=== PATIENT | female | born 1950 | race Caucasian/White ===

== ENCOUNTER → 2018-03-09 | Outpatient (CLI) | payer MEDICARE, OTHER, MEDICAID ==
[~2018-03-09] MED LIST: AC500T; ALBU17AE23; [UNRECOGNIZED DRUG - CODE]; [UNRECOGNIZED DRUG - CODE] PO; z-pack
--- NOTE | 2018-03-09 13:40 | Diagnostic Imaging Report ---
PROCEDURE: US Bilateral lower extremity arterial. TECHNIQUE: Multiple real-time grayscale images are obtained through both lower extremity arterial systems with color Doppler imaging and color Doppler spectral analysis. INDICATION: Peripheral vascular disease. FINDINGS: Monophasic flow is identified throughout both lower extremity arterial systems. There is velocity elevation in the right common femoral artery reaching 242 cm/s. Multifocal occlusions versus high-grade stenoses are identified in the bilateral superficial femoral arteries in the proximal, mid and distal locations. There is flow at the ankles bilaterally via the posterior tibial and dorsalis pedis arteries. No fluid collections are seen. IMPRESSION: Severe bilateral lower extremity arterial disease with monophasic flow bilaterally. There appear to be multifocal occlusions versus high-grade stenosis involving the superficial femoral arteries bilaterally. Dictated by: Dictated on workstation # [id number]
== END ==
LOC: RAD 10:45
PROVIDERS: ATTEND Nurse Practitioner Community Health
DX: I70.203 Unspecified atherosclerosis of native arteries of extremities, bilateral legs (principal)
CPT/HCPCS: 93925

== ENCOUNTER → 2018-05-23 | Outpatient (CLI) | payer MEDICARE, OTHER, MEDICAID ==
[~2018-05-23] MED LIST changes: +IOHEXOL 350 MG/ML 100 ML (OMNIPAQUE 350) VIAL IV ONE; +NS 100 ML (IVPB) BAG IV ONE; +RECEIVED CONTRAST (Hold Metformin) IV SCH
--- NOTE | 2018-05-23 13:41 | Diagnostic Imaging Report ---
PROCEDURE: US carotid duplex, bilateral. TECHNIQUE: Multiple real-time grayscale images were obtained over the carotid arteries in various projections, bilaterally. Additional spectral analysis and color Doppler duplex images were also obtained. INDICATION: Visual changes. FINDINGS: Minimal plaquing in the proximal internal carotid arteries bilaterally is noted. The velocities are normal bilaterally. No velocity elevation or stenosis is seen. Both vertebral arteries show antegrade flow. IMPRESSION: No evidence of a hemodynamically significant stenosis. Parameters based on the consensus panel Fragoso-Scale and Doppler ultrasound criteria published March 2003, Radiology, Volume 229. DOPPLER (peak systolic velocity M/S Right Left CCA 0.69 0.80 ICA Proximal 0.89 0.83 ICA Mid 0.97 1.1 ICA Distal 0.81 1.0 RATIO 1.4 1.3 ECA 1.1 1.3 VERT 0.82 0.61 Dictated by: Dictated on workstation # [id number]
--- NOTE | 2018-05-23 14:10 | Diagnostic Imaging Report ---
PROCEDURE: CT head without contrast. TECHNIQUE: Multiple contiguous axial images were obtained through the brain without the use of intravenous contrast. INDICATION: Balance disturbance as well as left side visual problems and vomiting. COMPARISON: No prior studies are available for comparison. FINDINGS: The ventricles and sulci are within normal limits. No sulcal effacement, midline shift or hemorrhage is detected. Cisterns are patent. The visualized paranasal sinuses are clear. IMPRESSION: No acute intracranial process is detected. Dictated by: Dictated on workstation # [id number]
== END ==
LOC: RAD 12:10
PROVIDERS: ATTEND Nurse Practitioner Community Health
DX: H53.9 Unspecified visual disturbance (principal); R51 Headache
CPT/HCPCS: 70450; 93880

== ENCOUNTER → 2021-02-05 | Outpatient (CLI) | payer MEDICARE, OTHER, MEDICAID ==
[~2021-02-05] MED LIST changes: -IOHEXOL 350 MG/ML 100 ML (OMNIPAQUE 350) VIAL IV ONE; -NS 100 ML (IVPB) BAG IV ONE; -RECEIVED CONTRAST (Hold Metformin) IV SCH
== END ==
LOC: CARD 11:39
PROVIDERS: ATTEND Pediatrics
DX: I11.9 Hypertensive heart disease without heart failure (principal); I35.1 Nonrheumatic aortic (valve) insufficiency
CPT/HCPCS: 93306

== ENCOUNTER 2022-10-09 17:47 | Inpatient (IN) | payer MEDICARE, OTHER, MEDICAID ==
[~2022-10-09] VITALS: Ht 182 cm; Wt 120.0 kg
[2022-10-09] MEDS ORDERED: VANCOMYCIN INJECTION 1,000 MG in NS (IVPB) 250 ML IV ONE (18:15)
[2022-10-09] MEDS ORDERED: PIPERACILLIN SODIUM/TAZOBACTAM 4.5 GM in NS (IVPB) 100 ML IV ONE (18:15)
--- NOTE | 2022-10-09 18:45 | ED Lower Extremity ---
General Chief Complaint: Skin/Wound Problems Stated Complaint: FOOT Nursing Triage Note: PT ARRIVED PER EMS, PT CO OF FOOT PAIN, PT STATES DOG STEPPED ON FOOT 2 WEEKS AGO. PT L GREAT TOE IS BLACK NECROTIC AND HAS MAGGOTS CRAWLING OUT OF TOES. PT R FOOT HAS VERY LARGE BLISTER ON R GREAT TOE. PT HAS CO OF PAIN 10/10. PT ALSO HAS VERY LARGE AREAS OF EXCORIATION BELOW BOTH BREASTS. PT HAS LARGE AREA OF EXCORIATION L PANIS AREA Source: patient Exam Limitations: no limitations History of Present Illness Date Seen by Provider: Oct 09, 2022 Time Seen by Provider: 18:03 Initial Comments 71 yo F here for b/l foot infection. 2 weeks ago her 150lb dog sat on her feet, placing its paws on her great toes b/l. He pushed off suddenly causing the skin to tear on each side. Since that time she has had progressively worsening pain, swelling, purulent drainage. Denies DM. No recent abx. other systems reviewed and negative except per HPI. Allergies and Home Medications Allergies Coded Allergies: Tetanus Vaccines and Toxoid (Unverified Allergy, Severe, extreme redness in arms, 11/23/09) amoxicillin (Unverified Allergy, Unknown, 05/23/18) aspirin (Unverified Allergy, Unknown, 05/23/18) clavulanic acid (Unverified Allergy, Unknown, 05/23/18) diphenhydramine (Unverified Allergy, Unknown, 05/23/18) iodine (Verified Allergy, Unknown, 10/09/22) Uncoded Allergies: BEE STINGS (Allergy, Severe, closes throat, 11/23/09) CILANTRO (Allergy, Unknown, 10/09/22) TUMERIC (Allergy, Unknown, 10/09/22) Patient Home Medication List Home Medication List Reviewed: Yes Acetaminophen (Tylenol) 500 Mg Tablet, (Reported) Entered as Reported by: MÓNICA DELGADO on 10/11/09 1337 Levodopa/Carbidopa (Sinemet) 1 Ea Tab, 1 EA PO WM, (Reported) Entered as Reported by: MÓNICA DELGADO on 12/31/10 1600 Review of Systems Constitutional: see HPI Past Nnaehcv-Jeqdpw-Uzzkfv Hx Patient Social History Tobacco Use?: Yes Tobacco type used: Cigarettes Smoking Status: Current Everyday Smoker Substance use?: Yes Substance type: Marijuana Alcohol Use?: No Pt feels they are or have been: No Past Medical History Surgery/Hospitalization HX: HYST, R ANKLE , T AND A, GB, L TKR, HIP SURG, Reproductive Disorders: Yes Physical Exam Vital Signs Vital Signs - First Documented 10/09/22 10/09/22 17:55 19:47 Temp 37.0 Pulse 80 Resp 18 B/P (MAP) 163/76 (105) Pulse Ox 95 O2 Delivery Room Air Capillary Refill : Less Than 3 Seconds Height, Weight, BMI Height: '" Weight: lbs. oz. kg; 35.00 BMI Method:Stated General Appearance: WD/WN, no apparent distress HEENT: normal ENT inspection, pharynx normal Neck: non-tender, full range of motion, supple, normal inspection Cardiovascular: regular rate, rhythm, no murmur Respiratory: lungs clear, normal breath sounds, no respiratory distress, no accessory muscle use, other (severe fungal rash beneath both breasts. ) Gastrointestinal: normal bowel sounds, non tender, soft, no organomegaly Hips: bilateral hip non-tender, bilateral hip normal inspection, bilateral hip normal range of motion Legs: bilateral leg non-tender, bilateral leg normal inspection, bilateral leg normal range of motion Knees: bilateral knee non-tender, bilateral knee normal inspection, bilateral knee normal range of motion Ankles: bilateral ankle non-tender, bilateral ankle normal inspection, bilateral ankle normal range of motion Feet: right foot other (Dry gangrene L great toe) Neurologic/Psychiatric: alert, oriented x 3 Skin: other (as above) Progress/Results/Core Measures Results/Orders Lab Results Laboratory Tests Test 10/09/22 18:43 Range/Units White Blood Count 10.0 4.3-11.0 10^3/uL Red Blood Count 4.16 3.80-5.11 10^6/uL Hemoglobin 12.7 11.5-16.0 g/dL Hematocrit 39 35-52 % Mean Corpuscular Volume 93 80-99 fL Mean Corpuscular Hemoglobin 31 25-34 pg Mean Corpuscular Hemoglobin Concent 33 32-36 g/dL Red Cell Distribution Width 14.7 H 10.0-14.5 % Platelet Count 273 130-400 10^3/uL Mean Platelet Volume 10.2 9.0-12.2 fL Immature Granulocyte % (Auto) 0 % Neutrophils (%) (Auto) 78 H 42-75 % Lymphocytes (%) (Auto) 11 L 12-44 % Monocytes (%) (Auto) 9 0-12 % Eosinophils (%) (Auto) 1 0-10 % Basophils (%) (Auto) 1 0-10 % Neutrophils # (Auto) 7.8 1.8-7.8 10^3/uL Lymphocytes # (Auto) 1.1 1.0-4.0 10^3/uL Monocytes # (Auto) 0.9 0.0-1.0 10^3/uL Eosinophils # (Auto) 0.1 0.0-0.3 10^3/uL Basophils # (Auto) 0.1 0.0-0.1 10^3/uL Immature Granulocyte # (Auto) 0.0 0.0-0.1 10^3/uL Prothrombin Time 13.4 12.2-14.7 SEC INR Comment 1.0 0.8-1.4 Activated Partial Thromboplast Time 35 24-35 SEC Sodium Level 137 135-145 MMOL/L Potassium Level 4.0 3.6-5.0 MMOL/L Chloride Level 104 98-107 MMOL/L Carbon Dioxide Level 21 21-32 MMOL/L Anion Gap 12 5-14 MMOL/L Blood Urea Nitrogen 18 7-18 MG/DL Creatinine 0.77 0.60-1.30 MG/DL Estimat Glomerular Filtration Rate 83 BUN/Creatinine Ratio 23 Glucose Level 106 H 70-105 MG/DL Lactic Acid Level 1.38 0.50-2.00 MMOL/L Calcium Level 9.1 8.5-10.1 MG/DL Corrected Calcium 9.6 8.5-10.1 MG/DL Total Bilirubin 0.6 0.1-1.0 MG/DL Aspartate Amino Transf (AST/SGOT) 17 5-34 U/L Alanine Aminotransferase (ALT/SGPT) < 6 0-55 U/L Alkaline Phosphatase 63 40-136 U/L Total Protein 6.7 6.4-8.2 GM/DL Albumin 3.4 3.2-4.5 GM/DL My Orders Orders - JALYNLULA DO Cbc With Automated Diff (10/09/22 18:11) Comprehensive Metabolic Panel (10/09/22 18:11) Blood Culture (10/09/22 18:11) Protime With Inr (10/09/22 18:11) Partial Thromboplastin Time (10/09/22 18:11) Ed Iv/Invasive Line Start (10/09/22 18:11) Vital Signs Adult Sepsis Patie Q15M (10/09/22 18:11) Lactic Acid Analyzer (10/09/22 18:11) Piperacillin Sodium/Tazobactam (Zosyn Vi (10/09/22 18:15) Vancomycin Injection (Vancomycin Injecti (10/09/22 18:15) Foot, Bilateral, 3 View (10/09/22 18:11) Ed Admission (Communication) (10/09/22 19:28) Fentanyl Inj (Sublimaze Injection) (10/09/22 20:00) Medications Given in ED Current Medications Medications Dose Ordered Sig/Gamaliel Route Start Time Stop Time Status Last Admin Dose Admin Fentanyl Citrate 50 mcg ONCE ONCE IVP 10/09/22 20:00 10/09/22 20:01 DC 10/09/22 19:59 50 MCG Piperacillin Sod/ Tazobactam Sod 4.5 gm/Sodium Chloride 100 ml @ 200 mls/hr ONCE ONCE IV 10/09/22 18:15 10/09/22 18:44 DC 10/09/22 19:30 200 MLS/HR Vancomycin HCl 1000 mg/Sodium Chloride 250 ml @ 250 mls/hr ONCE ONCE IV 10/09/22 18:15 10/09/22 19:14 DC 10/09/22 22:06 250 MLS/HR Vital Signs/I&O 10/09/22 10/09/22 17:55 19:47 Temp 37.0 Pulse 80 81 Resp 18 18 B/P (MAP) 163/76 (105) 190/73 Pulse Ox 95 97 O2 Delivery Room Air Blood Pressure Mean: 105 Departure Communication (Admissions) Patient has significant white gangrene with dry gangrene on the other foot. She is given broad-spectrum antibiotics and admitted with a surgical consult. Her blood sugars are normal. No evidence for septic type infection. The areas of wet gangrene will likely require amputation. I discussed this with the patient and she has very reluctant and only wishes IV antibiotics at this point he is not even willing to talk about surgical options. I did tell her that we had consulted general surgery and they will be speaking with her. She states understanding. She is admitted in otherwise stable condition. Impression Primary Impression: Wet gangrene Additional Impression: Dry gangrene Disposition: ADMITTED INPATIENT Condition: Stable Departure-Patient Inst. Referrals: [facility] (PCP) Primary Care Physician ROMAN WISDOM (Family) Primary Care Physician LULA GUNDERSON DO Oct 09, 2022 18:45
[2022-10-09 19:00] LABS: BASOPHILS # (AUTO) 0.1 10^3/uL (0.0-0.1); BASOPHILS % (AUTO) 1 % (0-10); EOSINOPHILS # (AUTO) 0.1 10^3/uL (0.0-0.3); EOSINOPHILS % (AUTO) 1 % (0-10); HEMATOCRIT 39 % (35-52); HEMOGLOBIN 12.7 g/dL (11.5-16.0); LYMPHOCYTES # (AUTO) 1.1 10^3/uL (1.0-4.0); LYMPHOCYTES % (AUTO) 11 % (12-44); MEAN CORPUSCULAR HEMOGLOBIN 31 pg (25-34); MEAN CORPUSCULAR HGB CONC 33 g/dL (32-36); MEAN CORPUSCULAR VOLUME 93 fL (80-99); MEAN PLATELET VOLUME 10.2 fL (9.0-12.2); MONOCYTES # (AUTO) 0.9 10^3/uL (0.0-1.0); MONOCYTES % (AUTO) 9 % (0-12); NEUTROPHILS # (AUTO) 7.8 10^3/uL (1.8-7.8); NEUTROPHILS % (AUTO) 78 % (42-75); PLATELET COUNT 273 10^3/uL (130-400)
[2022-10-09 19:10] LABS: ALBUMIN 3.4 GM/DL (3.2-4.5); CHLORIDE 104 MMOL/L (98-107); SODIUM 137 MMOL/L (135-145)
[2022-10-09 19:12] LABS: CALCIUM 9.1 MG/DL (8.5-10.1)
--- NOTE | 2022-10-09 19:12 | Diagnostic Imaging Report ---
EXAMINATION: Left foot radiograph, 3 views. Right foot radiographs, 3 views. COMPARISON: None. HISTORY: 71-year-old female, bilateral foot pain. FINDINGS: There is lucency at the level of the soft tissues of the left first distal phalanx which could relate to soft tissue wound or abnormal soft tissue gas. There is no identified cortical or aggressive bone destruction or periosteal reaction. There is a bipartite medial sesamoid on the left. The joint spaces appear well preserved. There is degenerative type enthesopathy at the left Achilles tendon insertion. There is dorsal soft tissue swelling at the level of the metatarsals on the left. There is a bipartite medial sesamoid on the right. There is no identified cortical or aggressive bone destruction or periosteal reaction. Joint spaces are fairly well preserved. There is also nonspecific dorsal soft tissue swelling at the level of the metatarsals on the right. IMPRESSION: 1. No radiographic evidence of osteomyelitis or other acute bony abnormality of either foot. 2. Abnormal lucency within the soft tissues at the level of the left first distal phalanx which may reflect soft tissue wound and/or soft tissue gas. 3. No identified radiopaque foreign body. Dictated by: Dictated on workstation # [id number]
[2022-10-09 19:13] LABS: GLUCOSE 106 MG/DL (70-105); PROTHROMBIN TIME PATIENT 13.4 SEC (12.2-14.7); TOTAL PROTEIN 6.7 GM/DL (6.4-8.2)
[2022-10-09 19:14] LABS: CARBON DIOXIDE 21 MMOL/L (21-32)
[2022-10-09 19:15] LABS: BILIRUBIN,TOTAL 0.6 MG/DL (0.1-1.0)
[2022-10-09 19:16] LABS: ALKALINE PHOSPHATASE 63 U/L (40-136)
[2022-10-09 19:17] LABS: CREATININE SERUM 0.77 MG/DL (0.60-1.30); GFR ESTIMATED 83
[2022-10-09 19:18] LABS: BUN/CREATININE RATIO 23
[2022-10-09 19:19] LABS: ALANINE AMINOTRANSFERASE < 6 U/L (0-55)
[2022-10-09] MEDS ORDERED: fentaNYL INJ 100 MCG/2 ML AMP IVP ONE (20:00)
[2022-10-09 21:05] VITALS: BP 229/93
[2022-10-09] MEDS ORDERED: ALPRAZolam 0.5 MG (XANAX) TAB PO PRN (21:15)
[2022-10-09] MEDS ORDERED: VANCOMYCIN INJECTION 0.1 MG in NS (IVPB) 250 ML IV SCH (21:15)
[2022-10-09] MEDS ORDERED: ACETAMINOPHEN 325 MG TABLET PO PRN (21:15)
[2022-10-09] MEDS ORDERED: MELATONIN 3 MG TABLET PO PRN (21:15)
[2022-10-09] MEDS ORDERED: LACTULOSE SYRUP 10GM/15ML (ENULOSE) 30ML UDC PO PRN (21:15)
[2022-10-09] MEDS ORDERED: BISACODYL 10 MG SUPP (DULCOLAX) PR PRN (21:15)
[2022-10-09] MEDS ORDERED: ANTACID SUSP 30 ML UDC (MYLANTA) PO PRN (21:15)
[2022-10-09] MEDS ORDERED: ONDANSETRON 4 MG/2 ML (SDV) Z0FRAN IV PRN (21:15)
[2022-10-09] MEDS ORDERED: ONDANSETRON 4 MG (ZOFRAN) ORAL DISSOLVE TAB PO PRN (21:15)
[2022-10-09] MEDS ORDERED: MILK OF MAGNESIA 400 MG/5 ML 30 ML UDC PO PRN (21:15)
[2022-10-09] MEDS ORDERED: ENOXAPARIN 40 MG/0.4 ML (LOVENOX) SYR SC ONE (21:15)
[2022-10-09] MEDS ORDERED: CALCIUM CARBONATE 500 MG (TUMS) TAB.CHEW PO PRN (21:15)
[2022-10-09] MEDS ORDERED: polyethylene glycoL POWDER 17 GM (MIRALAX) PACK PO PRN (21:15)
[2022-10-09] MEDS ORDERED: VANCOMYCIN 1250MG/250ML PREMIX 250 ML IV ONE (21:30)
[2022-10-09 21:45] VITALS: BP 149/63
[2022-10-09 21:54] VITALS: BP 229/93
[2022-10-09] MEDS ORDERED: RT-ALBUTEROL/IPRATROPIUM 3 ML (DUONEB) VIAL INH PRN (22:00)
[2022-10-09] MEDS: NS IV 1000 ML 1,000 ML IV SCH (22:26)
--- NOTE | 2022-10-09 23:07 | CONSULTATION REPORT ---
DATE OF SERVICE: 10/09/2022 ATTENDING PRINTING EQUIPMENT MECHANIC: Shirley Samayoa APRN ADMITTING PHYSICIAN: Itzel Goodwin DO HISTORY OF PRESENT ILLNESS: The patient is a 71-year-old female who was brought in by EMS with complaints of left foot pain. The patient states that a dog stepped on her foot 2 weeks ago and then she developed a dark coloration of the left great toe and the surrounding tissue also became necrotic. The patient was evaluated in the Emergency Department where there was soft tissue necrosis of the left great toe as well as an infestation of fly larva indicating significant necrosis of soft tissue and extremely poor hygiene. An x-ray was performed to the foot, which did not show any signs of osteomyelitis. PAST MEDICAL HISTORY: Degenerative joint disease and morbid obesity. ALLERGIES: TETANUS VACCINE AND TOXOID, AMOXICILLIN, ASPIRIN, CLAVULANIC ACID, DIPHENHYDRAMINE, IODINE. MEDICATIONS: 1. Acetaminophen p.r.n. 2. Levodopa/carbidopa daily. PAST SURGICAL HISTORY: Hysterectomy, tonsillectomy, laparoscopic cholecystectomy, left total knee arthroplasty, hip surgery, right ankle surgery. SOCIAL HISTORY: Positive smoke 45-pack years, positive for marijuana use. FAMILY HISTORY: Noncontributory. VITAL SIGNS: Temperature 36.4, blood pressure 229/93, pulse 80, respirations 18, pulse ox 93% on room air. REVIEW OF SYSTEMS: Well-nourished female, currently guarded secondary to the left great toe pain. She does not report any shortness of breath or difficulty breathing. No chest pain, palpitations, diaphoresis. No nausea, vomiting. No diarrhea or constipation. No fever, chills, no recent inadvertent weight loss. All other review of systems negative. PHYSICAL EXAMINATION: CHEST: Few scattered rales bilaterally. HEART: Regular. No murmurs. EXTREMITIES: +1/3 bilateral lower extremity edema. Negative Homans sign. HEENT: No scleral icterus. No cervical lymphadenopathy. ABDOMEN: Soft, nontender, nondistended. SKIN: Along the left great toe extending into the metacarpophalangeal joint is a wet necrotic tissue with scattered fly larva. LABORATORY DATA: WBC 10.0, hemoglobin 12.7, hematocrit 39, platelets 273. BUN 18, creatinine 0.77, glucose 106. ASSESSMENT AND PLAN: A 71-year-old female with a wet necrosis of the left great toe, dry necrosis of right great toe and changes consistent with arterial insufficieny bilatera lower extremities. She will be admitted, resuscitated and started on broad spectrum IV antibiotics. On this admission, she also may need further workup to rule out osteomyelitis including an MRI. If there is no osteomyelitis, we will then proceed with a wide debridement of all the necrotic tissue of the great toe and then initiate wound care to allow for granulation and epithelialization. She will also need PVR's to evaluate for arterial insufficiency and at what levels and if present, then consult cardiology for possible angioplasty and/or stent placement. Job ID: [id number] DocumentID: [id number] Dictated Date: 10/09/2022 22:45:30 Parts Assembler Date: 10/09/2022 23:05:00 Dictated By: RUDY MARRERO MD MTDJeannie
[2022-10-10] VITALS (7 sets, daily range): BP systolic 104–179; BP diastolic 57–73
[2022-10-10] MEDS: CEFEPIME INJECTION 1,000 MG in NS (IVPB) 50 ML IV SCH ×5 (00:58→21:34)
[2022-10-10 05:20] LABS: BASOPHILS # (AUTO) 0.1 10^3/uL (0.0-0.1); BASOPHILS % (AUTO) 1 % (0-10); EOSINOPHILS # (AUTO) 0.2 10^3/uL (0.0-0.3); EOSINOPHILS % (AUTO) 2 % (0-10); HEMATOCRIT 36 % (35-52); HEMOGLOBIN 11.8 g/dL (11.5-16.0); LYMPHOCYTES # (AUTO) 0.8 10^3/uL (1.0-4.0); LYMPHOCYTES % (AUTO) 10 % (12-44); MEAN CORPUSCULAR HEMOGLOBIN 31 pg (25-34); MEAN CORPUSCULAR HGB CONC 33 g/dL (32-36); MEAN CORPUSCULAR VOLUME 93 fL (80-99); MEAN PLATELET VOLUME 9.8 fL (9.0-12.2); MONOCYTES # (AUTO) 0.8 10^3/uL (0.0-1.0); MONOCYTES % (AUTO) 9 % (0-12); NEUTROPHILS # (AUTO) 6.1 10^3/uL (1.8-7.8); NEUTROPHILS % (AUTO) 77 % (42-75); PLATELET COUNT 213 10^3/uL (130-400)
[2022-10-10 05:42] LABS: ALANINE AMINOTRANSFERASE < 6 U/L (0-55); ALKALINE PHOSPHATASE 75 U/L (40-136); BILIRUBIN,TOTAL 1.3 MG/DL (0.1-1.0); BUN/CREATININE RATIO 22; CALCIUM 8.3 MG/DL (8.5-10.1); CARBON DIOXIDE 21 MMOL/L (21-32); CHLORIDE 107 MMOL/L (98-107); CREATININE SERUM 0.72 MG/DL (0.60-1.30); GFR ESTIMATED 90; GLUCOSE 97 MG/DL (70-105); POTASSIUM 3.8 MMOL/L (3.6-5.0); SODIUM 138 MMOL/L (135-145); TOTAL PROTEIN 5.8 GM/DL (6.4-8.2)
[2022-10-10] MEDS: DOCUSATE SODIUM 100 MG (COLACE) CAP PO SCH ×2 (07:40→19:51)
[2022-10-10] MEDS: SENNOSIDES 8.6 MG (SENOKOT) TAB PO SCH ×2 (07:41→19:52)
[2022-10-10] MEDS: NS IV 1000 ML 1,000 ML IV SCH ×2 (08:40→16:48)
[2022-10-10] MEDS: HYDROmorphone 2 MG/ML VIAL (DILAUDID) IV PRN ×4 (08:40→19:50)
[2022-10-10] MEDS ORDERED: CARB1TAB32 PO (09:12)
[2022-10-10] MEDS ORDERED: ERGO1250 PO (09:12)
[2022-10-10] MEDS ORDERED: CARB1TAB44 PO (09:15)
[2022-10-10] MEDS ORDERED: ACET-2267 PO (09:15)
[2022-10-10] MEDS: VANCOMYCIN 1250MG/250ML PREMIX 250 ML IV SCH ×2 (10:47→22:16)
[2022-10-10] MEDS: MICONAZOLE 2% POWDER (DESENEX AF) 90 GM TOP SCH ×2 (10:49→19:51)
--- NOTE | 2022-10-10 12:05 | Wound Care Assessment ---
Wound Care Assessment Date Seen by Provider: Oct 10, 2022 Time Seen by Provider: 11:56 Chief Complaint Bilateral foot ulcers, Cutaneous candidiasis breast/groin/pannus HPI This 71 year old patient is quite a difficult case. Annabelle notes that she has had a bad experience at this hospital in the past (under the care of a physician now ). Her as a result of this experience and as such she is extremely hesitant to seek medical care in most situations. She reports that she did see Kwame Welch at [facility] about a month ago but before that has not seen a physician for most of the pandemic. She reports that she used to follow regularly with Shirley Samayoa. Shirley diagnosed her with reportedly severe PAD years ago and recommended consultation with cardiology and Pat declined (as a result of above fears). On exam today, she has what appears to be classic arterial ulcers of her L. 1 toe with dusky discoloration and blistering to all digits on the left. Her R. 1 toe also has abnormal appearance. Bilateral arterial dopplers with cardiology consultation for intervention would certainly be advisable. Dr. Sosa has assessed for surgical needs (amputation vs. de bridement) but MRI would be warranted (I agree) prior to that to evaluate the extent of her disease. Annabelle is a long time smoker and underlying comorbidities are uncertain. She does report a long h/o claudication and rest pain. Annabelle is adamant that she be consulted before further medical testing/interventions occur. When I made my recommendations (arterial evaluation, cardiology input, MRI's and surgery), her immediate reaction was that she did not want anything done and did not even want to be in the hospital. I did take time to explain the ramifications of failing to pursue treatment of her condition (eventual sepsis and ) and she is very aware of these outcomes. I did discuss hospice but currently she is declining this as well. I did not order testing today (I will recommend dressings) but I did discuss her concerns with Dr. Herbert and plan to discuss with Dr. Sosa as well. Should she pursue testing/treatment, we will move forward. If not, we will attempt to work toward an outcome at home suitable to Annabelle's wishes. Past Medical History: Admits Peripheral Artery Disease Smoking Status: Current Everyday Smoker Recreational Drug Use: Yes (Marijuana) Review of Systems Cardiovascular: Edema Musculoskeletal: leg pain, foot pain Other systems muscle cramps/spasms Exam Vital Signs Date Time Temp Pulse Resp B/P (MAP) Pulse Ox O2 Delivery O2 Flow Rate FiO2 10/10/22 09:00 Room Air 10/10/22 07:40 36.6 69 16 145/73 (97) 96 10/09/22 21:54 21 Capillary Refill : Less Than 3 Seconds General Appearance: WD/WN, no apparent distress HEENT: other (normal hearing) Respiratory: no respiratory distress, no accessory muscle use Extremities: inflammation, pedal edema Neurologic/Psychiatric: alert, oriented x 3, other (tearful at times. Good insight into her decisions) Skin: cyanosis (Black L. 1 toe and dusky discoloration to all digits) Skin Problem Location: lower extremities Skin Character: bullous (multiple toes with blistering/sloughing/degloving) Results Laboratory Tests 10/09/22 18:43: White Blood Count 10.0, Red Blood Count 4.16, Hemoglobin 12.7, Hematocrit 39, Mean Corpuscular Volume 93, Mean Corpuscular Hemoglobin 31, Mean Corpuscular Hemoglobin Concent 33, Red Cell Distribution Width 14.7H, Platelet Count 273, Mean Platelet Volume 10.2, Immature Granulocyte % (Auto) 0, Neutrophils (%) (Auto) 78H, Lymphocytes (%) (Auto) 11L, Monocytes (%) (Auto) 9, Eosinophils (%) (Auto) 1, Basophils (%) (Auto) 1, Neutrophils # (Auto) 7.8, Lymphocytes # (Auto) 1.1, Monocytes # (Auto) 0.9, Eosinophils # (Auto) 0.1, Basophils # (Auto) 0.1, Immature Granulocyte # (Auto) 0.0, Prothrombin Time 13.4, INR Comment 1.0, Activated Partial Thromboplast Time 35, Sodium Level 137, Potassium Level 4.0, Chloride Level 104, Carbon Dioxide Level 21, Anion Gap 12, Blood Urea Nitrogen 18, Creatinine 0.77, Estimat Glomerular Filtration Rate 83, BUN/Creatinine Ratio 23, Glucose Level 106H, Lactic Acid Level 1.38, Calcium Level 9.1, Corrected Calcium 9.6, Total Bilirubin 0.6, Aspartate Amino Transf (AST/SGOT) 17, Alanine Aminotransferase (ALT/SGPT) < 6, Alkaline Phosphatase 63, Total Protein 6.7, Albumin 3.4 10/10/22 05:03: White Blood Count 8.0, Red Blood Count 3.81, Hemoglobin 11.8, Hematocrit 36, Mean Corpuscular Volume 93, Mean Corpuscular Hemoglobin 31, Mean Corpuscular Hemoglobin Concent 33, Red Cell Distribution Width 14.6H, Platelet Count 213, Mean Platelet Volume 9.8, Immature Granulocyte % (Auto) 1, Neutrophils (%) (Auto) 77H, Lymphocytes (%) (Auto) 10L, Monocytes (%) (Auto) 9, Eosinophils (%) (Auto) 2, Basophils (%) (Auto) 1, Neutrophils # (Auto) 6.1, Lymphocytes # (Auto) 0.8L, Monocytes # (Auto) 0.8, Eosinophils # (Auto) 0.2, Basophils # (Auto) 0.1, Immature Granulocyte # (Auto) 0.0, Sodium Level 138, Potassium Level 3.8, Chlor geovanny Level 107, Carbon Dioxide Level 21, Anion Gap 10, Blood Urea Nitrogen 16, Creatinine 0.72, Estimat Glomerular Filtration Rate 90, BUN/Creatinine Ratio 22, Glucose Level 97, Calcium Level 8.3L, Corrected Calcium 9.1, Total Bilirubin 1.3H, Aspartate Amino Transf (AST/SGOT) 30, Alanine Aminotransferase (ALT/SGPT) < 6, Alkaline Phosphatase 75, Total Protein 5.8L, Albumin 3.0L Assessment/Plan/Dx Assessment: 1. Dry vkgzlfbo-Fay-moiuqvas ulcer of L. great toe 2. Atherosclerosis bilateral lower extremities with ulceration 3. Tobaccoism 4. Marijuana use 5. Obesity 6. Medical hesitancy 7. Candidal skin infection in skin folds Plan: 1. Should patient agree to testing and intervention: Bilateral arterial dopplers of lower extremity with resulting cardiology consultation are warranted. Agree with broad spectrum antibiotics. MRI bilateral feet to rule out osteomyelitis of digits and more. Surgery if indicated per Dr. Sosa. However, it is questionable that Annabelle wishes to pursue any of these options. She is considering currently and Dr. Herbert will confer with her again later today 2. [place] bilateral feet with betadine bid and leave open to air currently 3. Defer to primary team 4. Defer to primary team 5. Defer to primary team 6. As above 7. Miconazole powder with interdry already implemented. Diflucan would also be reasonable. Will defer to primary team. NILESH MURPHY MD Oct 10, 2022 12:05
[2022-10-10] MEDS ORDERED: PATIENT MAY USE OWN MED,SINGLE MED PO SCH (14:00)
--- NOTE | 2022-10-10 15:12 | History & Physical ---
HPI History of Present Illness: 71 yo F presented with black left great toe with swelling and cellulitis. Patient states that she thinks it started after her dog stepped on her foot. States that it has been going a while. She is only taking medications for restless legs. She is seeing Dr Moise but has not seen her for a while. States that she was previously told she had severe PAD but did not have any workup done because of fear of the hospital. Denies any previous dx of DM. She is also complaining of rash in her skin folds. States that they come and go but have been getting worse since the weather has warmed up. Source: patient Exam Limitations: no limitations Date seen by provider: Oct 10, 2022 Time Seen by Provider: 09:45 Attending Physician [place] PCP Admitting Physician: Itzel Goodwin DO Attending Physician: Birgit Herbert MD Consult Date of Admission Oct 09, 2022 at 20:13 Home Medications Home Medications Reviewed patient Home Medication Reconciliation performed by pharmacy medication reconciliations radio technician and/or nursing. Patients Allergies have been reviewed. Allergies Coded Allergies: Tetanus Vaccines and Toxoid (Unverified Allergy, Severe, extreme redness in arms, 11/23/09) amoxicillin (Unverified Allergy, Unknown, 05/23/18) aspirin (Unverified Allergy, Unknown, 05/23/18) clavulanic acid (Unverified Allergy, Unknown, 05/23/18) diphenhydramine (Unverified Allergy, Unknown, 05/23/18) iodine (Verified Allergy, Unknown, 10/09/22) Uncoded Allergies: BEE STINGS (Allergy, Severe, closes throat, 11/23/09) CILANTRO (Allergy, Unknown, 10/09/22) TUMERIC (Allergy, Unknown, 10/09/22) [facility] Hx Patient Social History Smoking Status: Current Everyday Smoker Alcohol Use?: No Substance type: Marijuana Tobacco type used: Cigarettes Immunizations Up To Date Influenza Vaccine Up-to-Date: No; Not Current Past Medical History PAD Obesity Tobacco use Review of Systems ([facility]) Constitutional: no symptoms reported; No chills, No fever EENTM: no symptoms reported; No mouth pain, No nose pain, No throat pain Respiratory: no symptoms reported; No cough, No dyspnea on exertion, No short of breath Cardiovascular: no symptoms reported; No chest pain, No edema, No palpitations Gastrointestinal: no symptoms reported; No abdominal pain, No constipation, No diarrhea, No nausea, No vomiting Genitourinary: incontinence Musculoskeletal: joint pain, muscle pain Skin: other (Left necrotic toe, intertrigo yeast in pannus and under breasts bilaterally) Psychiatric/Neurological: Anxiety Reviewed Test Results Reviewed Test Results Lab Laboratory Tests Test 10/09/22 18:43 10/10/22 05:03 Range/Units White Blood Count 10.0 8.0 4.3-11.0 10^3/uL Red Blood Count 4.16 3.81 3.80-5.11 10^6/uL Hemoglobin 12.7 11.8 11.5-16.0 g/dL Hematocrit 39 36 35-52 % Mean Corpuscular Volume 93 93 80-99 fL Mean Corpuscular Hemoglobin 31 31 25-34 pg Mean Corpuscular Hemoglobin Concent 33 33 32-36 g/dL Red Cell Distribution Width 14.7 H 14.6 H 10.0-14.5 % Platelet Count 273 213 130-400 10^3/uL Mean Platelet Volume 10.2 9.8 9.0-12.2 fL Immature Granulocyte % (Auto) 0 1 % Neutrophils (%) (Auto) 78 H 77 H 42-75 % Lymphocytes (%) (Auto) 11 L 10 L 12-44 % Monocytes (%) (Auto) 9 9 0-12 % Eosinophils (%) (Auto) 1 2 0-10 % Basophils (%) (Auto) 1 1 0-10 % Neutrophils # (Auto) 7.8 6.1 1.8-7.8 10^3/uL Lymphocytes # (Auto) 1.1 0.8 L 1.0-4.0 10^3/uL Monocytes # (Auto) 0.9 0.8 0.0-1.0 10^3/uL Eosinophils # (Auto) 0.1 0.2 0.0-0.3 10^3/uL Basophils # (Auto) 0.1 0.1 0.0-0.1 10^3/uL Immature Granulocyte # (Auto) 0.0 0.0 0.0-0.1 10^3/uL Prothrombin Time 13.4 12.2-14.7 SEC INR Comment 1.0 0.8-1.4 Activated Partial Thromboplast Time 35 24-35 SEC Sodium Level 137 138 135-145 MMOL/L Potassium Level 4.0 3.8 3.6-5.0 MMOL/L Chloride Level 104 107 98-107 MMOL/L Carbon Dioxide Level 21 21 21-32 MMOL/L Anion Gap 12 10 5-14 MMOL/L Blood Urea Nitrogen 18 16 7-18 MG/DL Creatinine 0.77 0.72 0.60-1.30 MG/DL Estimat Glomerular Filtration Rate 83 90 BUN/Creatinine Ratio 23 22 Glucose Level 106 H 97 70-105 MG/DL Lactic Acid Level 1.38 0.50-2.00 MMOL/L Calcium Level 9.1 8.3 L 8.5-10.1 MG/DL Corrected Calcium 9.6 9.1 8.5-10.1 MG/DL Total Bilirubin 0.6 1.3 H 0.1-1.0 MG/DL Aspartate Amino Transf (AST/SGOT) 17 30 5-34 U/L Alanine Aminotransferase (ALT/SGPT) < 6 < 6 0-55 U/L Alkaline Phosphatase 63 75 40-136 U/L Total Protein 6.7 5.8 L 6.4-8.2 GM/DL Albumin 3.4 3.0 L 3.2-4.5 GM/DL Physical Exam-([facility]) Physical Exam Vital Signs VS - Last 72 Hours, by Label 10/09/22 10/09/22 10/09/22 10/09/22 17:55 19:47 21:05 21:45 Temp 37.0 36.4 Pulse 80 81 80 Resp 18 18 18 B/P (MAP) 163/76 (105) 190/73 229/93 (138) 149/63 (91) Pulse Ox 95 97 93 O2 Delivery Room Air Room Air 10/09/22 10/09/22 10/10/22 10/10/22 21:54 22:47 00:22 01:00 Temp 36.4 36.8 Pulse 80 77 70 73 Resp 18 B/P (MAP) 179/64 (102) Pulse Ox 93 96 O2 Delivery Room Air FiO2 21 10/10/22 10/10/22 10/10/22 10/10/22 04:00 07:40 09:00 12:00 Temp 36.8 36.6 36.8 Pulse 70 69 72 Resp 18 16 18 B/P (MAP) 176/68 (104) 145/73 (97) 106/57 (73) Pulse Ox 96 96 92 O2 Delivery Room Air Room Air Room Air Room Air 10/10/22 12:50 Pulse 65 Capillary Refill : Less Than 3 Seconds General Appearance: WD/WN, no apparent distress HEENT: PERRL/EOMI Neck: non-tender, full range of motion, supple Respiratory: lungs clear, normal breath sounds, no respiratory distress, no accessory muscle use Cardiovascular: regular rate, rhythm, no murmur Gastrointestinal: normal bowel sounds, non tender, soft Extremities: other (Left necrotic great toe with associated swelling and erythema, erythematous, moist rash in skin folds with satelite lesions) Lymphatic: no adenopathy Assessment/Plan Assessment/Plan Admission Status: Inpatient Order (span 2 midnights) Reason for Inpatient Admission: Needs futher workup and close monitoring (1) Dry gangrene Status: Acute Assessment & Plan: - Wound consult place, appreciate recommendations, Dr Velazquez recommends further arterial studies prior to any intervention, continue IV antibiotics at this time (2) Cellulitis of left foot Status: Acute (3) PAD (peripheral artery disease) Status: Chronic Assessment & Plan: - Discussed the need for smoking cessation (4) Intertriginous candidiasis Status: Acute Assessment & Plan: - Diflucan started, continue topical anti fungal as well, keep area dry (5) Tobacco abuse Status: Chronic Clinical Quality Measures DVT/VTE Risk/Contraindication: Contraindications-Pharm: Other *list below* Contraindications-Mechi: Other *list below* Other: surgery tomorrow and bilateral gangrene of toes Copy Copies To 1: FRANK MOISE HOLLY R MD Oct 10, 2022 15:12
[2022-10-10] MEDS: fluCOnazole (DIFLUCAN) 100 MG TAB PO SCH (15:32)
[2022-10-10] MEDS: SINEMET 25/100 (CARBIDOPA/LEVODOPA) TAB PO PRN (17:46)
[2022-10-11 03:32] VITALS: BP 125/75
[2022-10-11] MEDS: CEFEPIME INJECTION 1,000 MG in NS (IVPB) 50 ML IV SCH ×3 (03:50→15:53)
[2022-10-11] MEDS: NS IV 1000 ML 1,000 ML IV SCH (03:50)
[2022-10-11] MEDS: SINEMET 25/100 (CARBIDOPA/LEVODOPA) TAB PO PRN ×4 (03:51→17:13)
[2022-10-11 05:04] LABS: BASOPHILS % (AUTO) 0 % (0-10); EOSINOPHILS # (AUTO) 0.1 10^3/uL (0.0-0.3); EOSINOPHILS % (AUTO) 1 % (0-10); HEMATOCRIT 35 % (35-52); HEMOGLOBIN 11.5 g/dL (11.5-16.0); LYMPHOCYTES # (AUTO) 1.1 10^3/uL (1.0-4.0); LYMPHOCYTES % (AUTO) 12 % (12-44); MEAN CORPUSCULAR HEMOGLOBIN 31 pg (25-34); MEAN CORPUSCULAR HGB CONC 33 g/dL (32-36); MEAN CORPUSCULAR VOLUME 95 fL (80-99); MEAN PLATELET VOLUME 10.3 fL (9.0-12.2); MONOCYTES # (AUTO) 0.8 10^3/uL (0.0-1.0); MONOCYTES % (AUTO) 9 % (0-12); NEUTROPHILS # (AUTO) 7.2 10^3/uL (1.8-7.8); NEUTROPHILS % (AUTO) 77 % (42-75); PLATELET COUNT 209 10^3/uL (130-400); WHITE BLOOD COUNT 9.3 10^3/uL (4.3-11.0)
[2022-10-11 05:11] LABS: ALBUMIN 3.1 GM/DL (3.2-4.5)
[2022-10-11 05:12] LABS: POTASSIUM 3.8 MMOL/L (3.6-5.0)
[2022-10-11 05:13] LABS: CALCIUM 8.5 MG/DL (8.5-10.1)
[2022-10-11 05:14] LABS: TOTAL PROTEIN 6.2 GM/DL (6.4-8.2)
[2022-10-11 05:18] LABS: CREATININE SERUM 0.71 MG/DL (0.60-1.30)
[2022-10-11 07:06] VITALS: BP 138/77
[2022-10-11] MEDS ORDERED: TROUGH ORDER-PHARMACY XX ONE (09:00)
[2022-10-11] MEDS: MICONAZOLE 2% POWDER (DESENEX AF) 90 GM TOP SCH (09:55)
[2022-10-11] MEDS: fluCOnazole (DIFLUCAN) 100 MG TAB PO SCH (09:55)
[2022-10-11] MEDS: DOCUSATE SODIUM 100 MG (COLACE) CAP PO SCH (09:55)
[2022-10-11] MEDS: SENNOSIDES 8.6 MG (SENOKOT) TAB PO SCH (09:55)
[2022-10-11 12:10] VITALS: BP 132/77
[2022-10-11] MEDS: HYDROmorphone 2 MG/ML VIAL (DILAUDID) IV PRN (13:25)
--- NOTE | 2022-10-11 13:30 | Progress Note ---
Subjective Subjective/Events-last exam Patient upset and confused this AM. She is on edge and concerned people are doing things to her that she does not want. States that she just wants to go home and have a cigrette. Tolerating PO diet. She wants the ramirez out. Review of Systems General: Fatigue Pulmonary: No Dyspnea, No Cough Cardiovascular: Edema; No: Chest Pain, Palpitations Gastrointestinal: No: Nausea, Vomiting, Abdominal Pain, Diarrhea, Constipation Neurological: Weakness Focused Exam Lactate Level 10/09/22 18:43: Lactic Acid Level 1.38 Objective Exam Last Set of Vital Signs Vital Signs Date Time Temp Pulse Resp B/P (MAP) Pulse Ox O2 Delivery O2 Flow Rate FiO2 10/11/22 12:10 36.4 71 16 132/77 (95) 96 Room Air 10/11/22 08:00 0.00 10/09/22 21:54 21 Capillary Refill : Less Than 3 Seconds I&O Intake and Output 10/11/22 00:00 Intake Total 1330 ml Output Total 520 ml Balance 810 ml Intake Oral 680 ml IV Total 650 ml Output Urine Total 520 ml # Voids 2 General: Alert, No Acute Distress, Other (disoriented on place) Lungs: Clear to Auscultation, Normal Air Movement Heart: Regular Rate, No Murmurs Abdomen: Soft, No Tenderness Extremities: Other (Black left great toe with erythema and pitting edema in foot, foul odor) Neuro: Normal Speech Results/Procedures Lab Laboratory Tests 10/11/22 04:12: White Blood Count 9.3, Red Blood Count 3.72L, Hemoglobin 11.5, Hematocrit 35, Mean Corpuscular Volume 95, Mean Corpuscular Hemoglobin 31, Mean Corpuscular Hemoglobin Concent 33, Red Cell Distribution Width 14.8H, Platelet Count 209, Mean Platelet Volume 10.3, Immature Granulocyte % (Auto) 1, Neutrophils (%) (Auto) 77H, Lymphocytes (%) (Auto) 12, Monocytes (%) (Auto) 9, Eosinophils (%) (Auto) 1, Basophils (%) (Auto) 0, Neutrophils # (Auto) 7.2, Lymphocytes # (Auto) 1.1, Monocytes # (Auto) 0.8, Eosinophils # (Auto) 0.1, Basophils # (Auto) 0.0, Immature Granulocyte # (Auto) 0.1, Sodium Level 137, Potassium Level 3.8, Chloride Level 106, Carbon Dioxide Level 19L, Anion Gap 12, Blood Urea Nitrogen 15, Creatinine 0.71, Estimat Glomerular Filtration Rate 92, BUN/Creatinine Ratio 21, Glucose Level 84, Calcium Level 8.5, Corrected Calcium 9.2, Total Bilirubin 1.0, Aspartate Amino Transf (AST/SGOT) 62H, Alanine Aminotransferase (ALT/SGPT) 15, Alkaline Phosphatase 144H, Total Protein 6.2L, Albumin 3.1L 10/11/22 11:05: Vancomycin Level Trough 20.1H 10/11/22 11:08: Glucometer 115H Microbiology 10/09/22 Blood Culture - Preliminary, Resulted No growth Assessment/Plan Assessment/Plan (1) Dry gangrene Status: Acute Assessment & Plan: - Wound consult place, appreciate recommendations, Dr Velazquez recommends further arterial studies prior to any intervention, continue IV antibiotics at this time 10/11: Patient to get arterial dopplers today, continue IV antibiotics, A1c 5.0 (2) Cellulitis of left foot Status: Acute (3) PAD (peripheral artery disease) Status: Chronic Assessment & Plan: - Discussed the need for smoking cessation (4) Intertriginous candidiasis Status: Acute Assessment & Plan: - Diflucan started, continue topical anti fungal as well, keep area dry (5) Tobacco abuse Status: Chronic Clinical Quality Measures DVT/VTE Risk/Contraindication: Contraindications-Pharm: Other *list below* Contraindications-Mechi: Other *list below* Other: surgery tomorrow and bilateral gangrene of toes EVELYN LOPEZ MD Oct 11, 2022 13:30
[2022-10-11 15:33] VITALS: BP 131/74
--- NOTE | 2022-10-11 15:48 | Progress Note ---
Subjective Date Seen by a Provider: Oct 11, 2022 Time Seen by a Provider: 15:00 Subjective/Events-last exam patient very adamant about not staying and will proceed with the proper steps as an outpatient including MRI. Focused Exam Lactate Level 10/09/22 18:43: Lactic Acid Level 1.38 Objective Exam Vital Signs Date Time Temp Pulse Resp B/P (MAP) Pulse Ox O2 Delivery O2 Flow Rate FiO2 10/11/22 12:10 36.4 71 16 132/77 (95) 96 Room Air 10/11/22 08:00 95 Room Air 0.00 10/11/22 07:17 95 Room Air 0.00 10/11/22 07:06 36.5 70 18 138/77 (97) 92 Room Air 10/11/22 03:32 36.3 76 18 125/75 (92) 95 Room Air 10/11/22 00:06 64 10/10/22 23:43 36.8 70 18 104/66 (79) 93 Room Air 10/10/22 20:01 37.0 69 18 138/61 (86) 92 Room Air 10/10/22 20:00 Room Air 10/10/22 19:25 Room Air 10/10/22 19:00 69 10/10/22 16:45 36.8 76 18 125/57 (79) 91 Room Air I & O 10/11/22 07:00 Intake Total 2780.125 ml Output Total 720 ml Balance 2060.125 ml Capillary Refill : Less Than 3 Seconds General Appearance: No Apparent Distress HEENT: PERRL/EOMI Neck: Full Range of Motion Respiratory: Chest Non Tender, Decreased Breath Sounds, Wheezing Cardiovascular: Regular Rate, Rhythm Gastrointestinal: normal bowel sounds, non tender, soft Extremity: Pedal Edema, Other (necosis bilateral great toes with skin changes consistent with arterial insuff) Neurologic/Psychiatric: Alert, Oriented x3 Skin: Normal Color Lymphatic: No Adenopathy Results Lab Laboratory Tests 10/11/22 04:12: White Blood Count 9.3, Red Blood Count 3.72L, Hemoglobin 11.5, Hematocrit 35, Mean Corpuscular Volume 95, Mean Corpuscular Hemoglobin 31, Mean Corpuscular Hemoglobin Concent 33, Red Cell Distribution Width 14.8H, Platelet Count 209, Mean Platelet Volume 10.3, Immature Granulocyte % (Auto) 1, Neutrophils (%) (Auto) 77H, Lymphocytes (%) (Auto) 12, Monocytes (%) (Auto) 9, Eosinophils (%) (Auto) 1, Basophils (%) (Auto) 0, Neutrophils # (Auto) 7.2, Lymphocytes # (Auto) 1.1, Monocytes # (Auto) 0.8, Eosinophils # (Auto) 0.1, Basophils # (Auto) 0.0, Immature Granulocyte # (Auto) 0.1, Sodium Level 137, Potassium Level 3.8, Chloride Level 106, Carbon Dioxide Level 19L, Anion Gap 12, Blood Urea Nitrogen 15, Creatinine 0.71, Estimat Glomerular Filtration Rate 92, BUN/Creatinine Ratio 21, Glucose Level 84, Calcium Level 8.5, Corrected Calcium 9.2, Total Bilirubin 1.0, Aspartate Amino Transf (AST/SGOT) 62H, Alanine Aminotransferase (ALT/SGPT) 15, Alkaline Phosphatase 144H, Total Protein 6.2L, Albumin 3.1L 10/11/22 11:05: Vancomycin Level Trough 20.1H 10/11/22 11:08: Glucometer 115H Microbiology 10/09/22 Blood Culture - Preliminary, Resulted No growth Assessment/Plan Assessment/Plan Assess & Plan/Chief Complaint necrosisi and likely osteomyelitis bilat great toe. patient non-compliant and will not agree to any other workup or tx. states she is willing as outpatient. will standby but as a guess will likely need bilateral great toe TMA. Clinical Quality Measures DVT/VTE Risk/Contraindication: Contraindications-Pharm: Other *list below* Contraindications-Mechi: Other *list below* Other: surgery tomorrow and bilateral gangrene of toes RUDY MARRERO MD Oct 11, 2022 15:48
--- NOTE | 2022-10-11 15:52 | Diagnostic Imaging Report ---
INDICATION: Pain. FINDINGS: The right leg ankle-brachial index is normal at 1.2, left leg severely abnormal at 0.2; however, the technologist acknowledges substantial technical challenges on the basis of limited cooperability. Formal left lower extremity arterial Doppler and ultrasound recommended given the grossly diminished left-sided ANNELISE. IMPRESSION: Grossly diminished left-sided ankle-brachial index. It is unclear if this is owing to the technical limitations posed by limited cooperability or if this reflects severe disease. Correlative arterial Doppler recommended as follow-up. Dictated by: Dictated on workstation # [id number]
[2022-10-11] MEDS ORDERED: VANCOMYCIN 2000 MG/NS 500 ML IVPB IV SCH ×2 (18:00)
[2022-10-11] MEDS ORDERED: CLIN-144 PO (18:22)
[2022-10-11] MEDS ORDERED: CLOP-31 PO (18:22)
[2022-10-11] MEDS ORDERED: FLUC100T10 PO (18:22)
[2022-10-11 18:30] VITALS: BP 131/74
[2022-10-12] MEDS ORDERED: TROUGH ORDER-PHARMACY XX ONE (17:00)
== END 2022-10-11 18:55 | disposition home or self-care (01) | DRG 300 ==
LOC: EDUNIT# 17:47 → ER 17:49 → 4TH 20:13
PROVIDERS: ADMIT Internal Medicine; ATTEND Family Medicine
DX: I70.262 Atherosclerosis of native arteries of extremities with gangrene, left leg (principal); B37.89 Other sites of candidiasis; L03.116 Cellulitis of left lower limb; L97.821 Non-pressure chronic ulcer of other part of left lower leg limited to breakdown of skin; L97.811 Non-pressure chronic ulcer of other part of right lower leg limited to breakdown of skin; M86.8X7 Other osteomyelitis, ankle and foot; F17.210 Nicotine dependence, cigarettes, uncomplicated; F12.90 Cannabis use, unspecified, uncomplicated; E66.9 Obesity, unspecified; Z96.652 Presence of left artificial knee joint; L97.521 Non-pressure chronic ulcer of other part of left foot limited to breakdown of skin
CPT/HCPCS: 36415; 80053; 80202; 82947; 83036; 83605; 85025; 85610; 85730; 87040; 93923; 94760

== ENCOUNTER 2022-10-14 19:54 | Inpatient (IN) | payer MEDICARE, MEDICAID ==
[~2022-10-14] VITALS: Ht 182.9 cm; Wt 116.1 kg
[~2022-10-14 19:54] MED LIST changes: +ACET-2267 PO; +CARB1TAB32 PO; +CARB1TAB44 PO; +CLIN-144 PO; +CLOP-31 PO; +ERGO1250 PO; +FLUC100T10 PO
[2022-10-14] MEDS ORDERED: MEROPENEM 500 MG in NS (IVPB) 100 ML IV ONE (20:15)
[2022-10-14] MEDS ORDERED: VANCOMYCIN INJECTION 1,000 MG in NS (IVPB) 250 ML IV ONE (20:15)
[2022-10-14] MEDS ORDERED: LACTATED RINGERS 1,000 ML IV ONE (20:15)
[2022-10-14] MEDS ORDERED: hydrALAZINE (APESOLINE) 20 MG/ML VIAL IV ONE (20:15)
[2022-10-14 20:19] LABS: BASOPHILS # (AUTO) 0.1 10^3/uL (0.0-0.1); BASOPHILS % (AUTO) 1 % (0-10); EOSINOPHILS # (AUTO) 0.1 10^3/uL (0.0-0.3); EOSINOPHILS % (AUTO) 1 % (0-10); HEMATOCRIT 36 % (35-52); LYMPHOCYTES # (AUTO) 1.5 10^3/uL (1.0-4.0); LYMPHOCYTES % (AUTO) 19 % (12-44); MEAN CORPUSCULAR HEMOGLOBIN 30 pg (25-34); MEAN CORPUSCULAR HGB CONC 33 g/dL (32-36); MEAN CORPUSCULAR VOLUME 91 fL (80-99); MEAN PLATELET VOLUME 10.1 fL (9.0-12.2); MONOCYTES # (AUTO) 0.8 10^3/uL (0.0-1.0); MONOCYTES % (AUTO) 10 % (0-12); NEUTROPHILS # (AUTO) 5.5 10^3/uL (1.8-7.8); NEUTROPHILS % (AUTO) 69 % (42-75); PLATELET COUNT 265 10^3/uL (130-400)
--- NOTE | 2022-10-14 20:21 | Diagnostic Imaging Report ---
CLINICAL INDICATIONS: Patient with edema and weakness. EXAM: Portable chest x-ray upright view. COMPARISON: None. FINDINGS: Lungs/pleura: Lungs are clear. There is no pneumothorax. There is no pleural effusion. Mediastinum: Unremarkable. Pulmonary vasculature: Unremarkable. Heart: Unremarkable. Bones/extrathoracic soft tissue: Unremarkable. IMPRESSION: There is no radiographic evidence of acute cardiopulmonary process. Dictated by: Dictated on workstation # [id number]
--- NOTE | 2022-10-14 20:25 | ED General ---
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--GIVES MUCH INCONSISTENT INFORMATION), Old Records History of Present Illness Date Seen by Provider: Oct 14, 2022 Time Seen by Provider: 20:00 Allergies and Home Medications Allergies Coded Allergies: Tetanus Vaccines and Toxoid (Unverified Allergy, Severe, extreme redness in arms, 11/23/09) amoxicillin (Unverified Allergy, Unknown, 05/23/18) aspirin (Unverified Allergy, Unknown, 05/23/18) clavulanic acid (Unverified Allergy, Unknown, 05/23/18) diphenhydramine (Unverified Allergy, Unknown, 05/23/18) iodine (Verified Allergy, Unknown, 10/09/22) Uncoded Allergies: BEE STINGS (Allergy, Severe, closes throat, 11/23/09) CILANTRO (Allergy, Unknown, 10/09/22) TUMERIC (Allergy, Unknown, 10/09/22) Patient Home Medication List Acetaminophen (Tylenol Extra Strength) 500 Mg Tablet, 1,000 MG PO Q8H PRN for PAIN-MILD (1-4), (Reported) Entered as Reported by: OSWALDO CHEN on 10/10/22914 Carbidopa/Levodopa (Carbidopa-Levodopa 25-100 Tab) 25 Mg-100 Mg Tablet, 1 EACH PO BID, (Reported) Entered as Reported by: OSWALDO CHEN on 10/10/22911 Carbidopa/Levodopa (Carbidopa-Levo 25-100 mg Odt) 25 Mg-100 Mg Tab.rapdis, 1 EACH PO QID PRN for TREMORS, (Reported) Entered as Reported by: OSWALDO CHEN on 10/10/22914 Clindamycin HCl (Clindamycin HCl) 300 Mg Capsule, 300 MG PO TID Prescribed by: EVELYN LOPEZ on 10/11/221821 Clopidogrel Bisulfate (Plavix) 75 Mg Tablet, 75 MG PO DAILY Prescribed by: EVELYN LOPEZ on 10/11/221821 Ergocalciferol (Vitamin D2) (Vitamin D2) 1,250 Mcg (06629 Unit) Capsule, 1 CAP PO MONDAY, (Reported) Entered as Reported by: OSWALDO CHEN on 10/10/22911 Fluconazole (Fluconazole) 100 Mg Tablet, 100 MG PO DAILY Prescribed by: EVELYN LOPEZ on 10/11/22 1822 Past [id number]-[id number] Hx Past Medical History Surgery/Hospitalization HX: HYST, R ANKLE , T AND A, GB, L TKR, HIP SURG, Reproductive Disorders: Yes Physical Exam Vital Signs Capillary Refill : Height, Weight, BMI Height: '" Weight: lbs. oz. kg; 36.22 BMI Method:Stated Focused Exam Lactate Level 10/14/22 20:10: Lactic Acid Level Laboratory Tests Test 10/14/22 20:10 Progress/Results/Core Measures Suspected Sepsis SIRS Temperature: Pulse: Respiratory Rate: Laboratory Tests 10/14/22 20:10: White Blood Count 8.0 Blood Pressure / Mean: 10/14/22 20:10: Laboratory Tests 10/14/22 20:10: Platelet Count 265 Results/Orders Lab Results Laboratory Tests Test 10/14/22 20:10 Range/Units White Blood Count 8.0 4.3-11.0 10^3/uL Red Blood Count 3.95 3.80-5.11 10^6/uL Hemoglobin 12.0 11.5-16.0 g/dL Hematocrit 36 35-52 % Mean Corpuscular Volume 91 80-99 fL Mean Corpuscular Hemoglobin 30 25-34 pg Mean Corpuscular Hemoglobin Concent 33 32-36 g/dL Red Cell Distribution Width 15.2 H 10.0-14.5 % Platelet Count 265 130-400 10^3/uL Mean Platelet Volume 10.1 9.0-12.2 fL Immature Granulocyte % (Auto) 1 % Neutrophils (%) (Auto) 69 42-75 % Lymphocytes (%) (Auto) 19 12-44 % Monocytes (%) (Auto) 10 0-12 % Eosinophils (%) (Auto) 1 0-10 % Basophils (%) (Auto) 1 0-10 % Neutrophils # (Auto) 5.5 1.8-7.8 10^3/uL Lymphocytes # (Auto) 1.5 1.0-4.0 10^3/uL Monocytes # (Auto) 0.8 0.0-1.0 10^3/uL Eosinophils # (Auto) 0.1 0.0-0.3 10^3/uL Basophils # (Auto) 0.1 0.0-0.1 10^3/uL Immature Granulocyte # (Auto) 0.0 0.0-0.1 10^3/uL My Orders Orders - CHRISTIAN ROBERTSON DO Ed Iv/Invasive Line Start (10/14/22 20:02) Monitor-Rhythm Ecg Trace Only (10/14/22 20:02) Alcohol (10/14/22 20:02) Bnp [place] (10/14/22 20:02) Cbc With Automated Diff (10/14/22 20:02) Comprehensive Metabolic Panel (10/14/22 20:02) Hs C Reactive Protein (10/14/22 20:02) Drug Screen Stat (Urine) (10/14/22 20:02) Lactic Acid Analyzer (10/14/22 20:02) Magnesium (10/14/22 20:02) Protime With Inr (10/14/22 20:02) Partial Thromboplastin Time (10/14/22 20:02) Blood Culture (10/14/22 20:02) Erythrocyte Sedimentation Rate (10/14/22 20:02) Myoglobin Serum (10/14/22 20:02) Urinalysis (10/14/22 20:02) Urine Culture (10/14/22 20:02) Chest 1 View, Ap/Pa Only (10/14/22 20:02) Ed Iv/Invasive Line Start (10/14/22 20:02) Vital Signs Adult Sepsis Patie Q15M (10/14/22 20:02) Remove Rings In Anticipation O (10/14/22 20:02) Covid 19 Inhouse Test (10/14/22 20:02) Influenza A And B By Pcr (10/14/22 20:02) Ed Iv/Invasive Line Start (10/14/22 20:02) Lactated Ringers (Lr 1000 Ml Iv Solution (10/14/22 20:15) Meropenem (Merrem 500 Mg) (10/14/22 20:15) Vancomycin Injection (Vancomycin Injecti (10/14/22 20:15) Vancomycin Injection (Vancomycin Injecti (10/14/22 20:15) Hydralazine Injection (Apresoline Inject (10/14/22 20:15) Vital Signs/I&O Capillary Refill : Diagnostic Imaging Comments CXR--PER RADIOLOGIST REPORT AT 2023 FINDINGS: Lungs/pleura: Lungs are clear. There is no pneumothorax. There is no pleural effusion. Mediastinum: Unremarkable. Pulmonary vasculature: Unremarkable. Heart: Unremarkable. Bones/extrathoracic soft tissue: Unremarkable. IMPRESSION: There is no radiographic evidence of acute cardiopulmonary process. Reviewed: Reviewed by Me Departure Impression Primary Impression: Gangrene of left foot Additional Impressions: BILATERAL LOWER LEG AND FOOT CELLULITIS Non-compliance HTN (hypertension) Departure-Patient Inst. Referrals: [facility] (PCP) Primary Care Physician ROMAN WISDOM (Family) Primary Care Physician CHRISTIAN ROBERTSON DO Oct 14, 2022 20:25
[2022-10-14 20:29] LABS: INR 0.9 (0.8-1.4); PROTHROMBIN TIME PATIENT 12.5 SEC (12.2-14.7)
[2022-10-14 20:36] LABS: ERYTHROCYTE SEDIMENTATION RATE 47 MM/HR (0-30)
[2022-10-14 20:37] LABS: ALANINE AMINOTRANSFERASE < 6 U/L (0-55); ALBUMIN 3.2 GM/DL (3.2-4.5); ALKALINE PHOSPHATASE 95 U/L (40-136); BILIRUBIN,TOTAL 0.6 MG/DL (0.1-1.0); BUN/CREATININE RATIO 19; CALCIUM 8.9 MG/DL (8.5-10.1); CARBON DIOXIDE 22 MMOL/L (21-32); CHLORIDE 104 MMOL/L (98-107); CREATININE SERUM 0.67 MG/DL (0.60-1.30); GFR ESTIMATED 95; GLUCOSE 102 MG/DL (70-105); MAGNESIUM 1.9 MG/DL (1.6-2.4); POTASSIUM 3.7 MMOL/L (3.6-5.0); SODIUM 135 MMOL/L (135-145); TOTAL PROTEIN 6.4 GM/DL (6.4-8.2)
[2022-10-14] MEDS ORDERED: KETOROLAC 30 MG/ML VIAL IVP STA (20:40)
[2022-10-14 21:29] LABS: BILIRUBIN,URINE NEGATIVE (NEGATIVE); CLARITY,URINE CLEAR; COLOR,URINE YELLOW; GLUCOSE, URINE (UA) NEGATIVE (NEGATIVE); KETONES,URINE TRACE (NEGATIVE); LEUKOCYTE ESTERASE ,URINE NEGATIVE (NEGATIVE); NITRITE,URINE NEGATIVE (NEGATIVE); PH,URINE 5.5 (5-9); PROTEIN,URINE 1+ (NEGATIVE)
[2022-10-14 21:39] LABS: YEAST,URINE MODERATE /HPF
[2022-10-14 21:43] LABS: BACTERIA,URINE MODERATE /HPF; HYALINE CASTS, URINE RARE /LPF
[2022-10-14 21:44] LABS: AMPHETAMINE SCREEN, URINE NEGATIVE (NEGATIVE); BENZODIAZEPINES SCREEN URINE NEGATIVE (NEGATIVE); COCAINE SCREEN URINE NEGATIVE (NEGATIVE)
[2022-10-14 21:45] LABS: BARBITURATE SCREEN URINE NEGATIVE (NEGATIVE); CANNABINOID SCREEN, URINE NEGATIVE (NEGATIVE); METHADONE STAT NEGATIVE (NEGATIVE); OPIATE SCREEN URINE NEGATIVE (NEGATIVE); OXYCODONE STAT NEGATIVE (NEGATIVE); PROPOXYPHENE STAT NEGATIVE (NEGATIVE); TRICYCLIC ANTIDEPRESSANTS SCRE NEGATIVE (NEGATIVE)
[2022-10-14] MEDS: VANCOMYCIN INJECTION 1,000 MG in NS (IVPB) 250 ML IV SCH ×2 (22:22→23:40)
[2022-10-14 23:22] VITALS: BP 179/76
[2022-10-14] MEDS ORDERED: BISACODYL 10 MG SUPP (DULCOLAX) PR PRN (23:30)
[2022-10-14] MEDS ORDERED: MILK OF MAGNESIA 400 MG/5 ML 30 ML UDC PO PRN (23:30)
[2022-10-14] MEDS ORDERED: ONDANSETRON 4 MG/2 ML (SDV) Z0FRAN IV PRN (23:30)
[2022-10-14] MEDS ORDERED: LORazepam INJ 2 MG/ML (ATIVAN) VIAL IVP PRN (23:30)
[2022-10-14] MEDS ORDERED: VANCOMYCIN INJECTION 0.1 MG in NS (IVPB) 250 ML IV SCH (23:30)
[2022-10-14] MEDS ORDERED: ONDANSETRON 4 MG (ZOFRAN) ORAL DISSOLVE TAB PO PRN (23:30)
[2022-10-14] MEDS ORDERED: NS IV 1000 ML 1,000 ML IV SCH (23:30)
[2022-10-14] MEDS ORDERED: ANTACID SUSP 30 ML UDC (MYLANTA) PO PRN (23:30)
[2022-10-14] MEDS ORDERED: LACTULOSE SYRUP 10GM/15ML (ENULOSE) 30ML UDC PO PRN (23:30)
[2022-10-14] MEDS ORDERED: CALCIUM CARBONATE 500 MG (TUMS) TAB.CHEW PO PRN (23:30)
[2022-10-14] MEDS ORDERED: polyethylene glycoL POWDER 17 GM (MIRALAX) PACK PO PRN (23:30)
--- NOTE | 2022-10-14 23:53 | Consultation - Surgery ---
History of Present Illness History of Present Illness Patient Consulted On(kriss/time) 10/14/22 23:51 Time Seen by Provider: 21:56 History of Present Illness Surgery asked to consult regarding gangrene of left foot. When I spoke to pt in the ER she was concerned about her foot, but states she is ready for surgery. She was in the hospital a few days ago but left AMA; saw in consultation and wound care. She is a poor historian, but thinks she had an MRI (although I looked and couldn't find one being done). She came in because she was "feeling worse and foot pain increased". She also thinks the foot looks worse. Apparently she ignored it for "a month" per friend in room before getting it looked at. HPI during last visit: The patient is a 71-year-old female who was brought in by EMS with complaints of left foot pain. The patient states that a dog stepped on her foot 2 weeks ago and then she developed a dark coloration of the left great toe and the surrounding tissue also became necrotic. The patient was evaluated in the Emergency Department where there was soft tissue necrosis of the left great toe as well as an infestation of fly larva indicating significant necrosis of soft tissue and extremely poor hygiene. An x-ray was performed to the foot, which did not show any signs of osteomyelitis. Allergies and Home Medications Allergies Coded Allergies: Tetanus Vaccines and Toxoid (Unverified Allergy, Severe, extreme redness in arms, 11/23/09) amoxicillin (Unverified Allergy, Unknown, 05/23/18) aspirin (Unverified Allergy, Unknown, 05/23/18) clavulanic acid (Unverified Allergy, Unknown, 05/23/18) diphenhydramine (Unverified Allergy, Unknown, 05/23/18) iodine (Verified Allergy, Unknown, 10/09/22) Uncoded Allergies: BEE STINGS (Allergy, Severe, closes throat, 11/23/09) CILANTRO (Allergy, Unknown, 10/09/22) TUMERIC (Allergy, Unknown, 10/09/22) Patient Home Medication List Home Medication List Reviewed: Yes Acetaminophen (Tylenol Extra Strength) 500 Mg Tablet, 1,000 MG PO Q8H PRN for PAIN-MILD (1-4), (Reported) Entered as Reported by: OSWALDO CHEN on 10/10/22914 Carbidopa/Levodopa (Carbidopa-Levodopa 25-100 Tab) 25 Mg-100 Mg Tablet, 1 EACH PO BID, (Reported) Entered as Reported by: OSWALDO CHEN on 10/10/22911 Carbidopa/Levodopa (Carbidopa-Levo 25-100 mg Odt) 25 Mg-100 Mg Tab.rapdis, 1 EACH PO QID PRN for TREMORS, (Reported) Entered as Reported by: OSWALDO CHEN on 10/10/22914 Clindamycin HCl (Clindamycin HCl) 300 Mg Capsule, 300 MG PO TID Prescribed by: EVELYN LOPEZ on 10/11/221821 Clopidogrel Bisulfate (Plavix) 75 Mg Tablet, 75 MG PO DAILY Prescribed by: EVELYN LOPEZ on 10/11/221821 Ergocalciferol (Vitamin D2) (Vitamin D2) 1,250 Mcg (14083 Unit) Capsule, 1 CAP PO MONDAY, (Reported) Entered as Reported by: OSWALDO CHEN on 10/10/22911 Fluconazole (Fluconazole) 100 Mg Tablet, 100 MG PO DAILY Prescribed by: EVELYN LOPEZ on 10/11/221821 Past Ipzlcfa-Jycidu-Jowrre Hx Patient Social History Smoking Status: Current Everyday Smoker Alcohol Use?: No Substance type: Marijuana Surgeries History of Surgeries: Yes Surgeries: Gallbladder Respiratory History of Respiratory Disorde: Yes Respiratory Disorders: Chronic Bronchitis, COPD Cardiovascular History of Cardiac Disorders: Yes Cardiac Disorders: Hypertension Neurological History of Neurological Disord: Yes Neurological Disorders: Neuropathy Reproductive System Hx Reproductive Disorders: Yes Genitourinary History of Genitourinary Disor: No Gastrointestinal History of Gastrointestinal Di: Yes Gastrointestinal Disorders: Gastroesophageal Reflux Musculoskeletal History of Musculoskeletal Dis: Yes Musculoskeletal Disorders: Degenerate Disk Disease, Arthritis, Chronic Back Pain HEENT History of HEENT Disorders: Yes Loss of Vision: Bilateral Hearing Impairment: Hard of Hearing Cancer History of Cancer: No Psychosocial History of Psychiatric Problem: Yes Behavioral Health Disorders: Anxiety, Depression Family Medical History Significant Family History: Diabetes, Hypertension Review of Systems-General Constitutional: malaise, weakness EENTM: No mouth swelling, No epistaxis Respiratory: cough, dyspnea on exertion; No hemoptysis; short of breath Cardiovascular: No chest pain; edema; No palpitations Gastrointestinal: No abdominal pain, No jaundice, No nausea, No vomiting Genitourinary: No dysuria, No frequency, No hematuria Musculoskeletal: back pain, joint pain, joint swelling, muscle pain, muscle stiffness Skin: see HPI Psychiatric/Neurological: Anxiety, Depressed, Numbness, Paresthesia Physical Exam-General Problems Physical Exam Vital Signs Capillary Refill : General Appearance: mild distress, obese Eyes: Bilateral Eye PERRL, Bilateral Eye EOMI HEENT: pharynx normal; No scleral icterus (R), No scleral icterus (L); other (poor dentition) Neck: non-tender, supple Respiratory: lungs clear, normal breath sounds, no respiratory distress, no accessory muscle use Cardiovascular: regular rate, rhythm, no murmur Gastrointestinal: non tender, soft, no organomegaly Extremities: no calf tenderness, pedal edema (bilateral, +2 pitting) Neurologic/Psychiatric: alert, oriented x 3 Skin: normal color, warm/dry, other (dry gangrene left great toe, with skin and bottom of the rest of toes are purple) Lymphatic: no adenopathy (neck, axilla or groin) Data Review Labs Laboratory Tests 10/14/22 20:10: White Blood Count 8.0, Red Blood Count 3.95, Hemoglobin 12.0, Hematocrit 36, Mean Corpuscular Volume 91, Mean Corpuscular Hemoglobin 30, Mean Corpuscular Hemoglobin Concent 33, Red Cell Distribution Width 15.2H, Platelet Count 265, Mean Platelet Volume 10.1, Immature Granulocyte % (Auto) 1, Neutrophils (%) (Auto) 69, Lymphocytes (%) (Auto) 19, Monocytes (%) (Auto) 10, Eosinophils (%) (Auto) 1, Basophils (%) (Auto) 1, Neutrophils # (Auto) 5.5, Lymphocytes # (Auto) 1.5, Monocytes # (Auto) 0.8, Eosinophils # (Auto) 0.1, Basophils # (Auto) 0.1, Immature Granulocyte # (Auto) 0.0, Erythrocyte Sedimentation Rate 47H, Prothrombin Time 12.5, INR Comment 0.9, Activated Partial Thromboplast Time 35, Sodium Level 135, Potassium Level 3.7, Chloride Level 104, Carbon Dioxide Level 22, Anion Gap 9, Blood Urea Nitrogen 13, Creatinine 0.67, Estimat Glomerular Filtration Rate 95, BUN/Creatinine Ratio 19, Glucose Level 102, Lactic Acid Level 1.66, Calcium Level 8.9, Corrected Calcium 9.5, Magnesium Level 1.9, Total Bilirubin 0.6, Aspartate Amino Transf (AST/SGOT) 16, Alanine Aminotransferase ( ALT/SGPT) < 6, Alkaline Phosphatase 95, Myoglobin 122.6H, C-Reactive Protein High Sensitivity 4.54H, B-Type Natriuretic Peptide 259.7H, Total Protein 6.4, Albumin 3.2, Serum Alcohol < 10, Influenza Type A (RT-PCR) Not Detected, Influenza Type B (RT-PCR) Not Detected, SARS-CoV-2 RNA (RT-PCR) Not Detected 10/14/22 21:24: Urine Color YELLOW, Urine Clarity CLEAR, Urine pH 5.5, Urine Specific [place] 1.025H, Urine Protein 1+H, Urine Glucose (UA) NEGATIVE, Urine Ketones TRACEH, Urine Nitrite NEGATIVE, Urine Bilirubin NEGATIVE, Urine Urobilinogen 0.2, Urine Leukocyte Esterase NEGATIVE, Urine RBC (Auto) 1+H, Urine RBC 2-5H, Urine WBC NONE, Urine Squamous Epithelial Cells 10-25H, Urine Crystals NONE, Urine Bacteria MODERATEH, Urine Casts PRESENT, Urine Hyaline Casts RARE, Urine Mucus NEGATIVE, Urine Yeast MODERATEH, Urine Culture Indicated CULTURE PENDING, Urine Opiates Screen NEGATIVE, Urine Oxycodone Screen NEGATIVE, Urine Methadone Screen NEGATIVE, Urine Propoxyphene Screen NEGATIVE, Urine Barbiturates Screen NEGATIVE, Ur Tricyclic Antidepressants Screen NEGATIVE, Urine Phencyclidine Screen NEGATIVE, Urine Amphetamines Screen NEGATIVE, Urine Methamphetamines Screen NEGATIVE, Urine Benzodiazepines Screen NEGATIVE, Urine Cocaine Screen NEGATIVE, Urine Cannabinoids Screen NEGATIVE Radiology Date of Exam:10/11/22 US NONINVAS EXT 3 OR >[id number] INDICATION: Pain. FINDINGS: The right leg ankle-brachial index is normal at 1.2, left leg severely abnormal at 0.2; however, the technologist acknowledges substantial technical challenges on the basis of limited cooperability. Formal left lower extremity arterial Doppler and ultrasound recommended given the grossly diminished left-sided ANNELISE. IMPRESSION: Grossly diminished left-sided ankle-brachial index. It is unclear if this is owing to the technical limitations posed by limited cooperability or if this reflects severe disease. Correlative arterial Doppler recommended as follow-up. Dictated by: Dictated on workstation # [id number] Dict: 10/11/22 1536 Trans: 10/11/22 1707 [id number] Interpreted by: ARMOND MCGILL Electronically signed by: ARMOND MCGILL 10/11/227 Assessment/Plan Assessment/Plan Assessment/Plan Dry gangrene Left great toe Possible wet gangrene toes 2-5 on left Pitting edema Morbid Obesity Pt stated that she saw Dr. Sosa and would like him to do the surgery; which is totally fine by me. I told her I would be around if anything happens this weekend (I don't expect anything). I gave her my opinion that she is probably going to need a BKA on the left. All questions answered to her satisfaction. Clinical Quality Measures DVT/VTE Risk/Contraindication: Contraindications-Mechi: Other *list below* Other: gangrene toes KINSEY BLAKE DO Oct 14, 2022 23:53
[2022-10-15] VITALS (7 sets, daily range): BP systolic 144–203; BP diastolic 61–77
[2022-10-15] MEDS: MEROPENEM 1,000 MG in NS (IVPB) 100 ML IV SCH ×3 (04:30→20:23)
[2022-10-15 06:17] LABS: BASOPHILS # (AUTO) 0.1 10^3/uL (0.0-0.1); BASOPHILS % (AUTO) 1 % (0-10); EOSINOPHILS # (AUTO) 0.2 10^3/uL (0.0-0.3); EOSINOPHILS % (AUTO) 3 % (0-10); HEMATOCRIT 33 % (35-52); LYMPHOCYTES # (AUTO) 1.3 10^3/uL (1.0-4.0); LYMPHOCYTES % (AUTO) 21 % (12-44); MEAN CORPUSCULAR HEMOGLOBIN 31 pg (25-34); MEAN CORPUSCULAR HGB CONC 33 g/dL (32-36); MEAN CORPUSCULAR VOLUME 93 fL (80-99); MEAN PLATELET VOLUME 10.4 fL (9.0-12.2); MONOCYTES # (AUTO) 0.6 10^3/uL (0.0-1.0); MONOCYTES % (AUTO) 11 % (0-12); NEUTROPHILS # (AUTO) 3.8 10^3/uL (1.8-7.8); NEUTROPHILS % (AUTO) 64 % (42-75); PLATELET COUNT 242 10^3/uL (130-400)
[2022-10-15 06:39] LABS: ALANINE AMINOTRANSFERASE < 6 U/L (0-55); ALBUMIN 2.9 GM/DL (3.2-4.5); ALKALINE PHOSPHATASE 83 U/L (40-136); BILIRUBIN,TOTAL 0.5 MG/DL (0.1-1.0); BUN/CREATININE RATIO 19; CALCIUM 8.4 MG/DL (8.5-10.1); CARBON DIOXIDE 23 MMOL/L (21-32); CHLORIDE 107 MMOL/L (98-107); CREATININE SERUM 0.64 MG/DL (0.60-1.30); GFR ESTIMATED 96; GLUCOSE 92 MG/DL (70-105); POTASSIUM 3.6 MMOL/L (3.6-5.0); SODIUM 136 MMOL/L (135-145); TOTAL PROTEIN 5.7 GM/DL (6.4-8.2)
--- NOTE | 2022-10-15 07:15 | History & Physical-Hospitalist ---
History of Present Illness HPI/Chief Complaint Chief complaint: Bilateral gangrene of feet HPI: This is a 71-year-old female who was originally hospitalized last week but left AMA. She has bilateral gangrene of her toes and needs amputation but she did not wish to have the surgery so she went home. Pain has been so bad she returned. IV antibiotics initiated but she wants Dr. Sosa to perform the surgery. Source: patient Exam Limitations: no limitations Date Seen 10/15/22 Time Seen by a Provider: 11:00 Attending Physician [facility] PCP Admitting Physician: Itzel Goodwin DO Attending Physician: Itzel Goodwin DO Referring Physician Date of Admission Oct 14, 2022 at 22:20 Home Medications & Allergies Home Medications Reviewed patient Home Medication Reconciliation performed by pharmacy medication reconciliations it desktop support technician and/or nursing. Patients Allergies have been reviewed. Allergies Allergies Coded Allergies Tetanus Vaccines and Toxoid (Unverified Allergy, Severe, extreme redness in arms, 11/23/09) amoxicillin (Unverified Allergy, Unknown, 05/23/18) aspirin (Unverified Allergy, Unknown, 05/23/18) clavulanic acid (Unverified Allergy, Unknown, 05/23/18) diphenhydramine (Unverified Allergy, Unknown, 05/23/18) iodine (Verified Allergy, Unknown, 10/09/22) Uncoded Allergies BEE STINGS ( Allergy, Severe, closes throat, 11/23/09) CILANTRO ( Allergy, Unknown, 10/09/22) TUMERIC ( Allergy, Unknown, 10/09/22) Past Ebttrxq-Baovqf-Lhshjv Hx Patient Social History Marrital Status: single Employed/Student: unemployed Tobacco Use?: Yes Smoking Status: Current Everyday Smoker Use of E-Cig and/or Vaping dev: No Substance use?: No Substance type: Marijuana Alcohol Use?: No Pt feels they are or have been: No Immunizations Up To Date Tetanus Booster (TDap): Unknown Hepatitis A: No Hepatitis B: No Current Status Advance Directives: Yes Advance Directive Location: Home Communicates: Verbally Primary Language: Nicaraguan Preferred Spoken Language: Nicaraguan Is interpretation needed?: No Implanted or Applied Medical D: None Past Medical History Surgeries: Gallbladder Chronic Bronchitis, COPD Hypertension Neuropathy Gastroesophageal Reflux Degenerate Disk Disease, Arthritis, Chronic Back Pain Loss of Vision: Bilateral Hearing Impairment: Hard of Hearing Anxiety, Depression PAD Obesity Tobacco use Family Medical History Diabetes, Hypertension Review of Systems Constitutional: see HPI, malaise, weakness Musculoskeletal: muscle pain, muscle cramps Physical Exam Physical Exam Vital Signs Vital Signs - First Documented 10/14/22 10/15/22 10/15/22 19:56 02:43 08:57 Temp 36.9 Pulse 80 Resp 18 B/P (MAP) 204/87 (126) Pulse Ox 98 O2 Delivery Room Air O2 Flow Rate 0.00 FiO2 21 Capillary Refill : Less Than 3 Seconds Height, Weight, BMI Height: '" Weight: lbs. oz. kg; 34.70 BMI Method:Stated General Appearance: No Apparent Distress, Chronically ill Eyes: Right Eye Normal Inspection, Right Eye PERRL HEENT: PERRL/EOMI, Normal ENT Inspection, Pharynx Normal, Moist Mucous Membranes Neck: Full Range of Motion, Normal Inspection, Non Tender Respiratory: Chest Non Tender, Lungs Clear, Normal Breath Sounds, No Accessory Muscle Use, No Respiratory Distress Cardiovascular: Regular Rate, Rhythm, No Edema, No Gallop, No JVD, No Murmur, Normal Peripheral Pulses Gastrointestinal: Normal Bowel Sounds, No Organomegaly, No Pulsatile Mass, Non Tender, Soft Back: Normal Inspection, No CVA Tenderness, No Vertebral Tenderness Extremity: Normal Capillary Refill, Normal Inspection, Normal Range of Motion, Non Tender, No Calf Tenderness, No Pedal Edema Neurologic/Psychiatric: Alert, Oriented x3, No Motor/Sensory Deficits, Normal Mood/Affect, Abnormal Gait, Motor Weakness Skin: Normal Color, Warm/Dry, Other (Gangrene of the toes) Lymphatic: No Adenopathy Results Results/Procedures Labs Laboratory Tests 10/14/22 20:10 10/15/22 05:55 Patient resulted labs reviewed. Assessment/Plan Admission Diagnosis (1) Dry gangrene (2) Cellulitis of left foot Status: Acute (3) PAD (peripheral artery disease) Status: Chronic Assessment & Plan: - Discussed the need for smoking cessation (4) Intertriginous candidiasis Status: Acute Assessment & Plan: - Diflucan started, continue topical anti fungal as well, keep area dry (5) Tobacco abuse Status: Chronic Admission Status: Inpatient Order (span 2 midnights) Reason for Inpatient Admission: needs amputation Clinical Quality Measures DVT/VTE Risk/Contraindication: Contraindications-Mechi: Other *list below* Other: gangrene toes ITZEL GOODWIN DO Oct 15, 2022 07:15
[2022-10-15] MEDS: VANCOMYCIN 1250 MG/NS 250 ML PREMIX IV SCH ×2 (08:27→20:24)
[2022-10-15] MEDS: DOCUSATE SODIUM 100 MG (COLACE) CAP PO SCH ×2 (08:27→20:24)
[2022-10-15] MEDS: SENNOSIDES 8.6 MG (SENOKOT) TAB PO SCH ×2 (08:27→20:24)
[2022-10-15] MEDS: ENOXAPARIN 40 MG/0.4 ML (LOVENOX) SYR SC SCH (08:27)
[2022-10-15] MEDS: MICONAZOLE 2% POWDER (DESENEX AF) 90 GM TOP SCH ×2 (09:23→20:24)
[2022-10-15] MEDS ORDERED: amLODIPine 5 MG (NORVASC) TAB PO ONE (13:00)
[2022-10-15] MEDS ORDERED: cloNIDine 0.1 MG (CATAPRES) TAB PO PRN (13:00)
[2022-10-15] MEDS: ACETAMINOPHEN 325 MG TABLET PO PRN (13:08)
[2022-10-15] MEDS ORDERED: PATIENT MAY USE OWN MED,SINGLE MED PO SCH (13:30)
[2022-10-15] MEDS: SINEMET 25/100 (CARBIDOPA/LEVODOPA) TAB PO PRN ×2 (14:34→20:23)
[2022-10-15] MEDS: hydrALAZINE (APRESOLINE) 25 MG TAB PO PRN (14:39)
--- NOTE | 2022-10-15 15:23 | Progress Note - Surgery ---
Subjective Time Seen by a Provider: 11:06 Subjective/Events-last exam Pt seen and examined, states the foot is about the same. Denied any increase in pain. Review of Systems Pulmonary: Dyspnea, Cough Cardiovascular: No: Chest Pain, Palpitations Gastrointestinal: Nausea; No: Vomiting, Abdominal Pain Musculoskeletal: foot pain Focused Exam Lactate Level 10/14/22 20:10: Lactic Acid Level 1.66 Objective Exam Vital Signs Date Time Temp Pulse Resp B/P (MAP) Pulse Ox O2 Delivery O2 Flow Rate FiO2 10/15/22 14:37 190/64 (106) 10/15/22 11:32 36.8 73 20 203/75 (117) 94 Room Air 10/15/22 08:57 Room Air 0.00 10/15/22 08:20 36.7 70 20 191/61 (104) 95 Room Air 10/15/22 08:00 Room Air 10/15/22 03:34 36.6 63 20 168/77 (107) 92 Room Air 10/15/22 02:45 Room Air 21 10/15/22 02:43 36.0 75 21 10/14/22 23:55 Room Air 10/14/22 23:22 36.0 75 20 179/76 (110) 94 Room Air 10/14/22 20:45 80 24 111/97 96 Room Air 10/14/22 19:56 36.9 80 18 204/87 (126) 98 Room Air I & O 10/15/22 07:00 Intake Total 1450 ml Output Total 275 ml Balance 1175 ml Capillary Refill : Less Than 3 Seconds General Appearance: Chronically ill, Obese HEENT: PERRL/EOMI Respiratory: No No Accessory Muscle Use, No No Respiratory Distress; Decreased Breath Sounds, Wheezing Cardiovascular: Regular Rate, Rhythm, No Murmur Gastrointestinal: non tender, soft, no organomegaly Extremity: Pedal Edema, Other (Gangrene left foot, Right 1st toe starting to get more red) Results Lab Laboratory Tests 10/14/22 20:10: White Blood Count 8.0, Red Blood Count 3.95, Hemoglobin 12.0, Hematocrit 36, Mean Corpuscular Volume 91, Mean Corpuscular Hemoglobin 30, Mean Corpuscular Hemoglobin Concent 33, Red Cell Distribution Width 15.2H, Platelet Count 265, Mean Platelet Volume 10.1, Immature Granulocyte % (Auto) 1, Neutrophils (%) (Auto) 69, Lymphocytes (%) (Auto) 19, Monocytes (%) (Auto) 10, Eosinophils (%) (Auto) 1, Basophils (%) (Auto) 1, Neutrophils # (Auto) 5.5, Lymphocytes # (Auto) 1.5, Monocytes # (Auto) 0.8, Eosinophils # (Auto) 0.1, Basophils # (Auto) 0.1, Immature Granulocyte # (Auto) 0.0, Erythrocyte Sedimentation Rate 47H, Prothrombin Time 12.5, INR Comment 0.9, Activated Partial Thromboplast Time 35, Sodium Level 135, Potassium Level 3.7, Chloride Level 104, Carbon Dioxide Level 22, Anion Gap 9, Blood Urea Nitrogen 13, Creatinine 0.67, Estimat Glomerular Filtration Rate 95, BUN/Creatinine Ratio 19, Glucose Level 102, Lactic Acid Level 1.66, Calcium Level 8.9, Corrected Calcium 9.5, Magnesium Level 1.9, Total Bilirubin 0.6, Aspartate Amino Transf (AST/SGOT) 16, Alanine Aminotransferase (ALT/SGPT) < 6, Alkaline Phosphatase 95, Myoglobin 122.6H, C-Reactive Protein High Sensitivity 4.54H, B-Type Natriuretic Peptide 259.7H, Total Protein 6.4, Albumin 3.2, Serum Alcohol < 10, Influenza Type A (RT-PCR) Not Detected, Influenza Type B (RT-PCR) Not Detected, SARS-CoV-2 RNA (RT-PCR) Not Detected 10/14/22 21:24: Urine Color YELLOW, Urine Clarity CLEAR, Urine pH 5.5, Urine Specific [place] 1.025H, Urine Protein 1+H, Urine Glucose (UA) NEGATIVE, Urine Ketones TRACEH, Urine Nitrite NEGATIVE, Urine Bilirubin NEGATIVE, Urine Urobilinogen 0.2, Urine Leukocyte Esterase NEGATIVE, Urine RBC (Auto) 1+H, Urine RBC 2-5H, Urine WBC NONE, Urine Squamous Epithelial Cells 10-25H, Urine Crystals NONE, Urine Bacteria MODERATEH, Urine Casts PRESENT, Urine Hyaline Casts RARE, Urine Mucus NEGATIVE, Urine Yeast MODERATEH, Urine Culture Indicated CULTURE PENDING, Urine Opiates Screen NEGATIVE, Urine Oxycodone Screen NEGATIVE, Urine Methadone Screen NEGATIVE, Urine Propoxyphene Screen NEGATIVE, Urine Barbiturates Screen NEGATIVE, Ur Tricyclic Antidepressants Screen NEGATIVE, Urine Phencyclidine Screen NEGATIVE, Urine Amphetamines Screen NEGATIVE, Urine Methamphetamines Screen NEGATIVE, Urine Benzodiazepines Screen NEGATIVE, Urine Cocaine Screen NEGATIVE, Urine Cannabinoids Screen NEGATIVE 10/15/22 05:55: White Blood Count 6.0, Red Blood Count 3.59L, Hemoglobin 11.0L, Hematocrit 33L, Mean Corpuscular Volume 93, Mean Corpuscular Hemoglobin 31, Mean Corpuscular Hemoglobin Concent 33, Red Cell Distribution Width 15.4H, Platelet Count 242, Mean Platelet Volume 10.4, Immature Granulocyte % (Auto) 0, Neutrophils (%) (Auto) 64, Lymphocytes (%) (Auto) 21, Monocytes (%) (Auto) 11, Eosinophils (%) (Auto) 3, Basophils (%) (Auto) 1, Neutrophils # (Auto) 3.8, Lymphocytes # (Auto) 1.3, Monocytes # (Auto) 0.6, Eosinophils # (Auto) 0.2, Basophils # (Auto) 0.1, Immature Granulocyte # (Auto) 0.0, Sodium Level 136, Potassium Level 3.6, Chloride Level 107, Carbon Dioxide Level 23, Anion Gap 6, Blood Urea Nitrogen 12, Creatinine 0.64, Estimat Glomerular Filtration Rate 96, BUN/Creatinine Ratio 19, Glucose Level 92, Calcium Level 8.4L, Corrected Calcium 9.3, Total Bilirubin 0.5, Aspartate Amino Transf (AST/SGOT) 14, Alanine Aminotransferase (ALT/SGPT) < 6, Alkaline Phosphatase 83, Total Protein 5.7L, Albumin 2.9L Microbiology 10/14/22 Blood Culture - Preliminary, Resulted No growth Assessment/Plan Assessment/Plan Assessment/Plan Dry gangrene Left great toe Possible wet gangrene toes 2-5 on left Pitting edema Morbid Obesity Pt stated that she saw Dr. Sosa and would like him to do the surgery; which is totally fine by me. I told her I would be around if anything happens this weekend (I don't expect anything). I gave her my opinion that she is probably going to need a BKA on the left. All questions answered to her satisfaction. Clinical Quality Measures DVT/VTE Risk/Contraindication: Contraindications-Mechi: Other *list below* Other: gangrene toes KINSEY BLAKE DO Oct 15, 2022 15:23
[2022-10-16] MEDS: SINEMET 25/100 (CARBIDOPA/LEVODOPA) TAB PO PRN ×4 (03:45→20:20)
[2022-10-16] MEDS: ACETAMINOPHEN 325 MG TABLET PO PRN ×3 (03:45→17:04)
[2022-10-16] MEDS: MEROPENEM 1,000 MG in NS (IVPB) 100 ML IV SCH ×3 (03:48→20:19)
[2022-10-16 04:12] VITALS: BP 142/72
[2022-10-16 06:18] LABS: BASOPHILS # (AUTO) 0.1 10^3/uL (0.0-0.1); BASOPHILS % (AUTO) 1 % (0-10); EOSINOPHILS # (AUTO) 0.1 10^3/uL (0.0-0.3); EOSINOPHILS % (AUTO) 2 % (0-10); HEMATOCRIT 33 % (35-52); HEMOGLOBIN 10.8 g/dL (11.5-16.0); LYMPHOCYTES # (AUTO) 1.2 10^3/uL (1.0-4.0); LYMPHOCYTES % (AUTO) 15 % (12-44); MEAN CORPUSCULAR HEMOGLOBIN 30 pg (25-34); MEAN CORPUSCULAR HGB CONC 33 g/dL (32-36); MEAN CORPUSCULAR VOLUME 93 fL (80-99); MEAN PLATELET VOLUME 10.4 fL (9.0-12.2); MONOCYTES # (AUTO) 0.7 10^3/uL (0.0-1.0); MONOCYTES % (AUTO) 9 % (0-12); NEUTROPHILS # (AUTO) 5.6 10^3/uL (1.8-7.8); NEUTROPHILS % (AUTO) 72 % (42-75); PLATELET COUNT 226 10^3/uL (130-400); WHITE BLOOD COUNT 7.7 10^3/uL (4.3-11.0)
--- NOTE | 2022-10-16 06:31 | Progress Note - Hospitalist ---
Subjective HPI/CC On Admission Date Seen by Provider: Oct 16, 2022 Time Seen by Provider: 09:00 Chief complaint: Bilateral gangrene of feet HPI: This is a 71-year-old female who was originally hospitalized last week but left AMA. She has bilateral gangrene of her toes and needs amputation but she did not wish to have the surgery so she went home. Pain has been so bad she returned. IV antibiotics initiated but she wants Dr. Sosa to perform the surgery. Subjective/Events-last exam Patient has no new concerns Mood disorder is definitely present Restarted all of her psych meds IV antibiotics maintained Review of Systems General: Fatigue, Malaise Musculoskeletal: foot pain Focused Exam Lactate Level 10/14/22 20:10: Lactic Acid Level 1.66 Objective Exam Vital Signs Vital Signs Date Time Temp Pulse Resp B/P (MAP) Pulse Ox O2 Delivery O2 Flow Rate FiO2 10/16/22 11:29 36.5 63 20 160/82 (108) 95 Room Air 10/16/22 08:29 0.00 10/15/22 02:45 21 Capillary Refill : Less Than 3 Seconds General Appearance: No Apparent Distress, WD/WN, Chronically ill Respiratory: Lungs Clear, Normal Breath Sounds Cardiovascular: Regular Rate, Rhythm Neurologic/Psychiatric: Alert, Oriented x3 Results/Procedures Lab Laboratory Tests 10/16/22 05:23 Patient resulted labs reviewed. Assessment/Plan Assessment and Plan Assess & Plan/Chief Complaint (1) Dry gangrene (2) Cellulitis of left foot Status: Acute (3) PAD (peripheral artery disease) Status: Chronic Assessment & Plan: - Discussed the need for smoking cessation (4) Intertriginous candidiasis Status: Acute Assessment & Plan: - Diflucan started, continue topical anti fungal as well, keep area dry (5) Tobacco abuse Status: Chronic Admission Status: Inpatient Order (span 2 midnights) Reason for Inpatient Admission: needs amputation Clinical Quality Measures DVT/VTE Risk/Contraindication: Contraindications-Mechi: Other *list below* Other: gangrene toes VENUS BURNETT DO Oct 16, 2022 06:31
[2022-10-16 06:48] LABS: ALANINE AMINOTRANSFERASE < 6 U/L (0-55); ALBUMIN 2.9 GM/DL (3.2-4.5); ALKALINE PHOSPHATASE 83 U/L (40-136); BILIRUBIN,TOTAL 0.4 MG/DL (0.1-1.0); BUN/CREATININE RATIO 16; CALCIUM 8.4 MG/DL (8.5-10.1); CARBON DIOXIDE 22 MMOL/L (21-32); CHLORIDE 107 MMOL/L (98-107); CREATININE SERUM 0.67 MG/DL (0.60-1.30); GFR ESTIMATED 95; GLUCOSE 102 MG/DL (70-105); POTASSIUM 4.1 MMOL/L (3.6-5.0); SODIUM 136 MMOL/L (135-145); TOTAL PROTEIN 5.8 GM/DL (6.4-8.2)
[2022-10-16] MEDS ORDERED: TROUGH ORDER-PHARMACY XX NR (08:00)
[2022-10-16 08:13] VITALS: BP 157/65
[2022-10-16] MEDS: VANCOMYCIN 1250 MG/NS 250 ML PREMIX IV SCH ×2 (09:39→20:20)
[2022-10-16] MEDS: fluCOnazole (DIFLUCAN) 100 MG TAB PO SCH (09:39)
[2022-10-16] MEDS: amLODIPine 5 MG (NORVASC) TAB PO SCH (09:39)
[2022-10-16] MEDS: DOCUSATE SODIUM 100 MG (COLACE) CAP PO SCH ×2 (09:39→20:20)
[2022-10-16] MEDS: NICOTINE 21 MG (NICODERM) PATCH TD SCH (09:39)
[2022-10-16] MEDS: SENNOSIDES 8.6 MG (SENOKOT) TAB PO SCH ×2 (09:39→20:20)
[2022-10-16] MEDS: MICONAZOLE 2% POWDER (DESENEX AF) 90 GM TOP SCH ×2 (09:40→20:20)
[2022-10-16] MEDS: ENOXAPARIN 40 MG/0.4 ML (LOVENOX) SYR SC SCH (09:40)
[2022-10-16 11:29] VITALS: BP 160/82
--- NOTE | 2022-10-16 14:06 | Progress Note - Surgery ---
Subjective Time Seen by a Provider: 11:35 Subjective/Events-last exam Pt seen and examined, she stated she thinks her feet are worse. "They are more swollen and tender, plus they look worse". Review of Systems Pulmonary: No Dyspnea, No Cough Cardiovascular: No: Chest Pain, Palpitations Gastrointestinal: No: Nausea, Vomiting, Abdominal Pain Musculoskeletal: leg pain, foot pain Focused Exam Lactate Level 10/14/22 20:10: Lactic Acid Level 1.66 Objective Exam Vital Signs Date Time Temp Pulse Resp B/P (MAP) Pulse Ox O2 Delivery O2 Flow Rate FiO2 10/16/22 11:29 36.5 63 20 160/82 (108) 95 Room Air 10/16/22 08:50 Room Air 10/16/22 08:37 Room Air 10/16/22 08:29 Room Air 0.00 10/16/22 08:13 36.6 65 20 157/65 (95) 96 Room Air 10/16/22 04:12 36.7 68 20 142/72 (95) 95 Room Air 10/15/22 23:07 37.0 74 20 151/76 (101) 94 Room Air 10/15/22 20:40 Room Air 10/15/22 19:40 37.2 65 20 156/64 (94) 95 Room Air 10/15/22 19:32 Room Air 10/15/22 16:36 37.5 73 18 144/64 (90) 95 Room Air 10/15/22 14:37 190/64 (106) I & O 10/16/22 07:00 Intake Total 2300 ml Output Total 1275 ml Balance 1025 ml Capillary Refill : Less Than 3 Seconds General Appearance: Anxious, Chronically ill HEENT: PERRL/EOMI, Moist Mucous Membranes Respiratory: Lungs Clear, Normal Breath Sounds, No Accessory Muscle Use, No Respiratory Distress Cardiovascular: Regular Rate, Rhythm, No Murmur Extremity: Pedal Edema, Other (gangrene left foot (mostly 1st toe) starting to involve underside of toes 2-5. Right 1st toe still red, but doesn't appear to be spreading) Neurologic/Psychiatric: Abnormal Gait, Motor Weakness Results Lab Laboratory Tests 10/16/22 05:23: White Blood Count 7.7, Red Blood Count 3.56L, Hemoglobin 10.8L, Hematocrit 33L, Mean Corpuscular Volume 93, Mean Corpuscular Hemoglobin 30, Mean Corpuscular Hemoglobin Concent 33, Red Cell Distribution Width 15.4H, Platelet Count 226, Mean Platelet Volume 10.4, Immature Granulocyte % (Auto) 1, Neutrophils (%) (Auto) 72, Lymphocytes (%) (Auto) 15, Monocytes (%) (Auto) 9, Eosinophils (%) (Auto) 2, Basophils (%) (Auto) 1, Neutrophils # (Auto) 5.6, Lymphocytes # (Auto) 1.2, Monocytes # (Auto) 0.7, Eosinophils # (Auto) 0.1, Basophils # (Auto) 0.1, Immature Granulocyte # (Auto) 0.1, Sodium Level 136, Potassium Level 4.1, Chloride Level 107, Carbon Dioxide Level 22, Anion Gap 7, Blood Urea Nitrogen 11, Creatinine 0.67, Estimat Glomerular Filtration Rate 95, BUN/Creatinine Ratio 16, Glucose Level 102, Calcium Level 8.4L, Corrected Calcium 9.3, Total Bilirubin 0.4, Aspartate Amino Transf (AST/SGOT) 14, Alanine Aminotransferase (ALT/SGPT) < 6, Alkaline Phosphatase 83, Total Protein 5.8L, Albumin 2.9L 10/16/22 08:25: Vancomycin Level Trough 17.5 Microbiology 10/14/22 Urine Culture - Final, Complete YEAST 10/14/22 Blood Culture - Preliminary, Resulted No growth Assessment/Plan Assessment/Plan Assessment/Plan Dry gangrene Left great toe Possible wet gangrene toes 2-5 on left Pitting edema Morbid Obesity Pt stated that she saw Dr. Sosa and would like him to do the surgery. I will let him know for tomorrow and keep her NPO in case he wants to do surgery tomorrow. Clinical Quality Measures DVT/VTE Risk/Contraindication: Contraindications-Mechi: Other *list below* Other: gangrene toes KINSEY BLAKE DO Oct 16, 2022 14:06
[2022-10-16 16:06] VITALS: BP 154/71
[2022-10-16 19:34] VITALS: BP 159/61
[2022-10-16] MEDS: MELATONIN 3 MG TABLET PO PRN (20:20)
[2022-10-16 23:51] VITALS: BP 146/70
[2022-10-17] MEDS: ACETAMINOPHEN 325 MG TABLET PO PRN ×3 (01:37→19:17)
[2022-10-17 03:52] VITALS: BP 190/72
[2022-10-17] MEDS: HYDROmorphone 2 MG/ML VIAL (DILAUDID) IV PRN (04:00)
[2022-10-17] MEDS: MEROPENEM 1,000 MG in NS (IVPB) 100 ML IV SCH ×3 (04:00→20:10)
[2022-10-17] MEDS: hydrALAZINE (APRESOLINE) 25 MG TAB PO PRN (04:01)
--- NOTE | 2022-10-17 05:54 | Progress Note - Hospitalist ---
Subjective HPI/CC On Admission Date Seen by Provider: Oct 17, 2022 Time Seen by Provider: 09:00 Chief complaint: Bilateral gangrene of feet HPI: This is a 71-year-old female who was originally hospitalized last week but left AMA. She has bilateral gangrene of her toes and needs amputation but she did not wish to have the surgery so she went home. Pain has been so bad she returned. IV antibiotics initiated but she wants Dr. Sosa to perform the surgery. Subjective/Events-last exam No new issues Awaiting plan from Dr Sosa for amputation Review of Systems General: Fatigue, Malaise Focused Exam Lactate Level 10/14/22 20:10: Lactic Acid Level 1.66 Objective Exam Vital Signs Vital Signs Date Time Temp Pulse Resp B/P (MAP) Pulse Ox O2 Delivery O2 Flow Rate FiO2 10/17/22 07:49 36.6 62 18 138/70 (92) 94 Room Air 10/16/22 08:29 0.00 10/15/22 02:45 21 Capillary Refill : Less Than 3 Seconds General Appearance: No Apparent Distress, WD/WN, Chronically ill Respiratory: Lungs Clear Cardiovascular: Regular Rate, Rhythm Results/Procedures Lab Laboratory Tests 10/17/22 05:42 Patient resulted labs reviewed. Assessment/Plan Assessment and Plan Assess & Plan/Chief Complaint (1) Dry gangrene (2) Cellulitis of left foot Status: Acute (3) PAD (peripheral artery disease) Status: Chronic Assessment & Plan: - Discussed the need for smoking cessation (4) Intertriginous candidiasis Status: Acute Assessment & Plan: - Diflucan started, continue topical anti fungal as well, keep area dry (5) Tobacco abuse Status: Chronic Admission Status: Inpatient Order (span 2 midnights) Reason for Inpatient Admission: needs amputation Clinical Quality Measures DVT/VTE Risk/Contraindication: Contraindications-Mechi: Other *list below* Other: gangrene toes VENUS BURNETT DO Oct 17, 2022 05:54
[2022-10-17 06:06] LABS: BASOPHILS # (AUTO) 0.1 10^3/uL (0.0-0.1); BASOPHILS % (AUTO) 1 % (0-10); EOSINOPHILS # (AUTO) 0.2 10^3/uL (0.0-0.3); EOSINOPHILS % (AUTO) 3 % (0-10); HEMATOCRIT 34 % (35-52); HEMOGLOBIN 11.2 g/dL (11.5-16.0); LYMPHOCYTES # (AUTO) 1.4 10^3/uL (1.0-4.0); LYMPHOCYTES % (AUTO) 20 % (12-44); MEAN CORPUSCULAR HEMOGLOBIN 31 pg (25-34); MEAN CORPUSCULAR HGB CONC 33 g/dL (32-36); MEAN CORPUSCULAR VOLUME 93 fL (80-99); MEAN PLATELET VOLUME 10.3 fL (9.0-12.2); MONOCYTES # (AUTO) 0.7 10^3/uL (0.0-1.0); MONOCYTES % (AUTO) 9 % (0-12); NEUTROPHILS # (AUTO) 4.8 10^3/uL (1.8-7.8); NEUTROPHILS % (AUTO) 67 % (42-75); PLATELET COUNT 224 10^3/uL (130-400); WHITE BLOOD COUNT 7.1 10^3/uL (4.3-11.0)
[2022-10-17 06:41] LABS: ALBUMIN 3.2 GM/DL (3.2-4.5); BILIRUBIN,TOTAL 0.5 MG/DL (0.1-1.0); CALCIUM 8.9 MG/DL (8.5-10.1); CREATININE SERUM 0.64 MG/DL (0.60-1.30); TOTAL PROTEIN 6.3 GM/DL (6.4-8.2)
[2022-10-17 07:49] VITALS: BP 138/70
[2022-10-17] MEDS: SENNOSIDES 8.6 MG (SENOKOT) TAB PO SCH ×2 (09:49→20:10)
[2022-10-17] MEDS: VANCOMYCIN 1250 MG/NS 250 ML PREMIX IV SCH ×2 (09:49→21:28)
[2022-10-17] MEDS: DOCUSATE SODIUM 100 MG (COLACE) CAP PO SCH ×2 (09:49→20:10)
[2022-10-17] MEDS: MICONAZOLE 2% POWDER (DESENEX AF) 90 GM TOP SCH ×2 (09:50→20:10)
[2022-10-17] MEDS: amLODIPine 5 MG (NORVASC) TAB PO SCH (09:50)
[2022-10-17] MEDS: SINEMET 25/100 (CARBIDOPA/LEVODOPA) TAB PO PRN ×2 (09:50→18:34)
[2022-10-17] MEDS: NICOTINE 21 MG (NICODERM) PATCH TD SCH (09:50)
[2022-10-17] MEDS: LORazepam 0.5 MG (ATIVAN) TABLET PO PRN (09:50)
[2022-10-17] MEDS: fluCOnazole (DIFLUCAN) 100 MG TAB PO SCH (09:50)
[2022-10-17] MEDS: ENOXAPARIN 40 MG/0.4 ML (LOVENOX) SYR SC SCH (09:51)
[2022-10-17] MEDS ORDERED: CLOP75TA28 PO (11:15)
[2022-10-17] MEDS ORDERED: FLUC100T10 PO (11:15)
[2022-10-17] MEDS ORDERED: CLIN-144 PO (11:15)
[2022-10-17 12:09] VITALS: BP 133/73
[2022-10-17] MEDS: LIDOCAINE 4% (SALONPAS) PATCH TOP SCH (13:56)
[2022-10-17 16:14] VITALS: BP 136/84
--- NOTE | 2022-10-17 16:18 | Progress Note-Pre Operative ---
Pre-Operative Progress Note Date of Available H&P: Oct 17, 2022 Date H&P Reviewed: Oct 17, 2022 Time H&P Reviewed: 16:00 History & Physical: No changes noted Pre-Operative Diagnosis: bilateral great toe gangrene with bilateral LE arterial insufficiency. RUDY MARRERO MD Oct 17, 2022 16:18
--- NOTE | 2022-10-17 16:59 | CONSULTATION REPORT ---
DATE OF SERVICE: 10/17/2022 ADMITTING PHYSICIAN: Dr. Goodwin. ATTENDING HORTICULTURE WORKER: Shirley Samayoa APRN. The patient is a 71-year-old female who we have seen recently. She was admitted on 10/09/2022 for bilateral great toe necrosis. She is very vague about her previous medical history; however, it appears that she does have bilateral lower extremity arterial insufficiency and skin changes congruent with this. On her last admission, she was brought in by EMS by her daughter calling them for left foot pain. She had reported a dog stepped on her foot 2 weeks previous and developed a dark coloration of the great toe and the surrounding tissue became necrotic. The patient was evaluated in the Emergency Department where there was significant soft tissue necrosis as well as infestation of fly larvae indicating significant necrosis of the soft tissue and extremely poor hygiene. On that admission, it was recommended that the patient proceed with bilateral great toe transmetatarsal amputations; however, she refused. She also refused workup including MRI of bilateral feet to verify the osteomyelitis. The patient stated that she wanted to do all of this as an outpatient and was discharged home on 10/11/2022. The patient returned to the hospital due to her daughter stating that both the great toes continue to worsen and fester. She was readmitted and placed on IV antibiotics. On the first admission, she did have ankle brachial indices, which was 1.2 on the right and 0.2 on the left, indicating severe peripheral vascular disease. After talking with her for quite some time, it was explained to her that all great toes likely have some level of osteomyelitis and infection; however, of the left toe she has very poor peripheral perfusion and after the amputation there is a significant chance of poor wound healing. It was explained to her that she would need further workup including aortogram with bilateral runoffs to evaluate the possibility of revascularization with angioplasty and stent placement. After thinking about this for quite some time she said that she is amenable to bilateral great toe transmetatarsal amputation as well as Cardiology consultation and aortogram with bilateral runoff as well as possible intervention for revascularization. PAST MEDICAL HISTORY: Degenerative joint disease, morbid obesity, peripheral arterial disease. PAST SURGICAL HISTORY: Hysterectomy, tonsillectomy, laparoscopic cholecystectomy, left total knee arthroplasty, right ankle ORIF, hip surgery. ALLERGIES: TETANUS VACCINE AND TOXOID, AMOXICILLIN, ASPIRIN, CLAVULANIC ACID, DIPHENHYDRAMINE, IODINE. SOCIAL HISTORY: Positive smoke 45-pack years, positive for marijuana use. FAMILY HISTORY: Noncontributory. PHYSICAL EXAMINATION: VITAL SIGNS: Temperature 36.8, blood pressure 131/74, pulse 66, respirations 20, pulse ox 99% on room air. REVIEW OF SYSTEMS: This is a well-nourished female, currently in no acute distress. She is not experiencing any shortness of breath or difficulty breathing. No chest pain, palpitations or diaphoresis. No nausea or vomiting. No diarrhea or constipation. No fever, chills, no recent inadvertent weight loss. She states that she does have pain and discomfort of bilateral toes and feet and does not have any palpable distal pulses. HEENT: No scleral icterus. No cervical lymphadenopathy. ABDOMEN: Soft, nontender, nondistended. SKIN: There is black wet necrosis of the left great toe as well as dry necrosis of the right great toe, likely consistent with bilateral great toe and distal metatarsal osteomyelitis. ASSESMENT/PLAN: Osteomyelitis and ischemic necrosis of bilateral great toes. We will recommend bilateral great toe transmetatarsal amputation as well as placement of a wound VAC on the left excision site and hope to primarily close the right excision site. We will also have her continue with tight glycemic control, smoking cessation as well as consult Cardiology for possible aortogram with bilateral runoff and potential revascularization. Job ID: [id number] DocumentID: [id number] Dictated Date: 10/17/2022 16:12:44 Construction Consultant Date: 10/17/2022 16:58:00 Dictated By: RUDY MARRERO MD [facility]
[2022-10-17 20:00] VITALS: BP 104/49
[2022-10-17] MEDS: LIDOCAINE PATCH REMOVAL TP SCH (21:28)
[2022-10-17 23:39] VITALS: BP 139/65
[2022-10-18] VITALS (13 sets, daily range): BP systolic 101–173; BP diastolic 4–86
[2022-10-18] MEDS: ACETAMINOPHEN 325 MG TABLET PO PRN (01:10)
[2022-10-18] MEDS: SINEMET 25/100 (CARBIDOPA/LEVODOPA) TAB PO PRN ×2 (01:11→20:21)
[2022-10-18] MEDS: MEROPENEM 1,000 MG in NS (IVPB) 100 ML IV SCH ×3 (04:10→20:18)
[2022-10-18 05:46] LABS: BASOPHILS # (AUTO) 0.1 10^3/uL (0.0-0.1); BASOPHILS % (AUTO) 1 % (0-10); EOSINOPHILS # (AUTO) 0.2 10^3/uL (0.0-0.3); EOSINOPHILS % (AUTO) 3 % (0-10); HEMATOCRIT 37 % (35-52); HEMOGLOBIN 11.8 g/dL (11.5-16.0); LYMPHOCYTES # (AUTO) 1.1 10^3/uL (1.0-4.0); LYMPHOCYTES % (AUTO) 17 % (12-44); MEAN CORPUSCULAR HEMOGLOBIN 30 pg (25-34); MEAN CORPUSCULAR HGB CONC 32 g/dL (32-36); MEAN CORPUSCULAR VOLUME 94 fL (80-99); MEAN PLATELET VOLUME 10.3 fL (9.0-12.2); MONOCYTES # (AUTO) 0.7 10^3/uL (0.0-1.0); MONOCYTES % (AUTO) 11 % (0-12); NEUTROPHILS # (AUTO) 4.5 10^3/uL (1.8-7.8); NEUTROPHILS % (AUTO) 69 % (42-75); PLATELET COUNT 229 10^3/uL (130-400); WHITE BLOOD COUNT 6.5 10^3/uL (4.3-11.0)
[2022-10-18 06:13] LABS: ALANINE AMINOTRANSFERASE < 6 U/L (0-55); ALBUMIN 3.1 GM/DL (3.2-4.5); ALKALINE PHOSPHATASE 82 U/L (40-136); BILIRUBIN,TOTAL 0.5 MG/DL (0.1-1.0); BUN/CREATININE RATIO 13; CALCIUM 8.8 MG/DL (8.5-10.1); CARBON DIOXIDE 25 MMOL/L (21-32); CHLORIDE 104 MMOL/L (98-107); CREATININE SERUM 0.63 MG/DL (0.60-1.30); GFR ESTIMATED 96; GLUCOSE 104 MG/DL (70-105); POTASSIUM 4.1 MMOL/L (3.6-5.0); SODIUM 137 MMOL/L (135-145); TOTAL PROTEIN 6.2 GM/DL (6.4-8.2)
--- NOTE | 2022-10-18 06:13 | Progress Note - Hospitalist ---
Subjective HPI/CC On Admission Date Seen by Provider: Oct 18, 2022 Time Seen by Provider: 11:00 Chief complaint: Bilateral gangrene of feet HPI: This is a 71-year-old female who was originally hospitalized last week but left AMA. She has bilateral gangrene of her toes and needs amputation but she did not wish to have the surgery so she went home. Pain has been so bad she returned. IV antibiotics initiated but she wants Dr. Sosa to perform the surgery. Subjective/Events-last exam Patient awaiting surgery Dr. Acosta may do a vascular study at the same time Getting very cranky about not able to eat or drink Review of Systems General: Fatigue, Malaise Objective Exam Vital Signs Vital Signs Date Time Temp Pulse Resp B/P (MAP) Pulse Ox O2 Delivery O2 Flow Rate FiO2 10/18/22 19:50 36.7 69 19 153/64 (93) 90 Room Air 10/18/22 15:10 2.00 10/18/22 14:15 21 Capillary Refill : Less Than 3 Seconds General Appearance: No Apparent Distress, WD/WN, Chronically ill Respiratory: Lungs Clear, Normal Breath Sounds Cardiovascular: Regular Rate, Rhythm Results/Procedures Lab Laboratory Tests 10/18/22 05:35 Patient resulted labs reviewed. Assessment/Plan Assessment and Plan Assess & Plan/Chief Complaint (1) Dry gangrene (2) Cellulitis of left foot Status: Acute (3) PAD (peripheral artery disease) Status: Chronic Assessment & Plan: - Discussed the need for smoking cessation (4) Intertriginous candidiasis Status: Acute Assessment & Plan: - Diflucan started, continue topical anti fungal as well, keep area dry (5) Tobacco abuse Status: Chronic Admission Status: Inpatient Order (span 2 midnights) Reason for Inpatient Admission: needs amputation Clinical Quality Measures DVT/VTE Risk/Contraindication: Contraindications-Mechi: Other *list below* Other: gangrene toes VENUS BURNETT DO Oct 18, 2022 06:13
[2022-10-18] MEDS: LIDOCAINE 4% (SALONPAS) PATCH TOP SCH (07:59)
[2022-10-18] MEDS: VANCOMYCIN 1250 MG/NS 250 ML PREMIX IV SCH ×2 (07:59→20:38)
[2022-10-18] MEDS: NICOTINE 21 MG (NICODERM) PATCH TD SCH (07:59)
[2022-10-18] MEDS: ENOXAPARIN 40 MG/0.4 ML (LOVENOX) SYR SC SCH (07:59)
[2022-10-18] MEDS: SENNOSIDES 8.6 MG (SENOKOT) TAB PO SCH ×2 (08:08→20:18)
[2022-10-18] MEDS: fluCOnazole (DIFLUCAN) 100 MG TAB PO SCH (08:08)
[2022-10-18] MEDS: amLODIPine 5 MG (NORVASC) TAB PO SCH (08:08)
[2022-10-18] MEDS: DOCUSATE SODIUM 100 MG (COLACE) CAP PO SCH ×2 (08:08→20:17)
[2022-10-18] MEDS: MICONAZOLE 2% POWDER (DESENEX AF) 90 GM TOP SCH ×2 (08:09→20:18)
[2022-10-18] MEDS: HYDROmorphone 2 MG/ML VIAL (DILAUDID) IV PRN ×3 (11:09→22:18)
--- NOTE | 2022-10-18 12:45 | Consultation-Cardiology ---
HPI-Cardiology Cardiology Consultation Date of Consultation 10/18/22 Date of Admission Time Seen by Provider: 12:41 Indication: Left foot gangrene HPI 89-year-old lady with history of paroxysmal atrial fibrillation, peripheral arterial disease, has been having nonhealing wound on her toes progressed to gangrene involving the first and second toe. She is scheduled for amputation. I was called for evaluation for peripheral arterial disease. She denied any chest pain, having dyspnea on exertion, still having cough, active smoker. Home Medications & Allergies Allergies: Coded Allergies: Tetanus Vaccines and Toxoid (Unverified Allergy, Severe, extreme redness in arms, 11/23/09) amoxicillin (Unverified Allergy, Unknown, 05/23/18) aspirin (Unverified Allergy, Unknown, 05/23/18) clavulanic acid (Unverified Allergy, Unknown, 05/23/18) diphenhydramine (Unverified Allergy, Unknown, 05/23/18) iodine (Verified Allergy, Unknown, 10/09/22) Uncoded Allergies: BEE STINGS (Allergy, Severe, closes throat, 11/23/09) CILANTRO (Allergy, Unknown, 10/09/22) TUMERIC (Allergy, Unknown, 10/09/22) Home Medication List Reviewed: Yes [id number] Hx Patient Social History Marital Status: single Employed/Student: unemployed Smoking Status: Current Everyday Smoker Alcohol Use?: No Substance type: Marijuana Past Medical History Discussed below Family Medical History Significant Family History: No Pertinent Family Hx, Diabetes, Hypertension Review of Systems-General Review of Systems Constitutional: see HPI, malaise, weakness EENTM: No mouth swelling, No epistaxis Respiratory: cough, dyspnea on exertion; No hemoptysis; short of breath Cardiovascular: see HPI; No chest pain; edema; No palpitations Gastrointestinal: No abdominal pain, No jaundice, No nausea, No vomiting Genitourinary: No dysuria, No frequency, No hematuria Musculoskeletal: muscle pain, muscle cramps Skin: see HPI Psychiatric/Neurological: Anxiety, Depressed, Numbness, Paresthesia Reviewed Test Results Reviewed Test Results Lab Laboratory Tests Test 10/18/22 05:35 Range/Units White Blood Count 6.5 4.3-11.0 10^3/uL Red Blood Count 3.91 3.80-5.11 10^6/uL Hemoglobin 11.8 11.5-16.0 g/dL Hematocrit 37 35-52 % Mean Corpuscular Volume 94 80-99 fL Mean Corpuscular Hemoglobin 30 25-34 pg Mean Corpuscular Hemoglobin Concent 32 32-36 g/dL Red Cell Distribution Width 15.2 H 10.0-14.5 % Platelet Count 229 130-400 10^3/uL Mean Platelet Volume 10.3 9.0-12.2 fL Immature Granulocyte % (Auto) 0 % Neutrophils (%) (Auto) 69 42-75 % Lymphocytes (%) (Auto) 17 12-44 % Monocytes (%) (Auto) 11 0-12 % Eosinophils (%) (Auto) 3 0-10 % Basophils (%) (Auto) 1 0-10 % Neutrophils # (Auto) 4.5 1.8-7.8 10^3/uL Lymphocytes # (Auto) 1.1 1.0-4.0 10^3/uL Monocytes # (Auto) 0.7 0.0-1.0 10^3/uL Eosinophils # (Auto) 0.2 0.0-0.3 10^3/uL Basophils # (Auto) 0.1 0.0-0.1 10^3/uL Immature Granulocyte # (Auto) 0.0 0.0-0.1 10^3/uL Sodium Level 137 135-145 MMOL/L Potassium Level 4.1 3.6-5.0 MMOL/L Chloride Level 104 98-107 MMOL/L Carbon Dioxide Level 25 21-32 MMOL/L Anion Gap 8 5-14 MMOL/L Blood Urea Nitrogen 8 7-18 MG/DL Creatinine 0.63 0.60-1.30 MG/DL Estimat Glomerular Filtration Rate 96 BUN/Creatinine Ratio 13 Glucose Level 104 70-105 MG/DL Calcium Level 8.8 8.5-10.1 MG/DL Corrected Calcium 9.5 8.5-10.1 MG/DL Total Bilirubin 0.5 0.1-1.0 MG/DL Aspartate Amino Transf (AST/SGOT) 14 5-34 U/L Alanine Aminotransferase (ALT/SGPT) < 6 0-55 U/L Alkaline Phosphatase 82 40-136 U/L Total Protein 6.2 L 6.4-8.2 GM/DL Albumin 3.1 L 3.2-4.5 GM/DL Radiology Date of Exam:10/11/22 US NONINVAS EXT 3 OR >[id number] INDICATION: Pain. FINDINGS: The right leg ankle-brachial index is normal at 1.2, left leg severely abnormal at 0.2; however, the technologist acknowledges substantial technical challenges on the basis of limited cooperability. Formal left lower extremity arterial Doppler and ultrasound recommended given the grossly diminished left-sided ANNELISE. IMPRESSION: Grossly diminished left-sided ankle-brachial index. It is unclear if this is owing to the technical limitations posed by limited cooperability or if this reflects severe disease. Correlative arterial Doppler recommended as follow-up. Dictated by: Dictated on workstation # [id number] Dict: 10/11/22 1536 Trans: 10/11/22 1707 [id number] Interpreted by: ARMOND MCGILL Electronically signed by: ARMOND MCGILL 10/11/227 Physical Exam Physical Exam Vital Signs Vital Signs - First Documented 10/14/22 10/15/22 10/15/22 19:56 02:43 08:57 Temp 36.9 Pulse 80 Resp 18 B/P (MAP) 204/87 (126) Pulse Ox 98 O2 Delivery Room Air O2 Flow Rate 0.00 FiO2 21 Capillary Refill : Less Than 3 Seconds Height, Weight, BMI Height: '" Weight: lbs. oz. kg; 34.70 BMI Method:Stated General Appearance: No Apparent Distress, WD/WN, Chronically ill Eyes: Bilateral Eye EOMI HEENT: PERRL/EOMI, Moist Mucous Membranes Respiratory: Lungs Clear Cardiovascular: Regular Rate, Rhythm Gastrointestinal: Normal Bowel Sounds, No Organomegaly, No Pulsatile Mass, Non Tender, Soft Back: Normal Inspection, No CVA Tenderness, No Vertebral Tenderness Extremity: Pedal Edema, Other (gangrene left foot (mostly 1st toe) starting to involve underside of toes 2-5. Right 1st toe still red, but doesn't appear to be spreading) Neurologic/Psychiatric: Alert, Oriented x3 A/P-Cardiology Admission Diagnosis Peripheral arterial disease Gangrene Hypertension Hyperlipidemia Assessment/Plan Gangrene of the left first and second toe. Peripheral arterial disease, abnormal lower extremity ultrasound, not sure if it was due to artifact Discussed with the patient recommended peripheral angiogram and possible angioplasty She is scheduled for amputation History of questionable paroxysmal atrial fibrillation. Not following with any wood borer at this time. Noncompliant with medication Echo done in February 2021 with moderately dilated left atrium, normal left ventricle, PA pressure 30 to 35 mmHg I will evaluate 2D echo Hypertension, starting KESHAV inhibitor and monitor tolerance and response Hyperlipidemia, evaluate lipid profile Tobaccoism, educated on smoking cessation Stress test was done in 2007. Multiple risk factors for coronary artery disease Evaluating stress test in the future BMI 34, discussed weight loss History of noncompliance, patient signed out AMA, no recent cardiology follow- up. Recommend compliance Clinical Quality Measures DVT/VTE Risk/Contraindication: Contraindications-Mechi: Other *list below* Other: gangrene toes VIGNESH HERNANDEZ MD Oct 18, 2022 12:45
[2022-10-18] MEDS ORDERED: SEVOFLURANE (ULTANE) 15 ML INHAL SOLN ONE (12:58)
[2022-10-18] MEDS ORDERED: fentaNYL INJ 100 MCG/2 ML AMP ONE (12:58)
[2022-10-18] MEDS ORDERED: MIDAZOLAM 2 MG/2 ML (VERSED) VIAL ONE (12:58)
[2022-10-18] MEDS ORDERED: proPOfol 200 MG/20 ML (DIPRIVAN) VIAL IV ONE (12:58)
[2022-10-18] MEDS ORDERED: ONDANSETRON 4 MG/2 ML (SDV) Z0FRAN ONE (12:58)
[2022-10-18] MEDS ORDERED: LIDOCAINE PF 2% 5 ML (XYLOCAINE) VIAL ONE (12:58)
[2022-10-18] MEDS ORDERED: BUP/EPI 0.5% 1:200,000 (SENSORCAINE) 30 ML VIAL ONE (13:28)
[2022-10-18] MEDS ORDERED: BUP/EPI 0.5% 1:200,000 (SENSORCAINE) 30 ML VIAL INJ ONE (13:55)
[2022-10-18] MEDS ORDERED: LACTATED RINGERS 1,000 ML IV PRN (14:15)
--- NOTE | 2022-10-18 14:24 | Progress Note-Post Operative ---
Post-Operative Progess Note Surgeon (s)/Bunk House Worker (s) Surgeon RUDY MARRERO MD Bunk House Worker: none Pre-Operative Diagnosis bilateral great toe gangrene with bilateral LE arterial insufficiency. Post-Operative Diagnosis same with bilateral minimal bleeding consistent with severe bilat LE arterail insufficiency. Procedure & Operative Findings Date of Procedure 10/18/22 Procedure Performed/Findings bilateral great toe transmetatarsal amputation with complex flap closure left great toe (8cm) Anesthesia Type general LMA Estimated Blood Loss Estimated blood loss (mL): minimal Specimens/Packing Specimens Removed bilat great toe and metatarsal head. RUDY MARRERO MD Oct 18, 2022 14:24
--- NOTE | 2022-10-18 14:40 | Anesthesia-General Post-Op ---
General Patient Condition Mental Status/LOC: Same as Preop Cardiovascular: Satisfactory Nausea/Vomiting: Absent Respiratory: Satisfactory Pain: Controlled Complications: Absent Post Op Complications Complications None Follow Up Care/Instructions Patient Instructions None needed. Anesthesia/Patient Condition Patient Condition Patient is doing well, no complaints, stable vital signs, no apparent adverse anesthesia problems. No complications reported per nursing. D/C home per [facility] Criteria: Yes MARC KAUR CRNA Oct 18, 2022 14:40
[2022-10-18] MEDS ORDERED: HYDROmorphone 2 MG/ML VIAL (DILAUDID) IV ONE (14:45)
[2022-10-18] MEDS ORDERED: ONDANSETRON 4 MG/2 ML (SDV) Z0FRAN IVP PRN (14:45)
[2022-10-18] MEDS ORDERED: HYDROmorphone 2 MG/ML VIAL (DILAUDID) ONE (14:57)
[2022-10-18] MEDS: LIDOCAINE PATCH REMOVAL TP SCH (20:19)
[2022-10-18] MEDS: MELATONIN 3 MG TABLET PO PRN (20:37)
--- NOTE | 2022-10-18 20:42 | OPERATIVE REPORT ---
DATE OF SERVICE: 10/18/2022 ATTENDING RADIATION PROTECTION ENGINEER: Shirley Samayoa APRN. 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 PROCEDURE: Bilateral great toe transmetatarsal amputation with complex flap closure of the right great toe. SURGEON: Rudy Marrero MD ANESTHESIA: General laryngeal mask airway with local. ESTIMATED BLOOD LOSS: Minimal. 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 DISPOSITION: The patient tolerated the procedure well. INDICATIONS: The patient is a 71-year-old female who we had seen recently. She was admitted on 10/09/2022 for bilateral great toe necrosis. She was very vague about her previous medical history; however, it appears that she does have bilateral lower extremity arterial insufficiency with skin changes congruent with this. Upon the initial admission, she was found to have a significant soft tissue necrosis of the left great toe with infestation of fly larvae indicating significant necrosis of the soft tissue and extremely poor hygiene. The patient refused proper testing and definitive therapy and stated that she wanted to proceed with all of these steps as an outpatient and was discharged home on 10/11/2022. The patient returned to the hospital due to her daughter stating that both great toes continued to worsen and fester. She was readmitted and placed on IV antibiotics. She did have an ankle brachial index bilaterally; however, this was a poor study due to her body habitus. The right came back as 1.2 and the left 0.2, indicating severe peripheral vascular disease. Based on the level of necrosis of bilateral great toes, there was likely some level osteomyelitis of at least bilateral great toes and distal metatarsal. It was explained to her the patient does have extremely poor peripheral arterial disease and after amputation there is a significant chance of poor wound healing. It was explained to her that she needed further workup including an aortogram with bilateral runoffs to evaluate her lower extremity vasculature and the possibility of revascularization with angioplasty and stent placement. She thought about this for quite some time and then stated she was amenable to just bilateral great transmetatarsal amputation. Cardiology was also consulted for potential revascularization. DESCRIPTION OF PROCEDURE: The patient was brought to the operating room, laid supine on the table. After adequate IV pain and sedative medications and general laryngeal mask airway intubation, the bilateral feet were prepped and draped in standard surgical fashion. A 0.5% Marcaine with epinephrine was then used to anesthetize the overlying skin of bilateral great toes. We first proceeded with resection of the left great toe. The area of resection was marked off with a marking pen. We then proceeded to open the skin using a #15 blade. There was minimal bleeding, likely consistent with severe peripheral vascular disease. We then proceeded with dissection of the subcutaneous tissue, fascia, muscle layers tendons to the level of the distal transmetatarsal. Once this was accomplished circumferentially, periosteal elevator was used to clear off the area of the distal metatarsal. The metatarsal was then cut using a large rongeur. The bone was soft, consistent with osteomyelitis. The edges were then smoothened using a small rongeur and a file. Good hemostasis was observed. We then proceeded with the right great toe transmetatarsal amputation. Skin was marked to form superior and inferior flaps for closure. This area was then anesthetized using 0.5% Marcaine with epinephrine. A skin incision was then made using a #15 blade. Again, there was very minimal bleeding consistent with severe peripheral arterial disease. We then proceeded with dissection of the subcutaneous tissue, fascia, muscle, tendon and to the distal metatarsal using electrocautery. Again, minimal bleeding and good hemostasis. Periosteal elevator was then used to clear off the distal portion of the distal metatarsal. The metatarsal bone was then transected using a large rongeur. Again, bone being soft, consistent with osteomyelitis. The skin edges on this toe were intact and superior and inferior flaps were created using electrocautery. We then proceeded with layered closure using 0 Prolene horizontal mattress sutures to close the defect, which was approximately 8 cm in size. Before this, both wounds were copiously irrigated. The left wound was then packed with 1/2-inch iodoform gauze followed by 4 x 4 gauze, Kerlix, and then Coban. The right wound was then covered with gauze followed by Kerlix and Coban. Walking shoes were then placed bilaterally. The patient tolerated the procedure well. She will be readmitted back to the general surgical floor and continue with antibiotics as well as reevaluation and possible physical and occupational therapy. We will await consultation by Cardiology for possible revascularization procedure of bilateral lower extremities to augment wound healing. Again, we feel that at this point, she does have severe peripheral arterial disease and for more definitive therapy, she will need further workup and possible further amputations bilaterally. Job ID: [id number] DocumentID: [id number] Dictated Date: 10/18/2022 14:36:58 Cigarette Making Machine Operator Date: 10/18/2022 20:40:00 Dictated By: RUDY MARRERO MD
[2022-10-19] VITALS (7 sets, daily range): BP systolic 99–158; BP diastolic 53–73
[2022-10-19] MEDS: SINEMET 25/100 (CARBIDOPA/LEVODOPA) TAB PO PRN ×2 (01:27→18:00)
[2022-10-19] MEDS: HYDROmorphone 2 MG/ML VIAL (DILAUDID) IV PRN ×2 (01:33→08:27)
[2022-10-19] MEDS: MEROPENEM 1,000 MG in NS (IVPB) 100 ML IV SCH ×3 (04:40→20:13)
[2022-10-19] MEDS: LORazepam 0.5 MG (ATIVAN) TABLET PO PRN (05:01)
[2022-10-19 05:42] LABS: BASOPHILS # (AUTO) 0.1 10^3/uL (0.0-0.1); BASOPHILS % (AUTO) 1 % (0-10); EOSINOPHILS # (AUTO) 0.1 10^3/uL (0.0-0.3); EOSINOPHILS % (AUTO) 1 % (0-10); HEMATOCRIT 35 % (35-52); HEMOGLOBIN 11.5 g/dL (11.5-16.0); LYMPHOCYTES % (AUTO) 11 % (12-44); MEAN CORPUSCULAR HEMOGLOBIN 31 pg (25-34); MEAN CORPUSCULAR HGB CONC 33 g/dL (32-36); MEAN CORPUSCULAR VOLUME 95 fL (80-99); MEAN PLATELET VOLUME 10.4 fL (9.0-12.2); MONOCYTES # (AUTO) 0.9 10^3/uL (0.0-1.0); MONOCYTES % (AUTO) 10 % (0-12); NEUTROPHILS # (AUTO) 7.1 10^3/uL (1.8-7.8); NEUTROPHILS % (AUTO) 77 % (42-75); PLATELET COUNT 252 10^3/uL (130-400); WHITE BLOOD COUNT 9.2 10^3/uL (4.3-11.0)
--- NOTE | 2022-10-19 05:50 | Progress Note - Hospitalist ---
Subjective HPI/CC On Admission Date Seen by Provider: Oct 19, 2022 Time Seen by Provider: 08:30 Chief complaint: Bilateral gangrene of feet HPI: This is a 71-year-old female who was originally hospitalized last week but left AMA. She has bilateral gangrene of her toes and needs amputation but she did not wish to have the surgery so she went home. Pain has been so bad she returned. IV antibiotics initiated but she wants Dr. Sosa to perform the surgery. Subjective/Events-last exam Patient had surgery yesterday Arteriogram by Dr. Acosta to be done today Pain is controlled with pain medication Experiencing hematuria so we will hold Lovenox Review of Systems General: Fatigue, Malaise Musculoskeletal: leg pain, foot pain Objective Exam Vital Signs Vital Signs Date Time Temp Pulse Resp B/P (MAP) Pulse Ox O2 Delivery O2 Flow Rate FiO2 10/19/22 19:38 36.9 76 18 136/67 (90) 90 Room Air 10/18/22 15:10 2.00 10/18/22 14:15 21 Capillary Refill : Less Than 3 Seconds General Appearance: No Apparent Distress, WD/WN, Chronically ill Respiratory: Lungs Clear, Normal Breath Sounds Cardiovascular: Regular Rate, Rhythm Neurologic/Psychiatric: Alert, Oriented x3, No Motor/Sensory Deficits, Normal Mood/Affect Results/Procedures Lab Laboratory Tests 10/19/22 05:26 Patient resulted labs reviewed. Assessment/Plan Assessment and Plan Assess & Plan/Chief Complaint (1) Dry gangrene (2) Cellulitis of left foot Status: Acute (3) PAD (peripheral artery disease) Status: Chronic Assessment & Plan: - Discussed the need for smoking cessation (4) Intertriginous candidiasis Status: Acute Assessment & Plan: - Diflucan started, continue topical anti fungal as well, keep area dry (5) Tobacco abuse Status: Chronic Admission Status: Inpatient Order (span 2 midnights) Reason for Inpatient Admission: needs amputation Hematuria holding Lovenox Clinical Quality Measures DVT/VTE Risk/Contraindication: Contraindications-Mechi: Other *list below* Other: gangrene toes VENUS BURNETT DO Oct 19, 2022 05:50
[2022-10-19 06:10] LABS: ALANINE AMINOTRANSFERASE < 6 U/L (0-55); ALBUMIN 3.3 GM/DL (3.2-4.5); ALKALINE PHOSPHATASE 95 U/L (40-136); BILIRUBIN,TOTAL 0.5 MG/DL (0.1-1.0); BUN/CREATININE RATIO 15; CARBON DIOXIDE 24 MMOL/L (21-32); CHLORIDE 103 MMOL/L (98-107); CREATININE SERUM 0.72 MG/DL (0.60-1.30); GFR ESTIMATED 90; GLUCOSE 109 MG/DL (70-105); POTASSIUM 4.1 MMOL/L (3.6-5.0); SODIUM 136 MMOL/L (135-145); TOTAL PROTEIN 6.6 GM/DL (6.4-8.2)
[2022-10-19] MEDS: NS IV 1000 ML 1,000 ML IV SCH ×2 (06:38→16:32)
[2022-10-19] MEDS: VANCOMYCIN 1250 MG/NS 250 ML PREMIX IV SCH ×2 (08:27→20:59)
[2022-10-19] MEDS: NICOTINE 21 MG (NICODERM) PATCH TD SCH (08:30)
[2022-10-19] MEDS: LIDOCAINE 4% (SALONPAS) PATCH TOP SCH (08:33)
[2022-10-19] MEDS: MICONAZOLE 2% POWDER (DESENEX AF) 90 GM TOP SCH ×2 (08:33→20:14)
[2022-10-19] MEDS: amLODIPine 5 MG (NORVASC) TAB PO SCH (09:28)
[2022-10-19] MEDS: DOCUSATE SODIUM 100 MG (COLACE) CAP PO SCH ×2 (09:28→20:13)
[2022-10-19] MEDS: LOSARTAN 25 MG (COZAAR) TAB PO SCH (09:28)
[2022-10-19] MEDS: fluCOnazole (DIFLUCAN) 100 MG TAB PO SCH (09:28)
[2022-10-19] MEDS: SENNOSIDES 8.6 MG (SENOKOT) TAB PO SCH ×2 (09:29→20:14)
[2022-10-19] MEDS ORDERED: LIDOCAINE 1% INJ 20 ML VIAL ONE (10:17)
[2022-10-19] MEDS ORDERED: HEParin (CATH LAB) 2,000 ML IV ONE (10:17)
--- NOTE | 2022-10-19 12:08 | Cardiology Progress Note ---
Subjective Date Seen by Provider: Oct 19, 2022 Time Seen by Provider: 12:06 Subjective/Events-last exam Patient was seen at bedside, laying down comfortably. Denied any chest pain Had the amputation of her toes. Objective-Cardiology Exam Last Set of Vital Signs Vital Signs 10/18/22 10/19/22 14:15 11:52 Temp 37.1 Pulse 93 Resp 18 B/P (MAP) 101/69 (80) Pulse Ox 92 O2 Delivery Room Air FiO2 21 I&O Intake and Output 10/19/22 00:00 Intake Total 900 ml Output Total 2530 ml Balance -1630 ml Intake Oral 100 ml IV Total 800 ml Output Urine Total 2530 ml # Bowel Movements 2 General: Alert, Oriented X3, Cooperative HEENT: Atraumatic, PERRLA Neck: Supple, No JVD, No Thyromegaly Lungs: Clear to Auscultation, Normal Air Movement Heart: Regular Rate, Normal S1, Normal S2, No Murmurs Abdomen: Normal Bowel Sounds, Soft, No Tenderness, No Hepatosplenomegaly, No Masses Extremities: Other (Gangrene of the toes, amputation of her toes) Skin: No Rashes, No Breakdown, No Significant Lesion Neuro: Normal Gait, Normal Speech, Strength at 5/5 X4 Ext, Normal Tone, Sen sation Intact Psych/Mental Status: Mental Status NL, Mood NL Results Lab Laboratory Tests 10/19/22 05:26 A/P-Cardiology Admission Diagnosis Peripheral arterial disease Gangrene Hypertension Hyperlipidemia Assessment/Plan Gangrene of the left first and second toe. Peripheral arterial disease, abnormal lower extremity ultrasound, not sure if it was due to artifact Discussed with the patient recommended peripheral angiogram and possible angioplasty Patient had amputation of her toes done on 10/18/2022 Planning to proceed with peripheral angiogram and possible angioplasty, the amputation report is suggestive of very poor bleeding at the amputation site which will result in poor healing. History of questionable paroxysmal atrial fibrillation. Not following with any call center consultant at this time. Noncompliant with medication Echo done in February 2021 with moderately dilated left atrium, normal left ventricle, PA pressure 30 to 35 mmHg 2D echo done on October 19, 2022 showing normal LV function with normal ejection fraction Hypertension, starting KESHAV inhibitor and monitor tolerance and response Hyperlipidemia, evaluate lipid profile Tobaccoism, educated on smoking cessation Stress test was done in 2007. Multiple risk factors for coronary artery disease Evaluating stress test in the future BMI 34, discussed weight loss History of noncompliance, patient signed out AMA, no recent cardiology follow- up. Recommend compliance VIGNESH HERNANDEZ MD Oct 19, 2022 12:08
--- NOTE | 2022-10-19 12:09 | Cardiac Procedure Note-CS/ASA ---
Pre-Procedure Note Pre-Op Procedure Note Date of Available H&P: Oct 19, 2022 Date H&P Reviewed: Oct 19, 2022 Time H&P Reviewed: 12:08 History & Physical: No changes noted Pre-Operative Diagnosis: PAD Moderate Sedation PreProcedure Time 12:09 ASA Score 3 Airway Lungs Heart ASA score ASA 1: a normal healthy patient ASA 2: a patient with a mild systemic disease (mid diabetes, controlled hy pertension, obesity ASA 3: a patient with a severe systemic disease that limits activity (angina, COPD, prior Myocardial infarction) ASA 4: a patient with an incapacitating disease that is a constant threat to life (CHF, renal failure) ASA 5: a moribund patient not expected to survive 24 hrs. (ruptured aneurysm) ASA 6: a declared brain- patient whose organs are being harvested. For emergent operations, add the letter E after the classification Mallampati Classification Grade 3 Sedation Plan Analgesia, Amnesia, Plan communicated to team members, Discussed options with patient/fam, Discussed risks with patient/fam The patient is an appropriate candidate to undergo the planned procedure, se dation, and anesthesia. The patient immediately re-assessed prior to indication. VIGNESH HERNANDEZ MD Oct 19, 2022 12:09
--- NOTE | 2022-10-19 14:26 | Progress Note ---
Subjective Date Seen by a Provider: Oct 19, 2022 Time Seen by a Provider: 14:00 Subjective/Events-last exam doing ok. pain controlled. no fever/chills. Objective Exam Vital Signs Date Time Temp Pulse Resp B/P (MAP) Pulse Ox O2 Delivery O2 Flow Rate FiO2 10/19/22 11:52 37.1 93 18 101/69 (80) 92 Room Air 10/19/22 08:00 Room Air 10/19/22 07:31 37.0 95 18 99/68 (78) 91 Room Air 10/19/22 04:17 37.1 75 16 103/53 (70) 92 Room Air 10/19/22 00:06 36.5 72 16 114/71 (85) 91 Room Air 10/18/22 20:20 Room Air 10/18/22 19:50 36.7 69 19 153/64 (93) 90 Room Air 10/18/22 16:41 Room Air 10/18/22 16:07 36.4 60 18 152/69 (96) 90 Room Air 10/18/22 15:25 Room Air 10/18/22 15:20 36.4 18 172/58 (96) 96 Room Air 10/18/22 15:10 20 167/77 (107) 98 OxyMask 2.00 10/18/22 15:10 OxyMask 2.00 10/18/22 15:00 14 152/59 (90) 100 OxyMask 4.00 10/18/22 14:55 OxyMask 4.00 10/18/22 14:50 20 136/52 (80) 98 OxyMask 8.00 10/18/22 14:40 17 123/50 (74) 100 OxyMask 10 10/18/22 14:40 OxyMask 10 10/18/22 14:28 36.9 16 101/42 (61) 97 OxyMask 10 10/18/22 14:28 OxyMask 10 I & O 10/19/22 07:00 Intake Total 900 ml Output Total 1505 ml Balance -605 ml Capillary Refill : Less Than 3 Seconds General Appearance: No Apparent Distress HEENT: PERRL/EOMI Neck: Full Range of Motion Respiratory: Chest Non Tender, Rhonci, Wheezing Cardiovascular: Regular Rate, Rhythm Peripheral Pulses: 0 Dorsalis Pedis (R), 0 Left Dors-Pedis (L) Gastrointestinal: normal bowel sounds, non tender, soft Extremity: Slow Capillary Refill Neurologic/Psychiatric: Alert, Oriented x3 Skin: Normal Color Lymphatic: No Adenopathy Results Lab Laboratory Tests 10/18/22 15:58: 10/19/22 05:26: White Blood Count 9.2, Red Blood Count 3.70L, Hemoglobin 11.5, Hematocrit 35, Mean Corpuscular Volume 95, Mean Corpuscular Hemoglobin 31, Mean Corpuscular Hemoglobin Concent 33, Red Cell Distribution Width 15.4H, Platelet Count 252, Mean Platelet Volume 10.4, Immature Granulocyte % (Auto) 0, Neutrophils (%) (Auto) 77H, Lymphocytes (%) (Auto) 11L, Monocytes (%) (Auto) 10, Eosinophils (%) (Auto) 1, Basophils (%) (Auto) 1, Neutrophils # (Auto) 7.1, Lymphocytes # (Auto) 1.0, Monocytes # (Auto) 0.9, Eosinophils # (Auto) 0.1, Basophils # (Auto) 0.1, Immature Granulocyte # (Auto) 0.0, Sodium Level 136, Potassium Level 4.1, Chloride Level 103, Carbon Dioxide Level 24, Anion Gap 9, Blood Urea Nitrogen 11, Creatinine 0.72, Estimat Glomerular Filtration Rate 90, BUN/Creatinine Ratio 15, Glucose Level 109H, Calcium Level 9.0, Corrected Calcium 9.6, Total Bilirubin 0.5, Aspartate Amino Transf (AST/SGOT) 18, Alanine Aminotransferase (ALT/SGPT) < 6, Alkaline Phosphatase 95, Total Protein 6.6, Albumin 3.3 Microbiology 10/18/22 MRSA Screen - Final, Complete MRSA not isolated 10/14/22 Urine Culture - Final, Complete YEAST 10/14/22 Blood Culture - Preliminary, Resulted No growth Assessment/Plan Assessment/Plan Assess & Plan/Chief Complaint severe PAD with bilateral great toe gangrene s/p bilateral great toe TMA. scheduled for aortogram with bilateral runoff and possible angio and stent to increase distal perfusion. ambulate as much as possible to build collatera circulation as well. Clinical Quality Measures DVT/VTE Risk/Contraindication: Contraindications-Mechi: Other *list below* Other: gangrene toes RUDY MARRERO MD Oct 19, 2022 14:26
[2022-10-19] MEDS ORDERED: methylPREDNISolone 125 MG (Solu-MEDROL) VIAL ONE (15:53)
[2022-10-19] MEDS ORDERED: MIDAZOLAM 5 MG/5 ML (VERSED) VIAL ONE (15:53)
[2022-10-19] MEDS ORDERED: fentaNYL INJ 100 MCG/2 ML AMP ONE (15:53)
[2022-10-19] MEDS ORDERED: NS IV 1000 ML 1,000 ML ONE (15:54)
[2022-10-19] MEDS ORDERED: HYDROmorphone 2 MG/ML VIAL (DILAUDID) IV PRN (16:00)
[2022-10-19] MEDS: ACETAMINOPHEN 325 MG TABLET PO PRN (18:00)
[2022-10-19] MEDS: LIDOCAINE PATCH REMOVAL TP SCH (20:15)
[2022-10-20] MEDS: SINEMET 25/100 (CARBIDOPA/LEVODOPA) TAB PO PRN ×3 (01:56→15:22)
[2022-10-20] MEDS: NS IV 1000 ML 1,000 ML IV SCH ×2 (01:56→15:19)
[2022-10-20 03:40] VITALS: BP 146/68
[2022-10-20] MEDS: ACETAMINOPHEN 325 MG TABLET PO PRN ×3 (06:17→15:28)
[2022-10-20 06:19] LABS: BASOPHILS % (AUTO) 0 % (0-10); EOSINOPHILS % (AUTO) 0 % (0-10); HEMATOCRIT 36 % (35-52); HEMOGLOBIN 11.6 g/dL (11.5-16.0); LYMPHOCYTES # (AUTO) 0.5 10^3/uL (1.0-4.0); LYMPHOCYTES % (AUTO) 6 % (12-44); MEAN CORPUSCULAR HEMOGLOBIN 31 pg (25-34); MEAN CORPUSCULAR HGB CONC 33 g/dL (32-36); MEAN CORPUSCULAR VOLUME 94 fL (80-99); MEAN PLATELET VOLUME 10.5 fL (9.0-12.2); MONOCYTES # (AUTO) 0.2 10^3/uL (0.0-1.0); MONOCYTES % (AUTO) 3 % (0-12); NEUTROPHILS # (AUTO) 6.4 10^3/uL (1.8-7.8); NEUTROPHILS % (AUTO) 89 % (42-75); PLATELET COUNT 207 10^3/uL (130-400); WHITE BLOOD COUNT 7.2 10^3/uL (4.3-11.0)
[2022-10-20 06:35] LABS: ALBUMIN 3.1 GM/DL (3.2-4.5); CHLORIDE 105 MMOL/L (98-107); POTASSIUM 4.2 MMOL/L (3.6-5.0); SODIUM 137 MMOL/L (135-145)
[2022-10-20 06:36] LABS: CALCIUM 8.7 MG/DL (8.5-10.1)
[2022-10-20 06:37] LABS: GLUCOSE 133 MG/DL (70-105); TOTAL PROTEIN 6.5 GM/DL (6.4-8.2)
[2022-10-20 06:38] LABS: CARBON DIOXIDE 24 MMOL/L (21-32)
[2022-10-20 06:39] LABS: BILIRUBIN,TOTAL 0.4 MG/DL (0.1-1.0)
[2022-10-20 06:41] LABS: ALKALINE PHOSPHATASE 81 U/L (40-136); CREATININE SERUM 0.64 MG/DL (0.60-1.30); GFR ESTIMATED 96
[2022-10-20 06:42] LABS: BUN/CREATININE RATIO 20
[2022-10-20 06:44] LABS: ALANINE AMINOTRANSFERASE < 6 U/L (0-55)
[2022-10-20 06:58] LABS: LYMPHOCYTES % (MANUAL) 3 %; MONOCYTES % (MANUAL) 1 %; NEUTROPHILS % (MANUAL) 95 %; RBC MORPH NORMAL
[2022-10-20 07:31] VITALS: BP 192/72
--- NOTE | 2022-10-20 08:01 | Progress Note - Hospitalist ---
Subjective HPI/CC On Admission Date Seen by Provider: Oct 20, 2022 Time Seen by Provider: 11:00 Chief complaint: Bilateral gangrene of feet HPI: This is a 71-year-old female who was originally hospitalized last week but left AMA. She has bilateral gangrene of her toes and needs amputation but she did not wish to have the surgery so she went home. Pain has been so bad she returned. IV antibiotics initiated but she wants Dr. Sosa to perform the surgery. Objective Exam Vital Signs Vital Signs Date Time Temp Pulse Resp B/P (MAP) Pulse Ox O2 Delivery O2 Flow Rate FiO2 10/20/22 11:20 36.9 74 18 193/59 (103) 94 Room Air 10/18/22 15:10 2.00 10/18/22 14:15 21 Capillary Refill : Less Than 3 Seconds Results/Procedures Lab Laboratory Tests 10/20/22 05:54 Patient resulted labs reviewed. Assessment/Plan Assessment and Plan Assess & Plan/Chief Complaint (1) Dry gangrene (2) Cellulitis of left foot Status: Acute (3) PAD (peripheral artery disease) Status: Chronic Assessment & Plan: - Discussed the need for smoking cessation (4) Intertriginous candidiasis Status: Acute Assessment & Plan: - Diflucan started, continue topical anti fungal as well, keep area dry (5) Tobacco abuse Status: Chronic Admission Status: Inpatient Order (span 2 midnights) Reason for Inpatient Admission: needs amputation Hematuria holding Lovenox Clinical Quality Measures DVT/VTE Risk/Contraindication: Contraindications-Mechi: Other *list below* Other: gangrene toes VENUS BURNETT DO Oct 20, 2022 08:01
[2022-10-20] MEDS: fluCOnazole (DIFLUCAN) 100 MG TAB PO SCH (08:24)
[2022-10-20] MEDS: DOCUSATE SODIUM 100 MG (COLACE) CAP PO SCH (08:24)
[2022-10-20] MEDS: SENNOSIDES 8.6 MG (SENOKOT) TAB PO SCH (08:24)
[2022-10-20] MEDS: LOSARTAN 25 MG (COZAAR) TAB PO SCH (08:24)
[2022-10-20] MEDS: amLODIPine 5 MG (NORVASC) TAB PO SCH (08:24)
[2022-10-20] MEDS: NICOTINE 21 MG (NICODERM) PATCH TD SCH (08:25)
[2022-10-20] MEDS: LIDOCAINE 4% (SALONPAS) PATCH TOP SCH (08:25)
[2022-10-20] MEDS ORDERED: NS IV 500 ML 500 ML IV ONE (08:30)
--- NOTE | 2022-10-20 08:40 | Cardiology Progress Note ---
Subjective Date Seen by Provider: Oct 20, 2022 Time Seen by Provider: 08:39 Subjective/Events-last exam Patient was laying down in bed, requesting to go home. Objective-Cardiology Exam Last Set of Vital Signs Vital Signs 10/18/22 10/20/22 14:15 07:31 Temp 36.3 Pulse 70 Resp 18 B/P (MAP) 192/72 (112) Pulse Ox 93 O2 Delivery Room Air FiO2 21 I&O Intake and Output 10/20/22 00:00 Intake Total 1150 ml Output Total 685 ml Balance 465 ml Intake Oral 350 ml IV Total 800 ml Output Urine Total 685 ml General: Alert, Oriented X3, Cooperative HEENT: Atraumatic, PERRLA Neck: Supple, No JVD, No Thyromegaly Lungs: Clear to Auscultation, Normal Air Movement Heart: Regular Rate, Normal S1, Normal S2, No Murmurs Abdomen: Normal Bowel Sounds, Soft, No Tenderness, No Hepatosplenomegaly, No Masses Extremities: Other (Gangrene of the toes, amputation of her toes) Skin: No Rashes, No Breakdown, No Significant Lesion Neuro: Normal Gait, Normal Speech, Strength at 5/5 X4 Ext, Normal Tone, Sensation Intact Psych/Mental Status: Mental Status NL, Mood NL Results Lab Laboratory Tests 10/20/22 05:54 A/P-Cardiology Admission Diagnosis Peripheral arterial disease Gangrene Hypertension Hyperlipidemia Assessment/Plan Gangrene of the left first and second toe. Peripheral arterial disease, abnormal lower extremity ultrasound, not sure if it was due to artifact Discussed with the patient recommended peripheral angiogram and possible angioplasty Patient had amputation of her toes done on 10/18/2022 I was planning to proceed with peripheral angiogram, after placing the patient on the cardiac catheterization table she became very anxious and started crying and requested to go home, did not want to lay down still I am concerned that she will be unable to lay down still after the procedure to maintain hemostasis Procedure was canceled. Patient understand the risk of amputation further in her legs. Arrange for follow-up as an outpatient History of questionable paroxysmal atrial fibrillation. Not following with any senior java software engineer at this time. Noncompliant with medication Echo done in February 2021 with moderately dilated left atrium, normal left ventricle, PA pressure 30 to 35 mmHg 2D echo done on October 19, 2022 showing normal LV function with normal ejection fraction Hypertension, starting KESHAV inhibitor and monitor tolerance and response Hyperlipidemia, evaluate lipid profile Tobaccoism, educated on smoking cessation Stress test was done in 2007. Multiple risk factors for coronary artery disease Evaluating stress test in the future BMI 34, discussed weight loss History of noncompliance, patient signed out AMA, no recent cardiology follow- up. Recommend compliance VIGNESH HERNANDEZ MD Oct 20, 2022 08:40
[2022-10-20] MEDS: MICONAZOLE 2% POWDER (DESENEX AF) 90 GM TOP SCH (09:00)
[2022-10-20 11:20] VITALS: BP 193/59
[2022-10-20] MEDS ORDERED: SNN187T PO (11:23)
[2022-10-20] MEDS ORDERED: FLUC100T10 PO (11:23)
[2022-10-20] MEDS ORDERED: MICO90PO TOP (11:23)
[2022-10-20] MEDS ORDERED: LOSA25TA41 PO (11:23)
[2022-10-20] MEDS ORDERED: OXC5T PO (11:23)
[2022-10-20] MEDS ORDERED: AMLO-250 PO (11:23)
[2022-10-20] MEDS ORDERED: CLOP75TA28 PO (11:23)
[2022-10-20] MEDS ORDERED: CLIN-144 PO (11:23)
--- NOTE | 2022-10-20 11:25 | Discharge Summary ---
Discharge Summary Hospital Course Was the Problem List Reviewed?: Yes Problems/Dx: (1) Gangrene of left foot Status: Acute (2) Non-compliance Status: Acute (3) HTN (hypertension) Status: Acute (4) Intertriginous candidiasis Status: Acute (5) Cellulitis of left foot Status: Acute (6) PAD (peripheral artery disease) Status: Chronic (7) Tobacco abuse Status: Chronic Hospital Course Date of Admission: Oct 14, 2022 at 22:20 Admission Diagnosis : Family Physician/Provider: Shirley Samayoa Date of Discharge: 10/20/22 Discharge Diagnosis: [ ] Hospital Course: Patient had an uneventful hospital course she was admitted after she had left [facility] last time for cellulitis and gangrene of bilateral toes Dr. Red evaluated her and performed partial amputations. IV antibiotics maintained and she was transitioned to oral antibiotics to finish up but her overall noncompliance will place her at risk for further decline. Home health was ordered. Labs and Pending Lab Test: Laboratory Tests 10/20/22 05:54: White Blood Count 7.2, Red Blood Count 3.78L, Hemoglobin 11.6, Hematocrit 36, Mean Corpuscular Volume 94, Mean Corpuscular Hemoglobin 31, Mean Corpuscular Hemoglobin Concent 33, Red Cell Distribution Width 15.1H, Platelet Count 207, Mean Platelet Volume 10.5, Immature Granulocyte % (Auto) 1, Neutrophils (%) (Auto) 89H, Lymphocytes (%) (Auto) 6L, Monocytes (%) (Auto) 3, Eosinophils (%) (Auto) 0, Basophils (%) (Auto) 0, Neutrophils # (Auto) 6.4, Lymphocytes # (Auto) 0.5L, Monocytes # (Auto) 0.2, Eosinophils # (Auto) 0.0, Basophils # (Auto) 0.0, Immature Granulocyte # (Auto) 0.1, Neutrophils % (Manual) 95, Lymphocytes % (Manual) 3, Monocytes % (Manual) 1, Blood Morphology Comment NORMAL, Sodium Level 137, Potassium Level 4.2, Chloride Level 105, Carbon Dioxide Level 24, Anion Gap 8, Blood Urea Nitrogen 13, Creatinine 0.64, Estimat Glomerular Filtration Rate 96, BUN/Creatinine Ratio 20, Glucose Level 133H, Calcium Level 8.7, Corrected Calcium 9.4, Total Bilirubin 0.4, Aspartate Amino Transf (AST/SGO T) 16, Alanine Aminotransferase (ALT/SGPT) < 6, Alkaline Phosphatase 81, Total Protein 6.5, Albumin 3.1L Microbiology 10/18/22 MRSA Screen - Final, Complete MRSA not isolated 10/14/22 Urine Culture - Final, Complete YEAST 10/14/22 Blood Culture - Preliminary, Resulted No growth Home Meds Active Lotrimin AF (Miconazole Nitrate) 2 % Powder 0 Gm TOP BID twice daily Senna Lax (Sennosides) 8.6 Mg Tablet 8.6 Mg PO BID Oxyir Tablet (Oxycodone HCl) 5 Mg Tab 10 Mg PO Q4HR PRN Losartan Potassium 25 Mg Tablet 25 Mg PO DAILY Amlodipine Besylate 5 Mg Tablet 5 Mg PO DAILY Clopidogrel (Clopidogrel Bisulfate) 75 Mg Tablet 75 Mg PO DAILY Fluconazole 100 Mg Tablet 100 Mg PO DAILY FILLED 10-11-2022 # DAY SUPPLY Clindamycin HCl 300 Mg Capsule 300 Mg PO TID Reported Tylenol Extra Strength (Acetaminophen) 500 Mg Tablet 1,000 Mg PO Q8H PRN TAKES 2 (500MG) TABS Carbidopa-Levo 25-100 mg Odt (Carbidopa/Levodopa) 25 Mg-100 Mg Tab.rapdis 1 Each PO BID PRN MDD 6 Assessment/Pt Instructions PCP in 1 week Discharge Planning: <30 minutes discharge planning Discharge Physical Examination Vital Signs Vital Signs Date Time Temp Pulse Resp B/P (MAP) Pulse Ox O2 Delivery O2 Flow Rate FiO2 10/20/22 11:20 36.9 74 18 193/59 (103) 94 Room Air 10/18/22 15:10 2.00 10/18/22 14:15 21 General Appearance: No Apparent Distress, WD/WN, Chronically ill Allergies: Coded Allergies: Tetanus Vaccines and Toxoid (Unverified Allergy, Severe, extreme redness in arms, 11/23/09) amoxicillin (Unverified Allergy, Unknown, 05/23/18) aspirin (Unverified Allergy, Unknown, 05/23/18) clavulanic acid (Unverified Allergy, Unknown, 05/23/18) diphenhydramine (Unverified Allergy, Unknown, 05/23/18) iodine (Verified Allergy, Unknown, 10/09/22) Uncoded Allergies: BEE STINGS (Allergy, Severe, closes throat, 7/19/10) CILANTRO (Allergy, Unknown, 10/09/22) TUMERIC (Allergy, Unknown, 10/09/22) Discharge Summary Date of Admission Oct 14, 2022 at 22:20 Date of Discharge Discharge Date: Oct 20, 2022 Admission Diagnosis (1) Dry gangrene (2) Cellulitis of left foot Status: Acute (3) PAD (peripheral artery disease) Status: Chronic Assessment & Plan: - Discussed the need for smoking cessation (4) Intertriginous candidiasis Status: Acute Assessment & Plan: - Diflucan started, continue topical anti fungal as well, keep area dry (5) Tobacco abuse Status: Chronic Discharge Diagnosis (1) Dry gangrene (2) Cellulitis of left foot Status: Acute (3) PAD (peripheral artery disease) Status: Chronic Assessment & Plan: - Discussed the need for smoking cessation (4) Intertriginous candidiasis Status: Acute Assessment & Plan: - Diflucan started, continue topical anti fungal as well, keep area dry (5) Tobacco abuse Status: Chronic Admission Status: Inpatient Order (span 2 midnights) Reason for Inpatient Admission: needs amputation Hematuria holding Lovenox Clinical Quality Measures DVT/VTE Risk/Contraindication: Contraindications-Mechi: Other *list below* Other: gangrene toes VENUS BURNETT DO Oct 20, 2022 11:25
--- NOTE | 2022-10-20 11:25 | D/C HH Face to Face Order ---
D/C Face to Face Orders Reconcile Patient Problems Problems Reviewed?: Yes Instructions for Patient Via [facility], Patient Instructions/FollowUp: PCP 1 week Physician to follow Patient: [facility] Discharge Diet for Home: No Restrictions Patient Problems: Partial amputations of toes Gangrene of toes Patient Data-Allergies,Ht & Wt Patient Allergies: Coded Allergies: Tetanus Vaccines and Toxoid (Unverified Allergy, Severe, extreme redness in arms, 11/23/09) amoxicillin (Unverified Allergy, Unknown, 05/23/18) aspirin (Unverified Allergy, Unknown, 05/23/18) clavulanic acid (Unverified Allergy, Unknown, 05/23/18) diphenhydramine (Unverified Allergy, Unknown, 05/23/18) iodine (Verified Allergy, Unknown, 10/09/22) Uncoded Allergies: BEE STINGS (Allergy, Severe, closes throat, 11/23/09) CILANTRO (Allergy, Unknown, 10/09/22) TUMERIC (Allergy, Unknown, 10/09/22) Home Health Need/Face to Face Date of Face to Face: Oct 20, 2022 Clinical Findings: Generalized weakness and fatigue, Muscle weakness I have seen Pt [id number]: Yes Discharged To: Home Diagnosis/Conditions: Debility Patient is Homebound due to: Muscle weakness Homebound Status Due to the above stated illness, injury or surgical procedure (medical condition or diagnosis) and associated clinical findings, the patient is homebound because of his/her inability to leave home except with aid of a supportive device and/or person AND leaving the home requires a considerable and taxing effort or is medically contraindicated. Pt req the following assistanc: [facility] Nursing Orders Home Health Services Order: Nursing Services, Traveling Operator-Evaluate & Treat, Physical Therapy-Evaluate & Treat Home Health Infusion Therapy Line Start Date: Oct 15, 2022 Certify Stmt I certify that this patient is under my care and that I, a nurse practitioner or a physician; a oral surgery assistant working with me, had a face to face encounter that - meets the physician face to face encounter requirements with this patient as VENUS Ratliff DO Oct 20, 2022 11:24
--- NOTE | 2022-10-20 11:26 | Physical Therapy Evaluation ---
PT Evaluation-General Medical Diagnosis Admission Date Oct 14, 2022 at 22:20 Medical Diagnosis: gangrene bilateral feet Onset Date: Oct 14, 2022 Therapy Diagnosis Therapy Diagnosis: debility/weakness Precautions Precautions/Isolations: Fall Prevention, Standard Precautions Referral Physician: Sheila Reason for Referral: Evaluation/Treatment Medical History Pertinent Medical History: HTN Additional Medical History PAD Current History ER secondary to bilateral feet edema Reviewed History: Yes Social History Home: Single Level Current Living Status: Other Family Entry Into Home: Ramp Prior Prior Level of Function SCALE: Activities may be completed with or without assistive devices. 5-Tevwbvrder-cwfildr completes the activity by him/herself with no assistance from a helper. 5-Set-up or Clean-up Assistance-helper sets up or cleans up; patient completes activity. [place] assists only prior to or following the activity. 4-Supervision or Touching Assistance-helper provides verbal cues and/or touching/steadying and/or contact guard assistance as patient completes activity. Assistance may be provided throughout the activity or intermittently. 3-Partial/Moderate Assistance-helper does LESS THAN HALF the effort. [place] lifts, holds or supports trunk or limbs, but provides less than half the effort. 2-Substantial/Maximal Assistance-helper does MORE THAN HALF the effort. [place] lifts or holds trunk or limbs and provides more than half the effort. 8-Qjxjoohyl-nclhsq does ALL the effort. Patient does none of the effort to complete the activity. Or, the assistance of 2 or more helpers is required for the patient to complete the activity. If activity was not attempted, code reason: 7-Patient Refused. 9-Not Applicable-not attempted and the patient did not perform the activity before the current illness, exacerbation or injury. 10-Not Attempted due to Environmental Limitations-(lack of equipment, weather restraints, etc.). 88-Not Attempted due to Medical Conditions or Safety Concerns. Bed Mobility: 6 Transfers (B,C,W/C): 6 Gait: 6 Indoor Mobility (Ambulation): Independent PT Evaluation-Current Subjective Patient appears and reports being very anxious. Patient's daughter present. Objective Patient Orientation: Person Attachments: Rueda Catheter, IV ROM/Strength ROM Lower Extremities bilateral LE WLF Strength Lower Extremities 3+/5 grossly bilateral LE all planes Integumentary/Posture Integumentary refer to nursing note Bladder Incontinence: Rueda Cath Posture WFL Neuromuscular (Tone, Coordination, Reflexes) diminished coordination Sensory Vision: Functional Hearing: Functional Transfers Sit to Lying (QC): 4 Lying to Sitting/Side of Bed(Q: 4 Sit to Stand (QC): 2 Chair/Bzv-td-Lhbmm Xfer(QC): 7 Gait Distance: 5 side steps Gait Assistive Device: FWW Comments/Gait Description minimal foot clearance Balance Sitting Static: Normal Sitting Dynamic: Normal Standing Static: Fair Standing Dynamic: Fair Assessment/Needs Patient very emotional during entire session. Patient requires encouragement to participate and complete all tasks. PT dons bilateral surgical shoes dependently. Patient will benefit from skilled PT to address functional strength and mobility to improve current LOF. Patient adamantly declined to ambulate and impulsively sat back onto the bed. Rehab Potential: Guarded PT Police Sergeant Goals Police Sergeant Goals PT Usp Goals Time Frame: Nov 05, 2022 Roll Left & Right (QC): 5 Sit to Lying (QC): 5 Lying-Sitting on Side/Bed(QC): 5 Sit to Stand (QC): 3 Chair/Viy-bo-Bikjn Xfer(QC): 3 Toilet Transfer (QC): 3 Walk 10 feet (QC): 3 Walk 50ft with 2 Turns (QC): 3 PT Plan Problem List Problem List: Activity Tolerance, Functional Strength, Safety, Balance, Gait, Transfer, Bed Mobility Treatment/Plan Treatment Plan: Continue Plan of Care Treatment Plan: Bed Mobility, Education, Functional Activity Braulio, Functional Strength, Gait, Safety, Therapeutic Exercise, Transfers Treatment Duration: Nov 05, 2022 Frequency: 6 times per week Estimated Hrs Per Day: .25 hour per day Time Time In: 1030 Time Out: 1056 DATE: Oct 20, 2022 Total Billed Treatment Time: 26 Total Billed Treatment 1 visit EVMobc 10 min FA 16 min ZOLTAN BANEGAS PT Oct 20, 2022 11:26
--- NOTE | 2022-10-20 14:36 | Occupational Therapy Eval ---
OT Evaluation-General/PLF Medical Diagnosis Admission Date Oct 14, 2022 at 22:20 Medical Diagnosis: gangrene bilateral feet Onset Date: Oct 14, 2022 Therapy Diagnosis Therapy Diagnosis: weakness Precautions Precautions/Isolations: Fall Prevention, Standard Precautions Referral Physician: Sheila Medical History Pertinent Medical History: HTN Social History Home: Single Level Current Living Status: Other Family Entry Into Home: Ramp ADL-Prior Level of Function SCALE: Activities may be completed with or without assistive devices. 1-Xriwzictot-pgkvbjx completes the activity by him/herself with no assistance from a helper. 5-Set-up or Clean-up Assistance-helper sets up or cleans up; patient completes activity. [place] assists only prior to or following the activity. 4-Supervision or Touching Assistance-helper provides verbal cues and/or touching/steadying and/or contact guard assistance as patient completes activity. Assistance may be provided throughout the activity or intermittently. 3-Partial/Moderate Assistance-helper does LESS THAN HALF the effort. [place] lifts, holds or supports trunk or limbs, but provides less than half the effort. 2-Substantial/Maximal Assistance-helper does MORE THAN HALF the effort. [place] lifts or holds trunk or limbs and provides more than half the effort. 4-Ahtpvafqy-cpfonz does ALL the effort. Patient does none of the effort to complete the activity. Or, the assistance of 2 or more helpers is required for the patient to complete the activity. If activity was not attempted, code reason: 7-Patient Refused. 9-Not Applicable-not attempted and the patient did not perform the activity before the current illness, exacerbation or injury. 10-Not Attempted due to Environmental Limitations-(lack of equipment, weather restraints, etc.). 88-Not Attempted due to Medical Conditions or Safety Concerns. OT Current Status Subjective Patient reports fear and anxiety, agreeable to evaluate Mental Status/Objective Patient Orientation: Person Attachments: Rueda Catheter, IV Current Upper Extremity ROM BUE ROM WFLs, limited close joint approximation d/t excessive soft tissue Upper Extremity Strength -4/5 grossly ADL-Treatment ADL-Current Patient very emotional during entire session. Patient requires encouragement to participate and complete all tasks. Patient refuses all attempt to perform LB ADLS requires bilateral surgical shoes dependently. Inconsistent communication w/ reporting inability to see however reads this therapist name on white write board and time on clock. Reports cannot see her feet and only sees WHITE. Patient adamantly declined to ambulate and impulsively sat back onto the bed Eating (QC): 6 Oral Hygiene (QC): 5 Shower/Bathe Self (QC): 7 Upper Body Dressing (QC): 7 Lower Body Dressing (QC): 1 On/Off Footwear (QC): 1 Toileting Hygiene (QC): 1 Requires additional person for LB ADLS transfer, sit<>stand and clothing management Education OT Patient Education: Correct positioning, Modified ADL techniques, Progress toward Goal/Update tx plan, Purpose of tx/functional activities, Reviewed precautions, Rehab process, Safety issues, Transfer techniques, Use of adapted equipment Teaching Recipient: Patient Teaching Methods: Demonstration, Discussion Response to Teaching: Reinforcement Needed OT Wood Tile Installation Helper Goals Wood Tile Installation Helper Goals Eating (QC): 6 Oral Hygiene (QC): 6 Toileting Hygiene (QC): 4 Shower/Bathe Self (QC): 4 Upper Body Dressing (QC): 4 Lower Body Dressing (QC): 4 On/Off Footwear (QC): 4 1=Demonstrate adherence to instructed precautions during ADL tasks. 2=Patient will verbalize/demonstrate understanding of assistive devices/modifications for ADL. 3=Patient will improve strength/tolerance for activity to enable patient to perform ADL's. OT Education/Plan Problem List/Assessment Assessment: Decreased Activ Tolerance, Decreased Safety Aware, Decreased UE Strength, Dependent Transfers, Impaired Bed Mobility, Impaired Coordination, Impaired Funct Balance, Impaired Self-Care Skills Discharge Recommendations Plan/Recommendations: Continue POC Treatment Plan/Plan of Care Treatment,Training & Education: Yes Patient would benefit from OT for education, treatment and training to promote independence in ADL's, mobility, safety and/or upper extremity function for ADL's. Plan of Care: ADL Retraining, Cognitive Retraining, Concurrent Therapy, Functional Mobility, Group Exercise/Act as Ind, UE Funct Exercise/Act Treatment Duration: Oct 29, 2022 Frequency: 3 times per week (3-5 times per week) Estimated Hrs Per Day: .25 hour per day Agreement: Yes Rehab Potential: Guarded Time Start Time: 10:30 Stop Time: 10:58 DATE: Oct 20, 2022 Total Time Billed (hr/min): 28 Billed Treatment Time EVM, ADL 28 min JEANNIE KUMAR OT Oct 20, 2022 14:36
[2022-10-20 16:38] VITALS: BP 178/74
[2022-10-20 17:46] VITALS: BP 178/74
== END 2022-10-20 17:35 | disposition home health service (06) | DRG 504 ==
LOC: EDUNIT# 19:54 → ER 19:55 → 4TH 22:20
PROVIDERS: ADMIT Internal Medicine; ATTEND Internal Medicine
PROC: 0Y6P0Z0 Detachment at Right 1st Toe, Complete, Open Approach (ICD-10-PCS; 2022-10-18)
PROC: 0Y6Q0Z0 Detachment at Left 1st Toe, Complete, Open Approach (ICD-10-PCS; principal; 2022-10-18 13:09)
DX: M86.9 Osteomyelitis, unspecified (principal); I96 Gangrene, not elsewhere classified; L03.115 Cellulitis of right lower limb; L03.116 Cellulitis of left lower limb; I73.9 Peripheral vascular disease, unspecified; Z91.199 Patient's noncompliance with other medical treatment and regimen due to unspecified reason; I10 Essential (primary) hypertension; Z66 Do not resuscitate; Z20.822 Contact with and (suspected) exposure to COVID-19; F17.210 Nicotine dependence, cigarettes, uncomplicated; F12.90 Cannabis use, unspecified, uncomplicated; J44.9 Chronic obstructive pulmonary disease, unspecified; G62.9 Polyneuropathy, unspecified; K21.9 Gastro-esophageal reflux disease without esophagitis; B37.2 Candidiasis of skin and nail; F39 Unspecified mood [affective] disorder; Z53.8 Procedure and treatment not carried out for other reasons; E66.01 Morbid (severe) obesity due to excess calories; Z68.34 Body mass index [BMI] 34.0-34.9, adult; F41.9 Anxiety disorder, unspecified; F32.A Depression, unspecified; H54.3 Unqualified visual loss, both eyes; H91.90 Unspecified hearing loss, unspecified ear; M19.91 Primary osteoarthritis, unspecified site; R31.9 Hematuria, unspecified
CPT/HCPCS: 36415; 51702; 71045; 80053; 80202; 80306; 80320; 81000; 83605; 83735; 83874; 83880; 85007; 85025; 85027; 85610; 85652; 85730; 86141; 86769; 87040; 87081; 87088; 87636; 93041; 93306; 94760; 96365; 96375

== ENCOUNTER 2022-11-03 11:33 | Emergency (ER) | payer MEDICARE, MEDICAID ==
[~2022-11-03 11:33] MED LIST changes: +AMLO-250 PO; +CLOP75TA28 PO; +LOSA25TA41 PO; +MICO90PO TOP; +OXC5T PO; +SNN187T PO
[2022-11-03] MEDS ORDERED: fentaNYL INJ 100 MCG/2 ML AMP IVP ONE ×3 (12:00→12:45)
--- NOTE | 2022-11-03 12:06 | ED Integumentary General ---
General Chief Complaint: Skin/Wound Problems Stated Complaint: TOE INFECTION Nursing Triage Note: PT TO RM 7 BY EMS WITH C/O THINKING SHE HAS MAGGOTS IN HER INCISIONS AGAIN. PT SAW DR SOSA YESTERDAY AT FOLLOWUP AND WAS TOLD EVERYTHING WAS FINE. PT NOTICED BLACK FLIES THIS MORNING Source: patient, EMS Exam Limitations: other (DORA SEVILLA APRN) History of Present Illness Date Seen by Provider: Nov 03, 2022 Time Seen by Provider: 11:45 Initial Comments 71-year-old female presents to the ER via EMS with concerns of maggots in her wounds. She had a bilateral great toe transmetatarsal amputation on 10/14/22 for osteomyelitis. EMS states that patient was seen by Dr. Sosa, surgery, yesterday and was told that everything looked good. Patient was unable to provide any information to me, she did not tell me that Dr. Sosa said everything was good yesterday. She states that she came here by ambulance because Dr. Welch told her to. Patient states she did not call the ambulance, states that her daughter did. She does not know why she is here. States that Dr. Welch and Dr. Sosa have been talking with each other. Thinks that Dr. Sosa wanted to do surgery again. She states she is unsure if she has had any fevers. She is complaining of pain in her feet. She would not let me take the bandages off her feet until I spoke with Dr. Sosa. She would prefer that Dr. Sosa is in the room when the bandages are removed. Patient's daughter arrived and provided more information. She states that they call Dr. Welch this morning who told them to either come to the ER or get a hold of Dr. Sosa due to the maggots in patient's wound. They were unable to see Dr. Sosa today, so they came to the ER. (DORA SEVILLA APRN) Allergies and Home Medications Allergies Coded Allergies: Tetanus Vaccines and Toxoid (Unverified Allergy, Severe, extreme redness in arms, 11/23/09) amoxicillin (Unverified Allergy, Unknown, 05/23/18) aspirin (Unverified Allergy, Unknown, 05/23/18) clavulanic acid (Unverified Allergy, Unknown, 05/23/18) diphenhydramine (Unverified Allergy, Unknown, 05/23/18) iodine (Verified Allergy, Unknown, 10/09/22) Uncoded Allergies: BEE STINGS (Allergy, Severe, closes throat, 11/23/09) CILANTRO (Allergy, Unknown, 10/09/22) TUMERIC (Allergy, Unknown, 10/09/22) Patient Home Medication List Home Medication List Reviewed: Yes (DORA SEVILLA APRN) Acetaminophen (Tylenol Extra Strength) 500 Mg Tablet, 1,000 MG PO Q8H PRN for PAIN-MILD (1-4), (Reported) Entered as Reported by: OSWALDO CHEN on 10/10/22 09 Amlodipine Besylate (Amlodipine Besylate) 5 Mg Tablet, 5 MG PO DAILY Prescribed by: VENUS BURNETT on 10/20/22 112 Carbidopa/Levodopa (Carbidopa-Levo 25-100 mg Odt) 25 Mg-100 Mg Tab.rapdis, 1 EACH PO BID PRN for TREMORS, (Reported) Entered as Reported by: OSWALDO CHEN on 10/10/22914 Clindamycin HCl (Clindamycin HCl) 300 Mg Capsule, 300 MG PO TID Prescribed by: VENUS BURNETT on 10/20/22 112 Clopidogrel Bisulfate (Clopidogrel) 75 Mg Tablet, 75 MG PO DAILY Prescribed by: VENUS BURNETT on 10/20/22 112 Fluconazole (Fluconazole) 100 Mg Tablet, 100 MG PO DAILY Prescribed by: VENUS BURNETT on 10/20/22 112 Losartan Potassium (Losartan Potassium) 25 Mg Tablet, 25 MG PO DAILY Prescribed by: VENUS BURNETT on 10/20/22 112 Miconazole Nitrate (Lotrimin AF) 2 % Powder, 0 GM TOP BID Prescribed by: VENUS BURNETT on 10/20/22 112 Oxycodone Hcl (Oxyir Tablet) 5 Mg Tab, 10 MG PO Q4HR PRN for PAIN-SEE DOSE INSTRUCTIONS Prescribed by: VENUS BURNETT on 10/20/22 112 Sennosides (Senna Lax) 8.6 Mg Tablet, 8.6 MG PO BID Prescribed by: VENUS BURNETT on 10/20/22 112 Sulfamethoxazole/Trimethoprim (Bactrim Ds Tablet) 1 Each Tablet, 1 EACH PO BID Prescribed by: Dora Sevilla on 11/03/22 1308 Review of Systems Review of Systems Constitutional: no symptoms reported Skin: see HPI (DORA SEVILLA APRN) Past Oyvktly-Manhrg-Kepoxf Hx Patient Social History Tobacco Use?: Yes Substance use?: No Alcohol Use?: No Pt feels they are or have been: No (DORA SEVILLA APRN) Past Medical History Surgery/Hospitalization HX: HYST, R ANKLE , T AND A, GB, L TKR, HIP SURG, bilat toe amp Surgeries: Yes Gallbladder Respiratory: Yes Chronic Bronchitis, COPD Cardiac: Yes Hypertension Neurological: Yes Neuropathy Reproductive Disorders: Yes Genitourinary: No Gastrointestinal: Yes Gastroesophageal Reflux Musculoskeletal: Yes Degenerate Disk Disease, Arthritis, Chronic Back Pain HEENT: Yes Loss of Vision: Bilateral Hearing Impairment: Hard of Hearing Cancer: No Psychosocial: Yes Anxiety, Depression (DORA SEVILLA APRN) Family Medical History No Pertinent Family Hx, Diabetes, Hypertension (DORA SEVILLA APRN) Physical Exam Vital Signs Vital Signs - First Documented 11/03/22 11/03/22 11:35 14:12 Temp 36.4 Pulse 74 Resp 20 B/P (MAP) 139/61 (87) Pulse Ox 98 O2 Delivery Room Air (SANDRA JAIMES MD) Vital Signs Capillary Refill : (DORA SEVILLA APRN) General Appearance: WD/WN, moderate distress Neck: supple, normal inspection Cardiovascular: regular rate, rhythm Respiratory: lungs clear, normal breath sounds, no respiratory distress, no accessory muscle use Extremities: swelling (Mild swelling) Neurologic/Psychiatric: alert Skin: normal color, warm/dry Skin Problem Location: lower extremities Skin Problem Character: other (Surgical wound bilateral great toes were removed. Wound on left foot shows granulation, is healing, maggots were noted to wound. Wound on right foot is closed, and healing.) (DORA SEVILLA APRN) Progress/Results/Core Measures Results/Orders Lab Results Laboratory Tests Test 11/03/22 11:36 Range/Units White Blood Count 9.4 4.3-11.0 10^3/uL Red Blood Count 4.00 3.80-5.11 10^6/uL Hemoglobin 12.3 11.5-16.0 g/dL Hematocrit 37 35-52 % Mean Corpuscular Volume 93 80-99 fL Mean Corpuscular Hemoglobin 31 25-34 pg Mean Corpuscular Hemoglobin Concent 33 32-36 g/dL Red Cell Distribution Width 15.4 H 10.0-14.5 % Platelet Count 386 130-400 10^3/uL Mean Platelet Volume 10.2 9.0-12.2 fL Immature Granulocyte % (Auto) 0 % Neutrophils (%) (Auto) 70 42-75 % Lymphocytes (%) (Auto) 20 12-44 % Monocytes (%) (Auto) 9 0-12 % Eosinophils (%) (Auto) 1 0-10 % Basophils (%) (Auto) 1 0-10 % Neutrophils # (Auto) 6.5 1.8-7.8 10^3/uL Lymphocytes # (Auto) 1.8 1.0-4.0 10^3/uL Monocytes # (Auto) 0.8 0.0-1.0 10^3/uL Eosinophils # (Auto) 0.1 0.0-0.3 10^3/uL Basophils # (Auto) 0.1 0.0-0.1 10^3/uL Immature Granulocyte # (Auto) 0.0 0.0-0.1 10^3/uL (SANDRA JAIMES MD) Medications Given in ED Current Medications Medications Dose Ordered Sig/Gamaliel Route Start Time Stop Time Status Last Admin Dose Admin Fentanyl Citrate 75 mcg ONCE ONCE IVP 11/03/22 12:15 11/03/22 12:16 DC 11/03/22 12:15 75 MCG Fentanyl Citrate 100 mcg ONCE ONCE IVP 11/03/22 12:45 11/03/22 12:46 DC 11/03/22 12:45 100 MCG (SANDRA JAIMES MD) Vital Signs/I&O 11/03/22 11/03/22 11:35 14:12 Temp 36.4 36.8 Pulse 74 87 Resp 20 18 B/P (MAP) 139/61 (87) 156/63 Pulse Ox 98 94 O2 Delivery Room Air (SANDRA JAIMES MD) Blood Pressure Mean: 87 Progress Progress Note : Time: 12:00 Progress Note Patient seen and evaluated, sitting in bed, moderate distress. I attempted to call Dr. Sosa, surgery, I was unable to get a hold of him at this time. [address] Sosa, surgery. He states that he saw patient yesterday, was shown pictures by daughter of maggots in patient's wound. He states that the maggots are likely helping. He is working on getting her set up for an angiogram for her peripheral artery disease. He states that her wounds are not going to heal until she has this done. He recommends starting her on an antibiotic. 1305 CBC reviewed, grossly normal. Dressings removed from wounds and wounds evaluated. Wound bed of left foot shows good granulation, appears to be healing, multiple maggots were noted. Maggots that were visible were removed, some are still burrowing into the wound and were unable to be removed. Wet-to-dry dressing placed. Patient's home health nurse will see her tomorrow. Dr. Sosa, is working on an outpatient arteriogram, patient will receive a phone call to get that scheduled. I discussed with patient the possibility of going to a skilled nursing, patient states she does not want to do this, she wants to go home. Patient has tramadol at home for pain. Will prescribe antibiotic. Discharge instructions and return precautions provided. 1359 patient was still here waiting for a transportation. She complained of indigestion, burning pain in her epigastric region. She states that she gets this a lot. She states that she thinks the cold glass water would help, I offered to give her a cold glass of water, patient declined. I offered a GI cocktail, patient declined this as well. Patient states she would like to go home. Nursing staff will help her get into the car. (DORA SEVILLA APRN) Departure Impression Primary Impression: Encounter for evaluation of wound Disposition: HOME, SELF-CARE Condition: Stable Departure-Patient Inst. Decision time for Depature: 13:06 (DORA SEVILLA APRN) Referrals: [facility] ([place]) Primary Care Physician ROMAN WISDOM (Family) Primary Care Physician Patient Instructions: Wound Care (DC) Add. Discharge Instructions: Complete full course of antibiotic as directed. Follow-up with Dr. Sosa. You will receive a phone call about your arteriogram. Return for fever, redness that extends past the wound into the foot, or any other new, concerning, or worsening symptoms All discharge instructions reviewed with patient and/or family. Voiced understanding. Scripts Sulfamethoxazole/Trimethoprim (Bactrim Ds Tablet) 1 Each Tablet 1 EACH PO BID for 7 Days, #14 TAB 0 Refills Prov: DORA SEVILLA APRN 11/03/22 ATTENDING PHYSICIAN NOTE: I was physically present as attending physician in the emergency department during the care of this patient, but I was not directly involved in the decision making or delivery of care for this patient. (SANDRA JAIMES MD) DORA SEVILLA APRN Nov 03, 2022 12:06 SANDRA JAIMES MD Nov 03, 2022 19:21
[2022-11-03 12:26] LABS: BASOPHILS # (AUTO) 0.1 10^3/uL (0.0-0.1); BASOPHILS % (AUTO) 1 % (0-10); EOSINOPHILS # (AUTO) 0.1 10^3/uL (0.0-0.3); EOSINOPHILS % (AUTO) 1 % (0-10); HEMATOCRIT 37 % (35-52); HEMOGLOBIN 12.3 g/dL (11.5-16.0); LYMPHOCYTES # (AUTO) 1.8 10^3/uL (1.0-4.0); LYMPHOCYTES % (AUTO) 20 % (12-44); MEAN CORPUSCULAR HEMOGLOBIN 31 pg (25-34); MEAN CORPUSCULAR HGB CONC 33 g/dL (32-36); MEAN CORPUSCULAR VOLUME 93 fL (80-99); MEAN PLATELET VOLUME 10.2 fL (9.0-12.2); MONOCYTES # (AUTO) 0.8 10^3/uL (0.0-1.0); MONOCYTES % (AUTO) 9 % (0-12); NEUTROPHILS # (AUTO) 6.5 10^3/uL (1.8-7.8); NEUTROPHILS % (AUTO) 70 % (42-75); PLATELET COUNT 386 10^3/uL (130-400); WHITE BLOOD COUNT 9.4 10^3/uL (4.3-11.0)
[2022-11-03] MEDS ORDERED: SULF1TAB38 PO (13:08)
[2022-11-03 14:12] VITALS: BP 156/63
== END 2022-11-03 14:13 | disposition home or self-care (01) ==
LOC: EDUNIT# 11:33 → ER 11:34
DX: Z48.01 Encounter for change or removal of surgical wound dressing (principal); Z88.0 Allergy status to penicillin; Z88.6 Allergy status to analgesic agent
CPT/HCPCS: 36415; 85025

== ENCOUNTER 2022-11-09 15:16 | Inpatient (IN) | payer MEDICARE, MEDICAID ==
[~2022-11-09] VITALS: Ht 182.8 cm; Wt 99.0 kg
[~2022-11-09 15:16] MED LIST changes: +SENN-341 PO; -SNN187T PO; +SULF1TAB38 PO
[2022-11-09] MEDS ORDERED: NS IV 500 ML 500 ML IV STA (15:26)
--- NOTE | 2022-11-09 15:32 | ED General ---
General Chief Complaint: General Problems/Pain Stated Complaint: FEET PROBLEMS Nursing Triage Note: PT TO ED BY [facility]. EMS WAS CALLED BY PT HOME HEALTH NURSE WHO WAS CONCERNED PT MIGHT BE SEPTIC R/T L FOOT. WHEN ASKED WHAT BRINGS HER TO ED TODAY, PT STATES "I CAN'T EVEN TELL YOU WHY." PT REPORTS SHE IS FRUSTRATED BECAUSE SHE NEEDS VASCULAR SURGERY AND NO ONE WILL PERFORM IT. PT TEARFUL UPON ARRIVAL. PT REPORTS BURNING PAIN IN L FOOT. Source of Information: Patient, EMS Exam Limitations: No Limitations History of Present Illness Date Seen by Provider: Nov 09, 2022 Time Seen by Provider: 15:17 Initial Comments 71-year-old female presents to the emergency department today for continued left foot infection. Per EMS her daughter stated she was more altered at home and had been becoming more more sick. She had a transmetatarsal amputation on 10/[address] Sosa for a grossly infected wound that had maggots in it and wet gangrene. She continues to have worsening pain. She does have home health that comes by who recommended that she be evaluated today due to low blood pressures, altered mentation and worsening look of the wound. All other systems reviewed and negative except documented per HPI. Voice recognition software was used to help create this chart Allergies and Home Medications Allergies Coded Allergies: Tetanus Vaccines and Toxoid (Unverified Allergy, Severe, extreme redness in arms, 11/23/09) amoxicillin (Unverified Allergy, Unknown, 05/23/18) aspirin (Unverified Allergy, Unknown, 05/23/18) clavulanic acid (Unverified Allergy, Unknown, 05/23/18) diphenhydramine (Unverified Allergy, Unknown, 05/23/18) iodine (Verified Allergy, Unknown, 10/09/22) Uncoded Allergies: BEE STINGS (Allergy, Severe, closes throat, 11/23/09) CILANTRO (Allergy, Unknown, 10/09/22) TUMERIC (Allergy, Unknown, 10/09/22) Patient Home Medication List Home Medication List Reviewed: Yes Acetaminophen (Tylenol Extra Strength) 500 Mg Tablet, 1,000 MG PO Q8H PRN for PAIN-MILD (1-4), (Reported) Entered as Reported by: OSWALDO CHEN on 10/10/22 0945 Amlodipine Besylate (Amlodipine Besylate) 5 Mg Tablet, 5 MG PO DAILY Prescribed by: VENUS BURNETT on 10/20/22 112 Carbidopa/Levodopa (Carbidopa-Levo 25-100 mg Odt) 25 Mg-100 Mg Tab.rapdis, 1 EACH PO BID PRN for TREMORS, (Reported) Entered as Reported by: OSWALDO CHEN on 10/10/22 0915 Clindamycin HCl (Clindamycin HCl) 300 Mg Capsule, 300 MG PO TID Prescribed by: VENUS BURNETT on 10/20/22 112 Clopidogrel Bisulfate (Clopidogrel) 75 Mg Tablet, 75 MG PO DAILY Prescribed by: VENUS BURNETT on 10/20/22 112 Fluconazole (Fluconazole) 100 Mg Tablet, 100 MG PO DAILY Prescribed by: VENUS BURNETT on 10/20/22 112 Losartan Potassium (Losartan Potassium) 25 Mg Tablet, 25 MG PO DAILY Prescribed by: VENUS BURNETT on 10/20/22 112 Miconazole Nitrate (Lotrimin AF) 2 % Powder, 0 GM TOP BID Prescribed by: VENUS BURNETT on 10/20/22 112 Oxycodone Hcl (Oxyir Tablet) 5 Mg Tab, 10 MG PO Q4HR PRN for PAIN-SEE DOSE INSTRUCTIONS Prescribed by: VENUS BURNETT on 10/20/22 112 Sennosides (Senna Lax) 8.6 Mg Tablet, 8.6 MG PO BID Prescribed by: VENUS BURNETT on 10/20/22 112 Sulfamethoxazole/Trimethoprim (Bactrim Ds Tablet) 1 Each Tablet, 1 EACH PO BID Prescribed by: Dora Navarrete on 11/03/22 1308 Review of Systems Review of Systems Constitutional: see HPI Past Kcqirxj-Xrkgma-Efgfow Hx Patient Social History Tobacco Use?: No Use of E-Cig and/or Vaping dev: No Substance use?: No Alcohol Use?: No Past Medical History Surgery/Hospitalization HX: HYST, R ANKLE , T AND A, GB, L TKR, HIP SURG, bilat toe amp Surgeries: Yes Gallbladder Respiratory: Yes Chronic Bronchitis, COPD Cardiac: Yes Hypertension Neurological: Yes Neuropathy Reproductive Disorders: Yes Genitourinary: No Gastrointestinal: Yes Gastroesophageal Reflux Musculoskeletal: Yes Degenerate Disk Disease, Arthritis, Chronic Back Pain HEENT: Yes Loss of Vision: Bilateral Hearing Impairment: Hard of Hearing Cancer: No Psychosocial: Yes Anxiety, Depression Family Medical History No Pertinent Family Hx, Diabetes, Hypertension Physical Exam Vital Signs Vital Signs - First Documented 11/09/22 15:16 Temp 35.5 Pulse 74 Resp 18 B/P (MAP) 95/64 (74) Pulse Ox 97 O2 Delivery Room Air Capillary Refill : Less Than 3 Seconds Height, Weight, BMI Height: '" Weight: lbs. oz. kg; 34.70 BMI Method:Stated General Appearance: No Apparent Distress, WD/WN HEENT: Normal ENT Inspection, Pharynx Normal Neck: Full Range of Motion, Supple Respiratory: Chest Non Tender, Lungs Clear, Normal Breath Sounds, No Accessory Muscle Use, No Respiratory Distress Cardiovascular: Regular Rate, Rhythm, No Murmur, Normal Peripheral Pulses Gastrointestinal: Non Tender, Soft Extremity: Other (Transmetatarsal imitation left midfoot. There is black in the wound base. She has wet gangrene of her third toe, fifth toe. There is purulent drainage between each of these as well.) Neurologic/Psychiatric: Alert, Normal Mood/Affect Skin: Other (As described above) Focused Exam Lactate Level 11/09/22 15:30: Lactic Acid Level 2.10*H 11/09/22 17:40: Lactic Acid Level 1.53 Lactic Acid Level Laboratory Tests Test 11/09/22 15:30 11/09/22 17:40 Lactic Acid Level 2.10 MMOL/L (0.50-2.00) *H 1.53 MMOL/L (0.50-2.00) Progress/Results/Core Measures Suspected Sepsis SIRS Temperature: Pulse: 74 Respiratory Rate: 18 Laboratory Tests 11/09/22 15:30: White Blood Count 10.4 Blood Pressure 95 /64 Mean: 74 11/09/22 15:30: Lactic Acid Level 2.10*H 11/09/22 17:40: Lactic Acid Level 1.53 Laboratory Tests 11/09/22 15:30: Creatinine 0.77, Platelet Count 413H, Total Bilirubin 0.4 Results/Orders Lab Results Laboratory Tests Test 11/09/22 15:30 11/09/22 17:40 Range/Units White Blood Count 10.4 4.3-11.0 10^3/uL Red Blood Count 4.17 3.80-5.11 10^6/uL Hemoglobin 12.7 11.5-16.0 g/dL Hematocrit 39 35-52 % Mean Corpuscular Volume 94 80-99 fL Mean Corpuscular Hemoglobin 31 25-34 pg Mean Corpuscular Hemoglobin Concent 32 32-36 g/dL Red Cell Distribution Width 15.7 H 10.0-14.5 % Platelet Count 413 H 130-400 10^3/uL Mean Platelet Volume 10.5 9.0-12.2 fL Immature Granulocyte % (Auto) 0 % Neutrophils (%) (Auto) 77 H 42-75 % Lymphocytes (%) (Auto) 16 12-44 % Monocytes (%) (Auto) 5 0-12 % Eosinophils (%) (Auto) 2 0-10 % Basophils (%) (Auto) 0 0-10 % Neutrophils # (Auto) 8.0 H 1.8-7.8 X 10^3 Lymphocytes # (Auto) 1.6 1.0-4.0 X 10^3 Monocytes # (Auto) 0.5 0.0-1.0 X 10^3 Eosinophils # (Auto) 0.2 0.0-0.3 10^3/uL Basophils # (Auto) 0.0 0.0-0.1 10^3/uL Immature Granulocyte # (Auto) 0.0 0.0-0.1 10^3/uL Sodium Level 137 135-145 MMOL/L Potassium Level 4.7 3.6-5.0 MMOL/L Chloride Level 105 98-107 MMOL/L Carbon Dioxide Level 20 L 21-32 MMOL/L Anion Gap 12 5-14 MMOL/L Blood Urea Nitrogen 27 H 7-18 MG/DL Creatinine 0.77 0.60-1.30 MG/DL Estimat Glomerular Filtration Rate 83 BUN/Creatinine Ratio 35 Glucose Level 98 70-105 MG/DL Lactic Acid Level 2.10 *H 1.53 0.50-2.00 MMOL/L Calcium Level 9.7 8.5-10.1 MG/DL Corrected Calcium 10.0 8.5-10.1 MG/DL Total Bilirubin 0.4 0.1-1.0 MG/DL Aspartate Amino Transf (AST/SGOT) 23 5-34 U/L Alanine Aminotransferase (ALT/SGPT) < 6 0-55 U/L Alkaline Phosphatase 123 40-136 U/L Total Protein 8.3 H 6.4-8.2 GM/DL Albumin 3.6 3.2-4.5 GM/DL My Orders Orders - LULA GUNDERSON DO Comprehensive Metabolic Panel (11/09/22 15:23) Cbc With Automated Diff (11/09/22 15:23) Blood Culture (11/09/22 15:24) Urine Culture (11/09/22 15:24) Lactic Acid Analyzer (11/09/22 15:24) Ns Iv 500 Ml (Sodium Chloride 0.9%) (11/09/22 15:26) Ed Admission (Communication) (11/09/22 17:04) Amlodipine Tablet (Norvasc Tablet) (11/09/22 17:30) Consult General Surgery (11/09/22 17:27) Vital Signs/I&O 11/09/22 15:16 Temp 35.5 Pulse 74 Resp 18 B/P (MAP) 95/64 (74) Pulse Ox 97 O2 Delivery Room Air 11/10/22 00:00 Intake Total 500 ml Balance 500 ml Capillary Refill : Less Than 3 Seconds Blood Pressure Mean: 74 Departure Communication (Admissions) Patient has continued infection in her left foot. She is nontoxic in appearance. White blood cell count is normal. She is initially mildly hypotensive in the 90s systolic. This resolved with IV fluids. Given that we will go ahead and admit her to the hospital. Dr. Sosa has been placed this consult we will see her in the morning. The patient is admitted to Dr. Herbert Impression Primary Impression: Gangrene of left foot Disposition: ADMITTED INPATIENT Condition: Stable Admissions Decision to Admit Reason: Admit from ER (General) Departure-Patient Inst. Referrals: [facility] (PCP) Primary Care Physician ROMAN WISDOM (Family) Primary Care Physician LULA GUNDERSON DO Nov 09, 2022 15:32
[2022-11-09 15:52] LABS: BASOPHILS % (AUTO) 0 % (0-10); EOSINOPHILS # (AUTO) 0.2 10^3/uL (0.0-0.3); EOSINOPHILS % (AUTO) 2 % (0-10); HEMATOCRIT 39 % (35-52); HEMOGLOBIN 12.7 g/dL (11.5-16.0); LYMPHOCYTES # (AUTO) 1.6 X 10^3 (1.0-4.0); LYMPHOCYTES % (AUTO) 16 % (12-44); MEAN CORPUSCULAR HEMOGLOBIN 31 pg (25-34); MEAN CORPUSCULAR HGB CONC 32 g/dL (32-36); MEAN CORPUSCULAR VOLUME 94 fL (80-99); MEAN PLATELET VOLUME 10.5 fL (9.0-12.2); MONOCYTES # (AUTO) 0.5 X 10^3 (0.0-1.0); MONOCYTES % (AUTO) 5 % (0-12); NEUTROPHILS % (AUTO) 77 % (42-75); PLATELET COUNT 413 10^3/uL (130-400); WHITE BLOOD COUNT 10.4 10^3/uL (4.3-11.0)
[2022-11-09 16:00] LABS: ALBUMIN 3.6 GM/DL (3.2-4.5); CHLORIDE 105 MMOL/L (98-107); POTASSIUM 4.7 MMOL/L (3.6-5.0); SODIUM 137 MMOL/L (135-145)
[2022-11-09 16:01] LABS: CALCIUM 9.7 MG/DL (8.5-10.1)
[2022-11-09 16:02] LABS: GLUCOSE 98 MG/DL (70-105); TOTAL PROTEIN 8.3 GM/DL (6.4-8.2)
[2022-11-09 16:03] LABS: CARBON DIOXIDE 20 MMOL/L (21-32)
[2022-11-09 16:04] LABS: BILIRUBIN,TOTAL 0.4 MG/DL (0.1-1.0)
[2022-11-09 16:05] LABS: ALKALINE PHOSPHATASE 123 U/L (40-136)
[2022-11-09 16:06] LABS: CREATININE SERUM 0.77 MG/DL (0.60-1.30); GFR ESTIMATED 83
[2022-11-09 16:07] LABS: BUN/CREATININE RATIO 35
[2022-11-09 16:09] LABS: ALANINE AMINOTRANSFERASE < 6 U/L (0-55)
[2022-11-09] MEDS ORDERED: amLODIPine 10 MG TABLET PO ONE (17:30)
[2022-11-09 18:00] VITALS: BP 163/72
[2022-11-09] MEDS ORDERED: SENNA W/DOCUSATE (SENOKOT S) TABLET PO PRN (18:45)
[2022-11-09] MEDS ORDERED: ONDANSETRON 4 MG (ZOFRAN) ORAL DISSOLVE TAB PO PRN (18:45)
[2022-11-09] MEDS ORDERED: ONDANSETRON 4 MG/2 ML (SDV) Z0FRAN IVP PRN (18:45)
--- NOTE | 2022-11-09 18:52 | CONSULTATION REPORT ---
ATTENDING PRIMARY BIG DATA HADOOP DEVELOPER: Shirley Samayoa APRN. The patient is a 71-year-old female known to us. She again presented to the Emergency Department due to worsening wound of the left foot. The patient has a known history of severe peripheral vascular disease; however, she is extremely noncompliant and will not do proceed with the necessary evaluations and test for proper evaluation and treatment. She underwent bilateral great toe transmetatarsal amputation due to necrotic great toes; however, she had other necrotic toes of the left foot. She was scheduled for an aortogram with bilateral runoff and potential intervention with angioplasty/stent and was brought to the clinical laboratory technician; however, at the very end, she stated that she did not want the test done. Every time we asked the reason why, she has many different excuses that are related to medications that cause her to have these episodes of altered mentation. She has been seen by home health and the staff was concerned that the patient's left foot is worsening and again has developed wet gangrene. The patient will be admitted and started on IV antibiotics. Again, the recommendation was to proceed with MRI to evaluate the extent of osteomyelitis as well as an aortogram with bilateral runoff and possible intervention, but again we feel that she likely will not follow through with these tests. It was explained to her multiple times that multiple debridements and amputations can be performed; however, if there is not enough arterial blood perfusion, these will not heal. PAST MEDICAL HISTORY: COPD, degenerative joint disease, neuropathy, diabetes, gastroesophageal reflux disease, hypertension, severe peripheral arterial disease. PAST SURGICAL HISTORY: Hysterectomy, right ankle surgery, tonsillectomy, laparoscopic cholecystectomy, left total knee arthroplasty, bilateral great toe transmetatarsal amputation. ALLERGIES: TETANUS VACCINE, TOXOID, AMOXICILLIN, ASPIRIN, CLAVULANIC ACID, DIPHENHYDRAMINE, IODINE. MEDICATIONS: Amlodipine 5 mg daily, carbidopa/levodopa 25/100 mg b.i.d. p.r.n., clindamycin 300 mg t.i.d., Plavix 75 mg daily, fluconazole 100 mg daily, losartan 25 mg daily, oxycodone 5 mg q.4 hours p.r.n., Bactrim-DS 1 tab p.o. b.i.d. SOCIAL HISTORY: Positive smoke, 50 pack years, negative alcohol. FAMILY HISTORY: Noncontributory. VITAL SIGNS: Temperature 35.5, blood pressure 95/64, pulse 74, respirations 18, pulse ox 97% on room air. REVIEW OF SYSTEMS: Well-nourished female who is awake and alert; however, at times she does have some confusion. She again has many excuses and blames many other people for her medical problems. She is not experiencing any shortness of breath or difficulty breathing. No chest pain, palpitations or diaphoresis. No nausea or vomiting. No diarrhea or constipation. She has become more weak at home. She is not experiencing any fever or chills and no recent inadvertent weight loss. All other review of systems negative. PHYSICAL EXAMINATION: CHEST: Scattered wheezes and rhonchi bilaterally. HEART: Regular. No murmurs. EXTREMITIES: Skin changes of bilateral lower extremity with dryness and consistent with peripheral arterial disease and nonpalpable portions anterior tibial, dorsalis pedis and posterior tibial arteries bilaterally. HEART: Regular. No murmurs. HEENT: No scleral icterus. No cervical lymphadenopathy. ABDOMEN: Soft, nontender, nondistended. SKIN: There is a wet necrosis of the remaining 4 toes on the left foot. LABORATORY DATA: WBC 10.4, hemoglobin 12.7, hematocrit 39, platelets of 413, BUN 27, creatinine 0.77. ASSESSMENT AND PLAN: A 71-year-old female with severe peripheral arterial disease and current smoker and history of diabetes and peripheral neuropathy with severe medical and surgical noncompliance. It was recommended several times that she needs to have an MRI to evaluate the extent of her osteomyelitis; however, she also has extremely poor peripheral arterial disease and she needs to have an aortogram with bilateral runoff and possible intervention to increase distal arterial perfusion to allow healing. We will again see if she is amenable to this and if not, unfortunately there is nothing more that we can offer her. Job ID: [id number] DocumentID: [id number] Dictated Date: 11/09/2022 18:21:55 Chain Mortiser Operator Date: 11/09/2022 18:50:00 Dictated By: RUDY MARRERO MD [facility]
[2022-11-09] MEDS ORDERED: VANCOMYCIN 2000 MG/NS 500 ML IVPB IV NR ×2 (19:30)
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
[2022-11-09] MEDS ORDERED: VANCOMYCIN INJECTION 0.1 MG in NS (IVPB) 250 ML 250 ML IV SCH (20:00)
[2022-11-09 20:24] VITALS: BP 182/75
[2022-11-09] MEDS: DOCUSATE SODIUM 100 MG CAPSULE PO SCH (21:42)
[2022-11-09] MEDS: MEROPENEM 500 MG in NS (IVPB) 100 ML 100 ML IV SCH (21:42)
[2022-11-09] MEDS ORDERED: RT-ALBUTEROL/IPRATROPIUM 3 ML (DUONEB) VIAL INH PRN (23:15)
[2022-11-09] MEDS ORDERED: LIDOCAINE UROJET 2% GEL 10 ML PKG TOP ONE (23:15)
[2022-11-09 23:51] VITALS: BP 110/49
[2022-11-09] MEDS: ACETAMINOPHEN 500 MG TABLET PO PRN (23:56)
[2022-11-10] MEDS: MEROPENEM 500 MG in NS (IVPB) 100 ML 100 ML IV SCH ×4 (01:31→18:28)
[2022-11-10 04:01] VITALS: BP 193/79
[2022-11-10] MEDS: HYDROcodone/APAP 7.5 MG/325 MG (LORTAB, LORCET PLUS) TABLET PO PRN (06:02)
[2022-11-10] MEDS: VANCOMYCIN 1 GM/NS 250 ML IVPB IV SCH ×4 (06:05→21:28)
[2022-11-10 06:19] LABS: BASOPHILS % (AUTO) 0 % (0-10); EOSINOPHILS # (AUTO) 0.1 10^3/uL (0.0-0.3); EOSINOPHILS % (AUTO) 2 % (0-10); HEMATOCRIT 37 % (35-52); LYMPHOCYTES % (AUTO) 11 % (12-44); MEAN CORPUSCULAR HEMOGLOBIN 31 pg (25-34); MEAN CORPUSCULAR HGB CONC 33 g/dL (32-36); MEAN CORPUSCULAR VOLUME 94 fL (80-99); MEAN PLATELET VOLUME 10.2 fL (9.0-12.2); MONOCYTES # (AUTO) 0.5 10^3/uL (0.0-1.0); MONOCYTES % (AUTO) 6 % (0-12); NEUTROPHILS # (AUTO) 7.1 10^3/uL (1.8-7.8); NEUTROPHILS % (AUTO) 81 % (42-75); PLATELET COUNT 223 10^3/uL (130-400); WHITE BLOOD COUNT 8.8 10^3/uL (4.3-11.0)
[2022-11-10 06:52] LABS: POTASSIUM 4.2 MMOL/L (3.6-5.0)
[2022-11-10 06:53] LABS: CALCIUM 8.6 MG/DL (8.5-10.1)
[2022-11-10 06:54] LABS: TOTAL PROTEIN 6.5 GM/DL (6.4-8.2)
[2022-11-10 06:56] LABS: BILIRUBIN,TOTAL 0.4 MG/DL (0.1-1.0)
[2022-11-10 06:58] LABS: CREATININE SERUM 0.66 MG/DL (0.60-1.30)
[2022-11-10 07:58] VITALS: BP 161/68
[2022-11-10] MEDS: ACETAMINOPHEN 500 MG TABLET PO PRN ×2 (08:53→16:46)
[2022-11-10] MEDS: DOCUSATE SODIUM 100 MG CAPSULE PO SCH ×2 (08:53→20:34)
[2022-11-10] MEDS: SINEMET 25/100 (CARBIDOPA/LEVODOPA) TAB PO SCH ×3 (08:53→17:45)
[2022-11-10] MEDS: ENOXAPARIN 40 MG/0.4 ML (LOVENOX) SYR SC SCH (08:54)
[2022-11-10 12:00] VITALS: BP 159/66
--- NOTE | 2022-11-10 12:05 | Consultation-Cardiology ---
[facility]-Cardiology Cardiology Consultation: Date of Consultation 11/10/22 Time Seen by a Provider: 11:50 Date of Admission 11-09-22 Attending Physician [place] Admitting Physician Admitting Physician: Birgit Herbert MD Attending Physician: Birgit Herbert MD Consulting Physician Carly Mckeon MD Primary Cranberry Grower: Dr. Acosta HPI: Chief Complaint: Foot wounds Ms. Keyes is a 71 yr old female admitted to [facility] from the ED with non-healing foot wounds bilat. She is a poor historian with intermittent confusion. Patient states the wounds to her feet started approx 3 weeks ago. She denies any discomfort in her feet at this time. She states she only takes her medication for her Parkinson's disease at home. Her grandson is at the bedside. He states she was Rx multiple medications following her last admission to the hospital in October, but he does not believe she has been taking any of the medications. She states she quit smoking, her grandson states she continues to smoke. She denies any c/o CP or palpitations. She states she is a "non- pharmacological person and wishes to remain so". Review of Systems-Cardiology Review of Systems Other comments ROS to the extent that it could be obtained is as per the [facility] GEV-Kyadmk-Ocjgps Hx Patient Social History Smoking Status: Former Smoker Alcohol Use?: No Pt feels they are or have been: No Past Medical History PMH As described under Assessment. Family Medical History Family Medical History: Non-contributory Allergies and Home Medications Allergies Coded Allergies: Tetanus Vaccines and Toxoid (Unverified Allergy, Severe, extreme redness in arms, 11/23/09) amoxicillin (Unverified Allergy, Unknown, 05/23/18) aspirin (Unverified Allergy, Unknown, 05/23/18) clavulanic acid (Unverified Allergy, Unknown, 05/23/18) diphenhydramine (Unverified Allergy, Unknown, 05/23/18) iodine (Verified Allergy, Unknown, 10/09/22) Uncoded Allergies: BEE STINGS (Allergy, Severe, closes throat, 11/23/09) CILANTRO (Allergy, Unknown, 10/09/22) TUMERIC (Allergy, Unknown, 10/09/22) Patient Home Medication List Acetaminophen (Tylenol Extra Strength) 500 Mg Tablet, 1,000 MG PO Q8H PRN for PAIN-MILD (1-4), (Reported) Entered as Reported by: OSWALDO CHEN on 10/10/22914 Amlodipine Besylate (Amlodipine Besylate) 5 Mg Tablet, 5 MG PO DAILY Prescribed by: VENUS BURNETT on 10/20/221122 Last Action: Continued Carbidopa/Levodopa (Carbidopa-Levo 25-100 mg Odt) 25 Mg-100 Mg Tab.rapdis, 1 EACH PO BID PRN for TREMORS, (Reported) Entered as Reported by: OSWALDO CHEN on 10/10/22914 Clindamycin HCl (Clindamycin HCl) 300 Mg Capsule, 300 MG PO TID Prescribed by: VENUS BURNETT on 10/20/221122 Clopidogrel Bisulfate (Clopidogrel) 75 Mg Tablet, 75 MG PO DAILY Prescribed by: VENUS BURNETT on 10/20/221122 Last Action: Continued Fluconazole (Fluconazole) 100 Mg Tablet, 100 MG PO DAILY Prescribed by: VENUS BURNETT on 10/20/221122 Losartan Potassium (Losartan Potassium) 25 Mg Tablet, 25 MG PO DAILY Prescribed by: VENUS BURNETT on 10/20/221122 Last Action: Continued Miconazole Nitrate (Lotrimin AF) 2 % Powder, 0 GM TOP BID Prescribed by: VENUS BURNETT on 10/20/221122 Oxycodone Hcl (Oxyir Tablet) 5 Mg Tab, 10 MG PO Q4HR PRN for PAIN-SEE DOSE INSTRUCTIONS Prescribed by: VENUS BURNETT on 10/20/221123 Sennosides (Senna Lax) 8.6 Mg Tablet, 8.6 MG PO BID Prescribed by: VENUS BURNETT on 10/20/221122 Sulfamethoxazole/Trimethoprim (Bactrim Ds Tablet) 1 Each Tablet, 1 EACH PO BID Prescribed by: Dora Navarrete on 11/03/22 1308 Physical Exam-Cardiology Physical Exam Vital Signs/I&O 11/11/22 11/11/22 11/11/22 11/11/22 00:10 01:20 03:40 03:40 Temp 36.7 36.5 36.5 36.5 Pulse 74 69 69 69 Resp 18 18 18 18 B/P (MAP) 181/66 (104) 185/68 (107) 225/86 (132) 195/80 (118) Pulse Ox 97 98 98 98 O2 Delivery Room Air Room Air Room Air Room Air 11/11/22 11/11/22 11/11/22 11/11/22 05:35 06:28 07:30 08:00 Temp 36.4 36.6 36.2 Pulse 70 72 72 Resp 18 18 18 B/P (MAP) 220/84 (129) 190/85 (120) 219/86 (130) Pulse Ox 98 98 98 98 O2 Delivery Room Air Room Air Room Air Room Air 11/11/22 11/11/22 08:50 08:50 Pulse 71 B/P (MAP) 160/69 (99) 130/78 (95) 11/11/22 00:00 Intake Total 150 ml Output Total 1400 ml Balance -1250 ml Capillary Refill : Less Than 3 Seconds Constitutional: other (intermittent confusion; awake, alert and oriented to self and place) HEENT: hearing is well preserved; No oral hygience is good Neck: No carotid bruit; carotid pulses are 2 + bilaterally Respiratory: No accessory muscle use, No respiratory distress; chest expansion is symmetric, chest is bilaterally symmetric, lungs clear to auscultation Cardiovascular: regular rate-rhythm; No JVD; S1 and S2 Gastrointestinal: soft; No guarding; audible bowel sounds Extremities: no lower extremity edema bilateral Neurologic/Psychiatric: other (moves all extremities) Skin: other (right foot with the first 2 digits removed; sutures in place with edges approx; redness and dark discoloration of tissue. Left foot with partial amputation, removal of first 2 digits, dark, dry, dicoloration to the area. Duskiness to nail beds bilat) Data Review Labs Laboratory Tests 11/11/22 09:20: White Blood Count 8.3, Red Blood Count 3.66L, Hemoglobin 11.1L, Hematocrit 34L, Mean Corpuscular Volume 92, Mean Corpuscular Hemoglobin 30, Mean Corpuscular Hemoglobin Concent 33, Red Cell Distribution Width 15.2H, Platelet Count 284, Mean Platelet Volume 9.9, Immature Granulocyte % (Auto) 1, Neutrophils (%) (Aut o) 80H, Lymphocytes (%) (Auto) 12, Monocytes (%) (Auto) 6, Eosinophils (%) (Auto) 2, Basophils (%) (Auto) 0, Neutrophils # (Auto) 6.6, Lymphocytes # (Auto) 1.0, Monocytes # (Auto) 0.5, Eosinophils # (Auto) 0.1, Basophils # (Auto) 0.0, Immature Granulocyte # (Auto) 0.1, Sodium Level 137, Potassium Level 3.9, Chloride Level 104, Carbon Dioxide Level 21, Anion Gap 12, Blood Urea Nitrogen 9, Creatinine 0.61, Estimat Glomerular Filtration Rate 96, BUN/Creatinine Ratio 15, Glucose Level 100, Calcium Level 8.8, Corrected Calcium 9.6, Total Bilirubin 0.5, Aspartate Amino Transf (AST/SGOT) 18, Alanine Aminotransferase (ALT/SGPT) 9, Alkaline Phosphatase 100, Total Protein 6.4, Albumin 3.0L Microbiology 11/09/22 Blood Culture - Preliminary, Resulted No growth A/P-Cardiology Assessment/Admission Diagnosis Gangrenous wounds to feet bilat (management per surgical services) - Peripheral arterial disease, abnormal lower extremity ultrasound October [address] Acosta's note of 10-20-22: He discussed with the patient recommended peripheral angiogram and possible angioplasty. Patient had amputation of her toes done on 10/18/2022 He had planned to proceed with peripheral angiogram, after placing the patient on the cardiac catheterization table she became very anxious and started crying and requested to go home, did not want to lay down still. Her reports he was concerned that she will be unable to lay down still after the procedure to maintain hemostasis. Therefore, the procedure was canceled. Patient understand the risk of amputation further in her legs. History of questionable paroxysmal atrial fibrillation (per pt report) - denies any cardiology f/u or treatment, details unknown - Echo done in February 2021 with moderately dilated left atrium, normal left ventricle, PA pressure 30 to 35 mmHg - 2D echo done on October 19, [address] Acosta: showing normal LV function with normal ejection fraction Hypertension Hyperlipidemia Tobaccoism, educated on smoking cessation History of noncompliance with with medications/treatment and f/u. Multiple events of leaving the hospital AMA in the past Discussion and Recomendations Complex management d/t non-compliance with recs and treatment Bilat gangrenous wounds to feet - previous abnormal lower ext u/s in October 2022 with recent inability to carry out peripheral angiogram by Dr. Acosta - we advise CTA of the LE bilat - she states she is agreeable Management of wounds is per surgical/medical services We have reviewed her previous hospital records from Dr. Acosta Further recs will be based on her hospital course Monitor lab We would like to thank medical/surgical services for this consult TIERNEY HI Nov 10, 2022 12:05
[2022-11-10] MEDS ORDERED: IOHEXOL 350 MG/ML 150 ML (OMNIPAQUE 350) VIAL IV ONE (12:30)
[2022-11-10] MEDS ORDERED: HOLD METFORMIN - RECEIVED CONTRAST 20 ML VIAL IV SCH (12:30)
[2022-11-10] MEDS ORDERED: NS 100 ML (IVPB) BAG IV ONE (12:30)
[2022-11-10] MEDS ORDERED: diphenhydrAMINE 50 MG/ML INJ (BENADRYL) IM ONE (15:45)
[2022-11-10] MEDS ORDERED: methylPREDNISolone 125 MG (Solu-MEDROL) VIAL IVP NR (15:45)
[2022-11-10 16:10] VITALS: BP 140/62
--- NOTE | 2022-11-10 16:24 | Progress Note ---
Subjective Subjective/Events-last exam Patient is feeling ok today. Pain is well controlled. She is unable to walk or ambulate on feet due to pain and open wounds. Tolerating PO diet. Review of Systems General: Malaise Pulmonary: No Dyspnea, No Cough Cardiovascular: No: Chest Pain, Palpitations Gastrointestinal: No: Nausea, Vomiting, Abdominal Pain, Diarrhea, Constipation Neurological: Weakness, Incoordination Focused Exam Lactate Level 11/09/22 15:30: Lactic Acid Level 2.10*H 11/09/22 17:40: Lactic Acid Level 1.53 Objective Exam Last Set of Vital Signs Vital Signs Date Time Temp Pulse Resp B/P (MAP) Pulse Ox O2 Delivery O2 Flow Rate FiO2 11/10/22 12:00 36.5 72 159/66 (97) 99 Room Air 11/10/22 07:58 20 11/09/22 23:00 21 Capillary Refill : Less Than 3 Seconds I&O Intake and Output 11/10/22 00:00 Intake Total 600 ml Output Total 350 ml Balance 250 ml Intake Oral 0 ml IV Total 600 ml Output Urine Total 350 ml Daily Weight Change Yes, 14-23 lbs General: Alert, Oriented X3, No Acute Distress Lungs: Clear to Auscultation, Normal Air Movement Heart: Regular Rate, No Murmurs Abdomen: Normal Bowel Sounds, Soft, No Tenderness, No Masses Extremities: Other (Necrotic foot wounds bilaterally) Neuro: Normal Speech Results/Procedures Lab Laboratory Tests 11/09/22 17:40: Lactic Acid Level 1.53 11/10/22 06:12: White Blood Count 8.8, Red Blood Count 3.91, Hemoglobin 12.0, Hematocrit 37, Mean Corpuscular Volume 94, Mean Corpuscular Hemoglobin 31, Mean Corpuscular Hemoglobin Concent 33, Red Cell Distribution Width 15.6H, Platelet Count 223, Mean Platelet Volume 10.2, Immature Granulocyte % (Auto) 1, Neutrophils (%) (Auto) 81H, Lymphocytes (%) (Auto) 11L, Monocytes (%) (Auto) 6, Eosinophils (%) (Auto) 2, Basophils (%) (Auto) 0, Neutrophils # (Auto) 7.1, Lymphocytes # (Auto) 1.0, Monocytes # (Auto) 0.5, Eosinophils # (Auto) 0.1, Basophils # (Auto) 0.0, Immature Granulocyte # (Auto) 0.0, Percent Immature Platelet Fraction 2.4, Sodium Level 136, Potassium Level 4.2, Chloride Level 108H, Carbon Dioxide Level 17L, Anion Gap 11, Blood Urea Nitrogen 17, Creatinine 0.66, Estimat Glomerular Filtration Rate 95, BUN/Creatinine Ratio 26, Glucose Level 89, Calcium Level 8.6, Corrected Calcium 9.4, Total Bilirubin 0.4, Aspartate Amino Transf (AST/SGOT) 19, Alanine Aminotransferase (ALT/SGPT) 9, Alkaline Phosphatase 108, Total Protein 6.5, Albumin 3.0L Microbiology 11/09/22 Blood Culture - Preliminary, Resulted No growth Assessment/Plan Assessment/Plan (1) Gangrene of left foot Status: Acute Assessment & Plan: - General surgery consult Dr Sosa, appreciate recommendations, started on IV antibiotics 11/10: Continue IV antibiotics, restarted plavix today (2) PAD (peripheral artery disease) Status: Chronic Assessment & Plan: - Consult Cardiology Dr Mckeon (3) Intertriginous candidiasis Status: Acute Assessment & Plan: - Started on topical nystatin (4) HTN (hypertension) Status: Acute Assessment & Plan: - Restarted home HTN meds (5) Tobacco abuse Status: Chronic Assessment & Plan: - Discussed need for cessation, offered nicotine replacement (6) Discharge planning issues Assessment & Plan: 11/10: Patient states that she is not sure that she wants to get any more workup. Feels like her brother is wanting her to do everything and she is not sure. We discussed going home on hospice because patient does not want to go to a facility but she is unable to care for herself. Encouraged her to speak with her family regarding to option of hospice. EVELYN LOPEZ MD Nov 10, 2022 16:24
--- NOTE | 2022-11-10 18:03 | Consultation-Cardiology ---
HPI-Cardiology Cardiology Consultation: Date of Consultation 11/10/22 Time Seen by a Provider: 13:10 Date of Admission Attending Physician [place] Admitting Physician Admitting Physician: Birgit Herbert MD Attending Physician: Brigit Herbert MD Consulting Physician ANALIA ASCENCIO MD, MA, FACP, FACC, [facility] [place], CCDS Physician requesting consult: Dr Sosa HPI: Chief Complaint: Foot wounds Ms. Keyes is a 71 yr old female admitted to [facility] from the ED with non-healing foot wounds bilat. She is a poor historian with intermittent confusion. Patient states the wounds to her feet started approx 3 weeks ago. She denies any discomfort in her feet at this time. She states she only takes her medi cation for her Parkinson's disease at home. Her grandson is at the bedside. He states she was Rx multiple medications following her last admission to the hospital in October, but he does not believe she has been taking any of the medications. She states she quit smoking, her grandson states she continues to smoke. She denies any c/o CP or palpitations. She states she is a "non-ph armacological person and wishes to remain so". NGT-Irnyva-Yddibb Hx Patient Social History Living Status: Lives at home with daughter in home Smoking Status: Former Smoker Alcohol Use?: No Pt feels they are or have been: No Past Medical History PMH As described under Assessment. Family Medical History Family Medical History: Non-contributory Allergies and Home Medications Allergies Coded Allergies: Tetanus Vaccines and Toxoid (Unverified Allergy, Severe, extreme redness in arms, 11/23/09) amoxicillin (Unverified Allergy, Unknown, 05/23/18) aspirin (Unverified Allergy, Unknown, 05/23/18) clavulanic acid (Unverified Allergy, Unknown, 05/23/18) diphenhydramine (Unverified Allergy, Unknown, 05/23/18) iodine (Verified Allergy, Unknown, 10/09/22) Uncoded Allergies: BEE STINGS (Allergy, Severe, closes throat, 11/23/09) CILANTRO (Allergy, Unknown, 10/09/22) TUMERIC (Allergy, Unknown, 10/09/22) Patient Home Medication List Home Medication List Reviewed: Yes Acetaminophen (Tylenol Extra Strength) 500 Mg Tablet, 1,000 MG PO Q8H PRN for PAIN-MILD (1-4), (Reported) Entered as Reported by: OSWALDO CHEN on 10/10/22914 Amlodipine Besylate (Amlodipine Besylate) 5 Mg Tablet, 5 MG PO DAILY Prescribed by: VENUS BURNETT on 10/20/221122 Last Action: Continued Carbidopa/Levodopa (Carbidopa-Levo 25-100 mg Odt) 25 Mg-100 Mg Tab.rapdis, 1 EACH PO BID PRN for TREMORS, (Reported) Entered as Reported by: OSWALDO CHEN on 10/10/22914 Clindamycin HCl (Clindamycin HCl) 300 Mg Capsule, 300 MG PO TID Prescribed by: VENUS BURNETT on 10/20/221122 Clopidogrel Bisulfate (Clopidogrel) 75 Mg Tablet, 75 MG PO DAILY Prescribed by: VENUS BURNETT on 10/20/221122 Last Action: Continued Fluconazole (Fluconazole) 100 Mg Tablet, 100 MG PO DAILY Prescribed by: VENUS BURNETT on 10/20/221122 Losartan Potassium (Losartan Potassium) 25 Mg Tablet, 25 MG PO DAILY Prescribed by: VENUS BURNETT on 10/20/221122 Last Action: Continued Miconazole Nitrate (Lotrimin AF) 2 % Powder, 0 GM TOP BID Prescribed by: VENUS BURNETT on 10/20/221122 Oxycodone Hcl (Oxyir Tablet) 5 Mg Tab, 10 MG PO Q4HR PRN for PAIN-SEE DOSE INSTRUCTIONS Prescribed by: VENUS BURNETT on 10/20/221123 Sennosides (Senna Lax) 8.6 Mg Tablet, 8.6 MG PO BID Prescribed by: VENUS BURNETT on 10/20/221122 Sulfamethoxazole/Trimethoprim (Bactrim Ds Tablet) 1 Each Tablet, 1 EACH PO BID Prescribed by: Dora Navarrete on 11/03/22 1308 Physical Exam-Cardiology Physical Exam Vital Signs/I&O 11/10/22 11/10/22 11/10/22 11/10/22 07:58 08:50 12:00 16:10 Temp 36.3 36.5 36.5 Pulse 70 72 77 Resp 20 18 B/P (MAP) 161/68 (99) 159/66 (97) 140/62 (88) Pulse Ox 99 99 99 99 O2 Delivery Room Air Room Air Room Air Room Air 11/09/22 23:59 Intake Total 600 ml Output Total 350 ml Balance 250 ml Capillary Refill : Less Than 3 Seconds Constitutional: other (intermittent confusion; awake, alert and oriented to self and place) HEENT: hearing is well preserved; No oral hygience is good Neck: No carotid bruit; carotid pulses are 2 + bilaterally Respiratory: No accessory muscle use, No respiratory distress; chest expansion is symmetric, chest is bilaterally symmetric, lungs clear to auscultation Cardiovascular: regular rate-rhythm; No JVD; S1 and S2 Gastrointestinal: soft; No guarding; audible bowel sounds Extremities: no lower extremity edema bilateral Neurologic/Psychiatric: other (moves all extremities) Skin: other (right foot with the first 2 digits removed; sutures in place with edges approx; redness and dark discoloration of tissue. Left foot with partial amputation, removal of first 2 digits, dark, dry, dicoloration to the area. Duskiness to nail beds bilat) Lymphatic: no adenopathy Data Review Labs Laboratory Tests 11/10/22 06:12: White Blood Count 8.8, Red Blood Count 3.91, Hemoglobin 12.0, Hematocrit 37, Mean Corpuscular Volume 94, Mean Corpuscular Hemoglobin 31, Mean Corpuscular Hemoglobin Concent 33, Red Cell Distribution Width 15.6H, Platelet Count 223, Mean Platelet Volume 10.2, Immature Granulocyte % (Auto) 1, Neutrophils (%) (Auto) 81H, Lymphocytes (%) (Auto) 11L, Monocytes (%) (Auto) 6, Eosinophils (%) (Auto) 2, Basophils (%) (Auto) 0, Neutrophils # (Auto) 7.1, Lymphocytes # (Auto) 1.0, Monocytes # (Auto) 0.5, Eosinophils # (Auto) 0.1, Basophils # (Auto) 0.0, Immature Granulocyte # (Auto) 0.0, Percent Immature Platelet Fraction 2.4, Sodium Level 136, Potassium Level 4.2, Chloride Level 108H, Carbon Dioxide Level 17L, Anion Gap 11, Blood Urea Nitrogen 17, Creatinine 0.66, Estimat Glomerular Filtration Rate 95, BUN/Creatinine Ratio 26, Glucose Level 89, Calcium Level 8.6, Corrected Calcium 9.4, Total Bilirubin 0.4, Aspartate Amino Transf (AST/SGOT) 19, Alanine Aminotransferase (ALT/SGPT) 9, Alkaline Phosphatase 108, Total Protein 6.5, Albumin 3.0L Microbiology 11/09/22 Blood Culture - Preliminary, Resulted No growth A/P-Cardiology Assessment/Admission Diagnosis Gangrenous wounds to feet bilat (management per surgical services) - Peripheral arterial disease, abnormal lower extremity ultrasound October [address] Acosta's note of 10-20-22: He discussed with the patient recommended peripheral angiogram and possible angioplasty. Patient had amputation of her toes done on 10/18/2022 He had planned to proceed with peripheral angiogram, after placing the patient on the cardiac catheterization table she became very anxious and started crying and requested to go home, did not want to lay down still. Her reports he was concerned that she will be unable to lay down still after the procedure to maintain hemostasis. Therefore, the procedure was canceled. Patient understand the risk of amputation further in her legs. History of questionable paroxysmal atrial fibrillation (per pt report) - denies any cardiology f/u or treatment, details unknown - Echo done in February 2021 with moderately dilated left atrium, normal left ventricle, PA pressure 30 to 35 mmHg - 2D echo done on October 19, [address] Acosta: showing normal LV function with normal ejection fraction Hypertension Hyperlipidemia Tobaccoism, educated on smoking cessation History of noncompliance with with medications/treatment and f/u. Multiple events of leaving the hospital AMA in the past Discussion and Recomendations Complex management d/t non-compliance with recs and treatment Bilat gangrenous wounds to feet - previous abnormal lower ext u/s in October 2022 with recent inability to carry out peripheral angiogram by Dr. Acosta - we advise CTA of the LE bilat - she states she is agreeable Management of wounds is per surgical/medical services We have reviewed her previous hospital records from Dr. Acosta Further recs will be based on her hospital course Monitor lab We would like to thank medical/surgical services for this consult ADDENDUM After the above consult note, I spent a long time arranging PAD w/u (angiography) for the patient, but she report anaphylactic allergy to iodine and also reports severe allergies to meds used to reduce risk of allergy/anaphylaxis. Thus, angiography is not possible. I called Dr Sosa and informed him of this. ANALIA ASCENCIO MD FACP FAC CCDS Nov 10, 2022 18:03
[2022-11-10 19:49] VITALS: BP 143/65
[2022-11-10] MEDS: MICONAZOLE 2% POWDER (DESENEX AF) 90 GM TOP SCH (20:34)
[2022-11-11] VITALS (10 sets, daily range): BP systolic 111–225; BP diastolic 54–86
[2022-11-11] MEDS: MEROPENEM 500 MG in NS (IVPB) 100 ML 100 ML IV SCH ×4 (01:17→18:46)
[2022-11-11] MEDS: VANCOMYCIN 1 GM/NS 250 ML IVPB IV SCH ×4 (05:46→14:19)
[2022-11-11] MEDS: LOSARTAN 50 MG (COZAAR) TAB PO SCH (05:56)
[2022-11-11] MEDS: amLODIPine 10 MG TABLET PO SCH (05:56)
[2022-11-11] MEDS ORDERED: TROUGH ORDER-PHARMACY XX NR (06:30)
[2022-11-11] MEDS: ENOXAPARIN 40 MG/0.4 ML (LOVENOX) SYR SC SCH (08:38)
[2022-11-11] MEDS: SINEMET 25/100 (CARBIDOPA/LEVODOPA) TAB PO SCH ×3 (08:39→18:45)
[2022-11-11] MEDS: DOCUSATE SODIUM 100 MG CAPSULE PO SCH ×2 (08:39→20:47)
[2022-11-11] MEDS: CLOPIDOGREL 75 MG TABLET PO SCH (08:39)
[2022-11-11] MEDS: MICONAZOLE 2% POWDER (DESENEX AF) 90 GM TOP SCH ×2 (08:40→20:47)
[2022-11-11] MEDS: ACETAMINOPHEN 500 MG TABLET PO PRN ×2 (08:53→18:45)
--- NOTE | 2022-11-11 08:57 | Progress Note - Hospitalist ---
Subjective HPI/CC On Admission Date Seen by Provider: Nov 11, 2022 Time Seen by Provider: 11:00 Subjective/Events-last exam PICC line placed Patient appears very end stage Patient states she is a DNR so ordered placed Needs hospice Feet are worse Can't undergo vascular studies due to anaphylaxis with contrast Review of Systems General: Fatigue, Malaise Musculoskeletal: foot pain Focused Exam Lactate Level 11/09/22 15:30: Lactic Acid Level 2.10*H 11/09/22 17:40: Lactic Acid Level 1.53 Objective Exam Vital Signs Vital Signs Date Time Temp Pulse Resp B/P (MAP) Pulse Ox O2 Delivery O2 Flow Rate FiO2 11/12/22 03:45 36.5 75 20 126/60 (82) 99 Room Air 11/09/22 23:00 21 Capillary Refill : Less Than 3 Seconds General Appearance: No Apparent Distress, WD/WN, Chronically ill, Obese Respiratory: Lungs Clear, Normal Breath Sounds Cardiovascular: Regular Rate, Rhythm Neurologic/Psychiatric: Alert, Depressed Affect Skin: Other (gangrene feet) Results/Procedures Lab Laboratory Tests 11/11/22 09:20 Patient resulted labs reviewed. Assessment/Plan Assessment and Plan Assess & Plan/Chief Complaint (1) Gangrene of left foot Status: Acute Assessment & Plan: - General surgery consult Dr Sosa, appreciate recommen dations, started on IV antibiotics (2) PAD (peripheral artery disease) Status: Chronic Assessment & Plan: - Consult Cardiology Dr Mckeon (3) Intertriginous candidiasis Status: Acute Assessment & Plan: - Started on topical nystatin (4) HTN (hypertension) Status: Acute Assessment & Plan: - Restarted home HTN meds (5) Tobacco abuse Status: Chronic Assessment & Plan: - Discussed need for cessation, offered nicotine replacement Plan: Can't undergo vascular studies due to anaphylaxis with contrast PICC line IV abx DNR VENUS BURNETT DO Nov 11, 2022 08:57
[2022-11-11] MEDS ORDERED: amLODIPine 5 MG TABLET PO SCH (09:00)
[2022-11-11] MEDS ORDERED: LOSARTAN 25 MG (COZAAR) TAB PO SCH (09:00)
[2022-11-11 09:24] LABS: BASOPHILS % (AUTO) 0 % (0-10); EOSINOPHILS # (AUTO) 0.1 10^3/uL (0.0-0.3); EOSINOPHILS % (AUTO) 2 % (0-10); HEMATOCRIT 34 % (35-52); HEMOGLOBIN 11.1 g/dL (11.5-16.0); LYMPHOCYTES % (AUTO) 12 % (12-44); MEAN CORPUSCULAR HEMOGLOBIN 30 pg (25-34); MEAN CORPUSCULAR HGB CONC 33 g/dL (32-36); MEAN CORPUSCULAR VOLUME 92 fL (80-99); MEAN PLATELET VOLUME 9.9 fL (9.0-12.2); MONOCYTES # (AUTO) 0.5 10^3/uL (0.0-1.0); MONOCYTES % (AUTO) 6 % (0-12); NEUTROPHILS # (AUTO) 6.6 10^3/uL (1.8-7.8); NEUTROPHILS % (AUTO) 80 % (42-75); PLATELET COUNT 284 10^3/uL (130-400); WHITE BLOOD COUNT 8.3 10^3/uL (4.3-11.0)
[2022-11-11 09:37] LABS: POTASSIUM 3.9 MMOL/L (3.6-5.0)
[2022-11-11 09:38] LABS: CALCIUM 8.8 MG/DL (8.5-10.1)
[2022-11-11 09:40] LABS: TOTAL PROTEIN 6.4 GM/DL (6.4-8.2)
[2022-11-11 09:41] LABS: BILIRUBIN,TOTAL 0.5 MG/DL (0.1-1.0)
[2022-11-11 09:43] LABS: CREATININE SERUM 0.61 MG/DL (0.60-1.30)
--- NOTE | 2022-11-11 10:20 | Progress Note - Cardiology ---
Cardiology SOAP Progress Note Subjective: Sitting up in bed Denies any c/o CP or SOB Denies any LE discomfort Objective: I&O/Vital Signs 11/13/22 11/13/22 11/14/22 11/14/22 23:30 23:39 00:00 00:00 Temp 36.0 Pulse 72 64 Resp 16 B/P (MAP) 113/68 (83) 152/63 (92) Pulse Ox 99 O2 Delivery Room Air Room Air Room Air 11/14/22 11/14/22 11/14/22 11/14/22 01:00 01:17 02:00 02:53 Pulse 70 67 69 77 Resp 19 13 B/P (MAP) 162/96 (118) 128/105 (111) Pulse Ox 100 O2 Delivery Room Air Room Air Room Air 11/14/22 11/14/22 11/14/22 11/14/22 03:00 04:00 04:00 05:33 Temp 36.2 Pulse 70 71 70 Resp 20 18 B/P (MAP) 147/59 (94) Pulse Ox 100 98 95 O2 Delivery Room Air Room Air Room Air 11/14/22 11/14/22 11/14/22 11/14/22 05:45 06:00 07:00 07:00 Pulse 71 65 70 71 B/P (MAP) 154/78 (95) 154/64 (114) 163/67 (99) Pulse Ox 99 99 98 O2 Delivery Room Air Room Air Room Air 11/14/22 11/14/22 11/14/22 11/14/22 07:41 08:00 08:00 09:00 Temp 36.7 Pulse 84 71 B/P (MAP) 163/56 (91) 155/67 (96) Pulse Ox 99 96 99 O2 Delivery Room Air Room Air Room Air Room Air 11/14/22 00:00 Intake Total 830 ml Output Total 725 ml Balance 105 ml Constitutional: other (intermittent confusion; awake, alert and oriented to self and place) Respiratory: No accessory muscle use, No respiratory distress; chest expansion is symmetric, chest is bilaterally symmetric, lungs clear to auscultation Cardiovascular: regular rate-rhythm; No JVD; S1 and S2 Gastrointestional: soft; No guarding; audible bowel sounds Extremities: no lower extremity edema bilateral Neurologic/Psychiatric: other (moves all extremities) Skin: other (right foot with the first 2 digits removed; sutures in place with edges approx; redness and dark discoloration of tissue. Left foot with partial amputation, removal of first 2 digits, dark, dry, dicoloration to the area. Duskiness to nail beds bilat) Results/Procedures: Labs Laboratory Tests 11/14/22 03:21: White Blood Count 8.8, Red Blood Count 3.77L, Hemoglobin 11.5, Hematocrit 35, Mean Corpuscular Volume 92, Mean Corpuscular Hemoglobin 31, Mean Corpuscular Hemoglobin Concent 33, Red Cell Distribution Width 15.1H, Platelet Count 372, Mean Platelet Volume 10.5, Immature Granulocyte % (Auto) 2, Neutrophils (%) (Auto) 72, Lymphocytes (%) (Auto) 16, Monocytes (%) (Auto) 8, Eosinophils (%) (Auto) 1, Basophils (%) (Auto) 1, Neutrophils # (Auto) 6.3, Lymphocytes # (Auto) 1.4, Monocytes # (Auto) 0.7, Eosinophils # (Auto) 0.1, Basophils # (Auto) 0.1, Immature Granulocyte # (Auto) 0.2H, Sodium Level 138, Potassium Level 4.4, Chloride Level 105, Carbon Dioxide Level 21, Anion Gap 12, Blood Urea Nitrogen 9, Creatinine 0.68, Estimat Glomerular Filtration Rate 94, BUN/Creatinine Ratio 13, Glucose Level 113H, Calcium Level 9.1, Corrected Calcium 9.7, Magnesium Level 1.8, Total Bilirubin 0.5, Aspartate Amino Transf (AST/SGOT) 16, Alanine Aminotransferase (ALT/SGPT) 11, Alkaline Phosphatase 94, Total Protein 6.7, Albumin 3.2 Microbiology 11/09/22 Blood Culture - Preliminary, Resulted No growth A/P: Assessment: Reported anaphylaxis to iodinated contrast and severe allergy to meds used to reduce risk of contrast allergy (per pt report) Gangrenous wounds to feet bilat (management per surgical services) - Peripheral arterial disease, abnormal lower extremity ultrasound October [address] Acosta's note of 10-20-22: He discussed with the patient recommended peripheral angiogram and possible angioplasty. Patient had amputation of her toes done on 10/18/2022 He had planned to proceed with peripheral angiogram, after placing the patient on the cardiac catheterization table she became very anxious and started crying and requested to go home, did not want to lay down still. Her reports he was concerned that she will be unable to lay down still after the procedure to maintain hemostasis. Therefore, the procedure was canceled. Patient understand the risk of amputation further in her legs. History of questionable paroxysmal atrial fibrillation (per pt report) - denies any cardiology f/u or treatment, details unknown - Echo done in February 2021 with moderately dilated left atrium, normal left ventricle, PA pressure 30 to 35 mmHg - 2D echo done on October 19, [address] Acosta: showing normal LV function with normal ejection fraction Hypertension - uncontrolled Hyperlipidemia Tobaccoism, educated on smoking cessation History of noncompliance with with medications/treatment and f/u. Multiple events of leaving the hospital AMA in the past Plan: Complex management d/t non-compliance with recs and treatment along with allergies as noted below Bilat gangrenous wounds to feet - previous abnormal lower ext u/s in October 2022 with recent inability to carry out peripheral angiogram by Dr. Acosta - because pt reports severe allergy including anaphylaxis and severe allergies to medications used to reduce risk of allergy/anaphylaxis she is not a suitable candidate angiography - this has been communicated to Dr. Sosa per Dr. Mckeon Management of wounds is per surgical/medical services Uncontrolled HTN - improved following increase doses of Norvasc and Losartan - adjust as indicated TIERNEY HI Nov 11, 2022 10:20
[2022-11-11] MEDS ORDERED: SULF-221 PO (15:37)
[2022-11-11] MEDS ORDERED: TRAM50TA3 PO (15:37)
[2022-11-11] MEDS ORDERED: CARB1TAB32 PO (15:37)
[2022-11-11] MEDS ORDERED: CLON0.5T4 PO (15:46)
--- NOTE | 2022-11-11 17:49 | Progress Note - Cardiology ---
Cardiology SOAP Progress Note Subjective: No cp or palp or syncope No shortness of breath at rest Gen malaise and weakness No focal weakness No n/v/d Objective: I&O/Vital Signs 11/11/22 11/11/22 11/11/22 11/11/22 06:28 07:30 08:00 08:50 Temp 36.6 36.2 Pulse 72 72 71 Resp 18 18 B/P (MAP) 190/85 (120) 219/86 (130) 160/69 (99) Pulse Ox 98 98 98 O2 Delivery Room Air Room Air Room Air 11/11/22 11/11/22 11/11/22 11/11/22 08:50 10:49 11:58 16:00 Temp 36.1 36.7 Pulse 70 77 Resp 20 20 B/P (MAP) 130/78 (95) 132/63 (86) 111/54 (73) Pulse Ox 98 99 98 O2 Delivery Room Air Room Air Room Air 11/10/22 23:59 Intake Total 200 ml Output Total 1400 ml Balance -1200 ml Constitutional: other (intermittent confusion; awake, alert and oriented to self and place) Respiratory: No accessory muscle use, No respiratory distress; chest expansion is symmetric, chest is bilaterally symmetric, lungs clear to auscultation Cardiovascular: regular rate-rhythm; No JVD; S1 and S2 Gastrointestional: soft; No guarding; audible bowel sounds Extremities: no lower extremity edema bilateral Neurologic/Psychiatric: other (moves all extremities) Skin: other (right foot with the first 2 digits removed; sutures in place with edges approx; redness and dark discoloration of tissue. Left foot with partial amputation, removal of first 2 digits, dark, dry, dicoloration to the area. Duskiness to nail beds bilat) Results/Procedures: Labs Laboratory Tests 11/11/22 09:20: White Blood Count 8.3, Red Blood Count 3.66L, Hemoglobin 11.1L, Hematocrit 34L, Mean Corpuscular Volume 92, Mean Corpuscular Hemoglobin 30, Mean Corpuscular Hemoglobin Concent 33, Red Cell Distribution Width 15.2H, Platelet Count 284, Mean Platelet Volume 9.9, Immature Granulocyte % (Auto) 1, Neutrophils (%) (Auto) 80H, Lymphocytes (%) (Auto) 12, Monocytes (%) (Auto) 6, Eosinophils (%) (Auto) 2, Basophils (%) (Auto) 0, Neutrophils # (Auto) 6.6, Lymphocytes # (Auto) 1.0, Monocytes # (Auto) 0.5, Eosinophils # (Auto) 0.1, Basophils # (Auto) 0.0, Immature Granulocyte # (Auto) 0.1, Sodium Level 137, Potassium Level 3.9, Chloride Level 104, Carbon Dioxide Level 21, Anion Gap 12, Blood Urea Nitrogen 9, Creatinine 0.61, Estimat Glomerular Filtration Rate 96, BUN/Creatinine Ratio 15, Glucose Level 100, Calcium Level 8.8, Corrected Calcium 9.6, Total Bilirubin 0.5, Aspartate Amino Transf (AST/SGOT) 18, Alanine Aminotransferase (ALT/SGPT) 9, Alkaline Phosphatase 100, Total Protein 6.4, Albumin 3.0L Microbiology 11/09/22 Blood Culture - Preliminary, Resulted No growth Laboratory Tests 11/10/22 06:12 11/11/22 09:20 A/P: Assessment: Reported anaphylaxis to iodinated contrast and severe allergy to meds used to reduce risk of contrast allergy (per pt report) Gangrenous wounds to feet bilat (management per surgical services) - Peripheral arterial disease, abnormal lower extremity ultrasound October [address] Acosta's note of 10-20-22: He discussed with the patient recommended peripheral angiogram and possible angioplasty. Patient had amputation of her toes done on 10/18/2022 He had planned to proceed with peripheral angiogram, after placing the patient on the cardiac catheterization table she became very anxious and started crying and requested to go home, did not want to lay down still. Her reports he was concerned that she will be unable to lay down still after the procedure to maintain hemostasis. Therefore, the procedure was canceled. Patient understand the risk of amputation further in her legs. History of questionable paroxysmal atrial fibrillation (per pt report) - denies any cardiology f/u or treatment, details unknown - Echo done in February 2021 with moderately dilated left atrium, normal left ventricle, PA pressure 30 to 35 mmHg - 2D echo done on October 19, [address] Acosta: showing normal LV function with normal ejection fraction Hypertension - uncontrolled Hyperlipidemia Tobaccoism, educated on smoking cessation History of noncompliance with with medications/treatment and f/u. Multiple events of leaving the hospital AMA in the past Plan: Complex management d/t non-compliance with recs and treatment along with allergies as noted above. She notes her allergies to iodinated contrast and to meds used to lower the risk of contrast allergy to be severe / life threatening. Under these circumstances, it appears that angiography cannot be safely performed. I had a long and detailed discussion with her regarding this issue. She understands and herself does not wish to take any risk of angiography. We have communicated this to Dr Sosa Uncontrolled HTN - improved following increased doses of Norvasc and Losartan - adjust as tammiet ANALIA Siegel MD FACP FACC CCDS Nov 11, 2022 17:49
[2022-11-11] MEDS: HYDROcodone/APAP 7.5 MG/325 MG (LORTAB, LORCET PLUS) TABLET PO PRN (21:47)
[2022-11-12] VITALS (8 sets, daily range): BP systolic 120–147; BP diastolic 60–75
[2022-11-12] MEDS: ACETAMINOPHEN 500 MG TABLET PO PRN ×4 (00:14→20:22)
[2022-11-12] MEDS: MEROPENEM 500 MG in NS (IVPB) 100 ML 100 ML IV SCH ×4 (00:14→18:01)
[2022-11-12] MEDS: VANCOMYCIN 1 GM/NS 250 ML IVPB IV SCH ×4 (01:31→12:45)
--- NOTE | 2022-11-12 07:18 | Progress Note - Hospitalist ---
Subjective HPI/CC On Admission Date Seen by Provider: Nov 12, 2022 Time Seen by Provider: 11:00 Subjective/Events-last exam Patient has decided to have amputation Patient very lucid and able to make her own decision No major pain PICC line is functioning well Review of Systems General: Fatigue, Malaise Focused Exam Lactate Level Objective Exam Vital Signs Vital Signs Date Time Temp Pulse Resp B/P (MAP) Pulse Ox O2 Delivery O2 Flow Rate FiO2 11/12/22 20:04 36.6 76 17 128/71 (90) 97 Room Air 11/12/22 13:54 21 11/12/22 09:29 0.00 Capillary Refill : Less Than 3 Seconds General Appearance: No Apparent Distress, WD/WN, Chronically ill Respiratory: Lungs Clear, Normal Breath Sounds Cardiovascular: Regular Rate, Rhythm Extremity: Other (Gangrene on feet) Neurologic/Psychiatric: Alert, Oriented x3 Results/Procedures Lab Laboratory Tests 11/12/22 09:00 Patient resulted labs reviewed. Assessment/Plan Assessment and Plan Assess & Plan/Chief Complaint (1) Gangrene of left foot Status: Acute Assessment & Plan: - General surgery consult Dr Sosa, appreciate recommendations, started on IV antibiotics (2) PAD (peripheral artery disease) Status: Chronic Assessment & Plan: - Consult Cardiology Dr Mckeon (3) Intertriginous candidiasis Status: Acute Assessment & Plan: - Started on topical nystatin (4) HTN (hypertension) Status: Acute Assessment & Plan: - Restarted home HTN meds (5) Tobacco abuse Status: Chronic Assessment & Plan: - Discussed need for cessation, offered nicotine replacement Plan: Can't undergo vascular studies due to anaphylaxis with contrast Amputation PICC line IV abx DNR VENUS BURNETT DO Nov 12, 2022 07:18
[2022-11-12] MEDS: amLODIPine 10 MG TABLET PO SCH (09:01)
[2022-11-12] MEDS: LOSARTAN 50 MG (COZAAR) TAB PO SCH (09:01)
[2022-11-12] MEDS: CLOPIDOGREL 75 MG TABLET PO SCH (09:01)
[2022-11-12] MEDS: SINEMET 25/100 (CARBIDOPA/LEVODOPA) TAB PO SCH ×3 (09:01→18:01)
[2022-11-12] MEDS: ENOXAPARIN 40 MG/0.4 ML (LOVENOX) SYR SC SCH (09:01)
[2022-11-12] MEDS: HYDROcodone/APAP 7.5 MG/325 MG (LORTAB, LORCET PLUS) TABLET PO PRN (09:01)
[2022-11-12] MEDS: DOCUSATE SODIUM 100 MG CAPSULE PO SCH ×2 (09:01→20:22)
[2022-11-12] MEDS: MICONAZOLE 2% POWDER (DESENEX AF) 90 GM TOP SCH ×2 (09:02→20:23)
[2022-11-12 09:16] LABS: BASOPHILS % (AUTO) 0 % (0-10); EOSINOPHILS # (AUTO) 0.1 10^3/uL (0.0-0.3); EOSINOPHILS % (AUTO) 2 % (0-10); HEMATOCRIT 32 % (35-52); HEMOGLOBIN 10.8 g/dL (11.5-16.0); LYMPHOCYTES # (AUTO) 1.2 10^3/uL (1.0-4.0); LYMPHOCYTES % (AUTO) 15 % (12-44); MEAN CORPUSCULAR HEMOGLOBIN 31 pg (25-34); MEAN CORPUSCULAR HGB CONC 34 g/dL (32-36); MEAN CORPUSCULAR VOLUME 92 fL (80-99); MEAN PLATELET VOLUME 10.1 fL (9.0-12.2); MONOCYTES # (AUTO) 0.6 10^3/uL (0.0-1.0); MONOCYTES % (AUTO) 8 % (0-12); NEUTROPHILS # (AUTO) 5.9 10^3/uL (1.8-7.8); NEUTROPHILS % (AUTO) 74 % (42-75); PLATELET COUNT 261 10^3/uL (130-400)
[2022-11-12 09:17] LABS: ALBUMIN 2.9 GM/DL (3.2-4.5); POTASSIUM 3.5 MMOL/L (3.6-5.0)
[2022-11-12 09:18] LABS: CALCIUM 8.6 MG/DL (8.5-10.1)
[2022-11-12 09:19] LABS: TOTAL PROTEIN 6.1 GM/DL (6.4-8.2)
[2022-11-12 09:21] LABS: BILIRUBIN,TOTAL 0.4 MG/DL (0.1-1.0)
[2022-11-12 09:23] LABS: CREATININE SERUM 0.57 MG/DL (0.60-1.30)
--- NOTE | 2022-11-12 09:56 | Progress Note - Surgery ---
DERIK GUTIERREZ 11/12/22 0956: Subjective Date Seen by a Provider: Nov 12, 2022 Time Seen by a Provider: 08:25 Subjective/Events-last exam Patient is seen this morning laying down in bed. She states that she is not currently having any pain, but states what brought on her pain was that her dog had sat down on her feet. She says that she is feeling alright compared to when she came in but is just displeased with her health overall. She denies any shortness of breath, palpitations, or syncope. Her Hgb has trended downward over last 3 days from 12.7 to 12 to 11.1 this morning. Will continue to monitor during her stay. Review of Systems General: No Chills, No Night Sweats, No Fatigue HEENT: No Head Aches, No Visual Changes Pulmonary: No Dyspnea, No Cough Cardiovascular: No: Chest Pain, Palpitations Gastrointestinal: No: Nausea, Vomiting, Abdominal Pain, Diarrhea, Constipation Genitourinary: No Dysuria, No Frequency, No Hematuria Musculoskeletal: No: neck pain, shoulder pain Neurological: No: Weakness, Numbness Focused Exam Lactate Level 11/09/22 15:30: Lactic Acid Level 2.10*H 11/09/22 17:40: Lactic Acid Level 1.53 Respiratory: Chest Non Tender, Lungs Clear, No Respiratory Distress Cardiovascular: Regular Rate, Rhythm, No Edema, No Gallop, No Murmur Skin: ecchymosis (cellulitis of left leg), ulcerations (Patient has had big toes amputated bilaterally. ) Objective Exam Vital Signs Date Time Temp Pulse Resp B/P (MAP) Pulse Ox O2 Delivery O2 Flow Rate FiO2 11/12/22 09:29 99 Room Air 0.00 11/12/22 08:00 Room Air 11/12/22 07:23 36.4 68 16 147/65 (92) 98 Room Air 11/12/22 03:45 36.5 75 20 126/60 (82) 99 Room Air 11/12/22 00:04 37.0 76 20 146/65 (92) 97 Room Air 11/11/22 20:00 37.2 75 20 143/63 (89) 94 Room Air 11/11/22 20:00 Room Air 11/11/22 16:00 36.7 77 20 111/54 (73) 98 Room Air 11/11/22 11:58 36.1 70 20 132/63 (86) 99 Room Air 11/11/22 10:49 98 Room Air I & O 11/12/22 06:59 Intake Total 500 ml Output Total 1250 ml Balance -750 ml Capillary Refill : Less Than 3 Seconds General Appearance: No Apparent Distress, Chronically ill, Obese HEENT: PERRL/EOMI Neck: Full Range of Motion, Non Tender Respiratory: Lungs Clear, No Accessory Muscle Use, No Respiratory Distress Cardiovascular: Regular Rate, Rhythm, No Edema, Systolic Murmur (LUSB) Gastrointestinal: non tender, soft; No distended, No tenderness Extremity: Other (Transmetatarsal imitation left midfoot. There is black in the wound base. She has wet gangrene of her third toe, fifth toe. There is purulent drainage still today. ) Neurologic/Psychiatric: Alert, Oriented x3, Depressed Affect (Patient is not happy with her current health) Skin: Other (gangrene of bilateral feet. ) Lymphatic: No Adenopathy (neck, supra and subclavicular. ) Results Lab Laboratory Tests 11/12/22 09:00: White Blood Count 8.0, Red Blood Count 3.50L, Hemoglobin 10.8L, Hematocrit 32L, Mean Corpuscular Volume 92, Mean Corpuscular Hemoglobin 31, Mean Corpuscular Hemoglobin Concent 34, Red Cell Distribution Width 15.1H, Platelet Count 261, Mean Platelet Volume 10.1, Immature Granulocyte % (Auto) 1, Neutrophils (%) (Auto) 74, Lymphocytes (%) (Auto) 15, Monocytes (%) (Auto) 8, Eosinophils (%) (Auto) 2, Basophils (%) (Auto) 0, Neutrophils # (Auto) 5.9, Lymphocytes # (Auto) 1.2, Monocytes # (Auto) 0.6, Eosinophils # (Auto) 0.1, Basophils # (Auto) 0.0, Immature Granulocyte # (Auto) 0.1, Sodium Level 140, Potassium Level 3.5L, Chloride Level 104, Carbon Dioxide Level 24, Anion Gap 12, Blood Urea Nitrogen 6L, Creatinine 0.57L, Estimat Glomerular Filtration Rate 98, BUN/Creatinine Ratio 11, Glucose Level 102, Calcium Level 8.6, Corrected Calcium 9.5, Total Bilirubin 0.4, Aspartate Amino Transf (AST/SGOT) 16, Alanine Aminotransferase (ALT/SGPT) 11, Alkaline Phosphatase 91, Total Protein 6.1L, Albumin 2.9L Microbiology 11/09/22 Blood Culture - Preliminary, Resulted No growth Assessment/Plan Assessment/Plan Assessment/Plan Gangrene of Bilateral Feet Cellulitis of left leg Diabetes HTN Plan is to continue IV abx and administration of fluids. Continue to monitor cellulitis and gangrene of her feet. JOSE ANGEL WHITMAN DO 11/12/22 1220: Subjective Time Seen by a Provider: 11:40 Subjective/Events-last exam Pt seen and examined, states she wants hospice. Her main complaint is that all she wants is Tylenol and Carbidopa/Levodopa which controls her "jerks" and those cause the most pain. Objective Exam General Appearance: Anxious, Chronically ill, Obese HEENT: PERRL/EOMI Respiratory: Lungs Clear, Normal Breath Sounds, No Accessory Muscle Use, No Respiratory Distress Cardiovascular: Regular Rate, Rhythm, Systolic Murmur (LUSB) Gastrointestinal: non tender, soft; No distended Extremity: No Pedal Edema, Other (Transmetatarsal imitation left midfoot. There is black in the wound base. She has dry gangrene of her third toe, fifth toe. There is a scab on the right foot, not sure it is gangrene) Neurologic/Psychiatric: Depressed Affect (Patient is not happy with her current health) Assessment/Plan Assessment/Plan Assessment/Plan Gangrene of Left Foot and toes with mild cellulitis of left leg Right foot healing wound - ??scab vs gangrene Diabetes HTN I talked to pt and told her I don't think she needs hospice; I think many of her problems would be helped by amputation. I talked to her, her sister and her grandkids; I think she is now agreeable to amputation. She definitely needs a BKA of left leg and probably work-up of right leg to look for Osteo; because she may need BKA of right. However, right doesn't look near as bad as the left. For now, continue IV abx, pain control and IV fluids. Supervisory-Addendum Brief Verification & Attestation Participated in pt care: history, MDM, physical Personally performed: exam, history, MDM, supervision of care Care discussed with: Medical Student Procedures: n/a Verification and Attestation of Medical Student E/M Service A PA student performed and documented this service. I then reviewed and verified all information documented by the medical student and made modifications to such information, when appropriate. I personally performed a physical exam, medical decision making and then discussed any differences between the notes and made revisions as necessary to create one note. Jose Angel Whitman , 11/12/22 , 12:20 DERIK GUTIERREZ Nov 12, 2022 09:56 JOSE ANGEL WHITMAN DO Nov 12, 2022 12:20
--- NOTE | 2022-11-12 16:25 | Progress Note - Cardiology ---
Cardiology SOAP Progress Note Subjective: No cp or palp or syncope No shortness of breath at rest No n/v/d No focal weakness Gen weakness and malaise present Objective: I&O/Vital Signs 11/12/22 11/12/22 11/12/22 11/12/22 07:23 08:00 09:29 11:24 Temp 36.4 36.4 Pulse 68 74 Resp 16 18 B/P (MAP) 147/65 (92) 120/73 (89) Pulse Ox 98 99 97 O2 Delivery Room Air Room Air Room Air Room Air O2 Flow Rate 0.00 11/12/22 13:54 Temp 36.4 Pulse 74 Pulse Ox 97 FiO2 21 11/12/22 00:00 Intake Total 400 ml Output Total 700 ml Balance -300 ml Constitutional: other (intermittent confusion; awake, alert and oriented to self and place) Respiratory: No accessory muscle use, No respiratory distress; chest expansion is symmetric, chest is bilaterally symmetric, lungs clear to auscultation Cardiovascular: regular rate-rhythm; No JVD; S1 and S2 Gastrointestional: soft; No guarding; audible bowel sounds Extremities: no lower extremity edema bilateral Neurologic/Psychiatric: other (moves all extremities) Skin: ecchymosis (cellulitis of left leg), ulcerations (Patient has had big toes amputated bilaterally. ) Results/Procedures: Labs Laboratory Tests 11/12/22 09:00: White Blood Count 8.0, Red Blood Count 3.50L, Hemoglobin 10.8L, Hematocrit 32L, Mean Corpuscular Volume 92, Mean Corpuscular Hemoglobin 31, Mean Corpuscular Hemoglobin Concent 34, Red Cell Distribution Width 15.1H, Platelet Count 261, Mean Platelet Volume 10.1, Immature Granulocyte % (Auto) 1, Neutrophils (%) (Auto) 74, Lymphocytes (%) (Auto) 15, Monocytes (%) (Auto) 8, Eosinophils (%) (Auto) 2, Basophils (%) (Auto) 0, Neutrophils # (Auto) 5.9, Lymphocytes # (Auto) 1.2, Monocytes # (Auto) 0.6, Eosinophils # (Auto) 0.1, Basophils # (Auto) 0.0, Immature Granulocyte # (Auto) 0.1, Sodium Level 140, Potassium Level 3.5L, Chloride Level 104, Carbon Dioxide Level 24, Anion Gap 12, Blood Urea Nitrogen 6L, Creatinine 0.57L, Estimat Glomerular Filtration Rate 98, BUN/Creatinine Ratio 11, Glucose Level 102, Calcium Level 8.6, Corrected Calcium 9.5, Total Bilirubin 0.4, Aspartate Amino Transf (AST/SGOT) 16, Alanine Aminotransferase (ALT/SGPT) 11, Alkaline Phosphatase 91, Total Protein 6.1L, Albumin 2.9L Microbiology 11/09/22 Blood Culture - Preliminary, Resulted No growth Laboratory Tests 11/11/22 09:20 11/12/22 09:00 A/P: Assessment: Reported anaphylaxis to iodinated contrast and severe allergy to meds used to reduce risk of contrast allergy (per pt report) Gangrenous wounds to feet bilat (management per surgical services) - Peripheral arterial disease, abnormal lower extremity ultrasound October [address]osta[address] Acosta's note of 10-20-22: He discussed with the patient recommended peripheral angiogram and possible angioplasty. Patient had amputation of her toes done on 10/18/2022 He had planned to proceed with peripheral angiogram, after placing the patient on the cardiac catheterization table she became very anxious and started crying and requested to go home, did not want to lay down still. Her reports he was concerned that she will be unable to lay down still after the procedure to maintain hemostasis. Therefore, the procedure was canceled. Patient understood the risk of amputation further in her legs - During his hospitalization: She notes her allergies to iodinated contrast and to meds used to lower the risk of contrast allergy to be severe / life threatening. Under these circumstances, it appears that angiography cannot be safely performed. I had a long and detailed discussion with her regarding this issue. She understands and herself does not wish to take any risk of angiography. History of questionable paroxysmal atrial fibrillation (per pt report) - denies any cardiology f/u or treatment, details unknown - Echo done in February 2021 with moderately dilated left atrium, normal left ventricle, PA pressure 30 to 35 mmHg - 2D echo done on October 19, [address] Acosta: showing normal LV function with normal ejection fraction Hypertension Hyperlipidemia Tobaccoism, refraining since August 2022 History of noncompliance with with medications/treatment and f/u. - Multiple events of leaving the hospital AMA in the past Plan: Complex management due to allergies as noted above. She notes her allergies to iodinated contrast and to meds used to lower the risk of contrast allergy to be severe / life threatening. Under these circumstances, it appears that angiography cannot be safely performed. I had a long and detailed discussion with her regarding this issue. She understands and herself does not wish to take any risk of angiography. Advised to continue to refrain from smoking ANALIA ASCENCIO MD FACP [facility] Nov 12, 2022 16:25
[2022-11-13] MEDS ORDERED: TROUGH ORDER-PHARMACY XX NR (01:00)
[2022-11-13] MEDS: MEROPENEM 500 MG in NS (IVPB) 100 ML 100 ML IV SCH ×5 (01:12→23:38)
[2022-11-13] MEDS: VANCOMYCIN 1 GM/NS 250 ML IVPB IV SCH ×2 (02:31)
[2022-11-13] MEDS: VANCOMYCIN 750 MG/NS 250 ML IVPB IV SCH ×4 (03:20→15:41)
[2022-11-13 03:26] VITALS: BP 133/57
[2022-11-13 05:45] LABS: BASOPHILS % (AUTO) 1 % (0-10); EOSINOPHILS # (AUTO) 0.2 10^3/uL (0.0-0.3); EOSINOPHILS % (AUTO) 3 % (0-10); HEMATOCRIT 32 % (35-52); HEMOGLOBIN 10.8 g/dL (11.5-16.0); LYMPHOCYTES % (AUTO) 12 % (12-44); MEAN CORPUSCULAR HEMOGLOBIN 31 pg (25-34); MEAN CORPUSCULAR HGB CONC 33 g/dL (32-36); MEAN CORPUSCULAR VOLUME 92 fL (80-99); MEAN PLATELET VOLUME 9.9 fL (9.0-12.2); MONOCYTES # (AUTO) 0.7 10^3/uL (0.0-1.0); MONOCYTES % (AUTO) 8 % (0-12); NEUTROPHILS # (AUTO) 6.4 10^3/uL (1.8-7.8); NEUTROPHILS % (AUTO) 76 % (42-75); PLATELET COUNT 279 10^3/uL (130-400); WHITE BLOOD COUNT 8.4 10^3/uL (4.3-11.0)
[2022-11-13 06:07] LABS: ALBUMIN 2.7 GM/DL (3.2-4.5); BILIRUBIN,TOTAL 0.4 MG/DL (0.1-1.0); CALCIUM 8.2 MG/DL (8.5-10.1); CREATININE SERUM 0.56 MG/DL (0.60-1.30); POTASSIUM 3.2 MMOL/L (3.6-5.0); TOTAL PROTEIN 5.7 GM/DL (6.4-8.2)
--- NOTE | 2022-11-13 07:08 | Progress Note - Hospitalist ---
Subjective HPI/CC On Admission Date Seen by Provider: Nov 13, 2022 Time Seen by Provider: 11:00 Subjective/Events-last exam Patient was seen and examined No major concerns at this point After rounds she was transferred to the ICU for Cardizem drip for atrial fibrillation Objective Exam Vital Signs Vital Signs Date Time Temp Pulse Resp B/P (MAP) Pulse Ox O2 Delivery O2 Flow Rate FiO2 11/13/22 19:10 97 Room Air 11/13/22 18:21 154 110/80 11/13/22 18:00 11 11/13/22 15:57 36.9 11/12/22 13:54 21 11/12/22 09:29 0.00 Capillary Refill : Less Than 3 Seconds General Appearance: No Apparent Distress, WD/WN, Chronically ill Respiratory: Lungs Clear, Normal Breath Sounds Cardiovascular: Regular Rate, Rhythm Results/Procedures Lab Laboratory Tests 11/13/22 05:37 Patient resulted labs reviewed. Assessment/Plan Assessment and Plan Assess & Plan/Chief Complaint (1) Gangrene of left foot Status: Acute Assessment & Plan: - General surgery consult Dr Sosa, appreciate recommendations, started on IV antibiotics (2) PAD (peripheral artery disease) Status: Chronic Assessment & Plan: - Consult Cardiology Dr Mckeno (3) Intertriginous candidiasis Status: Acute Assessment & Plan: - Started on topical nystatin (4) HTN (hypertension) Status: Acute Assessment & Plan: - Restarted home HTN meds (5) Tobacco abuse Status: Chronic Assessment & Plan: - Discussed need for cessation, offered nicotine replacement New onset atrial fibrillation requiring transfer to ICU for rapid ventricular response Plan: Can't undergo vascular studies due to anaphylaxis with contrast Amputation PICC line IV abx DNR ICU transfer VENUS BURNETT DO Nov 13, 2022 07:08
[2022-11-13] MEDS ORDERED: MENTHOL/ZINC OXIDE OINTMENT 113 GM TUBE TP PRN (07:15)
[2022-11-13] MEDS ORDERED: DOCUSATE SODIUM 100 MG CAPSULE PO PRN (07:15)
[2022-11-13] MEDS ORDERED: LACTULOSE SYRUP 10GM/15ML (ENULOSE) 30ML UDC PO PRN (07:15)
[2022-11-13] MEDS ORDERED: ONDANSETRON 4 MG/2 ML (SDV) Z0FRAN IVP PRN (07:15)
[2022-11-13] MEDS ORDERED: BISACODYL 10 MG SUPPOSITORY PR PRN (07:15)
[2022-11-13 07:32] VITALS: BP 122/85
[2022-11-13] MEDS: LOSARTAN 50 MG (COZAAR) TAB PO SCH (08:34)
[2022-11-13] MEDS: KCL 20 MEQ TAB (K-DUR) PO SCH ×2 (08:34→22:05)
[2022-11-13] MEDS: amLODIPine 10 MG TABLET PO SCH (08:34)
[2022-11-13] MEDS: CLOPIDOGREL 75 MG TABLET PO SCH (08:34)
[2022-11-13] MEDS: ACETAMINOPHEN 325 MG TABLET PO PRN ×4 (08:35→23:34)
[2022-11-13] MEDS: SINEMET 25/100 (CARBIDOPA/LEVODOPA) TAB PO SCH ×3 (08:35→18:22)
[2022-11-13] MEDS: MICONAZOLE 2% POWDER (DESENEX AF) 90 GM TOP SCH ×3 (08:35→22:08)
[2022-11-13] MEDS: polyethylene glycoL POWDER 17 GM (MIRALAX) PACK PO SCH ×2 (08:35→22:06)
[2022-11-13] MEDS: ENOXAPARIN 40 MG/0.4 ML (LOVENOX) SYR SC SCH (08:35)
--- NOTE | 2022-11-13 10:59 | Progress Note - Surgery ---
DERIK GUTIERREZ 11/13/22 1059: Subjective Date Seen by a Provider: Nov 13, 2022 Time Seen by a Provider: 09:50 Subjective/Events-last exam Patient is seen this morning laying down in bed. She was apperently having very vivid dreams last night. She states that her pain is 10/10 pain today after sayi ng her pain was nothing the day prior. She states that she excited and worried at the same time about the state of her health and what will happen to her. She says that she is currently having shortness of breath and heart beating to fast as well as too slow because of "the things she knows." She denies fever, chills or night sweats. Review of Systems General: No Chills, No Night Sweats HEENT: No Visual Changes, No Eye Pain Pulmonary: Dyspnea Cardiovascular: Palpitations, Lt Headedness Gastrointestinal: No: Nausea, Vomiting, Abdominal Pain Genitourinary: No Dysuria, No Frequency Musculoskeletal: No: neck pain, shoulder pain Objective Exam Vital Signs Date Time Temp Pulse Resp B/P (MAP) Pulse Ox O2 Delivery O2 Flow Rate FiO2 11/13/22 08:00 Room Air 11/13/22 07:32 36.4 119 16 122/85 (97) 96 Room Air 11/13/22 03:26 36.5 107 14 133/57 (82) 98 Room Air 11/12/22 23:42 36.4 94 14 125/71 (89) 97 Room Air 11/12/22 20:04 36.6 76 17 128/71 (90) 97 Room Air 11/12/22 20:00 Room Air 11/12/22 19:07 Room Air 11/12/22 16:23 36.7 72 18 123/75 (91) 98 Room Air 11/12/22 13:54 36.4 74 97 21 11/12/22 11:24 36.4 74 18 120/73 (89) 97 Room Air I & O 11/13/22 07:00 Intake Total 1760 ml Output Total 2450 ml Balance -690 ml Capillary Refill : Less Than 3 Seconds General Appearance: No Apparent Distress, WD/WN, Chronically ill HEENT: PERRL/EOMI Neck: Full Range of Motion, Non Tender Respiratory: Lungs Clear, Normal Breath Sounds Cardiovascular: Regular Rate, Rhythm, No Edema, Systolic Murmur (LUSB) Gastrointestinal: non tender, soft; No distended Extremity: Other (Gangrene on feet) Neurologic/Psychiatric: Alert, Oriented x3, Disoriented (Believes the universe was shaking last night and that someone took "Bill") Skin: Other (gangrene of bilateral feet. ) Lymphatic: No Adenopathy (neck, supra and subclavicular. ) Results Lab Laboratory Tests 11/13/22 01:50: Vancomycin Level Trough 17.8 11/13/22 05:37: White Blood Count 8.4, Red Blood Count 3.52L, Hemoglobin 10.8L, Hematocrit 32L, Mean Corpuscular Volume 92, Mean Corpuscular Hemoglobin 31, Mean Corpuscular Hemoglobin Concent 33, Red Cell Distribution Width 15.0H, Platelet Count 279, Mean Platelet Volume 9.9, Immature Granulocyte % (Auto) 1, Neutrophils (%) (Auto) 76H, Lymphocytes (%) (Auto) 12, Monocytes (%) (Auto) 8, Eosinophils (%) (Auto) 3, Basophils (%) (Auto) 1, Neutrophils # (Auto) 6.4, Lymphocytes # (Auto) 1.0, Monocytes # (Auto) 0.7, Eosinophils # (Auto) 0.2, Basophils # (Auto) 0.0, Immature Granulocyte # (Auto) 0.1, Sodium Level 135, Potassium Level 3.2L, Chloride Level 103, Carbon Dioxide Level 24, Anion Gap 8, Blood Urea Nitrogen 7, Creatinine 0.56L, Estimat Glomerular Filtration Rate 98, BUN/Creatinine Ratio 13, Glucose Level 102, Calcium Level 8.2L, Corrected Calcium 9.2, Total Bilirubin 0.4, Aspartate Amino Transf (AST/SGOT) 15, Alanine Aminotransferase (ALT/SGPT) 14, Alkaline Phosphatase 83, Total Protein 5.7L, Albumin 2.7L Microbiology 11/09/22 Blood Culture - Preliminary, Resulted No growth Assessment/Plan Assessment/Plan Assessment/Plan Gangrene of Left Foot and toes with mild cellulitis of left leg Right foot healing wound - ??scab vs gangrene Diabetes HTN Patient is still on board currently with the amputation of her left foot and believes it is for the better, she is very confused and disoriented this morning and believes the universe came to take her last night. There is no change in her cellulitis from the day prior but she states her pain is worse than it was yesterday. Plan is to continue IV abx, pain control and IV fluids. JOSE ANGEL WHITMAN DO 11/13/22 1456: Subjective Time Seen by a Provider: 13:22 Subjective/Events-last exam Pt seen and examined, no new complaints. Review of Systems HEENT: Eye Pain Pulmonary: Dyspnea Cardiovascular: Palpitations, Lt Headedness; No: Chest Pain Gastrointestinal: No: Nausea, Vomiting, Abdominal Pain Musculoskeletal: foot pain Objective Exam General Appearance: No Apparent Distress, Chronically ill, Obese Respiratory: Lungs Clear, Normal Breath Sounds, No Accessory Muscle Use, No Respiratory Distress Cardiovascular: Regular Rate, Rhythm, Systolic Murmur (LUSB) Gastrointestinal: non tender, soft; No distended Extremity: Other (Gangrene on feet) Neurologic/Psychiatric: Disoriented (Believes the universe was shaking last night and that someone took "Bill") Skin: Other (gangrene of bilateral feet. ) Assessment/Plan Assessment/Plan Assessment/Plan Gangrene of Left Foot and toes with mild cellulitis of left leg Right foot healing wound - ??scab vs gangrene Diabetes HTN Patient is still on board currently with the amputation of her left foot and believes it is for the better, she is very confused and disoriented this morning and believes the universe came to take her last night. There is no change in her cellulitis from the day prior but she states her pain is worse than it was yesterday. Plan is to continue IV abx, pain control and IV fluids. Supervisory-Addendum Brief Verification & Attestation Participated in pt care: history, MDM, physical Personally performed: exam, history, MDM, supervision of care Care discussed with: Medical Student Procedures: n/a Verification and Attestation of Medical Student E/M Service A PA student performed and documented this service. I then reviewed and verified all information documented by the medical student and made modifications to such information, when appropriate. I personally performed a physical exam, medical decision making and then discussed any differences between the notes and made revisions as necessary to create one note. Jose Angel Whitman , 11/13/22 , 14:56 DERIK GUTIERREZ Nov 13, 2022 10:59 JOSE ANGEL WHITMAN DO Nov 13, 2022 14:56
[2022-11-13 11:15] VITALS: BP 122/61
--- NOTE | 2022-11-13 14:55 | Progress Note - Cardiology ---
Cardiology SOAP Progress Note Subjective: No cp or palp or syncope No shortness of breath at rest No n/v/d Gen weakness No focal weakness Objective: I&O/Vital Signs 11/13/22 11/13/22 11/13/22 11/13/22 03:26 07:32 08:00 11:15 Temp 36.5 36.4 36.4 Pulse 107 119 150 Resp 14 16 18 B/P (MAP) 133/57 (82) 122/85 (97) 122/61 (81) Pulse Ox 98 96 97 O2 Delivery Room Air Room Air Room Air Room Air 11/13/22 11:41 Pulse 71 11/13/22 00:00 Intake Total 1210 ml Output Total 1400 ml Balance -190 ml Constitutional: other (intermittent confusion; awake, alert and oriented to se lf and place) Respiratory: No accessory muscle use, No respiratory distress; chest expansion is symmetric, chest is bilaterally symmetric, lungs clear to auscultation Cardiovascular: regular rate-rhythm; No JVD; S1 and S2 Gastrointestional: soft; No guarding; audible bowel sounds Extremities: no lower extremity edema bilateral Neurologic/Psychiatric: other (moves all extremities) Skin: ecchymosis (cellulitis of left leg), ulcerations (Patient has had big toes amputated bilaterally. ) Results/Procedures: Labs Laboratory Tests 11/13/22 01:50: Vancomycin Level Trough 17.8 11/13/22 05:37: White Blood Count 8.4, Red Blood Count 3.52L, Hemoglobin 10.8L, Hematocrit 32L, Mean Corpuscular Volume 92, Mean Corpuscular Hemoglobin 31, Mean Corpuscular Hemoglobin Concent 33, Red Cell Distribution Width 15.0H, Platelet Count 279, Mean Platelet Volume 9.9, Immature Granulocyte % (Auto) 1, Neutrophils (%) (Auto) 76H, Lymphocytes (%) (Auto) 12, Monocytes (%) (Auto) 8, Eosinophils (%) (Auto) 3, Basophils (%) (Auto) 1, Neutrophils # (Auto) 6.4, Lymphocytes # (Auto) 1.0, Monocytes # (Auto) 0.7, Eosinophils # (Auto) 0.2, Basophils # (Auto) 0.0, Immature Granulocyte # (Auto) 0.1, Sodium Level 135, Potassium Level 3.2L, Chloride Level 103, Carbon Dioxide Level 24, Anion Gap 8, Blood Urea Nitrogen 7, Creatinine 0.56L, Estimat Glomerular Filtration Rate 98, BUN/Creatinine Ratio 13, Glucose Level 102, Calcium Level 8.2L, Corrected Calcium 9.2, Total Bi lirubin 0.4, Aspartate Amino Transf (AST/SGOT) 15, Alanine Aminotransferase (ALT/SGPT) 14, Alkaline Phosphatase 83, Total Protein 5.7L, Albumin 2.7L Microbiology 11/09/22 Blood Culture - Preliminary, Resulted No growth Laboratory Tests 11/12/22 09:00 11/13/22 05:37 A/P: Assessment: Reported anaphylaxis to iodinated contrast and severe allergy to meds used to reduce risk of contrast allergy (per pt report) Gangrenous wounds to feet bilat (management per surgical services) - Peripheral arterial disease, abnormal lower extremity ultrasound October [address] Acosta[address] Dr[address] Acosta's note of 10-20-22: He discussed with the patient recommended peripheral angiogram and possible angioplasty. Patient had amputation of her toes done on 10/18/2022 He had planned to proceed with peripheral angiogram, after placing the patient on the cardiac catheterization table she became very anxious and started crying and requested to go home, did not want to lay down still. Her reports he was concerned that she will be unable to lay down still after the procedure to maintain hemostasis. Therefore, the procedure was canceled. Patient understood the risk of amputation further in her legs - During his hospitalization: She notes her allergies to iodinated contrast and to meds used to lower the risk of contrast allergy to be severe / life threatening. Under these circumstances, it appears that angiography cannot be safely performed. I had a long and detailed discussion with her regarding this issue. She understands and herself does not wish to take any risk of angiography. History of questionable paroxysmal atrial fibrillation (per pt report) - denies any cardiology f/u or treatment, details unknown - Echo done in February 2021 with moderately dilated left atrium, normal left ventricle, PA pressure 30 to 35 mmHg - 2D echo done on October 19, [address] Acosta: showing normal LV function with normal ejection fraction Hypertension Hyperlipidemia Tobaccoism, refraining since August 2022 History of noncompliance with with medications/treatment and f/u. - Multiple events of leaving the hospital AMA in the past Plan: Complex management due to allergies as noted above. She notes her allergies to iodinated contrast and to meds used to lower the risk of contrast allergy to be severe / life threatening. Under these circumstances, it appears that angiography cannot be safely performed. I had a long and detailed discussion wi th her regarding this issue. She understands and herself does not wish to take any risk of angiography. Advised to continue to refrain from smoking ANALIA Villa MD FACP [facility] Nov 13, 2022 14:55
[2022-11-13 15:57] VITALS: BP 117/80
[2022-11-13] MEDS ORDERED: dilTIAZem DRIP PRE-MIX 125 ML IV SCH (17:30)
[2022-11-13] MEDS ORDERED: dilTIAZem DRIP PRE-MIX 125 ML IV ONE (17:31)
--- NOTE | 2022-11-13 17:33 | Tele-ICU Consult ---
Progress Note 72 y/o female admitted several days for bilateral foot gangrene due to PVD Today became confused and disoriented Cardiology an dgeneral surgery on consult Actually scheduled for left foot amputation next upcoming week IMP bilateral foot gangrene and AMS PLAN: mary culture r/o sepsis Aready on broad spectrum antibiotics Focused Exam Height, Weight, BMI Height: '" Weight: lbs. oz. kg; 31.78 BMI Method:Stated Labs Laboratory Tests 11/13/22 05:37 Results Results/Procedures Labs Laboratory Tests 11/12/22 09:00 11/13/22 05:37 Patient resulted labs reviewed. Results Labs Labs Laboratory Tests 11/13/22 01:50: Vancomycin Level Trough 17.8 11/13/22 05:37: White Blood Count 8.4, Red Blood Count 3.52L, Hemoglobin 10.8L, Hematocrit 32L, Mean Corpuscular Volume 92, Mean Corpuscular Hemoglobin 31, Mean Corpuscular Hemoglobin Concent 33, Red Cell Distribution Width 15.0H, Platelet Count 279, Mean Platelet Volume 9.9, Immature Granulocyte % (Auto) 1, Neutrophils (%) (Auto) 76H, Lymphocytes (%) (Auto) 12, Monocytes (%) (Auto) 8, Eosinophils (%) ( Auto) 3, Basophils (%) (Auto) 1, Neutrophils # (Auto) 6.4, Lymphocytes # (Auto) 1.0, Monocytes # (Auto) 0.7, Eosinophils # (Auto) 0.2, Basophils # (Auto) 0.0, Immature Granulocyte # (Auto) 0.1, Sodium Level 135, Potassium Level 3.2L, Chloride Level 103, Carbon Dioxide Level 24, Anion Gap 8, Blood Urea Nitrogen 7, Creatinine 0.56L, Estimat Glomerular Filtration Rate 98, BUN/Creatinine Ratio 13, Glucose Level 102, Calcium Level 8.2L, Corrected Calcium 9.2, Total Bilirubin 0.4, Aspartate Amino Transf (AST/SGOT) 15, Alanine Aminotransferase (ALT/SGPT) 14, Alkaline Phosphatase 83, Total Protein 5.7L, Albumin 2.7L Microbiology 11/09/22 Blood Culture - Preliminary, Resulted No growth YOLA LUTZ MD Nov 13, 2022 17:33
[2022-11-13 17:38] VITALS: BP 116/105
[2022-11-13] MEDS ORDERED: meTOprolol 5 MG/5 ML (LOPRESSOR) VIAL IV ONE (18:00)
[2022-11-13] MEDS ORDERED: MAGNESIUM 1 GM/100 ML IVPB 100 ML IV ONE ×2 (18:15)
[2022-11-13] MEDS ORDERED: KCL 20 MEQ TAB (K-DUR) PO ONE ×3 (18:15→20:30)
[2022-11-13] MEDS ORDERED: DIGOXIN 0.25 MG/ML (LANOXIN) 2 ML AMP ONE (18:15)
[2022-11-13] MEDS ORDERED: APIXABAN 5 MG TABLET ONE (18:19)
[2022-11-13] MEDS: DIGOXIN 0.25 MG/ML (LANOXIN) 2 ML AMP IV ONE ×2 (18:21→18:43)
[2022-11-13] MEDS: APIXABAN 5 MG TABLET PO SCH ×2 (18:23→22:06)
[2022-11-14] MEDS ORDERED: NS IV 500 ML 500 ML IV PRN (00:15)
[2022-11-14] MEDS: VANCOMYCIN 750 MG/NS 250 ML IVPB IV SCH ×4 (03:54→15:30)
[2022-11-14 04:09] LABS: BASOPHILS # (AUTO) 0.1 10^3/uL (0.0-0.1); BASOPHILS % (AUTO) 1 % (0-10); EOSINOPHILS # (AUTO) 0.1 10^3/uL (0.0-0.3); EOSINOPHILS % (AUTO) 1 % (0-10); HEMATOCRIT 35 % (35-52); HEMOGLOBIN 11.5 g/dL (11.5-16.0); LYMPHOCYTES # (AUTO) 1.4 10^3/uL (1.0-4.0); LYMPHOCYTES % (AUTO) 16 % (12-44); MEAN CORPUSCULAR HEMOGLOBIN 31 pg (25-34); MEAN CORPUSCULAR HGB CONC 33 g/dL (32-36); MEAN CORPUSCULAR VOLUME 92 fL (80-99); MEAN PLATELET VOLUME 10.5 fL (9.0-12.2); MONOCYTES # (AUTO) 0.7 10^3/uL (0.0-1.0); MONOCYTES % (AUTO) 8 % (0-12); NEUTROPHILS # (AUTO) 6.3 10^3/uL (1.8-7.8); NEUTROPHILS % (AUTO) 72 % (42-75); PLATELET COUNT 372 10^3/uL (130-400); WHITE BLOOD COUNT 8.8 10^3/uL (4.3-11.0)
[2022-11-14 04:29] LABS: ALBUMIN 3.2 GM/DL (3.2-4.5); BILIRUBIN,TOTAL 0.5 MG/DL (0.1-1.0); CALCIUM 9.1 MG/DL (8.5-10.1); CREATININE SERUM 0.68 MG/DL (0.60-1.30); POTASSIUM 4.4 MMOL/L (3.6-5.0); TOTAL PROTEIN 6.7 GM/DL (6.4-8.2)
[2022-11-14] MEDS: KCL 20 MEQ TAB (K-DUR) PO SCH ×3 (05:11→19:53)
[2022-11-14] MEDS: MAGNESIUM 1 GM/100 ML IVPB 100 ML IV SCH ×2 (05:35→06:43)
[2022-11-14] MEDS: MEROPENEM 500 MG in NS (IVPB) 100 ML 100 ML IV SCH ×3 (05:36→19:11)
[2022-11-14] MEDS: ACETAMINOPHEN 325 MG TABLET PO PRN ×3 (05:40→21:40)
[2022-11-14] MEDS ORDERED: MAGNESIUM 1 GM/100 ML IVPB 100 ML IV SCH (06:00)
[2022-11-14] MEDS ORDERED: POTASSIUM CL 10MEQ/50ML IVPB 50 ML IV SCH (06:00)
[2022-11-14] MEDS: APIXABAN 5 MG TABLET PO SCH (08:38)
[2022-11-14] MEDS: amLODIPine 10 MG TABLET PO SCH (08:38)
[2022-11-14] MEDS: LOSARTAN 50 MG (COZAAR) TAB PO SCH (08:38)
[2022-11-14] MEDS: SINEMET 25/100 (CARBIDOPA/LEVODOPA) TAB PO SCH ×3 (08:38→16:56)
[2022-11-14] MEDS: CLOPIDOGREL 75 MG TABLET PO SCH (08:38)
[2022-11-14] MEDS: polyethylene glycoL POWDER 17 GM (MIRALAX) PACK PO SCH ×2 (08:41→19:54)
[2022-11-14] MEDS: MICONAZOLE 2% POWDER (DESENEX AF) 90 GM TOP SCH ×2 (08:41→21:40)
--- NOTE | 2022-11-14 09:35 | Progress Note - Hospitalist ---
Subjective HPI/CC On Admission Date Seen by Provider: Nov 14, 2022 Time Seen by Provider: 11:00 Subjective/Events-last exam Patient required ICU transfer due to new onset A-fib with RVR Anticoagulation was placed and Cardizem drip transition to p.o. Cardizem Objective Exam Vital Signs Vital Signs Date Time Temp Pulse Resp B/P (MAP) Pulse Ox O2 Delivery O2 Flow Rate FiO2 11/14/22 19:37 36.7 62 18 110/57 (74) 99 Room Air 11/12/22 13:54 21 11/12/22 09:29 0.00 Capillary Refill : Less Than 3 Seconds General Appearance: No Apparent Distress, WD/WN, Chronically ill Respiratory: Lungs Clear, Normal Breath Sounds Cardiovascular: Regular Rate, Rhythm Neurologic/Psychiatric: Alert, Oriented x3, No Motor/Sensory Deficits, Normal Mood/Affect Results/Procedures Lab Laboratory Tests 11/14/22 03:21 Patient resulted labs reviewed. Assessment/Plan Assessment and Plan Assess & Plan/Chief Complaint (1) Gangrene of left foot Status: Acute Assessment & Plan: - General surgery consult Dr Sosa, appreciate recommenda tiness, started on IV antibiotics (2) PAD (peripheral artery disease) Status: Chronic Assessment & Plan: - Consult Cardiology Dr Mckeon (3) Intertriginous candidiasis Status: Acute Assessment & Plan: - Started on topical nystatin (4) HTN (hypertension) Status: Acute Assessment & Plan: - Restarted home HTN meds (5) Tobacco abuse Status: Chronic Assessment & Plan: - Discussed need for cessation, offered nicotine replacement New onset atrial fibrillation requiring transfer to ICU for rapid ventricular response Plan: Can't undergo vascular studies due to anaphylaxis with contrast Amputation PICC line IV abx DNR Moved to fourth floor VENUS BURNETT DO Nov 14, 2022 09:35
--- NOTE | 2022-11-14 09:48 | Tele-ICU Progress Note ---
Subjective Date Seen by a Provider: Nov 14, 2022 Time Seen by a Provider: 09:47 Subjective/Events-last exam (Tele-ICU Physician , Progress Note ) Service provided via interactive audio and video telecommunications E-CARE system to a patient admitted to ICU bed in [facility]. Patient is seen today due to persistent need of ICU care Available chart/ vitals / labs / Images reviewed Video assessment done using teleICU camera, rest of exam as per RN Discussed with RN Events overnight : Afebrile hemodynamically stable Respiratory - ra I/O = neg Drips: Pressors- no Hospital course: (11/09) 72y/o F admitted to floor with gangrene of L foot. Amputation is planned. (11/13) transferred to ICU with AFib/RVR A/P Gangrenous wounds to feet bilat/ PAD - sx consulted - cont abx ( merrem vanco PAF - as per cards - on cardizem gtt 2.5 - in SINUS now - AC eliquis - ECHO 10/2022 LVEF WNL Confusion - ?baseline , no neuro deficit - as per PCP and family Lines : R PICC 11/11 , (Central Line Necessity Reviewed) Rueda: + OG: Nutrition: po Analgesia: Anxiety/ delirium VTE Prophylaxis: eliquis Stress Ulcer Prophylaxis: na Plans in collaboration with bedside consultants and IM MDs. Discussed with RN to reach out if any questions or concerns Case and care daily discussed on multidisciplinary rounds ( RN, PharmD, Silk Winding Machine Operator , Respiratory Therapy, sanitation worker cleaning machinery ) A total of 15 minutes of critical care time was devoted to this patient today, required to treat and/or prevent further deterioration of critical care condition ( as above ) . I am remotely monitoring this patient from another state. I am unable to do the bedside exam, and history/physical and pertinent information is taken from other notes in the computer and bedside staff. Sepsis Event Evaluation Height, Weight, BMI Height: '" Weight: lbs. oz. kg; 31.18 BMI Method:Stated Exam Exam Patient acknowledged, consented, and participated in this virtual visit which was conducted using real time audio/video Vital Signs Date Time Temp Pulse Resp B/P (MAP) Pulse Ox O2 Delivery O2 Flow Rate FiO2 11/14/22 09:00 71 155/67 (96) 99 Room Air 11/14/22 08:00 84 163/56 (91) 99 Room Air 11/14/22 07:41 36.7 Room Air 11/14/22 07:00 71 163/67 (99) 98 Room Air 11/14/22 07:00 70 11/14/22 06:00 65 154/64 (114) 99 Room Air 11/14/22 05:45 71 154/78 (95) 99 Room Air 11/14/22 05:33 70 147/59 (94) 95 Room Air 11/14/22 04:00 36.2 11/14/22 04:00 71 18 98 Room Air 11/14/22 03:00 70 20 100 Room Air 11/14/22 02:53 77 128/105 (111) 100 Room Air 11/14/22 02:00 69 13 Room Air 11/14/22 01:17 67 19 162/96 (118) Room Air 11/14/22 01:00 70 11/14/22 00:00 Room Air 11/14/22 00:00 64 16 152/63 (92) 99 Room Air 11/13/22 23:39 36.0 11/13/22 23:30 72 113/68 (83) Room Air 11/13/22 23:00 71 30 156/78 (104) 98 Room Air 11/13/22 22:00 74 13 127/74 (91) 98 Room Air 11/13/22 21:08 78 10 127/68 (87) 98 Room Air 11/13/22 20:00 Room Air 11/13/22 20:00 36.0 11/13/22 20:00 36.0 11/13/22 20:00 67 18 131/52 (78) 96 Room Air 11/13/22 19:10 97 Room Air 11/13/22 19:00 65 15 114/60 (78) 95 Room Air 11/13/22 19:00 65 11/13/22 18:21 154 110/80 11/13/22 18:00 152 11 109/76 (87) 97 Room Air 11/13/22 17:38 152 9 116/105 (109) 97 Room Air 11/13/22 17:36 151 119/75 11/13/22 17:30 152 10 113/67 (82) 97 Room Air 11/13/22 15:57 36.9 138 20 117/80 (92) 100 Room Air 11/13/22 11:41 71 11/13/22 11:15 36.4 150 18 122/61 (81) 97 Room Air I & O 11/14/22 07:00 Intake Total 1380 ml Output Total 875 ml Balance 505 ml Height & Weight Height: '" Weight: lbs. oz. kg; 31.18 BMI Method:Stated General Appearance: No Apparent Distress, WD/WN, Chronically ill HEENT: PERRL/EOMI Neck: Full Range of Motion, Non Tender Respiratory: Lungs Clear, Normal Breath Sounds Cardiovascular: Regular Rate, Rhythm Capillary Refill: Less Than 3 Seconds Gastrointestinal: non tender, soft; No distended Extremity: Other (Gangrene on feet) Neurologic/Psychiatric: Disoriented (Believes the universe was shaking last night and that someone took "Bill") Skin: Other (gangrene of bilateral feet. ) Lymphatic: No Adenopathy (neck, supra and subclavicular. ) Results Lab Laboratory Tests 11/13/22 05:37 11/14/22 03:21 Assessment/Plan Assessment/Plan 1 MAICO BOO MD Nov 14, 2022 09:48
--- NOTE | 2022-11-14 11:14 | Progress Note - Cardiology ---
Cardiology SOAP Progress Note Subjective: Lying in bed No c/o CP or palpitations C/O bilat foot discomfort Objective: I&O/Vital Signs 11/15/22 11/15/22 11/15/22 11/15/22 01:00 04:32 07:00 07:27 Temp 36.8 36.8 Pulse 64 65 72 70 Resp 17 18 B/P (MAP) 213/68 (116) 192/62 (105) Pulse Ox 100 97 O2 Delivery Room Air Room Air O2 Flow Rate 0.00 0.00 11/15/22 11/15/22 08:00 11:08 Temp 36.4 Pulse 70 Resp 18 B/P (MAP) 140/67 (91) Pulse Ox 98 98 O2 Delivery Room Air Room Air 11/15/22 00:00 Intake Total 745 ml Output Total 750 ml Balance -5 ml Constitutional: other (intermittent confusion; awake, alert and oriented to self and place) Respiratory: No accessory muscle use, No respiratory distress; chest expansion is symmetric, chest is bilaterally symmetric, lungs clear to auscultation Cardiovascular: regular rate-rhythm; No JVD; S1 and S2 Gastrointestional: soft; No guarding; audible bowel sounds Extremities: no lower extremity edema bilateral Neurologic/Psychiatric: other (moves all extremities) Skin: ecchymosis (cellulitis of left leg), ulcerations (Patient has had big toes amputated bilaterally. ) Results/Procedures: Labs Laboratory Tests 11/15/22 05:05: Sodium Level 138, Potassium Level 4.4, Chloride Level 105, Carbon Dioxide Level 22, Anion Gap 11, Blood Urea Nitrogen 6L, Creatinine 0.60, Estimat Glomerular Filtration Rate 97, BUN/Creatinine Ratio 10, Glucose Level 106H, Calcium Level 8.6, Corrected Calcium 9.3, Magnesium Level 2.1, Total Bilirubin 0.4, Aspartate Amino Transf (AST/SGOT) 16, Alanine Aminotransferase (ALT/SGPT) 10, Alkaline Phosphatase 97, Total Protein 6.4, Albumin 3.1L 11/15/22 05:15: White Blood Count 7.0, Red Blood Count 3.50L, Hemoglobin 10.8L, Hematocrit 32L, Mean Corpuscular Volume 92, Mean Corpuscular Hemoglobin 31, Mean Corpuscular Hemoglobin Concent 34, Red Cell Distribution Width 15.3H, Platelet Count 300, Mean Platelet Volume 10.2, Immature Granulocyte % (Auto) 1, Neutrophils (%) (Auto) 69, Lymphocytes (%) (Auto) 16, Monocytes (%) (Auto) 11, Eosinophils (%) (Auto) 2, Basophils (%) (Auto) 1, Neutrophils # (Auto) 4.9, Lymphocytes # (Auto) 1.1, Monocytes # (Auto) 0.7, Eosinophils # (Auto) 0.1, Basophils # (Auto) 0.0, Immature Granulocyte # (Auto) 0.1 Microbiology 11/14/22 MRSA Screen - Final, Complete MRSA not isolated 11/09/22 Blood Culture - Final, Complete No growth A/P: Assessment: Newly dx PAF - first dx on tele of 11-13-22 - converted to SR with Cardizem gtt - started on OAC with Eliquis on 11-13-22 Reported anaphylaxis to iodinated contrast and severe allergy to meds used to reduce risk of contrast allergy (per pt report) Gangrenous wounds to feet bilat (management per surgical services) - Peripheral arterial disease, abnormal lower extremity ultrasound October [address] Acosta's note of 10-20-22: He discussed with the patient recommended peripheral angiogram and possible angioplasty. Patient had amputation of her toes done on 10/18/2022 He had planned to proceed with peripheral angiogram, after placing the patient on the cardiac catheterization table she became very anxious and started crying and requested to go home, did not want to lay down still. Her reports he was concerned that she will be unable to lay down still after the procedure to maintain hemostasis. Therefore, the procedure was canceled. Patient understood the risk of amputation further in her legs - During his hospitalization: She notes her allergies to iodinated contrast and to meds used to lower the risk of contrast allergy to be severe / life threatening. Under these circumstances, it appears that angiography cannot be safely performed. I had a long and detailed discussion with her regarding this issue. She understands and herself does not wish to take any risk of angiography. History of questionable paroxysmal atrial fibrillation (per pt report) - denies any cardiology f/u or treatment, details unknown - Echo done in February 2021 with moderately dilated left atrium, normal left ventricle, PA pressure 30 to 35 mmHg - 2D echo done on October 19, [address] Acosta: showing normal LV function with normal ejection fraction Hypertension Hyperlipidemia Tobaccoism, refraining since August 2022 History of noncompliance with with medications/treatment and f/u. - Multiple events of leaving the hospital AMA in the past Plan: Newly dx PAF on tele of 11-13-22 - converted to SR with Cardizem gtt - change to oral - OAC initiated with Eliquis for stroke prophylaxis - continue Complex management due to allergies as noted above. She notes her allergies to iodinated contrast and to meds used to lower the risk of contrast allergy to be severe / life threatening. Under these circumstances, it appears that angiography cannot be safely performed. I had a long and detailed discussion with her regarding this issue. She understands and herself does not wish to take any risk of angiography. Advised to continue to refrain from smoking Monitor lab and replace electrolytes as indicated TIERNEY HI Nov 14, 2022 11:14
[2022-11-14] MEDS ORDERED: MEROPENEM 500 MG VIAL (MERREM) IV ONE (13:00)
--- NOTE | 2022-11-14 16:55 | Progress Note ---
Subjective Date Seen by a Provider: Nov 14, 2022 Time Seen by a Provider: 16:00 Subjective/Events-last exam doing ok. does have some transient confusion. did develop a-fib with RVR however medically converted with good rate control. Objective Exam Vital Signs Date Time Temp Pulse Resp B/P (MAP) Pulse Ox O2 Delivery O2 Flow Rate FiO2 11/14/22 15:59 36.7 66 19 126/62 (83) 97 Room Air 11/14/22 14:00 68 134/67 (89) 100 Room Air 11/14/22 13:00 67 11/14/22 13:00 68 153/70 (97) 98 Room Air 11/14/22 12:00 68 151/95 (113) 98 Room Air 11/14/22 12:00 100 Room Air 11/14/22 11:41 36.4 Room Air 11/14/22 11:00 63 153/60 (91) 98 Room Air 11/14/22 10:00 66 140/67 (91) 95 Room Air 11/14/22 09:00 71 155/67 (96) 99 Room Air 11/14/22 08:00 96 Room Air 11/14/22 08:00 84 163/56 (91) 99 Room Air 11/14/22 07:41 36.7 Room Air 11/14/22 07:00 71 163/67 (99) 98 Room Air 11/14/22 07:00 70 11/14/22 06:00 65 154/64 (114) 99 Room Air 11/14/22 05:45 71 154/78 (95) 99 Room Air 11/14/22 05:33 70 147/59 (94) 95 Room Air 11/14/22 04:00 36.2 11/14/22 04:00 71 18 98 Room Air 11/14/22 03:00 70 20 100 Room Air 11/14/22 02:53 77 128/105 (111) 100 Room Air 11/14/22 02:00 69 13 Room Air 11/14/22 01:17 67 19 162/96 (118) Room Air 11/14/22 01:00 70 11/14/22 00:00 Room Air 11/14/22 00:00 64 16 152/63 (92) 99 Room Air 11/13/22 23:39 36.0 7/9/23 23:30 72 113/68 (83) Room Air 11/13/22 23:00 71 30 156/78 (104) 98 Room Air 11/13/22 22:00 74 13 127/74 (91) 98 Room Air 11/13/22 21:08 78 10 127/68 (87) 98 Room Air 11/13/22 20:00 Room Air 11/13/22 20:00 36.0 11/13/22 20:00 36.0 11/13/22 20:00 67 18 131/52 (78) 96 Room Air 11/13/22 19:10 97 Room Air 11/13/22 19:00 65 15 114/60 (78) 95 Room Air 11/13/22 19:00 65 11/13/22 18:21 154 110/80 11/13/22 18:00 152 11 109/76 (87) 97 Room Air 11/13/22 17:38 152 9 116/105 (109) 97 Room Air 11/13/22 17:36 151 119/75 11/13/22 17:30 152 10 113/67 (82) 97 Room Air I & O 11/14/22 07:00 Intake Total 1380 ml Output Total 875 ml Balance 505 ml Capillary Refill : Less Than 3 Seconds General Appearance: No Apparent Distress HEENT: PERRL/EOMI Respiratory: Rhonci, Wheezing Cardiovascular: Regular Rate, Rhythm Gastrointestinal: normal bowel sounds, non tender Extremity: Slow Capillary Refill, Other (necrosis bilat feet with left > right) Neurologic/Psychiatric: Alert, Oriented x3 Skin: Normal Color Lymphatic: No Adenopathy Results Lab Laboratory Tests 11/14/22 03:21: White Blood Count 8.8, Red Blood Count 3.77L, Hemoglobin 11.5, Hematocrit 35, Mean Corpuscular Volume 92, Mean Corpuscular Hemoglobin 31, Mean Corpuscular Hemoglobin Concent 33, Red Cell Distribution Width 15.1H, Platelet Count 372, Mean Platelet Volume 10.5, Immature Granulocyte % (Auto) 2, Neutrophils (%) (Auto) 72, Lymphocytes (%) (Auto) 16, Monocytes (%) (Auto) 8, Eosinophils (%) (Auto) 1, Basophils (%) (Auto) 1, Neutrophils # (Auto) 6.3, Lymphocytes # (Auto) 1.4, Monocytes # (Auto) 0.7, Eosinophils # (Auto) 0.1, Basophils # (Auto) 0.1, Immature Granulocyte # (Auto) 0.2H, Sodium Level 138, Potassium Level 4.4, Chloride Level 105, Carbon Dioxide Level 21, Anion Gap 12, Blood Urea Nitrogen 9, Creatinine 0.68, Estimat Glomerular Filtration Rate 94, BUN/Creatinine Ratio 13, Glucose Level 113H, Calcium Level 9.1, Corrected Calcium 9.7, Magnesium Level 1.8, Total Bilirubin 0.5, Aspartate Amino Transf (AST/SGOT) 16, Alanine Aminotransferase (ALT/SGPT) 11, Alkaline Phosphatase 94, Total Protein 6.7, Albumin 3.2 Microbiology 11/09/22 Blood Culture - Preliminary, Resulted No growth Assessment/Plan Assessment/Plan Assess & Plan/Chief Complaint PAD with bilateral foot necrosis. unwilling to do much workup. does have continued underlying osteomyelitis bilat feet. is now amenable to bilateral LE MRI to evaluate extent osteo. RUDY MARRERO MD Nov 14, 2022 16:55
--- NOTE | 2022-11-14 19:19 | Progress Note - Cardiology ---
Cardiology SOAP Progress Note Subjective: No cp or palp or syncope No shortness of breath at rest Gen weakness and malaise No n/v/d Objective: I&O/Vital Signs 11/14/22 11/14/22 11/14/22 11/14/22 07:41 08:00 08:00 09:00 Temp 36.7 Pulse 84 71 B/P (MAP) 163/56 (91) 155/67 (96) Pulse Ox 99 96 99 O2 Delivery Room Air Room Air Room Air Room Air 11/14/22 11/14/22 11/14/22 11/14/22 10:00 11:00 11:41 12:00 Temp 36.4 Pulse 66 63 B/P (MAP) 140/67 (91) 153/60 (91) Pulse Ox 95 98 100 O2 Delivery Room Air Room Air Room Air Room Air 11/14/22 11/14/22 11/14/22 11/14/22 12:00 13:00 13:00 14:00 Pulse 68 68 67 68 B/P (MAP) 151/95 (113) 153/70 (97) 134/67 (89) Pulse Ox 98 98 100 O2 Delivery Room Air Room Air Room Air 11/14/22 15:59 Temp 36.7 Pulse 66 Resp 19 B/P (MAP) 126/62 (83) Pulse Ox 97 O2 Delivery Room Air 11/14/22 00:00 Intake Total 830 ml Output Total 725 ml Balance 105 ml Constitutional: other (intermittent confusion; awake, alert and oriented to self and place) Respiratory: No accessory muscle use, No respiratory distress; chest expansion is symmetric, chest is bilaterally symmetric, lungs clear to auscultation Cardiovascular: regular rate-rhythm; No JVD; S1 and S2 Gastrointestional: soft; No guarding; audible bowel sounds Extremities: no lower extremity edema bilateral Neurologic/Psychiatric: other (moves all extremities) Skin: ecchymosis (cellulitis of left leg), ulcerations (Patient has had big toes amputated bilaterally. ) Results/Procedures: Labs Laboratory Tests 11/14/22 03:21: White Blood Count 8.8, Red Blood Count 3.77L, Hemoglobin 11.5, Hematocrit 35, Mean Corpuscular Volume 92, Mean Corpuscular Hemoglobin 31, Mean Corpuscular Hemoglobin Concent 33, Red Cell Distribution Width 15.1H, Platelet Count 372, Mean Platelet Volume 10.5, Immature Granulocyte % (Auto) 2, Neutrophils (%) (Auto) 72, Lymphocytes (%) (Auto) 16, Monocytes (%) (Auto) 8, Eosinophils (%) (Auto) 1, Basophils (%) (Auto) 1, Neutrophils # (Auto) 6.3, Lymphocytes # (Auto) 1.4, Monocytes # (Auto) 0.7, Eosinophils # (Auto) 0.1, Basophils # (Auto) 0.1, Immature Granulocyte # (Auto) 0.2H, Sodium Level 138, Potassium Level 4.4, Chloride Level 105, Carbon Dioxide Level 21, Anion Gap 12, Blood Urea Nitrogen 9, Creatinine 0.68, Estimat Glomerular Filtration Rate 94, BUN/Creatinine Ratio 13, Glucose Level 113H, Calcium Level 9.1, Corrected Calcium 9.7, Magnesium Level 1.8, Total Bilirubin 0.5, Aspartate Amino Transf (AST/SGOT) 16, Alanine Aminotransferase (ALT/SGPT) 11, Alkaline Phosphatase 94, Total Protein 6.7, Albumin 3.2 Microbiology 11/09/22 Blood Culture - Final, Complete No growth Laboratory Tests 11/13/22 05:37 11/14/22 03:21 A/P: Assessment: Newly dx PAF - first dx on tele of 11-13-22 - converted to SR with Cardizem gtt - started on OAC with Eliquis on 11-13-22 Reported anaphylaxis to iodinated contrast and severe allergy to meds used to reduce risk of contrast allergy (per pt report) Gangrenous wounds to feet bilat (management per surgical services) - Peripheral arterial disease, abnormal lower extremity ultrasound October [address] Acosta's note of 10-20-22: He discussed with the patient recommended peripheral angiogram and possible angioplasty. Patient had amputation of her toes done on 10/18/2022 He had planned to proceed with peripheral angiogram, after placing the patient on the cardiac catheterization table she became very anxious and started crying and requested to go home, did not want to lay down still. Her reports he was concerned that she will be unable to lay down still after the procedure to maintain hemostasis. Therefore, the procedure was canceled. Patient understood the risk of amputation further in her legs - During his hospitalization: She notes her allergies to iodinated contrast and to meds used to lower the risk of contrast allergy to be severe / life threatening. Under these circumstances, it appears that angiography cannot be safely performed. I had a long and detailed discussion with her regarding this issue. She understands and herself does not wish to take any risk of angiography. History of questionable paroxysmal atrial fibrillation (per pt report) - denies any cardiology f/u or treatment, details unknown - Echo done in February 2021 with moderately dilated left atrium, normal left ventricle, PA pressure 30 to 35 mmHg - 2D echo done on October 19, [address] Acosta: showing normal LV function with normal ejection fraction Hypertension Hyperlipidemia Tobaccoism, refraining since August 2022 History of noncompliance with with medications/treatment and f/u. - Multiple events of leaving the hospital AMA in the past Plan: Newly dx PAF on tele of 11-13-22 - converted to SR with Cardizem gtt - change to oral - OAC initiated with Eliquis for stroke prophylaxis - continue Complex management due to allergies as noted above. She notes her allergies to iodinated contrast and to meds used to lower the risk of contrast allergy to be severe / life threatening. Under these circumstances, it appears that angiography cannot be safely performed. I had a long and detailed discussion with her regarding this issue. She understands and herself does not wish to take any risk of angiography. Advised to continue to refrain from smoking Monitor lab and replace electrolytes as indicated ANALIA ASCENCIO MD FACP FAC CCDS Nov 14, 2022 19:19
[2022-11-15] MEDS: ACETAMINOPHEN 325 MG TABLET PO PRN ×4 (01:42→23:48)
[2022-11-15] MEDS: MEROPENEM 500 MG in NS (IVPB) 100 ML 100 ML IV SCH ×4 (01:42→18:13)
[2022-11-15] MEDS: VANCOMYCIN 750 MG/NS 250 ML IVPB IV SCH ×4 (01:42→15:17)
[2022-11-15 05:24] LABS: BASOPHILS % (AUTO) 1 % (0-10); EOSINOPHILS # (AUTO) 0.1 10^3/uL (0.0-0.3); EOSINOPHILS % (AUTO) 2 % (0-10); HEMATOCRIT 32 % (35-52); HEMOGLOBIN 10.8 g/dL (11.5-16.0); LYMPHOCYTES # (AUTO) 1.1 10^3/uL (1.0-4.0); LYMPHOCYTES % (AUTO) 16 % (12-44); MEAN CORPUSCULAR HEMOGLOBIN 31 pg (25-34); MEAN CORPUSCULAR HGB CONC 34 g/dL (32-36); MEAN CORPUSCULAR VOLUME 92 fL (80-99); MEAN PLATELET VOLUME 10.2 fL (9.0-12.2); MONOCYTES # (AUTO) 0.7 10^3/uL (0.0-1.0); MONOCYTES % (AUTO) 11 % (0-12); NEUTROPHILS # (AUTO) 4.9 10^3/uL (1.8-7.8); NEUTROPHILS % (AUTO) 69 % (42-75); PLATELET COUNT 300 10^3/uL (130-400)
--- NOTE | 2022-11-15 05:36 | Progress Note - Hospitalist ---
Subjective HPI/CC On Admission Date Seen by Provider: Nov 15, 2022 Time Seen by Provider: 11:00 Subjective/Events-last exam No major issues MRI ordered No falls Reviewed meds and labs Review of Systems General: Fatigue, Malaise Objective Exam Vital Signs Vital Signs Date Time Temp Pulse Resp B/P (MAP) Pulse Ox O2 Delivery O2 Flow Rate FiO2 11/15/22 19:00 75 11/15/22 18:57 36.6 18 99/60 (73) 98 Room Air 11/15/22 04:32 0.00 0.00 11/12/22 13:54 21 Capillary Refill : Less Than 3 Seconds General Appearance: No Apparent Distress, WD/WN Respiratory: Lungs Clear, Normal Breath Sounds Cardiovascular: Regular Rate, Rhythm Extremity: Other (gangrene bilateral feet) Neurologic/Psychiatric: Alert, Oriented x3 Results/Procedures Lab Laboratory Tests 11/15/22 05:05 11/15/22 05:15 Patient resulted labs reviewed. Assessment/Plan Assessment and Plan Assess & Plan/Chief Complaint (1) Gangrene of left foot Status: Acute Assessment & Plan: - General surgery consult Dr Sosa, appreciate recommendations, started on IV antibiotics (2) PAD (peripheral artery disease) Status: Chronic Assessment & Plan: - Consult Cardiology Dr Mckeon (3) Intertriginous candidiasis Status: Acute Assessment & Plan: - Started on topical nystatin (4) HTN (hypertension) Status: Acute Assessment & Plan: - Restarted home HTN meds (5) Tobacco abuse Status: Chronic Assessment & Plan: - Discussed need for cessation, offered nicotine replacement New onset atrial fibrillation requiring transfer to ICU for rapid ventricular response Plan: Can't undergo vascular studies due to anaphylaxis with contrast Amputation PICC line IV abx DNR MRI VENUS BURNETT DO Nov 15, 2022 05:36
[2022-11-15] MEDS: KCL 20 MEQ TAB (K-DUR) PO SCH ×3 (05:46→19:46)
[2022-11-15 06:02] LABS: ALBUMIN 3.1 GM/DL (3.2-4.5); POTASSIUM 4.4 MMOL/L (3.6-5.0)
[2022-11-15 06:03] LABS: CALCIUM 8.6 MG/DL (8.5-10.1)
[2022-11-15 06:04] LABS: TOTAL PROTEIN 6.4 GM/DL (6.4-8.2)
[2022-11-15 06:06] LABS: BILIRUBIN,TOTAL 0.4 MG/DL (0.1-1.0)
[2022-11-15 06:08] LABS: CREATININE SERUM 0.6 MG/DL (0.60-1.30)
[2022-11-15 06:11] LABS: MAGNESIUM 2.1 MG/DL (1.6-2.4)
[2022-11-15] MEDS: SINEMET 25/100 (CARBIDOPA/LEVODOPA) TAB PO SCH ×3 (09:11→18:13)
[2022-11-15] MEDS: CLOPIDOGREL 75 MG TABLET PO SCH (09:11)
[2022-11-15] MEDS: LOSARTAN 50 MG (COZAAR) TAB PO SCH (09:11)
[2022-11-15] MEDS: amLODIPine 10 MG TABLET PO SCH (09:11)
[2022-11-15] MEDS: polyethylene glycoL POWDER 17 GM (MIRALAX) PACK PO SCH ×2 (09:15→19:46)
[2022-11-15] MEDS: MICONAZOLE 2% POWDER (DESENEX AF) 90 GM TOP SCH ×2 (09:44→19:46)
[2022-11-15 11:09] VITALS: BP 140/67
--- NOTE | 2022-11-15 11:38 | Progress Note - Cardiology ---
Cardiology SOAP Progress Note Objective: I&O/Vital Signs 11/27/22 11/27/22 11/28/22 11/28/22 20:46 23:19 03:43 07:29 Temp 36.6 36.4 36.8 Pulse 65 64 70 Resp 18 18 18 B/P (MAP) 123/73 (90) 122/71 (88) 143/75 (97) Pulse Ox 96 94 99 O2 Delivery Room Air Room Air Room Air Room Air 11/28/22 00:00 Intake Total 930 ml Output Total 450 ml Balance 480 ml Constitutional: other (intermittent confusion; awake, alert and oriented to self and place) Respiratory: No accessory muscle use, No respiratory distress; chest expansion is symmetric, chest is bilaterally symmetric, lungs clear to auscultation Cardiovascular: regular rate-rhythm; No JVD; S1 and S2 Gastrointestional: soft; No guarding; audible bowel sounds Extremities: no lower extremity edema bilateral Neurologic/Psychiatric: other (moves all extremities) Skin: ecchymosis (cellulitis of left leg), ulcerations (Patient has had big toes amputated bilaterally. ) Results/Procedures: Labs Laboratory Tests 11/28/22 04:36: White Blood Count 6.0, Red Blood Count 2.96L, Hemoglobin 8.9L, Hematocrit 27L, Mean Corpuscular Volume 92, Mean Corpuscular Hemoglobin 30, Mean Corpuscular Hemoglobin Concent 33, Red Cell Distribution Width 14.8H, Platelet Count 252, Mean Platelet Volume 10.7, Immature Granulocyte % (Auto) 2, Neutrophils (%) (Auto) 54, Lymphocytes (%) (Auto) 27, Monocytes (%) (Auto) 12, Eosinophils (%) (Auto) 4, Basophils (%) (Auto) 1, Neutrophils # (Auto) 3.2, Lymphocytes # (Auto) 1.6, Monocytes # (Auto) 0.7, Eosinophils # (Auto) 0.3, Basophils # (Auto) 0.1, Immature Granulocyte # (Auto) 0.1, Sodium Level 137, Potassium Level 4.0, Chloride Level 106, Carbon Dioxide Level 22, Anion Gap 9, Blood Urea Nitrogen 7, Creatinine 0.57L, Estimat Glomerular Filtration Rate 98, BUN/Creatinine Ratio 12, Glucose Level 96, Calcium Level 8.5, Corrected Calcium 9.5, Total Bilirubin 0.5, Aspartate Amino Transf (AST/SGOT) 46H, Alanine Aminotransferase (ALT/SGPT) 37, Alkaline Phosphatase 413H, Total Protein 5.7L, Albumin 2.7L Microbiology 11/14/22 MRSA Screen - Final, Complete MRSA not isolated 11/09/22 Blood Culture - Final, Complete No growth A/P: Assessment: Newly dx PAF - first dx on tele of 11-13-22 - converted to SR with Cardizem gtt - continue oral - started on OAC with Eliquis on 11-13-22 Reported anaphylaxis to iodinated contrast and severe allergy to meds used to reduce risk of contrast allergy (per pt report) Gangrenous wounds to feet bilat (management per surgical services) - Peripheral arterial disease, abnormal lower extremity ultrasound October [address]osta[address] Acosta's note of 10-20-22: He discussed with the patient recommended peripheral angiogram and possible angioplasty. Patient had a mputation of her toes done on 10/18/2022 He had planned to proceed with peripheral angiogram, after placing the patient on the cardiac catheterization table she became very anxious and started crying and requested to go home, did not want to lay down still. Her reports he was concerned that she will be unable to lay down still after the procedure to maintain hemostasis. Therefore, the procedure was canceled. Patient understood the risk of amputation further in her legs - During his hospitalization: She notes her allergies to iodinated contrast and to meds used to lower the risk of contrast allergy to be severe / life threatening. Under these circumstances, it appears that angiography cannot be safely performed. I had a long and detailed discussion with her regarding this issue. She understands and herself does not wish to take any risk of angiography. History of questionable paroxysmal atrial fibrillation (per pt report) - denies any cardiology f/u or treatment, details unknown - Echo done in February 2021 with moderately dilated left atrium, normal left ventricle, PA pressure 30 to 35 mmHg - 2D echo done on October 19, [address] Acosta: showing normal LV function with normal ejection fraction Hypertension Hyperlipidemia Tobaccoism, refraining since August 2022 History of noncompliance with with medications/treatment and f/u. - Multiple events of leaving the hospital AMA in the past Plan: Newly dx PAF on tele of 11-13-22 - converted to SR - continue current regimen - OAC initiated with Eliquis for stroke prophylaxis - continue Complex management due to allergies as noted above. She notes her allergies to iodinated contrast and to meds used to lower the risk of contrast allergy to be severe / life threatening. Under these circumstances, it appears that angiography cannot be safely performed. I had a long and detailed discussion with her regarding this issue. She understands and herself does not wish to take any risk of angiography. Advised to continue to refrain from smoking Monitor lab and replace electrolytes as indicated TIERNEY HI Nov 15, 2022 11:38
[2022-11-15 15:31] VITALS: BP 120/58
[2022-11-15] MEDS: ALPRAZolam 0.25 MG TABLET PO PRN ×2 (16:12→23:48)
--- NOTE | 2022-11-15 18:25 | Progress Note - Cardiology ---
Cardiology SOAP Progress Note Subjective: gen weakness and malaise present no focal weakness no n/v/d no cp or palp or syncope no shortness of breath at rest Objective: I&O/Vital Signs 11/15/22 11/15/22 11/15/22 11/15/22 07:00 07:27 08:00 11:08 Temp 36.8 36.4 Pulse 72 70 70 Resp 18 18 B/P (MAP) 192/62 (105) 140/67 (91) Pulse Ox 97 98 98 O2 Delivery Room Air Room Air Room Air 11/15/22 11/15/22 11/15/22 11:09 15:30 15:31 Temp 36.4 36.7 Pulse 70 61 Resp 18 18 B/P (MAP) 140/67 (91) 120/58 (78) Pulse Ox 98 98 98 O2 Delivery Room Air Room Air Room Air 11/15/22 00:00 Intake Total 745 ml Output Total 750 ml Balance -5 ml Constitutional: other (intermittent confusion; awake, alert and oriented to self and place) Respiratory: No accessory muscle use, No respiratory distress; chest expansion is symmetric, chest is bilaterally symmetric, lungs clear to auscultation Cardiovascular: regular rate-rhythm; No JVD; S1 and S2 Gastrointestional: soft; No guarding; audible bowel sounds Extremities: no lower extremity edema bilateral Neurologic/Psychiatric: other (moves all extremities) Skin: ecchymosis (cellulitis of left leg), ulcerations (Patient has had big toes amputated bilaterally. ) Results/Procedures: Labs Laboratory Tests 11/15/22 05:05: Sodium Level 138, Potassium Level 4.4, Chloride Level 105, Carbon Dioxide Level 22, Anion Gap 11, Blood Urea Nitrogen 6L, Creatinine 0.60, Estimat Glomerular Filtration Rate 97, BUN/Creatinine Ratio 10, Glucose Level 106H, Calcium Level 8.6, Corrected Calcium 9.3, Magnesium Level 2.1, Total Bilirubin 0.4, Aspartate Amino Transf (AST/SGOT) 16, Alanine Aminotransferase (ALT/SGPT) 10, Alkaline Phosphatase 97, Total Protein 6.4, Albumin 3.1L 11/15/22 05:15: White Blood Count 7.0, Red Blood Count 3.50L, Hemoglobin 10.8L, Hematocrit 32L, Mean Corpuscular Volume 92, Mean Corpuscular Hemoglobin 31, Mean Corpuscular Hemoglobin Concent 34, Red Cell Distribution Width 15.3H, Platelet Count 300, Mean Platelet Volume 10.2, Immature Granulocyte % (Auto) 1, Neutrophils (%) (Auto) 69, Lymphocytes (%) (Auto) 16, Monocytes (%) (Auto) 11, Eosinophils (%) (Auto) 2, Basophils (%) (Auto) 1, Neutrophils # (Auto) 4.9, Lymphocytes # (Auto) 1.1, Monocytes # (Auto) 0.7, Eosinophils # (Auto) 0.1, Basophils # (Auto) 0.0, Immature Granulocyte # (Auto) 0.1 Microbiology 11/14/22 MRSA Screen - Final, Complete MRSA not isolated 11/09/22 Blood Culture - Final, Complete No growth Laboratory Tests 11/14/22 03:21 11/15/22 05:05 11/15/22 05:15 A/P: Assessment: Newly dx PAF - first dx on tele of 11-13-22 - converted to SR with Cardizem gtt - continue oral - started on OAC with Eliquis on 11-13-22 Reported anaphylaxis to iodinated contrast and severe allergy to meds used to reduce risk of contrast allergy (per pt report) Gangrenous wounds to feet bilat (management per surgical services) - Peripheral arterial disease, abnormal lower extremity ultrasound October [address] Acosta's note of 10-20-22: He discussed with the patient recommended peripheral angiogram and possible angioplasty. Patient had amputation of her toes done on 10/18/2022 He had planned to proceed with peripheral angiogram, after placing the patient on the cardiac catheterization table she became very anxious and started crying and requested to go home, did not want to lay down still. Her reports he was concerned that she will be unable to lay down still after the procedure to maintain hemostasis. Therefore, the procedure was canceled. Patient understood the risk of amputation further in her legs - During his hospitalization: She notes her allergies to iodinated contrast and to meds used to lower the risk of contrast allergy to be severe / life threatening. Under these circumstances, it appears that angiography cannot be safely performed. I had a long and detailed discussion with her regarding this issue. She understands and herself does not wish to take any risk of angiography. History of questionable paroxysmal atrial fibrillation (per pt report) - denies any cardiology f/u or treatment, details unknown - Echo done in February 2021 with moderately dilated left atrium, normal left ventricle, PA pressure 30 to 35 mmHg - 2D echo done on October 19, [address] Acosta: showing normal LV function with normal ejection fraction Hypertension Hyperlipidemia Tobaccoism, refraining since August 2022 History of noncompliance with with medications/treatment and f/u. - Multiple events of leaving the hospital AMA in the past Plan: Newly dx PAF on tele of 11-13-22 - converted to SR - continue current regimen - OAC initiated with Eliquis for stroke prophylaxis - continue Complex management due to allergies as noted above. She notes her allergies to iodinated contrast and to meds used to lower the risk of contrast allergy to be severe / life threatening. Under these circumstances, it appears that angiography cannot be safely performed. I had a long and detailed discussion with her regarding this issue. She understands and herself does not wish to take any risk of angiography. Advised to continue to refrain from smoking Monitor lab and replace electrolytes as indicated ANALIA ASCENCIO MD FACP FACC CCDS Nov 15, 2022 18:25
[2022-11-15 18:57] VITALS: BP 99/60
[2022-11-15 19:00] VITALS: BP 99/60
[2022-11-15 23:06] VITALS: BP 190/61
[2022-11-15] MEDS: MELATONIN 3 MG TABLET PO PRN (23:48)
[2022-11-16] VITALS (8 sets, daily range): BP systolic 101–199; BP diastolic 46–86
[2022-11-16] MEDS: MEROPENEM 500 MG in NS (IVPB) 100 ML 100 ML IV SCH ×4 (00:35→17:21)
[2022-11-16] MEDS: VANCOMYCIN 750 MG/NS 250 ML IVPB IV SCH ×4 (03:34→15:26)
[2022-11-16 05:03] LABS: BASOPHILS # (AUTO) 0.1 10^3/uL (0.0-0.1); BASOPHILS % (AUTO) 1 % (0-10); EOSINOPHILS # (AUTO) 0.2 10^3/uL (0.0-0.3); EOSINOPHILS % (AUTO) 3 % (0-10); HEMATOCRIT 34 % (35-52); HEMOGLOBIN 11.3 g/dL (11.5-16.0); LYMPHOCYTES # (AUTO) 1.6 10^3/uL (1.0-4.0); LYMPHOCYTES % (AUTO) 23 % (12-44); MEAN CORPUSCULAR HEMOGLOBIN 31 pg (25-34); MEAN CORPUSCULAR HGB CONC 33 g/dL (32-36); MEAN CORPUSCULAR VOLUME 92 fL (80-99); MEAN PLATELET VOLUME 10.3 fL (9.0-12.2); MONOCYTES # (AUTO) 0.8 10^3/uL (0.0-1.0); MONOCYTES % (AUTO) 12 % (0-12); NEUTROPHILS # (AUTO) 4.1 10^3/uL (1.8-7.8); NEUTROPHILS % (AUTO) 60 % (42-75); PLATELET COUNT 288 10^3/uL (130-400); WHITE BLOOD COUNT 6.9 10^3/uL (4.3-11.0)
[2022-11-16 05:18] LABS: BILIRUBIN,TOTAL 0.4 MG/DL (0.1-1.0); CALCIUM 8.8 MG/DL (8.5-10.1); CREATININE SERUM 0.65 MG/DL (0.60-1.30); MAGNESIUM 1.9 MG/DL (1.6-2.4); POTASSIUM 4.2 MMOL/L (3.6-5.0); TOTAL PROTEIN 6.3 GM/DL (6.4-8.2)
[2022-11-16] MEDS: KCL 20 MEQ TAB (K-DUR) PO SCH ×3 (05:30→17:21)
[2022-11-16] MEDS: LOSARTAN 50 MG (COZAAR) TAB PO SCH (07:53)
[2022-11-16] MEDS: CLOPIDOGREL 75 MG TABLET PO SCH (07:53)
[2022-11-16] MEDS: amLODIPine 10 MG TABLET PO SCH (07:53)
[2022-11-16] MEDS: MICONAZOLE 2% POWDER (DESENEX AF) 90 GM TOP SCH ×2 (07:54→21:11)
[2022-11-16] MEDS: polyethylene glycoL POWDER 17 GM (MIRALAX) PACK PO SCH ×2 (07:54→17:24)
[2022-11-16] MEDS: SINEMET 25/100 (CARBIDOPA/LEVODOPA) TAB PO SCH ×3 (07:54→17:20)
[2022-11-16] MEDS: ALPRAZolam 0.25 MG TABLET PO PRN ×2 (10:52→21:17)
[2022-11-16] MEDS: HYDROcodone/APAP 7.5 MG/325 MG (LORTAB, LORCET PLUS) TABLET PO PRN ×3 (10:53→23:16)
--- NOTE | 2022-11-16 11:22 | Progress Note - Hospitalist ---
Subjective HPI/CC On Admission Date Seen by Provider: Nov 16, 2022 Time Seen by Provider: 11:20 Subjective/Events-last exam Patient about the same Sleeps most of the time Unsure what next step will be she needs bilateral amputations Objective Exam Vital Signs Vital Signs Date Time Temp Pulse Resp B/P (MAP) Pulse Ox O2 Delivery O2 Flow Rate FiO2 11/16/22 19:33 36.9 67 18 101/67 (78) 99 Room Air 11/16/22 11:10 0.00 11/12/22 13:54 21 Capillary Refill : Less Than 3 Seconds General Appearance: No Apparent Distress, WD/WN, Chronically ill Results/Procedures Lab Laboratory Tests 11/16/22 04:55 Patient resulted labs reviewed. Assessment/Plan Assessment and Plan Assess & Plan/Chief Complaint (1) Gangrene of left foot Status: Acute Assessment & Plan: - General surgery consult Dr Sosa, appreciate recommendations, started on IV antibiotics (2) PAD (peripheral artery disease) Status: Chronic Assessment & Plan: - Consult Cardiology Dr Mckeon (3) Intertriginous candidiasis Status: Acute Assessment & Plan: - Started on topical nystatin (4) HTN (hypertension) Status: Acute Assessment & Plan: - Restarted home HTN meds (5) Tobacco abuse Status: Chronic Assessment & Plan: - Discussed need for cessation, offered nicotine replacement New onset atrial fibrillation requiring transfer to ICU for rapid ventricular response Plan: Can't undergo vascular studies due to anaphylaxis with contrast Amputation PICC line IV abx DNR MRI? VENUS BURNETT DO Nov 16, 2022 11:22
--- NOTE | 2022-11-16 13:23 | Progress Note ---
Subjective Date Seen by a Provider: Nov 16, 2022 Time Seen by a Provider: 13:00 Subjective/Events-last exam still non-compliant. refused feet MRI. will plan for a left leg BKA however may have some wound healing issues due to arterial insufficiency. Objective Exam Vital Signs Date Time Temp Pulse Resp B/P (MAP) Pulse Ox O2 Delivery O2 Flow Rate FiO2 11/16/22 12:44 69 11/16/22 11:10 36.4 58 16 104/63 (77) 100 Room Air 0.00 11/16/22 07:18 36.4 74 18 159/86 (110) 95 0.00 11/16/22 07:00 71 11/16/22 06:40 187/57 (100) 11/16/22 04:26 36.2 80 18 199/46 (96) 98 Room Air 0.00 0.00 11/16/22 00:43 67 11/15/22 23:06 36.6 71 18 190/61 (104) 98 Room Air 0.00 0.00 11/15/22 20:00 99 Room Air 11/15/22 19:00 36.6 71 18 99/60 (73) 98 Room Air 11/15/22 19:00 75 11/15/22 15:31 36.7 61 18 120/58 (78) 98 Room Air 11/15/22 15:30 98 Room Air I & O 11/16/22 07:00 Intake Total 1410 ml Output Total 2950 ml Balance -1540 ml Capillary Refill : Less Than 3 Seconds General Appearance: No Apparent Distress HEENT: PERRL/EOMI Neck: Full Range of Motion Respiratory: Chest Non Tender, Rhonci, Wheezing Cardiovascular: Regular Rate, Rhythm Gastrointestinal: normal bowel sounds, non tender, soft Extremity: Slow Capillary Refill, Other (dry necrosis left toes and forefoot.) Neurologic/Psychiatric: Alert, Oriented x3 Skin: Normal Color Lymphatic: No Adenopathy Results Lab Laboratory Tests 11/16/22 04:55: White Blood Count 6.9, Red Blood Count 3.69L, Hemoglobin 11.3L, Hematocrit 34L, Mean Corpuscular Volume 92, Mean Corpuscular Hemoglobin 31, Mean Corpuscular Hemoglobin Concent 33, Red Cell Distribution Width 15.1H, Platelet Count 288, Mean Platelet Volume 10.3, Immature Granulocyte % (Auto) 1, Neutrophils (%) (Auto) 60, Lymphocytes (%) (Auto) 23, Monocytes (%) (Auto) 12, Eosinophils (%) (Auto) 3, Basophils (%) (Auto) 1, Neutrophils # (Auto) 4.1, Lymphocytes # (Auto) 1.6, Monocytes # (Auto) 0.8, Eosinophils # (Auto) 0.2, Basophils # (Auto) 0.1, Immature Granulocyte # (Auto) 0.1, Sodium Level 136, Potassium Level 4.2, Chloride Level 104, Carbon Dioxide Level 25, Anion Gap 7, Blood Urea Nitrogen 6L , Creatinine 0.65, Estimat Glomerular Filtration Rate 95, BUN/Creatinine Ratio 9, Glucose Level 99, Calcium Level 8.8, Corrected Calcium 9.6, Magnesium Level 1.9, Total Bilirubin 0.4, Aspartate Amino Transf (AST/SGOT) 16, Alanine Aminotransferase (ALT/SGPT) 11, Alkaline Phosphatase 99, Total Protein 6.3L, Albumin 3.0L Microbiology 11/14/22 MRSA Screen - Final, Complete MRSA not isolated 11/09/22 Blood Culture - Final, Complete No growth Assessment/Plan Assessment/Plan Assess & Plan/Chief Complaint PAD with bilateral foot necrosis. unwilling to do much workup. does have continued underlying osteomyelitis bilat feet. scheduled MRI bilateral feet but once again refused. will schedule left BKA however patient may opt out and in that case will defer to complete medical management. RUDY MARRERO MD Nov 16, 2022 13:23
--- NOTE | 2022-11-16 13:25 | Progress Note - Cardiology ---
Cardiology SOAP Progress Note Subjective: No shortness of breath at rest No cp or palp or syncope No n/v/d Gen weakness and malaise present No focal weakness No leg swelling Objective: I&O/Vital Signs 11/16/22 11/16/22 11/16/22 11/16/22 04:26 06:40 07:00 07:18 Temp 36.2 36.4 Pulse 80 71 74 Resp 18 18 B/P (MAP) 199/46 (96) 187/57 (100) 159/86 (110) Pulse Ox 98 95 O2 Delivery Room Air O2 Flow Rate 0.00 0.00 0.00 11/16/22 11/16/22 11:10 12:44 Temp 36.4 Pulse 58 69 Resp 16 B/P (MAP) 104/63 (77) Pulse Ox 100 O2 Delivery Room Air O2 Flow Rate 0.00 11/16/22 00:00 Intake Total 1310 ml Output Total 1000 ml Balance 310 ml Constitutional: other (intermittent confusion; awake, alert and oriented to self and place) Respiratory: No accessory muscle use, No respiratory distress; chest expansion is symmetric, chest is bilaterally symmetric, lungs clear to auscultation Cardiovascular: regular rate-rhythm; No JVD; S1 and S2 Gastrointestional: soft; No guarding; audible bowel sounds Extremities: no lower extremity edema bilateral Neurologic/Psychiatric: other (moves all extremities) Skin: ecchymosis (cellulitis of left leg), ulcerations (Patient has had big toes amputated bilaterally. ) Results/Procedures: Labs Laboratory Tests 11/16/22 04:55: White Blood Count 6.9, Red Blood Count 3.69L, Hemoglobin 11.3L, Hematocrit 34L, Mean Corpuscular Volume 92, Mean Corpuscular Hemoglobin 31, Mean Corpuscular Hemoglobin Concent 33, Red Cell Distribution Width 15.1H, Platelet Count 288, Mean Platelet Volume 10.3, Immature Granulocyte % (Auto) 1, Neutrophils (%) (Auto) 60, Lymphocytes (%) (Auto) 23, Monocytes (%) (Auto) 12, Eosinophils (%) (Auto) 3, Basophils (%) (Auto) 1, Neutrophils # (Auto) 4.1, Lymphocytes # (Auto) 1.6, Monocytes # (Auto) 0.8, Eosinophils # (Auto) 0.2, Basophils # (Auto) 0.1, Immature Granulocyte # (Auto) 0.1, Sodium Level 136, Potassium Level 4.2, Chloride Level 104, Carbon Dioxide Level 25, Anion Gap 7, Blood Urea Nitrogen 6L , Creatinine 0.65, Estimat Glomerular Filtration Rate 95, BUN/Creatinine Ratio 9, Glucose Level 99, Calcium Level 8.8, Corrected Calcium 9.6, Magnesium Level 1.9, Total Bilirubin 0.4, Aspartate Amino Transf (AST/SGOT) 16, Alanine Aminotransferase (ALT/SGPT) 11, Alkaline Phosphatase 99, Total Protein 6.3L, Albumin 3.0L Microbiology 11/14/22 MRSA Screen - Final, Complete MRSA not isolated 11/09/22 Blood Culture - Final, Complete No growth Laboratory Tests 11/15/22 05:05 11/15/22 05:15 11/16/22 04:55 A/P: Assessment: Newly dx PAF - first dx on tele of 11-13-22 - converted to SR with Cardizem gtt - continue oral - started on OAC with Eliquis on 11-13-22 Reported anaphylaxis to iodinated contrast and severe allergy to meds used to reduce risk of contrast allergy (per pt report) Gangrenous wounds to feet bilat (management per surgical services) - Peripheral arterial disease, abnormal lower extremity ultrasound October [address]osta[address] Dr[address] Acosta's note of 10-20-22: He discussed with the patient recommended peripheral angiogram and possible angioplasty. Patient had amputation of her toes done on 10/18/2022 He had planned to proceed with peripheral angiogram, after placing the patient on the cardiac catheterization table she became very anxious and started crying and requested to go home, did not want to lay down still. Her reports he was concerned that she will be unable to lay down still after the procedure to maintain hemostasis. Therefore, the procedure was canceled. Patient understood the risk of amputation further in her legs - During his hospitalization: She notes her allergies to iodinated contrast and to meds used to lower the risk of contrast allergy to be severe / life threatening. Under these circumstances, it appears that angiography cannot be safely performed. I had a long and detailed discussion with her regarding this issue. She understands and herself does not wish to take any risk of angiography. History of questionable paroxysmal atrial fibrillation (per pt report) - denies any cardiology f/u or treatment, details unknown - Echo done in February 2021 with moderately dilated left atrium, normal left ventricle, PA pressure 30 to 35 mmHg - 2D echo done on October 19, [address] Acosta: showing normal LV function with normal ejection fraction Hypertension Hyperlipidemia Tobaccoism, refraining since August 2022 History of noncompliance with with medications/treatment and f/u. - Multiple events of leaving the hospital AMA in the past Plan: Newly dx PAF on tele of 11-13-22 - converted to SR - continue current regimen - OAC initiated with Eliquis for stroke prophylaxis - continue. May hold for 48 hours prior to surgery and resume JILL after surgery Complex management due to allergies as noted above. She notes her allergies to iodinated contrast and to meds used to lower the risk of contrast allergy to be severe / life threatening. Under these circumstances, it appears that angiography cannot be safely performed. I had a long and detailed discussion with her regarding this issue. She understands and herself does not wish to take any risk of angiography. Advised to continue to refrain from smoking Monitor lab and replace electrolytes as indicated ANALIA ASCENCIO MD FACP FACC CCDS Nov 16, 2022 13:25
--- NOTE | 2022-11-16 17:41 | Progress Note-Pre Operative ---
Pre-Operative Progress Note Date of Available H&P: Nov 16, 2022 Date H&P Reviewed: Nov 16, 2022 Time H&P Reviewed: 17:00 History & Physical: No changes noted Pre-Operative Diagnosis: left foot arterial insufficiency and extensive osteomyelitis RUDY MARRERO MD Nov 16, 2022 17:41
[2022-11-16] MEDS: MELATONIN 3 MG TABLET PO PRN (23:16)
[2022-11-17] MEDS: MEROPENEM 500 MG in NS (IVPB) 100 ML 100 ML IV SCH ×4 (00:45→18:49)
[2022-11-17] MEDS: VANCOMYCIN 750 MG/NS 250 ML IVPB IV SCH ×4 (02:52→15:41)
[2022-11-17 03:02] VITALS: BP 105/64
[2022-11-17 05:16] LABS: BASOPHILS # (AUTO) 0.1 10^3/uL (0.0-0.1); BASOPHILS % (AUTO) 1 % (0-10); EOSINOPHILS # (AUTO) 0.3 10^3/uL (0.0-0.3); EOSINOPHILS % (AUTO) 5 % (0-10); HEMATOCRIT 33 % (35-52); HEMOGLOBIN 10.9 g/dL (11.5-16.0); LYMPHOCYTES # (AUTO) 1.8 10^3/uL (1.0-4.0); LYMPHOCYTES % (AUTO) 28 % (12-44); MEAN CORPUSCULAR HEMOGLOBIN 31 pg (25-34); MEAN CORPUSCULAR HGB CONC 33 g/dL (32-36); MEAN CORPUSCULAR VOLUME 93 fL (80-99); MEAN PLATELET VOLUME 10.7 fL (9.0-12.2); MONOCYTES # (AUTO) 0.9 10^3/uL (0.0-1.0); MONOCYTES % (AUTO) 13 % (0-12); NEUTROPHILS # (AUTO) 3.4 10^3/uL (1.8-7.8); NEUTROPHILS % (AUTO) 53 % (42-75); PLATELET COUNT 315 10^3/uL (130-400); WHITE BLOOD COUNT 6.5 10^3/uL (4.3-11.0)
[2022-11-17 05:35] LABS: ALBUMIN 2.8 GM/DL (3.2-4.5); POTASSIUM 4.7 MMOL/L (3.6-5.0)
[2022-11-17 05:37] LABS: CALCIUM 8.6 MG/DL (8.5-10.1)
[2022-11-17 05:38] LABS: TOTAL PROTEIN 5.9 GM/DL (6.4-8.2)
[2022-11-17 05:40] LABS: BILIRUBIN,TOTAL 0.3 MG/DL (0.1-1.0)
[2022-11-17 05:41] LABS: CREATININE SERUM 0.66 MG/DL (0.60-1.30)
[2022-11-17 05:44] LABS: MAGNESIUM 1.9 MG/DL (1.6-2.4)
--- NOTE | 2022-11-17 05:50 | Progress Note - Hospitalist ---
Subjective HPI/CC On Admission Date Seen by Provider: Nov 17, 2022 Time Seen by Provider: 11:00 Subjective/Events-last exam Patient is resting No falls Pain controlled Lab reviewed Review of Systems General: Fatigue, Malaise Musculoskeletal: foot pain Objective Exam Vital Signs Vital Signs Date Time Temp Pulse Resp B/P (MAP) Pulse Ox O2 Delivery O2 Flow Rate FiO2 11/17/22 19:07 36.8 64 18 96/60 (72) 100 Room Air 11/16/22 11:10 0.00 11/12/22 13:54 21 Capillary Refill : Less Than 3 Seconds General Appearance: No Apparent Distress, WD/WN, Chronically ill Respiratory: Lungs Clear Cardiovascular: Regular Rate, Rhythm Results/Procedures Lab Laboratory Tests 11/17/22 05:07 Patient resulted labs reviewed. Assessment/Plan Assessment and Plan Assess & Plan/Chief Complaint (1) Gangrene of left foot Status: Acute Assessment & Plan: - General surgery consult Dr Sosa, needs amputation (2) PAD (peripheral artery disease) Status: Chronic Assessment & Plan: - Consult Cardiology Dr Mckeon (3) Intertriginous candidiasis Status: Acute Assessment & Plan: - Started on topical nystatin (4) HTN (hypertension) Status: Acute Assessment & Plan: - Restarted home HTN meds (5) Tobacco abuse Status: Chronic Assessment & Plan: - Discussed need for cessation, offered nicotine replacement New onset atrial fibrillation requiring transfer to ICU for rapid ventricular response Plan: Can't undergo vascular studies due to anaphylaxis with contrast Amputation PICC line IV abx completed DNR MRI? refused VENUS BURNETT DO Nov 17, 2022 05:50
[2022-11-17] MEDS: KCL 20 MEQ TAB (K-DUR) PO SCH ×3 (06:07→20:06)
[2022-11-17] MEDS: HYDROcodone/APAP 7.5 MG/325 MG (LORTAB, LORCET PLUS) TABLET PO PRN ×3 (06:28→20:06)
[2022-11-17] MEDS: ALPRAZolam 0.25 MG TABLET PO PRN ×2 (06:28→19:16)
[2022-11-17 07:19] VITALS: BP 135/71
[2022-11-17] MEDS: SINEMET 25/100 (CARBIDOPA/LEVODOPA) TAB PO SCH ×3 (09:03→18:01)
[2022-11-17] MEDS: LOSARTAN 50 MG (COZAAR) TAB PO SCH (09:03)
[2022-11-17] MEDS: amLODIPine 10 MG TABLET PO SCH (09:03)
[2022-11-17] MEDS: polyethylene glycoL POWDER 17 GM (MIRALAX) PACK PO SCH ×2 (09:05→20:07)
[2022-11-17] MEDS: MICONAZOLE 2% POWDER (DESENEX AF) 90 GM TOP SCH ×2 (09:06→20:07)
[2022-11-17 11:58] VITALS: BP 120/63
[2022-11-17 15:42] VITALS: BP 122/61
--- NOTE | 2022-11-17 16:53 | Progress Note ---
Subjective Date Seen by a Provider: Nov 17, 2022 Time Seen by a Provider: 14:00 Subjective/Events-last exam doing ok. no new issues. did start plavix on monday(11/16) for new onset a- fib. will hold off on left BKA until monday Objective Exam Vital Signs Date Time Temp Pulse Resp B/P (MAP) Pulse Ox O2 Delivery O2 Flow Rate FiO2 11/17/22 15:42 36.5 61 18 122/61 (81) 100 Room Air 11/17/22 13:05 60 11/17/22 11:58 36.6 62 19 120/63 (82) 100 Room Air 11/17/22 08:30 Room Air 11/17/22 07:43 62 11/17/22 07:19 36.4 59 18 135/71 (92) 100 Room Air 11/17/22 03:02 36.7 64 18 105/64 (78) 99 Room Air 11/17/22 01:00 63 11/16/22 23:22 36.6 64 18 105/52 (69) 98 Room Air 11/16/22 21:10 Room Air 11/16/22 19:33 36.9 67 18 101/67 (78) 99 Room Air 11/16/22 19:00 62 I & O 11/17/22 07:00 Intake Total 1515 ml Output Total 800 ml Balance 715 ml Capillary Refill : Less Than 3 Seconds General Appearance: No Apparent Distress HEENT: PERRL/EOMI Neck: Full Range of Motion Respiratory: Chest Non Tender, Rhonci, Wheezing Cardiovascular: Regular Rate, Rhythm Gastrointestinal: normal bowel sounds, non tender, soft Extremity: Slow Capillary Refill, Other (dry necrosis left forefoot) Neurologic/Psychiatric: Alert, Oriented x3 Skin: Normal Color Lymphatic: No Adenopathy Results Lab Laboratory Tests 11/17/22 05:07: White Blood Count 6.5, Red Blood Count 3.54L, Hemoglobin 10.9L, Hematocrit 33L, Mean Corpuscular Volume 93, Mean Corpuscular Hemoglobin 31, Mean Corpuscular Hemoglobin Concent 33, Red Cell Distribution Width 15.3H, Platelet Count 315, Mean Platelet Volume 10.7, Immature Granulocyte % (Auto) 1, Neutrophils (%) (Auto) 53, Lymphocytes (%) (Auto) 28, Monocytes (%) (Auto) 13H, Eosinophils (%) (Auto) 5, Basophils (%) (Auto) 1, Neutrophils # (Auto) 3.4, Lymphocytes # (Auto) 1.8, Monocytes # (Auto) 0.9, Eosinophils # (Auto) 0.3, Basophils # (Auto) 0.1, Immature Granulocyte # (Auto) 0.1, Sodium Level 137, Potassium Level 4.7, Chloride Level 105, Carbon Dioxide Level 22, Anion Gap 10, Blood Urea Nitrogen 9, Creatinine 0.66, Estimat Glomerular Filtration Rate 94, BUN/Creatinine Ratio 14, Glucose Level 101, Calcium Level 8.6, Corrected Calcium 9.6, Magnesium Level 1.9, Total Bilirubin 0.3, Aspartate Amino Transf (AST/SGOT) 15, Alanine Aminotransferase (ALT/SGPT) 10, Alkaline Phosphatase 94, Total Protein 5.9L, Albumin 2.8L Microbiology 11/14/22 MRSA Screen - Final, Complete MRSA not isolated 11/09/22 Blood Culture - Final, Complete No growth Assessment/Plan Assessment/Plan Assess & Plan/Chief Complaint PAD with bilateral foot necrosis. unwilling to do much workup. does have continued underlying osteomyelitis bilat feet. scheduled MRI bilateral feet but once again refused. will schedule left BKA however patient may opt out and in that case will defer to complete medical management. did take plavix on 11/16. will not reverse due to the new onset a-fib and just hold. will plan for BKA on monday(11/21). after which she will need 2 days in-patient recovery then ARU. RUDY MARRERO MD Nov 17, 2022 16:53
--- NOTE | 2022-11-17 16:58 | Progress Note - Cardiology ---
Cardiology SOAP Progress Note Subjective: Gen weakness No focal weakness No cp or palp or syncope No shortness of breath at rest No leg swelling No n/v/d Objective: I&O/Vital Signs 11/17/22 11/17/22 11/17/22 11/17/22 07:19 07:43 08:30 11:58 Temp 36.4 36.6 Pulse 59 62 62 Resp 18 19 B/P (MAP) 135/71 (92) 120/63 (82) Pulse Ox 100 100 O2 Delivery Room Air Room Air Room Air 11/17/22 11/17/22 13:05 15:42 Temp 36.5 Pulse 60 61 Resp 18 B/P (MAP) 122/61 (81) Pulse Ox 100 O2 Delivery Room Air 11/17/22 00:00 Intake Total 700 ml Output Total 525 ml Balance 175 ml Constitutional: other (intermittent confusion; awake, alert and oriented to self and place) Respiratory: No accessory muscle use, No respiratory distress; chest expansion is symmetric, chest is bilaterally symmetric, lungs clear to auscultation Cardiovascular: regular rate-rhythm; No JVD; S1 and S2 Gastrointestional: soft; No guarding; audible bowel sounds Extremities: no lower extremity edema bilateral Neurologic/Psychiatric: other (moves all extremities) Skin: ecchymosis (cellulitis of left leg), ulcerations (Patient has had big toes amputated bilaterally. ) Results/Procedures: Labs Laboratory Tests 11/17/22 05:07: White Blood Count 6.5, Red Blood Count 3.54L, Hemoglobin 10.9L, Hematocrit 33L, Mean Corpuscular Volume 93, Mean Corpuscular Hemoglobin 31, Mean Corpuscular Hemoglobin Concent 33, Red Cell Distribution Width 15.3H, Platelet Count 315, Mean Platelet Volume 10.7, Immature Granulocyte % (Auto) 1, Neutrophils (%) (Auto) 53, Lymphocytes (%) (Auto) 28, Monocytes (%) (Auto) 13H, Eosinophils (%) (Auto) 5, Basophils (%) (Auto) 1, Neutrophils # (Auto) 3.4, Lymphocytes # (Auto) 1.8, Monocytes # (Auto) 0.9, Eosinophils # (Auto) 0.3, Basophils # (Auto) 0.1, Immature Granulocyte # (Auto) 0.1, Sodium Level 137, Potassium Level 4.7, Chloride Level 105, Carbon Dioxide Level 22, Anion Gap 10, Blood Urea Nitrogen 9, Creatinine 0.66, Estimat Glomerular Filtration Rate 94, BUN/Creatinine Ratio 14, Glucose Level 101, Calcium Level 8.6, Corrected Calcium 9.6, Magnesium Level 1.9, Total Bilirubin 0.3, Aspartate Amino Transf (AST/SGOT) 15, Alanine Aminotransferase (ALT/SGPT) 10, Alkaline Phosphatase 94, Total Protein 5.9L, Albumin 2.8L Microbiology 11/14/22 MRSA Screen - Final, Complete MRSA not isolated 11/09/22 Blood Culture - Final, Complete No growth Laboratory Tests 11/16/22 04:55 11/17/22 05:07 A/P: Assessment: Newly dx PAF - first dx on tele of 11-13-22 - converted to SR with Cardizem gtt - continue oral - started on OAC with Eliquis on 11-13-22 Reported anaphylaxis to iodinated contrast and severe allergy to meds used to reduce risk of contrast allergy (per pt report) Gangrenous wounds to feet bilat (management per surgical services) - Peripheral arterial disease, abnormal lower extremity ultrasound October [address] Acosta's note of 10-20-22: He discussed with the patient recommended peripheral angiogram and possible angioplasty. Patient had amputation of her toes done on 10/18/2022 He had planned to proceed with peripheral angiogram, after placing the patient on the cardiac catheterization table she became very anxious and started crying and requested to go home, did not want to lay down still. Her reports he was concerned that she will be unable to lay down still after the procedure to maintain hemostasis. Therefore, the procedure was canceled. Patient understood the risk of amputation further in her legs - During his hospitalization: She notes her allergies to iodinated contrast and to meds used to lower the risk of contrast allergy to be severe / life threatening. Under these circumstances, it appears that angiography cannot be safely performed. I had a long and detailed discussion with her regarding this issue. She understands and herself does not wish to take any risk of angiography. History of questionable paroxysmal atrial fibrillation (per pt report) - denies any cardiology f/u or treatment, details unknown - Echo done in February 2021 with moderately dilated left atrium, normal left ventricle, PA pressure 30 to 35 mmHg - 2D echo done on October 19, [address] Acosta: showing normal LV function with normal ejection fraction Hypertension Hyperlipidemia Tobaccoism, refraining since August 2022 History of noncompliance with with medications/treatment and f/u. - Multiple events of leaving the hospital AMA in the past Plan: Newly dx PAF on tele of 11-13-22 - converted to SR - continue current regimen - OAC initiated with Eliquis for stroke prophylaxis - continue. May hold for 48 hours prior to surgery and resume JILL after surgery Complex management due to allergies as noted above. She notes her allergies to iodinated contrast and to meds used to lower the risk of contrast allergy to be severe / life threatening. Under these circumstances, it appears that angiography cannot be safely performed. I had a long and detailed discussion with her regarding this issue. She understands and herself does not wish to take any risk of angiography. Advised to continue to refrain from smoking Monitor lab and replace electrolytes as indicated ANALIA ASCENCIO MD FACP FAC CCDS Nov 17, 2022 16:58
[2022-11-17 19:07] VITALS: BP 96/60
[2022-11-17] MEDS: MELATONIN 3 MG TABLET PO PRN (20:06)
[2022-11-17] MEDS: CALCIUM CARBONATE 500 MG CHEW TABLET PO PRN (22:03)
[2022-11-17 23:08] VITALS: BP 102/66
[2022-11-18] MEDS: MEROPENEM 500 MG in NS (IVPB) 100 ML 100 ML IV SCH ×4 (00:48→18:18)
[2022-11-18] MEDS: HYDROcodone/APAP 7.5 MG/325 MG (LORTAB, LORCET PLUS) TABLET PO PRN ×3 (02:42→17:41)
[2022-11-18] MEDS: ALPRAZolam 0.25 MG TABLET PO PRN ×3 (02:42→21:05)
[2022-11-18 03:41] VITALS: BP 116/58
[2022-11-18] MEDS: KCL 20 MEQ TAB (K-DUR) PO SCH ×3 (06:40→21:05)
[2022-11-18 08:25] VITALS: BP 121/70
[2022-11-18] MEDS: MICONAZOLE 2% POWDER (DESENEX AF) 90 GM TOP SCH ×2 (08:54→21:05)
[2022-11-18] MEDS: amLODIPine 10 MG TABLET PO SCH (08:54)
[2022-11-18] MEDS: LOSARTAN 50 MG (COZAAR) TAB PO SCH (08:54)
[2022-11-18] MEDS: SINEMET 25/100 (CARBIDOPA/LEVODOPA) TAB PO SCH ×3 (08:54→17:41)
[2022-11-18] MEDS: polyethylene glycoL POWDER 17 GM (MIRALAX) PACK PO SCH ×3 (08:54→21:05)
[2022-11-18 08:59] LABS: BASOPHILS % (AUTO) 1 % (0-10); EOSINOPHILS # (AUTO) 0.2 10^3/uL (0.0-0.3); EOSINOPHILS % (AUTO) 4 % (0-10); HEMATOCRIT 39 % (35-52); HEMOGLOBIN 12.8 g/dL (11.5-16.0); LYMPHOCYTES # (AUTO) 1.4 10^3/uL (1.0-4.0); LYMPHOCYTES % (AUTO) 20 % (12-44); MEAN CORPUSCULAR HEMOGLOBIN 31 pg (25-34); MEAN CORPUSCULAR HGB CONC 33 g/dL (32-36); MEAN CORPUSCULAR VOLUME 93 fL (80-99); MEAN PLATELET VOLUME 10.5 fL (9.0-12.2); MONOCYTES # (AUTO) 0.6 10^3/uL (0.0-1.0); MONOCYTES % (AUTO) 9 % (0-12); NEUTROPHILS # (AUTO) 4.6 10^3/uL (1.8-7.8); NEUTROPHILS % (AUTO) 67 % (42-75); PLATELET COUNT 341 10^3/uL (130-400); WHITE BLOOD COUNT 6.9 10^3/uL (4.3-11.0)
[2022-11-18 09:27] LABS: ALBUMIN 3.5 GM/DL (3.2-4.5); BILIRUBIN,TOTAL 0.8 MG/DL (0.1-1.0); CALCIUM 9.6 MG/DL (8.5-10.1); CREATININE SERUM 0.75 MG/DL (0.60-1.30); MAGNESIUM 1.9 MG/DL (1.6-2.4); POTASSIUM 4.4 MMOL/L (3.6-5.0)
--- NOTE | 2022-11-18 11:50 | Progress Note - Hospitalist ---
Subjective HPI/CC On Admission Date Seen by Provider: Nov 18, 2022 Time Seen by Provider: 11:00 Subjective/Events-last exam No major issues Awaiting Monday for amputation Patient very depressed Objective Exam Vital Signs Vital Signs Date Time Temp Pulse Resp B/P (MAP) Pulse Ox O2 Delivery O2 Flow Rate FiO2 11/18/22 19:41 36.7 57 16 98/57 (71) 98 Room Air 11/16/22 11:10 0.00 11/12/22 13:54 21 Capillary Refill : Less Than 3 Seconds General Appearance: No Apparent Distress, WD/WN, Chronically ill Respiratory: Lungs Clear, Normal Breath Sounds Cardiovascular: Regular Rate, Rhythm Neurologic/Psychiatric: Alert, Oriented x3, Depressed Affect Results/Procedures Lab Laboratory Tests 11/18/22 08:50 Patient resulted labs reviewed. Assessment/Plan Assessment and Plan Assess & Plan/Chief Complaint (1) Gangrene of left foot Status: Acute Assessment & Plan: - General surgery consult Dr Sosa, needs amputation (2) PAD (peripheral artery disease) Status: Chronic Assessment & Plan: - Consult Cardiology Dr Mckeon (3) Intertriginous candidiasis Status: Acute Assessment & Plan: - Started on topical nystatin (4) HTN (hypertension) Status: Acute Assessment & Plan: - Restarted home HTN meds (5) Tobacco abuse Status: Chronic Assessment & Plan: - Discussed need for cessation, offered nicotine replacement New onset atrial fibrillation requiring transfer to ICU for rapid ventricular response Plan: Can't undergo vascular studies due to anaphylaxis with contrast Amputation PICC line IV abx completed DNR MRI? refused VENUS BURNETT DO Nov 18, 2022 11:50
[2022-11-18 12:34] VITALS: BP 101/69
--- NOTE | 2022-11-18 15:12 | Progress Note - Cardiology ---
Cardiology SOAP Progress Note Subjective: No cp or palp or syncope No shortness of breath at rest No n/v/d Gen weakness No focal weakness Objective: I&O/Vital Signs 11/18/22 11/18/22 11/18/22 11/18/22 03:41 08:25 08:30 12:34 Temp 36.7 36.3 36.2 Pulse 67 61 72 Resp 18 16 19 B/P (MAP) 116/58 (77) 121/70 (87) 101/69 (80) Pulse Ox 97 98 99 O2 Delivery Room Air Room Air Room Air Room Air 11/18/22 00:00 Intake Total 800 ml Output Total 600 ml Balance 200 ml Constitutional: other (intermittent confusion; awake, alert and oriented to self and place) Respiratory: No accessory muscle use, No respiratory distress; chest expansion is symmetric, chest is bilaterally symmetric, lungs clear to auscultation Cardiovascular: regular rate-rhythm; No JVD; S1 and S2 Gastrointestional: soft; No guarding; audible bowel sounds Extremities: no lower extremity edema bilateral Neurologic/Psychiatric: other (moves all extremities) Skin: ecchymosis (cellulitis of left leg), ulcerations (Patient has had big toes amputated bilaterally. ) Results/Procedures: Labs Laboratory Tests 11/18/22 08:50: White Blood Count 6.9, Red Blood Count 4.20, Hemoglobin 12.8, Hematocrit 39, Mean Corpuscular Volume 93, Mean Corpuscular Hemoglobin 31, Mean Corpuscular Hemoglobin Concent 33, Red Cell Distribution Width 15.2H, Platelet Count 341, Mean Platelet Volume 10.5, Immature Granulocyte % (Auto) 1, Neutrophils (%) (Aut o) 67, Lymphocytes (%) (Auto) 20, Monocytes (%) (Auto) 9, Eosinophils (%) (Auto) 4, Basophils (%) (Auto) 1, Neutrophils # (Auto) 4.6, Lymphocytes # (Auto) 1.4, Monocytes # (Auto) 0.6, Eosinophils # (Auto) 0.2, Basophils # (Auto) 0.0, Immature Granulocyte # (Auto) 0.0, Sodium Level 138, Potassium Level 4.4, Chloride Level 102, Carbon Dioxide Level 24, Anion Gap 12, Blood Urea Nitrogen 10, Creatinine 0.75, Estimat Glomerular Filtration Rate 86, BUN/Creatinine Ratio 13, Glucose Level 107H, Calcium Level 9.6, Corrected Calcium 10.0, Magnesium Level 1.9, Total Bilirubin 0.8, Aspartate Amino Transf (AST/SGOT) 80H, Alanine Aminotransferase (ALT/SGPT) 23, Alkaline Phosphatase 263H, Total Protein 7.0, Albumin 3.5 Microbiology 11/14/22 MRSA Screen - Final, Complete MRSA not isolated 11/09/22 Blood Culture - Final, Complete No growth Laboratory Tests 11/17/22 05:07 11/18/22 08:50 A/P: Assessment: PAF - first dx on tele of 11-13-22 - converted to SR with Cardizem gtt - continue oral - started on OAC with Eliquis on 11-13-22 Reported anaphylaxis to iodinated contrast and severe allergy to meds used to reduce risk of contrast allergy (per pt report) Gangrenous wounds to feet bilat (management per surgical services) - Peripheral arterial disease, abnormal lower extremity ultrasound October [address] Acosta's note of 10-20-22: He discussed with the patient recommended peripheral angiogram and possible angioplasty. Patient had amputation of her toes done on 10/18/2022 He had planned to proceed with peripheral angiogram, after placing the patient on the cardiac catheterization table she became very anxious and started crying and requested to go home, did not want to lay down still. Her reports he was concerned that she will be unable to lay down still after the procedure to maintain hemostasis. Therefore, the procedure was canceled. Patient understood the risk of amputation further in her legs - During his hospitalization: She notes her allergies to iodinated contrast and to meds used to lower the risk of contrast allergy to be severe / life threatening. Under these circumstances, it appears that angiography cannot be safely performed. I had a long and detailed discussion with her regarding this issue. She understands and herself does not wish to take any risk of angiography. History of questionable paroxysmal atrial fibrillation (per pt report) - denies any cardiology f/u or treatment, details unknown - Echo done in February 2021 with moderately dilated left atrium, normal left ventricle, PA pressure 30 to 35 mmHg - 2D echo done on October 19, [address] Acosta: showing normal LV function with normal ejection fraction Hypertension Hyperlipidemia Tobaccoism, refraining since August 2022 History of noncompliance with with medications/treatment and f/u. - Multiple events of leaving the hospital AMA in the past Plan: Newly dx PAF on tele of 11-13-22 - converted to SR - continue current regimen - OAC initiated with Eliquis for stroke prophylaxis - continue. May hold for 48 hours prior to surgery and resume JILL after surgery Complex management due to allergies as noted above. She notes her allergies to iodinated contrast and to meds used to lower the risk of contrast allergy to be severe / life threatening. Under these circumstances, it appears that angiography cannot be safely performed. I had a long and detailed discussion with her regarding this issue. She understands and herself does not wish to take any risk of angiography. Advised to continue to refrain from smoking Monitor lab and replace electrolytes as indicated ANALIA ASCENCIO MD FACP FAC CCDS Nov 18, 2022 15:12
[2022-11-18 16:39] VITALS: BP 111/70
[2022-11-18 19:41] VITALS: BP 98/57
[2022-11-18] MEDS: MELATONIN 3 MG TABLET PO PRN (21:05)
[2022-11-19] VITALS (7 sets, daily range): BP systolic 87–125; BP diastolic 52–80
[2022-11-19] MEDS: MEROPENEM 500 MG in NS (IVPB) 100 ML 100 ML IV SCH ×4 (00:42→18:23)
[2022-11-19 06:11] LABS: BASOPHILS # (AUTO) 0.1 10^3/uL (0.0-0.1); BASOPHILS % (AUTO) 1 % (0-10); EOSINOPHILS # (AUTO) 0.2 10^3/uL (0.0-0.3); EOSINOPHILS % (AUTO) 3 % (0-10); HEMATOCRIT 34 % (35-52); LYMPHOCYTES # (AUTO) 1.4 10^3/uL (1.0-4.0); LYMPHOCYTES % (AUTO) 20 % (12-44); MEAN CORPUSCULAR HEMOGLOBIN 30 pg (25-34); MEAN CORPUSCULAR HGB CONC 33 g/dL (32-36); MEAN CORPUSCULAR VOLUME 93 fL (80-99); MEAN PLATELET VOLUME 10.6 fL (9.0-12.2); MONOCYTES # (AUTO) 0.6 10^3/uL (0.0-1.0); MONOCYTES % (AUTO) 9 % (0-12); NEUTROPHILS # (AUTO) 4.6 10^3/uL (1.8-7.8); NEUTROPHILS % (AUTO) 67 % (42-75); PLATELET COUNT 299 10^3/uL (130-400); WHITE BLOOD COUNT 6.8 10^3/uL (4.3-11.0)
[2022-11-19 06:20] LABS: POTASSIUM 4.5 MMOL/L (3.6-5.0)
[2022-11-19 06:21] LABS: CALCIUM 9.3 MG/DL (8.5-10.1)
[2022-11-19 06:22] LABS: TOTAL PROTEIN 6.2 GM/DL (6.4-8.2)
[2022-11-19 06:24] LABS: BILIRUBIN,TOTAL 0.5 MG/DL (0.1-1.0)
[2022-11-19 06:26] LABS: CREATININE SERUM 0.64 MG/DL (0.60-1.30)
[2022-11-19] MEDS: KCL 20 MEQ TAB (K-DUR) PO SCH ×3 (06:32→20:33)
[2022-11-19] MEDS: MICONAZOLE 2% POWDER (DESENEX AF) 90 GM TOP SCH ×2 (07:47→20:33)
[2022-11-19] MEDS: polyethylene glycoL POWDER 17 GM (MIRALAX) PACK PO SCH ×2 (07:47→20:33)
[2022-11-19] MEDS: amLODIPine 10 MG TABLET PO SCH (07:47)
[2022-11-19] MEDS: SINEMET 25/100 (CARBIDOPA/LEVODOPA) TAB PO SCH ×3 (07:47→18:23)
[2022-11-19] MEDS: LOSARTAN 50 MG (COZAAR) TAB PO SCH (07:47)
--- NOTE | 2022-11-19 10:39 | Progress Note ---
Subjective Date Seen by a Provider: Nov 19, 2022 Time Seen by a Provider: 10:10 Subjective/Events-last exam Patient seen with Dr. Sosa. Patient lying bed. Patient reports left ankle pain. Patient states that people are telling her lies and she doesn't know what to believe. Patient tearful. Objective Exam Vital Signs Date Time Temp Pulse Resp B/P (MAP) Pulse Ox O2 Delivery O2 Flow Rate FiO2 11/19/22 08:22 36.4 74 18 98/52 (67) 100 Room Air 11/19/22 08:00 Room Air 11/19/22 04:05 36.8 63 18 110/67 (81) 99 Room Air 11/19/22 00:41 36.4 57 18 92/53 (66) 96 Room Air 11/18/22 21:06 Room Air 11/18/22 19:41 36.7 57 16 98/57 (71) 98 Room Air 11/18/22 16:39 36.4 70 18 111/70 (84) 99 Room Air 11/18/22 12:34 36.2 72 19 101/69 (80) 99 Room Air I & O 11/19/22 07:00 Intake Total 1340 ml Output Total 1200 ml Balance 140 ml Capillary Refill : Less Than 3 Seconds General Appearance: Chronically ill, Obese Neck: Normal Inspection, Supple Respiratory: No Accessory Muscle Use, No Respiratory Distress Gastrointestinal: normal bowel sounds, non tender, soft Extremity: Other (left foot dry necrosis of distal and medial aspect of previous amputation site as well as remaining toes. Right distal medial foot dry necrosis of previous amputation site.) Neurologic/Psychiatric: Alert Skin: Warm/Dry Results Lab Laboratory Tests 11/19/22 06:03: White Blood Count 6.8, Red Blood Count 3.62L, Hemoglobin 11.0L, Hematocrit 34L, Mean Corpuscular Volume 93, Mean Corpuscular Hemoglobin 30, Mean Corpuscular Hemoglobin Concent 33, Red Cell Distribution Width 15.1H, Platelet Count 299, Mean Platelet Volume 10.6, Immature Granulocyte % (Auto) 0, Neutrophils (%) (Auto) 67, Lymphocytes (%) (Auto) 20, Monocytes (%) (Auto) 9, Eosinophils (%) (Auto) 3, Basophils (%) (Auto) 1, Neutrophils # (Auto) 4.6, Lymphocytes # (Auto) 1.4, Monocytes # (Auto) 0.6, Eosinophils # (Auto) 0.2, Basophils # (Auto) 0.1, Immature Granulocyte # (Auto) 0.0, Sodium Level 137, Potassium Level 4.5, Chloride Level 104, Carbon Dioxide Level 25, Anion Gap 8, Blood Urea Nitrogen 10, Creatinine 0.64, Estimat Glomerular Filtration Rate 95, BUN/Creatinine Ratio 16, Glucose Level 111H, Calcium Level 9.3, Corrected Calcium 10.1, Magnesium Level 2.0, Total Bilirubin 0.5, Aspartate Amino Transf (AST/SGOT) 53H, Alanine Aminotransferase (ALT/SGPT) 14, Alkaline Phosphatase 288H, Total Protein 6.2L, Albumin 3.0L Microbiology 11/14/22 MRSA Screen - Final, Complete MRSA not isolated 11/09/22 Blood Culture - Final, Complete No growth Assessment/Plan Assessment/Plan Assess & Plan/Chief Complaint PAD with bilateral foot necrosis. unwilling to do much workup. does have continued underlying osteomyelitis bilat feet. scheduled MRI bilateral feet but once again refused. will schedule left BKA however patient may opt out and in that case will defer to complete medical management. did take plavix on 11/16. will not reverse due to the new onset a-fib and just hold. will plan for BKA on monday(11/21). after which she will need 2 days in-patient recovery then ARU. BOO MURRAY APRN Nov 19, 2022 10:39
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
--- NOTE | 2022-11-19 14:30 | Cardiology Progress Note ---
Cardiology SOAP Progress Note Subjective: Patient is confused. Objective: I&O/Vital Signs 11/19/22 11/19/22 11/19/22 11/19/22 04:05 08:00 08:22 11:56 Temp 36.8 36.4 36.7 Pulse 63 74 76 Resp 18 18 19 B/P (MAP) 110/67 (81) 98/52 (67) 125/80 (95) Pulse Ox 99 100 99 O2 Delivery Room Air Room Air Room Air Room Air 11/18/22 23:59 Intake Total 1140 ml Output Total 675 ml Balance 465 ml Constitutional: other (intermittent confusion; awake, alert and oriented to self and place) Respiratory: No accessory muscle use, No respiratory distress; chest expansion is symmetric, chest is bilaterally symmetric, lungs clear to auscultation Cardiovascular: regular rate-rhythm; No JVD; S1 and S2 Gastrointestional: soft; No guarding; audible bowel sounds Extremities: no lower extremity edema bilateral Neurologic/Psychiatric: disoriented x 3, other (moves all extremities) Skin: ecchymosis (cellulitis of left leg), ulcerations (Patient has had big toes amputated bilaterally. ) Results/Procedures: Labs Laboratory Tests 11/19/22 06:03: White Blood Count 6.8, Red Blood Count 3.62L, Hemoglobin 11.0L, Hematocrit 34L, Mean Corpuscular Volume 93, Mean Corpuscular Hemoglobin 30, Mean Corpuscular Hemoglobin Concent 33, Red Cell Distribution Width 15.1H, Platelet Count 299, Mean Platelet Volume 10.6, Immature Granulocyte % (Auto) 0, Neutrophils (%) (Auto) 67, Lymphocytes (%) (Auto) 20, Monocytes (%) (Auto) 9, Eosinophils (%) (Auto) 3, Basophils (%) (Auto) 1, Neutrophils # (Auto) 4.6, Lymphocytes # (Auto) 1.4, Monocytes # (Auto) 0.6, Eosinophils # (Auto) 0.2, Basophils # (Auto) 0.1, Immature Granulocyte # (Auto) 0.0, Sodium Level 137, Potassium Level 4.5, Chloride Level 104, Carbon Dioxide Level 25, Anion Gap 8, Blood Urea Nitrogen 10, Creatinine 0.64, Estimat Glomerular Filtration Rate 95, BUN/Creatinine Ratio 16, Glucose Level 111H, Calcium Level 9.3, Corrected Calcium 10.1, Magnesium Level 2.0, Total Bilirubin 0.5, Aspartate Amino Transf (AST/SGOT) 53H, Alanine Aminotransferase (ALT/SGPT) 14, Alkaline Phosphatase 288H, Total Protein 6.2L, Albumin 3.0L Microbiology 11/14/22 MRSA Screen - Final, Complete MRSA not isolated 11/09/22 Blood Culture - Final, Complete No growth A/P: Assessment/Dx: PAF - first dx on tele of 11-13-22 - converted to SR with Cardizem gtt - continue oral - started on OAC with Eliquis on 11-13-22 Reported anaphylaxis to iodinated contrast and severe allergy to meds used to reduce risk of contrast allergy (per pt report) Gangrenous wounds to feet bilat (management per surgical services) - Peripheral arterial disease, abnormal lower extremity ultrasound October [address] Acosta's note of 10-20-22: He discussed with the patient recommended peripheral angiogram and possible angioplasty. Patient had amputation of her toes done on 10/18/2022 He had planned to proceed with peripheral angiogram, after placing the patient on the cardiac catheterization table she became very anxious and started crying and requested to go home, did not want to lay down still. Her reports he was concerned that she will be unable to lay down still after the procedure to maintain hemostasis. Therefore, the procedure was canceled. Patient understood the risk of amputation further in her legs - During his hospitalization: She notes her allergies to iodinated contrast and to meds used to lower the risk of contrast allergy to be severe / life threatening. Under these circumstances, it appears that angiography cannot be safely performed. I had a long and detailed discussion with her regarding this issue. She understands and herself does not wish to take any risk of angiography. History of questionable paroxysmal atrial fibrillation (per pt report) - denies any cardiology f/u or treatment, details unknown - Echo done in February 2021 with moderately dilated left atrium, normal left ventricle, PA pressure 30 to 35 mmHg - 2D echo done on October 19, [address] Acosta: showing normal LV function with normal ejection fraction Hypertension Hyperlipidemia Tobaccoism, refraining since August 2022 History of noncompliance with with medications/treatment and f/u. - Multiple events of leaving the hospital AMA in the past Plan: Below-knee amputation scheduled on Monday with Dr. MARRERO. Newly dx PAF on tele of 11-13-22 - converted to SR - continue current regimen - OAC initiated with Eliquis for stroke prophylaxis - continue. May hold for 48 hours prior to surgery and resume JILL after surgery Complex management due to allergies as noted above. She notes her allergies to iodinated contrast and to meds used to lower the risk of contrast allergy to be severe / life threatening. Under these circumstances, it appears that angiography cannot be safely performed. I had a long and detailed discussion with her regarding this issue. She understands and herself does not wish to take any risk of angiography. Advised to continue to refrain from smoking Monitor lab and replace electrolytes as indicated Cecilia SILVA MD Nov 19, 2022 14:30
[2022-11-19] MEDS: ACETAMINOPHEN 325 MG TABLET PO PRN (15:50)
[2022-11-19] MEDS: ALPRAZolam 0.25 MG TABLET PO PRN (21:51)
[2022-11-19] MEDS: MELATONIN 3 MG TABLET PO PRN (21:51)
[2022-11-20] MEDS: MEROPENEM 500 MG in NS (IVPB) 100 ML 100 ML IV SCH ×4 (00:18→17:46)
[2022-11-20 00:21] VITALS: BP 95/57
[2022-11-20 04:00] VITALS: BP 112/72
[2022-11-20 06:25] LABS: BASOPHILS % (AUTO) 0 % (0-10); EOSINOPHILS # (AUTO) 0.2 10^3/uL (0.0-0.3); EOSINOPHILS % (AUTO) 3 % (0-10); HEMATOCRIT 37 % (35-52); HEMOGLOBIN 11.9 g/dL (11.5-16.0); LYMPHOCYTES # (AUTO) 1.4 10^3/uL (1.0-4.0); LYMPHOCYTES % (AUTO) 21 % (12-44); MEAN CORPUSCULAR HEMOGLOBIN 30 pg (25-34); MEAN CORPUSCULAR HGB CONC 32 g/dL (32-36); MEAN CORPUSCULAR VOLUME 94 fL (80-99); MEAN PLATELET VOLUME 10.6 fL (9.0-12.2); MONOCYTES # (AUTO) 0.7 10^3/uL (0.0-1.0); MONOCYTES % (AUTO) 10 % (0-12); NEUTROPHILS # (AUTO) 4.4 10^3/uL (1.8-7.8); NEUTROPHILS % (AUTO) 65 % (42-75); PLATELET COUNT 314 10^3/uL (130-400); WHITE BLOOD COUNT 6.8 10^3/uL (4.3-11.0)
[2022-11-20 06:40] LABS: ALBUMIN 3.3 GM/DL (3.2-4.5); POTASSIUM 4.4 MMOL/L (3.6-5.0)
[2022-11-20 06:41] LABS: CALCIUM 9.5 MG/DL (8.5-10.1)
[2022-11-20] MEDS: KCL 20 MEQ TAB (K-DUR) PO SCH ×3 (06:42→20:41)
[2022-11-20 06:43] LABS: TOTAL PROTEIN 6.8 GM/DL (6.4-8.2)
[2022-11-20 06:44] LABS: BILIRUBIN,TOTAL 0.5 MG/DL (0.1-1.0)
[2022-11-20 06:46] LABS: CREATININE SERUM 0.63 MG/DL (0.60-1.30)
[2022-11-20 06:49] LABS: MAGNESIUM 2.1 MG/DL (1.6-2.4)
[2022-11-20 07:12] VITALS: BP 103/70
[2022-11-20] MEDS: polyethylene glycoL POWDER 17 GM (MIRALAX) PACK PO SCH ×2 (09:01→20:43)
[2022-11-20] MEDS: amLODIPine 10 MG TABLET PO SCH (09:02)
[2022-11-20] MEDS: MICONAZOLE 2% POWDER (DESENEX AF) 90 GM TOP SCH ×2 (09:02→20:42)
[2022-11-20] MEDS: SINEMET 25/100 (CARBIDOPA/LEVODOPA) TAB PO SCH ×3 (09:02→17:46)
[2022-11-20] MEDS: LOSARTAN 50 MG (COZAAR) TAB PO SCH (09:02)
[2022-11-20] MEDS: ONDANSETRON 4 MG (ZOFRAN) ORAL DISSOLVE TAB PO PRN (10:37)
[2022-11-20 11:02] VITALS: BP 92/54
--- NOTE | 2022-11-20 11:03 | Progress Note ---
Subjective Date Seen by a Provider: Nov 20, 2022 Time Seen by a Provider: 10:20 Subjective/Events-last exam Patient seen with Dr. Sosa. Patient lying in bed resting. Patient in better mood today. Patient states she is ready for her surgery. Tolerating diet. Objective Exam Vital Signs Date Time Temp Pulse Resp B/P (MAP) Pulse Ox O2 Delivery O2 Flow Rate FiO2 11/20/22 08:00 Room Air 11/20/22 07:12 36.1 85 18 103/70 (81) 99 Room Air 11/20/22 04:00 36.2 72 18 112/72 (85) 99 Room Air 11/20/22 00:21 36.3 71 20 95/57 (70) 97 Room Air 11/19/22 20:35 Room Air 11/19/22 20:32 113/60 (77) 11/19/22 19:39 36.8 71 18 87/57 (67) 99 Room Air 11/19/22 15:52 36.2 63 20 94/60 (71) 96 Room Air 11/19/22 11:56 36.7 76 19 125/80 (95) 99 Room Air I & O 11/20/22 07:00 Intake Total 610 ml Output Total 1750 ml Balance -1140 ml Capillary Refill : Less Than 3 Seconds General Appearance: WD/WN, Chronically ill Neck: Normal Inspection, Supple Respiratory: No Accessory Muscle Use, No Respiratory Distress Gastrointestinal: normal bowel sounds, non tender, soft Extremity: Other (left distal medial foot dry necrosis and toes as well as right distal medial foot dry necrosis) Neurologic/Psychiatric: Alert Skin: Normal Color, Warm/Dry Results Lab Laboratory Tests 11/20/22 06:17: White Blood Count 6.8, Red Blood Count 3.91, Hemoglobin 11.9, Hematocrit 37, Mean Corpuscular Volume 94, Mean Corpuscular Hemoglobin 30, Mean Corpuscular Hemoglobin Concent 32, Red Cell Distribution Width 15.1H, Platelet Count 314, Mean Platelet Volume 10.6, Immature Granulocyte % (Auto) 1, Neutrophils (%) (Auto) 65, Lymphocytes (%) (Auto) 21, Monocytes (%) (Auto) 10, Eosinophils (%) (Auto) 3, Basophils (%) (Auto) 0, Neutrophils # (Auto) 4.4, Lymphocytes # (Auto) 1.4, Monocytes # (Auto) 0.7, Eosinophils # (Auto) 0.2, Basophils # (Auto) 0.0, Immature Granulocyte # (Auto) 0.0, Sodium Level 138, Potassium Level 4.4, Chloride Level 102, Carbon Dioxide Level 25, Anion Gap 11, Blood Urea Nitrogen 8, Creatinine 0.63, Estimat Glomerular Filtration Rate 95, BUN/Creatinine Ratio 13, Glucose Level 106H, Calcium Level 9.5, Corrected Calcium 10.1, Magnesium Level 2.1, Total Bilirubin 0.5, Aspartate Amino Transf (AST/SGOT) 27, Alanine Aminotransferase (ALT/SGPT) 12, Alkaline Phosphatase 284H, Total Protein 6.8, Albumin 3.3 Microbiology 11/14/22 MRSA Screen - Final, Complete MRSA not isolated 11/09/22 Blood Culture - Final, Complete No growth Assessment/Plan Assessment/Plan Assess & Plan/Chief Complaint PAD with bilateral foot necrosis. unwilling to do much workup. does have continued underlying osteomyelitis bilat feet. scheduled MRI bilateral feet but once again refused. will schedule left BKA however patient may opt out and in that case will defer to complete medical management. did take plavix on 11/16. will not reverse due to the new onset a-fib and just hold. will plan for BKA on monday(11/21). after which she will need 2 days in-patient recovery then CARLOS ALBERTO. BOO MURRAY APRN Nov 20, 2022 11:03
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
[2022-11-20] MEDS: HYDROcodone/APAP 7.5 MG/325 MG (LORTAB, LORCET PLUS) TABLET PO PRN ×2 (13:04→22:03)
[2022-11-20 15:41] VITALS: BP 92/59
--- NOTE | 2022-11-20 17:04 | Cardiology Progress Note ---
Cardiology SOAP Progress Note Subjective: Denies any significant cardiac complaints. Objective: I&O/Vital Signs 11/21/22 11/21/22 11/21/22 11/21/22 03:43 07:45 08:00 11:40 Temp 36.0 36.2 36.2 Pulse 65 84 106 Resp 18 16 20 B/P (MAP) 95/57 (70) 92/61 (71) 122/73 (89) Pulse Ox 100 97 97 O2 Delivery Room Air Room Air Room Air Room Air 11/21/22 00:00 Intake Total 440 ml Output Total 875 ml Balance -435 ml Constitutional: other (intermittent confusion; awake, alert and oriented to self and place) Respiratory: No accessory muscle use, No respiratory distress; chest expansion is symmetric, chest is bilaterally symmetric, lungs clear to auscultation Cardiovascular: regular rate-rhythm; No JVD; S1 and S2 Gastrointestional: soft; No guarding; audible bowel sounds Extremities: no lower extremity edema bilateral Neurologic/Psychiatric: disoriented x 3, other (moves all extremities) Skin: ecchymosis (cellulitis of left leg), ulcerations (Patient has had big toes amputated bilaterally. ) Results/Procedures: Labs Laboratory Tests 11/21/22 05:08: White Blood Count 6.1, Red Blood Count 3.75L, Hemoglobin 11.4L, Hematocrit 35, Mean Corpuscular Volume 94, Mean Corpuscular Hemoglobin 30, Mean Corpuscular Hemoglobin Concent 33, Red Cell Distribution Width 15.1H, Platelet Count 327, Mean Platelet Volume 11.1, Immature Granulocyte % (Auto) 1, Neutrophils (%) (Auto) 54, Lymphocytes (%) (Auto) 31, Monocytes (%) (Auto) 11, Eosinophils (%) (Auto) 3, Basophils (%) (Auto) 1, Neutrophils # (Auto) 3.3, Lymphocytes # (Auto) 1.9, Monocytes # (Auto) 0.7, Eosinophils # (Auto) 0.2, Basophils # (Auto) 0.0, Immature Granulocyte # (Auto) 0.0, Sodium Level 137, Potassium Level 4.7, Chloride Level 103, Carbon Dioxide Level 26, Anion Gap 8, Blood Urea Nitrogen 12, Creatinine 0.71, Estimat Glomerular Filtration Rate 91, BUN/Creatinine Ratio 17, Glucose Level 99, Calcium Level 9.5, Corrected Calcium 10.2H, Magnesium Level 2.2, Total Bilirubin 0.5, Aspartate Amino Transf (AST/SGOT) 142H, Alanine Aminotransferase (ALT/SGPT) 14, Alkaline Phosphatase 328H, Total Protein 6.6, Albumin 3.1L Microbiology 11/14/22 MRSA Screen - Final, Complete MRSA not isolated 11/09/22 Blood Culture - Final, Complete No growth A/P: Assessment/Dx: PAF - first dx on tele of 11-13-22 - converted to SR with Cardizem gtt - continue oral - started on OAC with Eliquis on 11-13-22 Reported anaphylaxis to iodinated contrast and severe allergy to meds used to reduce risk of contrast allergy (per pt report) Gangrenous wounds to feet bilat (management per surgical services) - Peripheral arterial disease, abnormal lower extremity ultrasound October [address]osta[address] Acosta's note of 10-20-22: He discussed with the patient rec ommended peripheral angiogram and possible angioplasty. Patient had amputation of her toes done on 10/18/2022 He had planned to proceed with peripheral angiogram, after placing the patient on the cardiac catheterization table she became very anxious and started crying and requested to go home, did not want to lay down still. Her reports he was concerned that she will be unable to lay down still after the procedure to maintain hemostasis. Therefore, the procedure was canceled. Patient understood the risk of amputation further in her legs - During his hospitalization: She notes her allergies to iodinated contrast and to meds used to lower the risk of contrast allergy to be severe / life threatening. Under these circumstances, it appears that angiography cannot be safely performed. I had a long and detailed discussion with her regarding this issue. She understands and herself does not wish to take any risk of angiography. History of questionable paroxysmal atrial fibrillation (per pt report) - denies any cardiology f/u or treatment, details unknown - Echo done in February 2021 with moderately dilated left atrium, normal left ventricle, PA pressure 30 to 35 mmHg - 2D echo done on October 19, [address] Acosta: showing normal LV function with normal ejection fraction Hypertension Hyperlipidemia Tobaccoism, refraining since August 2022 History of noncompliance with with medications/treatment and f/u. - Multiple events of leaving the hospital AMA in the past Plan: Below-knee amputation scheduled on Monday with Dr. MARRERO. Newly dx PAF on tele of 11-13-22 - converted to SR - continue current regimen - OAC initiated with Eliquis for stroke prophylaxis - continue. May hold for 48 hours prior to surgery and resume JILL after surgery Complex management due to allergies as noted above. She notes her allergies to iodinated contrast and to meds used to lower the risk of contrast allergy to be severe / life threatening. Under these circumstances, it appears that angiography cannot be safely performed. I had a long and detailed discussion with her regarding this issue. She understands and herself does not wish to take any risk of angiography. Advised to continue to refrain from smoking Monitor lab and replace electrolytes as indicated Thank you for your consultation. Please call me if you have any questions. Chrystal Figueroa MD, FACP, FACC, FSCAI, FHRS, CCDS Interventional Cardiology Cardiac Electrophysiology Vascular Medicine and Endovascular Interventions Cecilia FIGUEROA MD Nov 20, 2022 17:04
[2022-11-20 19:55] VITALS: BP 87/47
[2022-11-20] MEDS: ALPRAZolam 0.25 MG TABLET PO PRN (22:03)
[2022-11-20] MEDS: MELATONIN 3 MG TABLET PO PRN (22:05)
[2022-11-20] MEDS: morphine INJ 4 MG/ML 1 ML (VIAL/SYRINGE) IVP PRN (23:19)
[2022-11-21] VITALS (14 sets, daily range): BP systolic 80–122; BP diastolic 43–73
[2022-11-21] MEDS: MEROPENEM 500 MG in NS (IVPB) 100 ML 100 ML IV SCH ×4 (00:07→22:39)
[2022-11-21 05:37] LABS: BASOPHILS % (AUTO) 1 % (0-10); EOSINOPHILS # (AUTO) 0.2 10^3/uL (0.0-0.3); EOSINOPHILS % (AUTO) 3 % (0-10); HEMATOCRIT 35 % (35-52); HEMOGLOBIN 11.4 g/dL (11.5-16.0); LYMPHOCYTES # (AUTO) 1.9 10^3/uL (1.0-4.0); LYMPHOCYTES % (AUTO) 31 % (12-44); MEAN CORPUSCULAR HEMOGLOBIN 30 pg (25-34); MEAN CORPUSCULAR HGB CONC 33 g/dL (32-36); MEAN CORPUSCULAR VOLUME 94 fL (80-99); MEAN PLATELET VOLUME 11.1 fL (9.0-12.2); MONOCYTES # (AUTO) 0.7 10^3/uL (0.0-1.0); MONOCYTES % (AUTO) 11 % (0-12); NEUTROPHILS # (AUTO) 3.3 10^3/uL (1.8-7.8); NEUTROPHILS % (AUTO) 54 % (42-75); PLATELET COUNT 327 10^3/uL (130-400); WHITE BLOOD COUNT 6.1 10^3/uL (4.3-11.0)
[2022-11-21 05:41] LABS: ALBUMIN 3.1 GM/DL (3.2-4.5); POTASSIUM 4.7 MMOL/L (3.6-5.0)
[2022-11-21 05:43] LABS: CALCIUM 9.5 MG/DL (8.5-10.1)
[2022-11-21] MEDS: KCL 20 MEQ TAB (K-DUR) PO SCH ×3 (05:43→21:00)
[2022-11-21 05:44] LABS: TOTAL PROTEIN 6.6 GM/DL (6.4-8.2)
[2022-11-21 05:46] LABS: BILIRUBIN,TOTAL 0.5 MG/DL (0.1-1.0)
[2022-11-21 05:47] LABS: CREATININE SERUM 0.71 MG/DL (0.60-1.30)
[2022-11-21 05:50] LABS: MAGNESIUM 2.2 MG/DL (1.6-2.4)
[2022-11-21] MEDS: HYDROcodone/APAP 7.5 MG/325 MG (LORTAB, LORCET PLUS) TABLET PO PRN ×2 (06:02→22:09)
[2022-11-21] MEDS: morphine INJ 4 MG/ML 1 ML (VIAL/SYRINGE) IVP PRN ×5 (06:02→21:57)
[2022-11-21] MEDS: SINEMET 25/100 (CARBIDOPA/LEVODOPA) TAB PO SCH ×3 (08:40→18:29)
[2022-11-21] MEDS: LOSARTAN 50 MG (COZAAR) TAB PO SCH (08:41)
[2022-11-21] MEDS: MICONAZOLE 2% POWDER (DESENEX AF) 90 GM TOP SCH ×2 (08:41→21:56)
[2022-11-21] MEDS: amLODIPine 10 MG TABLET PO SCH (08:41)
[2022-11-21] MEDS: polyethylene glycoL POWDER 17 GM (MIRALAX) PACK PO SCH ×2 (08:41→21:00)
[2022-11-21] MEDS ORDERED: LACTATED RINGERS 1,000 ML IV PRN (17:00)
--- NOTE | 2022-11-21 17:12 | Cardiology Progress Note ---
Cardiology SOAP Progress Note Subjective: Waiting for surgery. Objective: I&O/Vital Signs 11/21/22 11/21/22 11/21/22 07:45 08:00 11:40 Temp 36.2 36.2 Pulse 84 106 Resp 16 20 B/P (MAP) 92/61 (71) 122/73 (89) Pulse Ox 97 97 O2 Delivery Room Air Room Air Room Air 11/21/22 00:00 Intake Total 440 ml Output Total 875 ml Balance -435 ml Constitutional: other (intermittent confusion; awake, alert and oriented to self and place) Respiratory: No accessory muscle use, No respiratory distress; chest expansion is symmetric, chest is bilaterally symmetric, lungs clear to auscultation Cardiovascular: regular rate-rhythm; No JVD; S1 and S2 Gastrointestional: soft; No guarding; audible bowel sounds Extremities: no lower extremity edema bilateral Neurologic/Psychiatric: disoriented x 3, other (moves all extremities) Skin: ecchymosis (cellulitis of left leg), ulcerations (Patient has had big toes amputated bilaterally. ) Results/Procedures: Labs Laboratory Tests 11/21/22 05:08: White Blood Count 6.1, Red Blood Count 3.75L, Hemoglobin 11.4L, Hematocrit 35, Mean Corpuscular Volume 94, Mean Corpuscular Hemoglobin 30, Mean Corpuscular Hemoglobin Concent 33, Red Cell Distribution Width 15.1H, Platelet Count 327, Mean Platelet Volume 11.1, Immature Granulocyte % (Auto) 1, Neutrophils (%) (Auto) 54, Lymphocytes (%) (Auto) 31, Monocytes (%) (Auto) 11, Eosinophils (%) (Auto) 3, Basophils (%) (Auto) 1, Neutrophils # (Auto) 3.3, Lymphocytes # (Auto) 1.9, Monocytes # (Auto) 0.7, Eosinophils # (Auto) 0.2, Basophils # (Auto) 0.0, Immature Granulocyte # (Auto) 0.0, Sodium Level 137, Potassium Level 4.7, Chloride Level 103, Carbon Dioxide Level 26, Anion Gap 8, Blood Urea Nitrogen 12, Creatinine 0.71, Estimat Glomerular Filtration Rate 91, BUN/Creatinine Ratio 17, Glucose Level 99, Calcium Level 9.5, Corrected Calcium 10.2H, Magnesium Level 2.2, Total Bilirubin 0.5, Aspartate Amino Transf (AST/SGOT) 142H, Alanine Aminotransferase (ALT/SGPT) 14, Alkaline Phosphatase 328H, Total Protein 6.6, Albumin 3.1L Microbiology 11/14/22 MRSA Screen - Final, Complete MRSA not isolated 11/09/22 Blood Culture - Final, Complete No growth A/P: Assessment/Dx: PAF - first dx on tele of 11-13-22 - converted to SR with Cardizem gtt - continue oral - started on OAC with Eliquis on 11-13-22 Reported anaphylaxis to iodinated contrast and severe allergy to meds used to reduce risk of contrast allergy (per pt report) Gangrenous wounds to feet bilat (management per surgical services) - Peripheral arterial disease, abnormal lower extremity ultrasound October [address] Acosta's note of 10-20-22: He discussed with the patient recommended peripheral angiogram and possible angioplasty. Patient had am putation of her toes done on 10/18/2022 He had planned to proceed with peripheral angiogram, after placing the patient on the cardiac catheterization table she became very anxious and started crying and requested to go home, did not want to lay down still. Her reports he was concerned that she will be unable to lay down still after the procedure to maintain hemostasis. Therefore, the procedure was canceled. Patient understood the risk of amputation further in her legs - During his hospitalization: She notes her allergies to iodinated contrast and to meds used to lower the risk of contrast allergy to be severe / life threatening. Under these circumstances, it appears that angiography cannot be safely performed. I had a long and detailed discussion with her regarding this issue. She understands and herself does not wish to take any risk of angiography. History of questionable paroxysmal atrial fibrillation (per pt report) - denies any cardiology f/u or treatment, details unknown - Echo done in February 2021 with moderately dilated left atrium, normal left ventricle, PA pressure 30 to 35 mmHg - 2D echo done on October 19, [address] Acosta: showing normal LV function with normal ejection fraction Hypertension Hyperlipidemia Tobaccoism, refraining since August 2022 History of noncompliance with with medications/treatment and f/u. - Multiple events of leaving the hospital AMA in the past Plan: Below-knee amputation scheduled on today with Dr. MARRERO. Newly dx PAF on tele of 11-13-22 - converted to SR - continue current regimen - OAC initiated with Eliquis for stroke prophylaxis - continue. May hold for 48 hours prior to surgery and resume JILL after surgery Complex management due to allergies as noted above. She notes her allergies to iodinated contrast and to meds used to lower the risk of contrast allergy to be severe / life threatening. Under these circumstances, it appears that angiography cannot be safely performed. I had a long and detailed discussion with her regarding this issue. She understands and herself does not wish to take any risk of angiography. Advised to continue to refrain from smoking Monitor lab and replace electrolytes as indicated Thank you for your consultation. Please call me if you have any questions. Chrystal Figueroa MD, FACP, FACC, FSCAI, FHRS, CCDS Interventional Cardiology Cardiac Electrophysiology Vascular Medicine and Endovascular Interventions Cecilia FIGUEROA MD Nov 21, 2022 17:12
[2022-11-21] MEDS ORDERED: fentaNYL INJ 100 MCG/2 ML AMP ONE (18:52)
[2022-11-21] MEDS ORDERED: MIDAZOLAM 2 MG/2 ML (VERSED) VIAL ONE (18:53)
[2022-11-21] MEDS ORDERED: LIDOCAINE/EPI 1%-1:100,000 (XYLOCAINE) 20ML ONE (19:09)
[2022-11-21] MEDS ORDERED: LIDOCAINE/EPI 1%-1:100,000 (XYLOCAINE) 20ML INJ ONE (19:22)
--- NOTE | 2022-11-21 20:14 | Progress Note-Pre Operative ---
Pre-Operative Progress Note Date of Available H&P: Nov 21, 2022 Date H&P Reviewed: Nov 21, 2022 Time H&P Reviewed: 17:00 History & Physical: No changes noted Pre-Operative Diagnosis: left leg arterial insufficiency RUDY MARRERO MD Nov 21, 2022 20:14
--- NOTE | 2022-11-21 20:16 | Progress Note-Post Operative ---
Post-Operative Progess Note Surgeon (s)/Fabric Worker Fitter (s) Surgeon RUDY MARRERO MD Fabric Worker Fitter: karlos starr [employer] Pre-Operative Diagnosis left leg arterial insufficiency Post-Operative Diagnosis same Procedure & Operative Findings Date of Procedure 11/21/22 Procedure Performed/Findings left leg below the knee amputation. Anesthesia Type general LMA Estimated Blood Loss Estimated blood loss (mL): minimal Specimens/Packing Specimens Removed left leg below the knee RUDY MARRERO MD Nov 21, 2022 20:16
[2022-11-21] MEDS ORDERED: proPOfol 200 MG/20 ML (DIPRIVAN) VIAL IV ONE (20:26)
[2022-11-21] MEDS ORDERED: ONDANSETRON 4 MG/2 ML (SDV) Z0FRAN ONE (20:26)
[2022-11-21] MEDS ORDERED: PHENYLEPHRINE 100 MCG/ML 10 ML (ANESTHESIA) SYR ONE (20:31)
[2022-11-21] MEDS ORDERED: SEVOFLURANE (ULTANE) 15 ML INHAL SOLN ONE (20:39)
[2022-11-21] MEDS ORDERED: ONDANSETRON 4 MG/2 ML (SDV) Z0FRAN IVP PRN (21:15)
[2022-11-21] MEDS ORDERED: morphine INJ 10 MG/ML 1ML (SYR OR VIAL) IVP ONE (21:15)
--- NOTE | 2022-11-21 21:50 | Progress Note ---
Subjective Subjective/Events-last exam Pt seen at about 1000, was getting surgical bath at the time and very uncomfortable. She denied other concerns. Objective Exam Last Set of Vital Signs Vital Signs Date Time Temp Pulse Resp B/P (MAP) Pulse Ox O2 Delivery O2 Flow Rate FiO2 11/21/22 16:00 36.0 67 18 103/68 (80) 96 Room Air 11/16/22 11:10 0.00 Capillary Refill : Less Than 3 Seconds I&O Intake and Output 11/21/22 00:00 Intake Total 780 ml Output Total 1575 ml Balance -795 ml Intake Oral 580 ml IV Total 200 ml Output Urine Total 1575 ml General: Alert Lungs: Clear to Auscultation, Normal Air Movement Heart: Regular Rate Extremities: No Edema, Other (black ulcerated left foot, medial right foot with blackened wound) Neuro: Other (oriented to self and hospital) Psych/Mental Status: Other (Irritable) Results/Procedures Lab Laboratory Tests 11/21/22 05:08: White Blood Count 6.1, Red Blood Count 3.75L, Hemoglobin 11.4L, Hematocrit 35, Mean Corpuscular Volume 94, Mean Corpuscular Hemoglobin 30, Mean Corpuscular H emoglobin Concent 33, Red Cell Distribution Width 15.1H, Platelet Count 327, Mean Platelet Volume 11.1, Immature Granulocyte % (Auto) 1, Neutrophils (%) (Auto) 54, Lymphocytes (%) (Auto) 31, Monocytes (%) (Auto) 11, Eosinophils (%) (Auto) 3, Basophils (%) (Auto) 1, Neutrophils # (Auto) 3.3, Lymphocytes # (Auto) 1.9, Monocytes # (Auto) 0.7, Eosinophils # (Auto) 0.2, Basophils # (Auto) 0.0, Immature Granulocyte # (Auto) 0.0, Sodium Level 137, Potassium Level 4.7, Chloride Level 103, Carbon Dioxide Level 26, Anion Gap 8, Blood Urea Nitrogen 12, Creatinine 0.71, Estimat Glomerular Filtration Rate 91, BUN/Creatinine Ratio 17, Glucose Level 99, Calcium Level 9.5, Corrected Calcium 10.2H, Magnesium Level 2.2, Total Bilirubin 0.5, Aspartate Amino Transf (AST/SGOT) 142H, Alanine Aminotransferase (ALT/SGPT) 14, Alkaline Phosphatase 328H, Total Protein 6.6, Albumin 3.1L Microbiology 11/14/22 MRSA Screen - Final, Complete MRSA not isolated 11/09/22 Blood Culture - Final, Complete No growth Assessment/Plan Assessment/Plan (1) Gangrene of left foot Status: Acute Assessment & Plan: - General surgery consult Dr Sosa, appreciate recommendations, started on IV antibiotics on admit. Plan for amputation today. (2) PAD (peripheral artery disease) Status: Chronic Assessment & Plan: - Consult Cardiology Dr Mckeon (3) Intertriginous candidiasis Status: Acute Assessment & Plan: - Started on topical nystatin (4) HTN (hypertension) Status: Acute Assessment & Plan: - Restarted home HTN meds (5) Tobacco abuse Status: Chronic Assessment & Plan: - Discussed need for cessation, offered nicotine replacement (6) Paroxysmal atrial fibrillation Status: Acute Assessment & Plan: Appreciate Cardiology recommendations. MARIE GOODEN MD Nov 21, 2022 21:50
[2022-11-21] MEDS: ALPRAZolam 0.25 MG TABLET PO PRN (21:57)
[2022-11-21] MEDS: MELATONIN 3 MG TABLET PO PRN (22:10)
[2022-11-21] MEDS: NS IV 1000 ML 1,000 ML IV SCH (22:39)
--- NOTE | 2022-11-22 01:56 | OPERATIVE REPORT ---
DATE OF SERVICE: 11/19/2022 ATTENDING INSTRUMENTATION ENGINEERING TECHNICIAN: Shirley Samayoa APRN PREOPERATIVE DIAGNOSIS: Left lower extremity arterial insufficiency. POSTOPERATIVE DIAGNOSIS: Left lower extremity arterial insufficiency. PROCEDURE: Left leg [id number] amputation. SURGEON: Leticia Marrero MD CO FOUNDER AND PRESIDENT: tSevo De La Torre APRN ANESTHESIA: General laryngeal mask airway. ESTIMATED BLOOD LOSS: Minimal. FINDINGS: Tissue just below the knee appeared to be viable. DISPOSITION: The patient tolerated the procedure well. INDICATIONS: The patient is a 72-year-old female known to us. She presented to the Emergency Department due to the worsening wound of her left foot. The patient has a known history of severe peripheral vascular disease. However, she is extremely noncompliant. We will not proceed with the necessary evaluations and tests for proper evaluation and treatment. She underwent bilateral great toe transmetatarsal amputation due to necrotic toes; however, had had other necrotic toes of the left foot. She was scheduled for an aortogram with bilateral runoff and potential intervention with angioplasty and stent and was brought to the cardiac cath technician twice and did not proceed with the arteriogram. She was also scheduled for an MRI twice; however, would not proceed with that as well. Clinically, she has continued osteomyelitis, even during the previous transmetatarsal amputation. The transmetatarsal bone was very soft likely indicating more widespread osteomyelitis. Every time we asked the patient why she would not proceed with the appropriate test, she would make excuses and states that these were related to medications that would cause her to have episodes of altered mentation. She has been brought to the emergency room by her daughter due to the condition of her bilateral lower extremities. The patient again has not undergone a proper evaluation for lower extremity arterial studies; however, she already has a necrotic left foot with dry gangrene and at the very least, she will accept proceeding with a below-knee amputation, which we will proceed with; however, it was explained to the patient and the daughter that due to the unknown arterial circulation or collateralization, it is unknown if this will heal. They are in full understanding of this and would like us to proceed with the amputation. DESCRIPTION OF PROCEDURE: The patient was brought to the operating room, laid supine on the table. After adequate IV pain and sedative medications and general laryngeal mask airway intubation, the left lower extremity was prepped and draped in standard surgical fashion and a tourniquet was applied. The tourniquet was insufflated to 250 mmHg pressure and we proceeded for measurements for a posterior flap reconstruction after the amputation. Skin was scored using a 10 blade. We then proceeded with systematic dissection of the subcutaneous tissue, periosteum as well as each muscle layer. The tibioperoneal trunk was identified and clamped with Enma clamps and cut with Metzenbaum scissors. The proximal end was then tied with a 0 silk suture with visualization of good hemostasis. Once the soft tissue was dissected and our posterior flap was created with what appeared to be good perfusion, we used a periosteal elevator to clean off the periosteum along the tibia and fibula. The tibia and fibula were then cut using a bone saw. We then placed bone wax on the end of the tibia. Good hemostasis was observed. Our posterior flap consisted of what appeared to be well vascularized skin, subcutaneous tissue and fascia. We then proceeded to reapproximate the fascial layers using 2-0 Vicryl interrupted sutures. A second layer of subcutaneous tissue was then reapproximated with the same suture in an interrupted manner. Skin was closed using skin alondra. Wound was then cleaned and covered with a nonstick coating followed by sterile gauze, followed by Kerlix, followed by web wrap and Orthoglass along the posterior surface in an L-shape to prevent stricture. This was held in place by a 6-inch Sergio wrap. The patient tolerated the procedure well. We will start IV and oral pain medication as well as advance diet as tolerated. We will also again proceed with physical therapy and occupational therapy and evaluation for inpatient rehabilitation. Job ID: [id number] DocumentID: [id number] Dictated Date: 11/21/2022 20:28:44 Registered Nurse Step Down Date: 11/22/2022 01:54:00 Dictated By: LETICIA MARRERO MD MTDD
[2022-11-22 03:15] VITALS: BP 97/53
[2022-11-22] MEDS: MEROPENEM 500 MG in NS (IVPB) 100 ML 100 ML IV SCH ×4 (04:07→22:22)
[2022-11-22] MEDS: morphine INJ 4 MG/ML 1 ML (VIAL/SYRINGE) IVP PRN ×2 (05:05→08:44)
[2022-11-22] MEDS: HYDROcodone/APAP 7.5 MG/325 MG (LORTAB, LORCET PLUS) TABLET PO PRN ×2 (05:05→13:23)
[2022-11-22] MEDS: ALPRAZolam 0.25 MG TABLET PO PRN (05:41)
[2022-11-22 06:07] LABS: BASOPHILS # (AUTO) 0.1 10^3/uL (0.0-0.1); BASOPHILS % (AUTO) 1 % (0-10); EOSINOPHILS # (AUTO) 0.1 10^3/uL (0.0-0.3); EOSINOPHILS % (AUTO) 1 % (0-10); HEMATOCRIT 32 % (35-52); HEMOGLOBIN 10.4 g/dL (11.5-16.0); LYMPHOCYTES % (AUTO) 13 % (12-44); MEAN CORPUSCULAR HEMOGLOBIN 31 pg (25-34); MEAN CORPUSCULAR HGB CONC 32 g/dL (32-36); MEAN CORPUSCULAR VOLUME 94 fL (80-99); MONOCYTES # (AUTO) 0.6 10^3/uL (0.0-1.0); MONOCYTES % (AUTO) 8 % (0-12); NEUTROPHILS # (AUTO) 5.8 10^3/uL (1.8-7.8); NEUTROPHILS % (AUTO) 77 % (42-75); PLATELET COUNT 306 10^3/uL (130-400); WHITE BLOOD COUNT 7.5 10^3/uL (4.3-11.0)
[2022-11-22 06:25] LABS: ALBUMIN 2.9 GM/DL (3.2-4.5); POTASSIUM 4.7 MMOL/L (3.6-5.0)
[2022-11-22] MEDS: KCL 20 MEQ TAB (K-DUR) PO SCH ×3 (06:26→20:16)
[2022-11-22 06:28] LABS: TOTAL PROTEIN 6.3 GM/DL (6.4-8.2)
[2022-11-22 06:31] LABS: CREATININE SERUM 0.62 MG/DL (0.60-1.30)
[2022-11-22 06:34] LABS: MAGNESIUM 2.1 MG/DL (1.6-2.4)
[2022-11-22 06:50] LABS: BILIRUBIN,TOTAL 0.7 MG/DL (0.1-1.0)
[2022-11-22 07:07] VITALS: BP 125/72
--- NOTE | 2022-11-22 07:58 | Anesthesia-General Post-Op ---
General Patient Condition Mental Status/LOC: Same as Preop Cardiovascular: Satisfactory Nausea/Vomiting: Absent Respiratory: Satisfactory Pain: Controlled Complications: Absent Post Op Complications Complications None Follow Up Care/Instructions Patient Instructions None needed. Anesthesia/Patient Condition Patient Condition Patient is doing well, no complaints, stable vital signs, no apparent adverse anesthesia problems. No complications reported per nursing. D/C home per [facility] Criteria: MARC Witt CRNA Nov 22, 2022 07:58
[2022-11-22] MEDS: SINEMET 25/100 (CARBIDOPA/LEVODOPA) TAB PO SCH ×3 (08:44→18:39)
[2022-11-22] MEDS: polyethylene glycoL POWDER 17 GM (MIRALAX) PACK PO SCH ×2 (08:44→20:16)
[2022-11-22] MEDS: amLODIPine 10 MG TABLET PO SCH (08:45)
[2022-11-22] MEDS: LOSARTAN 50 MG (COZAAR) TAB PO SCH (08:45)
[2022-11-22] MEDS: NS IV 1000 ML 1,000 ML IV SCH ×2 (08:46→18:45)
[2022-11-22] MEDS: MICONAZOLE 2% POWDER (DESENEX AF) 90 GM TOP SCH ×2 (08:46→20:16)
--- NOTE | 2022-11-22 09:23 | Progress Note ---
Subjective Subjective/Events-last exam Sleeping deeply, awakens to voice. Says "tired" when asked how she is, and "fine" when asked how pain is doing. Objective Exam Last Set of Vital Signs Vital Signs Date Time Temp Pulse Resp B/P (MAP) Pulse Ox O2 Delivery O2 Flow Rate FiO2 11/22/22 07:07 35.9 81 19 125/72 (89) 95 Room Air 11/22/22 03:15 0.00 0.00 Capillary Refill : Less Than 3 Seconds I&O Intake and Output 11/22/22 00:00 Intake Total 300 ml Output Total 500 ml Balance -200 ml Intake Oral 0 ml IV Total 300 ml Output Urine Total 500 ml General: Other (drowsy) Lungs: Clear to Auscultation Heart: Regular Rate Abdomen: Normal Bowel Sounds, Soft Extremities: Other (left BKA wrapped, right great toe amputated with black base, no edema right leg) Results/Procedures Lab Laboratory Tests 11/22/22 05:32: White Blood Count 7.5, Red Blood Count 3.41L, Hemoglobin 10.4L, Hematocrit 32L, Mean Corpuscular Volume 94, Mean Corpuscular Hemoglobin 31, Mean Corpuscular Hemoglobin Concent 32, Red Cell Distribution Width 15.1H, Platelet Count 306, Mean Platelet Volume 11.0, Immature Granulocyte % (Auto) 0, Neutrophils (%) (Auto) 77H, Lymphocytes (%) (Auto) 13, Monocytes (%) (Auto) 8, Eosinophils (%) (Auto) 1, Basophils (%) (Auto) 1, Neutrophils # (Auto) 5.8, Lymphocytes # (Auto) 1.0, Monocytes # (Auto) 0.6, Eosinophils # (Auto) 0.1, Basophils # (Auto) 0.1, Immature Granulocyte # (Auto) 0.0, Sodium Level 137, Potassium Level 4.7, Chloride Level 104, Carbon Dioxide Level 24, Anion Gap 9, Blood Urea Nitrogen 14, Creatinine 0.62, Estimat Glomerular Filtration Rate 96, BUN/Creatinine Ratio 23, Glucose Level 116H, Calcium Level 9.0, Corrected Calcium 9.9, Magnesium Level 2.1, Total Bilirubin 0.7, Aspartate Amino Transf (AST/SGOT) 291H, Alanine Aminotransferase (ALT/SGPT) 85H, Alkaline Phosphatase 473H, Total Protein 6.3L, Albumin 2.9L 7/18/23 08:05: Microbiology 11/14/22 MRSA Screen - Final, Complete MRSA not isolated 11/09/22 Blood Culture - Final, Complete No growth Assessment/Plan Assessment/Plan (1) Gangrene of left foot Status: Acute Assessment & Plan: - General surgery consult Dr Sosa, appreciate recommendat ions, started on IV antibiotics on admit. s/p BKA (2) PAD (peripheral artery disease) Status: Chronic Assessment & Plan: - Consult Cardiology Dr Mckeon (3) Intertriginous candidiasis Status: Acute Assessment & Plan: - Started on topical nystatin (4) HTN (hypertension) Status: Acute Assessment & Plan: - Restarted home HTN meds (5) Tobacco abuse Status: Chronic Assessment & Plan: - Discussed need for cessation, offered nicotine replacement (6) Paroxysmal atrial fibrillation Status: Acute Assessment & Plan: Appreciate Cardiology recommendations. MARIE GOODEN MD Nov 22, 2022 09:23
--- NOTE | 2022-11-22 09:57 | Diagnostic Imaging Report ---
PROCEDURE: US Hepatic (Liver). TECHNIQUE: Multiple Real-time grayscale images were obtained over the right upper quadrant in various projections. INDICATION: Elevated LFTs. COMPARISON: None. FINDINGS: The liver is enlarged and measures 22 cm in length. Areas of geographic hyperechogenicity are also noted. No focal hepatic mass is seen. Portal vein shows hepatopetal flow. Common bile duct measures 7 mm which is within normal limits for the patient's age. Gallbladder is surgically absent. Pancreas is hyperechoic, suggestive of fatty replacement, but visualized portions of pancreatic head and proximal body are otherwise unremarkable. Proximal aorta shows borderline aneurysmal dilatation. It measures 2.6 x 3.1 cm. Visualized portions of the IVC are unremarkable. Performing transmitter engineer in charge reports an uncooperative patient during the exam. Patient refused completion of the remainder of the exam. Right kidney is not visualized. Visualized portions of the abdomen show no ascites. IMPRESSION: 1. Hepatomegaly with hepatic steatosis. 2. Borderline aneurysmal dilatation of the abdominal aorta. Correlation with CTA of the abdomen and pelvis is advised. Dictated by: Dictated on workstation # [id number]
[2022-11-22] MEDS: LORazepam INJ 2 MG/ML (ATIVAN) VIAL IVP PRN (10:21)
--- NOTE | 2022-11-22 10:48 | Diagnostic Imaging Report ---
HISTORY: PICC placement TECHNIQUE: Frontal view of the chest COMPARISON: 10/14/2022 FINDINGS: The tip of the right PICC line is difficult to see, but does project over the SVC, and appears to be at the mid SVC. Lung volumes are low. There is right basilar airspace opacity, likely atelectasis. There is no pleural effusion or pneumothorax. The cardiac silhouette is normal in size. IMPRESSION: 1. The right PICC line projects over the SVC. 2. Right basilar airspace opacity, likely atelectasis. Dictated by: Dictated on workstation # [id number]
[2022-11-22 11:43] VITALS: BP 114/72
[2022-11-22] MEDS ORDERED: ALTEPLASE 2 MG VIAL (CATHFLO) IV NR (12:30)
--- NOTE | 2022-11-22 14:24 | Progress Note ---
Subjective Date Seen by a Provider: Nov 22, 2022 Time Seen by a Provider: 14:00 Subjective/Events-last exam doing ok. pain controlled. cognition seems to be in and out. stump dressing dressed/dry. Objective Exam Vital Signs Date Time Temp Pulse Resp B/P (MAP) Pulse Ox O2 Delivery O2 Flow Rate FiO2 11/22/22 11:43 35.7 77 17 114/72 (86) 96 Room Air 11/22/22 08:00 Room Air 11/22/22 07:07 35.9 81 19 125/72 (89) 95 Room Air 11/22/22 03:15 36.0 70 20 97/53 (68) 96 Room Air 0.00 0.00 11/21/22 23:19 36.0 75 20 92/61 (71) 96 Room Air 0.00 0.00 11/21/22 21:50 36.2 83 20 101/71 (81) 94 Room Air 11/21/22 21:50 36.4 18 112/65 (81) 94 Room Air 11/21/22 21:50 Room Air 11/21/22 21:50 Room Air 11/21/22 21:40 Room Air 11/21/22 21:40 18 109/64 (79) 93 Room Air 11/21/22 21:30 18 114/61 (78) 96 OxyMask 2.00 11/21/22 21:30 OxyMask 2.00 11/21/22 21:20 18 107/59 (75) 99 OxyMask 4.00 11/21/22 21:20 OxyMask 4.00 11/21/22 21:10 OxyMask 6.00 11/21/22 21:10 18 96/49 (65) 99 OxyMask 6.00 11/21/22 21:10 18 96/49 (65) 99 OxyMask 6.00 11/21/22 21:02 OxyMask 6.00 11/21/22 21:00 18 104/43 (63) 100 OxyMask 6.00 11/21/22 21:00 OxyMask 6.00 11/21/22 20:54 18 110/59 (76) 100 OxyMask 6.00 11/21/22 20:49 OxyMask 6.00 11/21/22 20:49 36.2 18 80/44 (56) 100 OxyMask 6.00 11/21/22 16:00 36.0 67 18 103/68 (80) 96 Room Air I & O 11/22/22 07:00 Intake Total 400 ml Output Total 425 ml Balance -25 ml Capillary Refill : Less Than 3 Seconds General Appearance: No Apparent Distress HEENT: PERRL/EOMI Neck: Full Range of Motion Respiratory: Chest Non Tender, Rhonci, Wheezing Cardiovascular: Regular Rate, Rhythm Gastrointestinal: normal bowel sounds, non tender, soft Extremity: Slow Capillary Refill, Other (stump dressed dry) Neurologic/Psychiatric: Alert Skin: Normal Color Lymphatic: No Adenopathy Results Lab Laboratory Tests 11/22/22 05:32: White Blood Count 7.5, Red Blood Count 3.41L, Hemoglobin 10.4L, Hematocrit 32L, Mean Corpuscular Volume 94, Mean Corpuscular Hemoglobin 31, Mean Corpuscular Hemoglobin Concent 32, Red Cell Distribution Width 15.1H, Platelet Count 306, Mean Platelet Volume 11.0, Immature Granulocyte % (Auto) 0, Neutrophils (%) (Aut o) 77H, Lymphocytes (%) (Auto) 13, Monocytes (%) (Auto) 8, Eosinophils (%) (Auto) 1, Basophils (%) (Auto) 1, Neutrophils # (Auto) 5.8, Lymphocytes # (Auto) 1.0, Monocytes # (Auto) 0.6, Eosinophils # (Auto) 0.1, Basophils # (Auto) 0.1, Immature Granulocyte # (Auto) 0.0, Sodium Level 137, Potassium Level 4.7, Chloride Level 104, Carbon Dioxide Level 24, Anion Gap 9, Blood Urea Nitrogen 14, Creatinine 0.62, Estimat Glomerular Filtration Rate 96, BUN/Creatinine Ratio 23, Glucose Level 116H, Calcium Level 9.0, Corrected Calcium 9.9, Magnesium Level 2.1, Total Bilirubin 0.7, Aspartate Amino Transf (AST/SGOT) 291H, Alanine Aminotransferase (ALT/SGPT) 85H, Alkaline Phosphatase 473H, Total Protein 6.3L, Albumin 2.9L 11/22/22 08:05: Microbiology 11/14/22 MRSA Screen - Final, Complete MRSA not isolated 11/09/22 Blood Culture - Final, Complete No growth Assessment/Plan Assessment/Plan Assess & Plan/Chief Complaint PAD with bilateral foot necrosis s/p left BKA/ unwilling to do much workup. does have continued underlying osteomyelitis bilat feet. scheduled MRI bilateral feet but once again refused. did take plavix on 11/16. will not reverse due to the new onset a-fib and just hold. will plan for BKA on monday(11/21). after which she will need 2 days in-patient recovery then ARU. ARU evaluate. RUDY MARRERO MD Nov 22, 2022 14:24
[2022-11-22 15:43] VITALS: BP 128/71
[2022-11-22 19:29] VITALS: BP 109/65
[2022-11-22 21:50] LABS: HEPATITIS C ANTIBODY C Non-Reactive (Non-Reactive)
[2022-11-22 23:10] VITALS: BP 113/69
[2022-11-23] MEDS: ONDANSETRON 4 MG (ZOFRAN) ORAL DISSOLVE TAB PO PRN (00:29)
[2022-11-23 03:32] VITALS: BP 109/68
[2022-11-23] MEDS: NS IV 1000 ML 1,000 ML IV SCH ×2 (03:38→14:50)
[2022-11-23] MEDS: MEROPENEM 500 MG in NS (IVPB) 100 ML 100 ML IV SCH ×4 (04:38→21:56)
[2022-11-23 05:21] LABS: BASOPHILS % (AUTO) 0 % (0-10); EOSINOPHILS # (AUTO) 0.2 10^3/uL (0.0-0.3); EOSINOPHILS % (AUTO) 2 % (0-10); HEMATOCRIT 31 % (35-52); LYMPHOCYTES # (AUTO) 0.8 10^3/uL (1.0-4.0); LYMPHOCYTES % (AUTO) 9 % (12-44); MEAN CORPUSCULAR HEMOGLOBIN 31 pg (25-34); MEAN CORPUSCULAR HGB CONC 32 g/dL (32-36); MEAN CORPUSCULAR VOLUME 95 fL (80-99); MEAN PLATELET VOLUME 10.7 fL (9.0-12.2); MONOCYTES # (AUTO) 0.8 10^3/uL (0.0-1.0); MONOCYTES % (AUTO) 8 % (0-12); NEUTROPHILS # (AUTO) 7.3 10^3/uL (1.8-7.8); NEUTROPHILS % (AUTO) 80 % (42-75); PLATELET COUNT 286 10^3/uL (130-400); WHITE BLOOD COUNT 9.1 10^3/uL (4.3-11.0)
[2022-11-23 05:31] LABS: ALBUMIN 2.8 GM/DL (3.2-4.5); POTASSIUM 4.6 MMOL/L (3.6-5.0)
[2022-11-23 05:33] LABS: CALCIUM 8.8 MG/DL (8.5-10.1)
[2022-11-23 05:36] LABS: BILIRUBIN,TOTAL 0.5 MG/DL (0.1-1.0)
[2022-11-23 05:37] LABS: CREATININE SERUM 0.58 MG/DL (0.60-1.30)
[2022-11-23 05:40] LABS: MAGNESIUM 1.8 MG/DL (1.6-2.4)
[2022-11-23 07:19] VITALS: BP 119/56
[2022-11-23] MEDS: KCL 20 MEQ TAB (K-DUR) PO SCH ×3 (07:47→21:02)
[2022-11-23] MEDS: HYDROcodone/APAP 7.5 MG/325 MG (LORTAB, LORCET PLUS) TABLET PO PRN ×2 (08:34→14:25)
[2022-11-23] MEDS: polyethylene glycoL POWDER 17 GM (MIRALAX) PACK PO SCH ×2 (08:36→21:02)
[2022-11-23] MEDS: CLOPIDOGREL 75 MG TABLET PO SCH (08:36)
[2022-11-23] MEDS: amLODIPine 10 MG TABLET PO SCH (08:36)
[2022-11-23] MEDS: LOSARTAN 50 MG (COZAAR) TAB PO SCH (08:36)
[2022-11-23] MEDS: SINEMET 25/100 (CARBIDOPA/LEVODOPA) TAB PO SCH ×3 (08:36→17:36)
[2022-11-23] MEDS: MICONAZOLE 2% POWDER (DESENEX AF) 90 GM TOP SCH ×2 (08:43→21:02)
[2022-11-23 11:50] VITALS: BP 115/57
--- NOTE | 2022-11-23 13:31 | Occupational Therapy Eval ---
OT Evaluation-General/PLF Medical Diagnosis Admission Date Nov 09, 2022 at 17:55 Medical Diagnosis: Gangrene of Left Foot and toes with mild cellulitis of left leg Onset Date: Nov 09, 2022 Therapy Diagnosis Therapy Diagnosis: weakness, confusion Precautions Precautions/Isolations: Fall Prevention, Standard Precautions Safety Interventions: Bed Exit Alarm (chair) Weight Bear Status Weight Bearing Restriction: Weight Bearing/Tolerated Location Restriction: R LE (great toe amputation) LBKA Referral Referral Reason: Activity Tolerance, Self Care, Evaluation/Treatment, Strengthening/ROM Medical History Pertinent Medical History: HTN Social History Home: Multilevel Current Living Status: Children Entry Into Home: Ramp (poor condition. falling apart) ADL-Prior Level of Function SCALE: Activities may be completed with or without assistive devices. 4-Jghbrffmfr-zplkgkg completes the activity by him/herself with no assistance from a helper. 5-Set-up or Clean-up Assistance-helper sets up or cleans up; patient completes activity. Dickens assists only prior to or following the activity. 4-Supervision or Touching Assistance-helper provides verbal cues and/or touching/steadying and/or contact guard assistance as patient completes activity. Assistance may be provided throughout the activity or intermittently. 3-Partial/Moderate Assistance-helper does LESS THAN HALF the effort. Dickens lifts, holds or supports trunk or limbs, but provides less than half the effort. 2-Substantial/Maximal Assistance-helper does MORE THAN HALF the effort. Dickens lifts or holds trunk or limbs and provides more than half the effort. 1-Jeqlrodof-ykeixv does ALL the effort. Patient does none of the effort to complete the activity. Or, the assistance of 2 or more helpers is required for the patient to complete the activity. If activity was not attempted, code reason: 7-Patient Refused. 9-Not Applicable-not attempted and the patient did not perform the activity before the current illness, exacerbation or injury. 10-Not Attempted due to Environmental Limitations-(lack of equipment, weather restraints, etc.). 88-Not Attempted due to Medical Conditions or Safety Concerns. Self Care: Needed Some Help Functional Cognition: Needed Some Help Drive Self: No OT Current Status Subjective Hallucinating that she is at home and then again that she is in a parking lot at the [employer]. Patient believes there are pictures on the wall and on a table behind therapist. Patient daughter is at bedside and patient refers to her daughter as her mother. Pain Comment: Patient makes multiple attemps to remove KESHAV wrap/thinks wires are in leg Mental Status/Objective Patient Orientation: Person, Confused Attachments: Rueda Catheter, IV Current Upper Extremity ROM Limited d/t inability to follow commands. Upper Extremity Coordination impaired Upper Extremity Sensation unable tot fully access d/t confusion Upper Extremity Strength 3/5 ADL-Treatment Eating (QC): 7 (refused to eat or drink) Oral Hygiene (QC): 2 Shower/Bathe Self (QC): 88 Upper Body Dressing (QC): 2 Lower Body Dressing (QC): 1 On/Off Footwear (QC): 1 Toileting Hygiene (QC): 1 Education OT Patient Education: Correct positioning, Instructions to caregiver, Modified ADL techniques, Progress toward Goal/Update tx plan, Purpose of tx/functional activities, Reviewed precautions, Rehab process, Safety issues, Transfer techniques, Use of adapted equipment Teaching Recipient: Patient, Family Response to Teaching: Unable to Return Demonstration, Unable to Comprehend, Reinforcement Needed OT Fpc Goals Fpc Goals Time Frame: Nov 28, 2022 Eating (QC): 6 Oral Hygiene (QC): 5 Upper Body Dressing (QC): 5 1=Demonstrate adherence to instructed precautions during ADL tasks. 2=Patient will verbalize/demonstrate understanding of assistive devices/modifications for ADL. 3=Patient will improve strength/tolerance for activity to enable patient to perform ADL's. OT Education/Plan Problem List/Assessment Assessment: Decreased Activ Tolerance, Decreased Safety Aware, Decreased UE Strength, Dependent Transfers, Impaired Bed Mobility, Impaired Cognition, Impaired Coordination, Impaired Funct Balance, Impaired Self-Care Skills, Restricted Funct UE ROM Discharge Recommendations Plan/Recommendations: Continue POC Therapy Discharge Recommendati: Post Acute OT Treatment Plan/Plan of Care Treatment,Training & Education: Yes Patient would benefit from OT for education, treatment and training to promote independence in ADL's, mobility, safety and/or upper extremity function for ADL's. Plan of Care: ADL Retraining, Caregiver Training, Cognitive Retraining, Concurrent Therapy, Functional Mobility, Group Exercise/Act as Ind, UE Funct Exercise/Act, UE Neuromus Re-Ed/Coord Treatment Duration: Dec 02, 2022 Frequency: 3 times per week (3-5 times per week) Agreement: Yes Rehab Potential: Guarded Time Start Time: 13:00 Stop Time: 13:20 DATE: Nov 23, 2022 Total Time Billed (hr/min): 20 Billed Treatment Time EVM 20 min JEANNIE KUMAR OT Nov 23, 2022 13:31
--- NOTE | 2022-11-23 13:34 | Physical Therapy Evaluation ---
PT Evaluation-General Medical Diagnosis Admission Date Nov 09, 2022 at 17:55 Medical Diagnosis: Gangrene of left foot, left BKA, right Great toe amp. Onset Date: Nov 09, 2022 Therapy Diagnosis Therapy Diagnosis: Gait deficit, strength deficit Precautions Precautions/Isolations: Fall Prevention, Standard Precautions Weight Bear Status Right Lower Extremity: Right Weight Bearing/Tolerated Left Lower Extremity: Left Non Weight Bearing Referral Physician: Dr. Sosa Reason for Referral: Evaluation/Treatment Medical History Pertinent Medical History: HTN Reviewed History: Yes Social History Home: [facility] Current Living Status: Other Family Entry Into Home: Ramp Daughter reports that there is a ramp outside the home, however it needs to be replaced as it is unsafe. Prior Prior Level of Function SCALE: Activities may be completed with or without assistive devices. 5-Wvkpphxfrf-ohtucsi completes the activity by him/herself with no assistance from a helper. 5-Set-up or Clean-up Assistance-helper sets up or cleans up; patient completes activity. [place] assists only prior to or following the activity. 4-Supervision or Touching Assistance-helper provides verbal cues and/or touching/steadying and/or contact guard assistance as patient completes activity. Assistance may be provided throughout the activity or intermittently. 3-Partial/Moderate Assistance-helper does LESS THAN HALF the effort. [place] lifts, holds or supports trunk or limbs, but provides less than half the effort. 2-Substantial/Maximal Assistance-helper does MORE THAN HALF the effort. [place] lifts or holds trunk or limbs and provides more than half the effort. 9-Eusbkpvkr-cvlrtd does ALL the effort. Patient does none of the effort to com plete the activity. Or, the assistance of 2 or more helpers is required for the patient to complete the activity. If activity was not attempted, code reason: 7-Patient Refused. 9-Not Applicable-not attempted and the patient did not perform the activity before the current illness, exacerbation or injury. 10-Not Attempted due to Environmental Limitations-(lack of equipment, weather restraints, etc.). 88-Not Attempted due to Medical Conditions or Safety Concerns. Bed Mobility: 6 Transfers (B,C,W/C): 6 Gait: 6 Indoor Mobility (Ambulation): Independent Stairs: Unknown Prior Device Use: Cane PT Evaluation-Current Subjective Patient sitting up in bed with daughter in room upon PT/OT arrival, daughter agreeable to treatment. Patient very confused and unable to answer. Reports no pain at this time, however with most every movement of the left residual limb calls out in pain. Objective Patient Orientation: Person Attachments: Rueda Catheter, IV ROM/Strength ROM Lower Extremities Right knee and Hip WFLS. Right foot/ankle limited however unable to accurately assess as patient is unable to follow commands. Left LE limited all planes due to recent left BKA. Strength Lower Extremities Right LE 3-/5 all planes via visual observation; Left hip 3-/5 all planes via visual observation. Sensory Vision: Functional Hearing: Impaired Sensation Right Lower Extremit: Impaired Sensation Left Lower Extremity: Impaired Transfers Roll Left to Right (QC): 2 Sit to Lying (QC): 1 Lying to Sitting/Side of Bed(Q: 1 Sit to Stand (QC): 1 Chair/Kiw-ub-Kgbhk Xfer(QC): 1 Gait Does the Patient Walk?: No and Walking Goal IS indicated Mode of Locomotion: Wheelchair Anticipated Mode of Locomotion: Wheelchair Gait Assistive Device: FWW Comments/Gait Description Attempted sit to stand x 2 with FWW and PT/OT with total A. Patient unable to maintain standing on right LE. Balance Sitting Static: Fair Sitting Dynamic: Poor Standing Static: Poor Standing Dynamic: Poor Assessment/Needs Patient very confused and difficulty following commands. Impulsive at times and attempts getting out of bed with right LE multiple times, however pain in Left Residual limb limits overall movement. Patient becomes very emotional when discussing standing and states "I'll just sit here and cry." Patient requires max to total A x 2 for all bed mobility and transfers. Attempted sit to stand x 2 with FWW and PT/OT with total A. Patient unable to maintain standing on right LE. Patient performs SPT to the chair with PT with total A. Patient in chair post treatment with all needs met, nurse notified, call light in hand, chair alarm in place and activated, daughter in the room. Treatment performed with OT in the room the entire time. Rehab Potential: Poor Equipment Needs Ramp, FWW PT Fpc Goals Fpc Goals PT Fpc Goals Time Frame: Dec 10, 2022 Roll Left & Right (QC): 3 Sit to Lying (QC): 3 Lying-Sitting on Side/Bed(QC): 3 Sit to Stand (QC): 3 Chair/Vbf-yb-Uesbb Xfer(QC): 3 Toilet Transfer (QC): 3 Does the Patient Walk: No and Walking Goal IS indicated Walk 10 feet (QC): 2 Does the Pt use WC or Scooter?: Yes Wheel 50 feet with 2 turns (QC: 3 Type: Manual Wheel 150 feet: 3 Type: Manual PT Plan Problem List Problem List: Activity Tolerance, Functional Strength, Safety, Balance, Gait, Transfer, Bed Mobility, ROM Treatment/Plan Treatment Plan: Continue Plan of Care Treatment Plan: Bed Mobility, Education, Functional Activity Braulio, Functional Strength, Group Therapy, Gait, Safety, Therapeutic Exercise, Transfers Treatment Duration: Jan 05, 2023 Frequency: 6 times per week Estimated Hrs Per Day: .25 hour per day Patient and/or Family Agrees t: Yes Safety Risks/Education Patient Education: Transfer Techniques Teaching Recipient: Patient, Family Teaching Methods: Demonstration, Discussion Response to Teaching: Reinforcement Needed Discharge Recommendations Barriers to Progress Cognition, impulsive, inability to follow commands. Time Time In: 1300 Time Out: 1323 DATE: Nov 23, 2022 Total Billed Treatment Time: 23 Total Billed Treatment Visit, BRENT HOFFMAN JOHN A PT Nov 23, 2022 13:34
[2022-11-23] MEDS: LORazepam INJ 2 MG/ML (ATIVAN) VIAL IVP PRN (16:16)
[2022-11-23 16:28] VITALS: BP 108/67
--- NOTE | 2022-11-23 16:56 | Cardiology Progress Note ---
Cardiology SOAP Progress Note Subjective: S/p left BKA Objective: I&O/Vital Signs 11/23/22 11/23/22 11/23/22 11/23/22 07:19 08:00 11:50 16:28 Temp 35.8 36.0 36.5 Pulse 60 59 64 Resp 17 18 20 B/P (MAP) 119/56 (77) 115/57 (76) 108/67 (81) Pulse Ox 91 92 92 O2 Delivery Room Air Room Air Room Air Room Air 11/23/22 00:00 Intake Total 200 ml Output Total 1600 ml Balance -1400 ml Constitutional: other (intermittent confusion; awake, alert and oriented to self and place) Respiratory: No accessory muscle use, No respiratory distress; chest expansion is symmetric, chest is bilaterally symmetric, lungs clear to auscultation Cardiovascular: regular rate-rhythm; No JVD; S1 and S2 Gastrointestional: soft; No guarding; audible bowel sounds Extremities: other (Left BKA) Neurologic/Psychiatric: disoriented x 3, other (moves all extremities) Skin: ecchymosis (cellulitis of left leg), ulcerations (Left BKA) Results/Procedures: Labs Laboratory Tests 11/23/22 05:15: White Blood Count 9.1, Red Blood Count 3.27L, Hemoglobin 10.0L, Hematocrit 31L, Mean Corpuscular Volume 95, Mean Corpuscular Hemoglobin 31, Mean Corpuscular Hemoglobin Concent 32, Red Cell Distribution Width 15.3H, Platelet Count 286, Mean Platelet Volume 10.7, Immature Granulocyte % (Auto) 1, Neutrophils (%) (Auto) 80H, Lymphocytes (%) (Auto) 9L, Monocytes (%) (Auto) 8, Eosinophils (%) (Auto) 2, Basophils (%) (Auto) 0, Neutrophils # (Auto) 7.3, Lymphocytes # (Auto) 0.8L, Monocytes # (Auto) 0.8, Eosinophils # (Auto) 0.2, Basophils # (Auto) 0.0, Immature Granulocyte # (Auto) 0.1, Sodium Level 139, Potassium Level 4.6, Chloride Level 105, Carbon Dioxide Level 25, Anion Gap 9, Blood Urea Nitrogen 8, Creatinine 0.58L, Estimat Glomerular Filtration Rate 97, BUN/Creatinine Ratio 14, Glucose Level 100, Calcium Level 8.8, Corrected Calcium 9.8, Magnesium Level 1.8, Total Bilirubin 0.5, Aspartate Amino Transf (AST/SGOT) 97H, Alanine Aminotransferase (ALT/SGPT) 14, Alkaline Phosphatase 394H, Total Protein 6.0L, Albumin 2.8L Microbiology 11/14/22 MRSA Screen - Final, Complete MRSA not isolated 11/09/22 Blood Culture - Final, Complete No growth A/P: Assessment/Dx: PAF - first dx on tele of 11-13-22 - converted to SR with Cardizem gtt - continue oral - started on OAC with Eliquis on 11-13-22 Reported anaphylaxis to iodinated contrast and severe allergy to meds used to reduce risk of contrast allergy (per pt report) Gangrenous wounds to feet bilat (management per surgical services) - Peripheral arterial disease, abnormal lower extremity ultrasound October [address] Acosta's note of 10-20-22: He discussed with the patient recommended peripheral angiogram and possible angioplasty. Patient had amputation of her toes done on 10/18/2022 He had planned to proceed with peripheral angiogram, after placing the patient on the cardiac catheterization table she became very anxious and started crying and requested to go home, did not want to lay down still. Her reports he was concerned that she will be unable to lay down still after the procedure to maintain hemostasis. Therefore, the procedure was canceled. Patient understood the risk of amputation further in her legs - During his hospitalization: She notes her allergies to iodinated contrast and to meds used to lower the risk of contrast allergy to be severe / life threatening. Under these circumstances, it appears that angiography cannot be safely performed. I had a long and detailed discussion with her regarding this issue. She understands and herself does not wish to take any risk of angiography. History of questionable paroxysmal atrial fibrillation (per pt report) - denies any cardiology f/u or treatment, details unknown - Echo done in February 2021 with moderately dilated left atrium, normal left ventricle, PA pressure 30 to 35 mmHg - 2D echo done on October 19, [address] Acosta: showing normal LV function with normal ejection fraction Hypertension Hyperlipidemia Tobaccoism, refraining since August 2022 History of noncompliance with with medications/treatment and f/u. - Multiple events of leaving the hospital AMA in the past Plan: Below-knee amputation done on 11/21/2022 Newly dx PAF on tele of 11-13-22 - converted to SR - continue current regimen - OAC initiated with Eliquis for stroke prophylaxis - continue. May hold for 48 hours prior to surgery and resume JILL after surgery Cardiology will sign off. Thank you for your consultation. Please call me if you have any questions. Chrystal Figueroa MD, FACP, FACC, FSCAI, FHRS, CCDS Interventional Cardiology Cardiac Electrophysiology Vascular Medicine and Endovascular Interventions Cecilia FIGUEROA MD Nov 23, 2022 16:56
[2022-11-23] MEDS ORDERED: HYPOCHLOROUS ACID/NaCl (VASHE) 250 ML IR PRN (17:45)
[2022-11-23 20:04] VITALS: BP 115/68
--- NOTE | 2022-11-23 21:30 | Progress Note ---
Subjective Subjective/Events-last exam Pt seen at 1240. Daughter at bedside helping feed her lunch. Patient is somewhat irritable. When asked who was visiting her (her daughter at bedside), she first stated no one, then "just someone I'm shacking up with". She frequently changes topic and is unable to answer questions clearly, often talking about unrelated subjects. She is oriented to self only. Objective Exam Last Set of Vital Signs Vital Signs Date Time Temp Pulse Resp B/P (MAP) Pulse Ox O2 Delivery O2 Flow Rate FiO2 11/23/22 20:04 36.8 88 18 115/68 (84) 98 Room Air 11/23/22 03:32 0.00 0.00 Capillary Refill : Less Than 3 Seconds I&O Intake and Output 11/23/22 00:00 Intake Total 500 ml Output Total 1750 ml Balance -1250 ml Intake Oral 400 ml IV Total 100 ml Output Urine Total 1750 ml General: Alert, No Acute Distress Lungs: Clear to Auscultation, Normal Air Movement Heart: Regular Rate Neuro: Other (oriented only to self, tangential, reporting visual hallucinations) Results/Procedures Lab Laboratory Tests 11/23/22 05:15: White Blood Count 9.1, Red Blood Count 3.27L, Hemoglobin 10.0L, Hematocrit 31L, Mean Corpuscular Volume 95, Mean Corpuscular Hemoglobin 31, Mean Corpuscular Hemoglobin Concent 32, Red Cell Distribution Width 15.3H, Platelet Count 286, Mean Platelet Volume 10.7, Immature Granulocyte % (Auto) 1, Neutrophils (%) (Auto) 80H, Lymphocytes (%) (Auto) 9L, Monocytes (%) (Auto) 8, Eosinophils (%) (Auto) 2, Basophils (%) (Auto) 0, Neutrophils # (Auto) 7.3, Lymphocytes # (Auto) 0.8L, Monocytes # (Auto) 0.8, Eosinophils # (Auto) 0.2, Basophils # (Auto) 0.0, Immature Granulocyte # (Auto) 0.1, Sodium Level 139, Potassium Level 4.6, Chloride Level 105, Carbon Dioxide Level 25, Anion Gap 9, Blood Urea Nitrogen 8, Creatinine 0.58L, Estimat Glomerular Filtration Rate 97, BUN/Creatinine Ratio 14, Glucose Level 100, Calcium Level 8.8, Corrected Calcium 9.8, Magnesium Level 1.8, Total Bilirubin 0.5, Aspartate Amino Transf (AST/SGOT) 97H, Alanine Aminotransferase (ALT/SGPT) 14, Alkaline Phosphatase 394H, Total Protein 6.0L, Albumin 2.8L Microbiology 11/14/22 MRSA Screen - Final, Complete MRSA not isolated 11/09/22 Blood Culture - Final, Complete No growth Assessment/Plan Assessment/Plan (1) Gangrene of left foot Status: Acute Assessment & Plan: - General surgery consult Dr Sosa, appreciate recommendations, started on IV antibiotics on admit. s/p BKA (2) PAD (peripheral artery disease) Status: Chronic Assessment & Plan: - Consulted Cardiology - Known markedly abnormal left ANNELISE, had planned for peripheral angiogram on prior admit, but became anxious and declined and was unable to lie flat. Was again going to have angiogram this stay, but then reported severe anaphylactic reaction to iodine and angiogram therefore not done. (3) Intertriginous candidiasis Status: Acute Assessment & Plan: - Started on topical nystatin (4) HTN (hypertension) Status: Acute Assessment & Plan: - Restarted home HTN meds (5) Tobacco abuse Status: Chronic Assessment & Plan: - Discussed need for cessation, offered nicotine replacement (6) Paroxysmal atrial fibrillation Status: Acute Assessment & Plan: Appreciate Cardiology recommendations. Edson held for surgery. (7) Parkinson disease (8) Hereditary hemochromatosis (9) Non-healing wound of right lower extremity Assessment & Plan: Wound nurse eval for recommendations. (10) Aorta disorder Status: Acute Assessment & Plan: Possible anuerysmal dilation noted on liver ultrasound, cannot tolerate dye, will check aorta doppler (11) Delirium Status: Acute Assessment & Plan: Minimize lines, reorient as needed. (12) Dementia Status: Chronic Assessment & Plan: Per discussion with savanahfaustina, as long as 4-5 years ago Neurologist had discussed that she had some dementia with her PD, but family hadn't seen a lot of issues before about 2 months ago when she became sick and had recurrent hospitalizations. Uncertain where baseline may be when illness resolved, family expressed understanding of this. Qualifiers: (13) Elevated liver enzymes Status: Acute Assessment & Plan: hep panel neg, liver us with hepatomegaly and steatosis MARIE GOODEN MD Nov 23, 2022 21:30
[2022-11-24] VITALS (7 sets, daily range): BP systolic 104–117; BP diastolic 53–73
[2022-11-24] MEDS: NS IV 1000 ML 1,000 ML IV SCH ×3 (00:23→13:39)
[2022-11-24] MEDS: MEROPENEM 500 MG in NS (IVPB) 100 ML 100 ML IV SCH ×4 (03:53→22:21)
[2022-11-24] MEDS: KCL 20 MEQ TAB (K-DUR) PO SCH ×3 (06:53→20:56)
[2022-11-24 07:48] LABS: ALBUMIN 2.8 GM/DL (3.2-4.5); POTASSIUM 4.2 MMOL/L (3.6-5.0)
[2022-11-24 07:49] LABS: CALCIUM 8.6 MG/DL (8.5-10.1)
[2022-11-24 07:52] LABS: BILIRUBIN,TOTAL 0.5 MG/DL (0.1-1.0)
[2022-11-24 07:54] LABS: CREATININE SERUM 0.55 MG/DL (0.60-1.30)
--- NOTE | 2022-11-24 08:34 | Diagnostic Imaging Report ---
INDICATION: Screening for abdominal aortic aneurysm TECHNIQUE: Grayscale sonographic images of the abdominal aorta. CORRELATION STUDY: None FINDINGS: Overall assessment is limited given overlying bowel gas and reported limited patient cooperation. Abdominal Aorta Proximal: 2.8 x 2.6 cm Mid: Obscured Distal: 2.5 x 1.4 cm Common Iliac Arteries Right CRAIG: 1.0 cm Left CRAIG: 1.0 x 1.1 cm IMPRESSION: 1. Limited ultrasound of the abdominal aorta. Visualized segments currently demonstrate no aneurysm. Dictated by: Dictated on workstation # [id number]
[2022-11-24] MEDS: CLOPIDOGREL 75 MG TABLET PO SCH (09:05)
[2022-11-24] MEDS: amLODIPine 10 MG TABLET PO SCH (09:05)
[2022-11-24] MEDS: LOSARTAN 50 MG (COZAAR) TAB PO SCH (09:05)
[2022-11-24] MEDS: SINEMET 25/100 (CARBIDOPA/LEVODOPA) TAB PO SCH ×3 (09:05→17:03)
[2022-11-24] MEDS: polyethylene glycoL POWDER 17 GM (MIRALAX) PACK PO SCH ×2 (09:06→20:56)
[2022-11-24] MEDS: MICONAZOLE 2% POWDER (DESENEX AF) 90 GM TOP SCH ×2 (09:06→21:04)
--- NOTE | 2022-11-24 09:41 | Occ Therapy Progress Note ---
Therapy Progress Note OT arrived for treatment session, patient is on phone with family and is now understanding her orientation and hospital course, patient is upset, Nursing is administering medication and breakfast is in place for patient to eat in bed. OT will return when patient is more prepared for therapy, JEANNIE KUMAR OT Nov 24, 2022 09:41
--- NOTE | 2022-11-24 09:53 | Progress Note ---
Subjective Subjective/Events-last exam Sitting up in bed with head leaning over, full tray of breakfast in front of her. When asked, she says she is not hungry. She denies abdominal pain but doesn't feel like eating. She is frustrated when I tell her the date, says "that's not what they told me". Objective Exam Last Set of Vital Signs Vital Signs Date Time Temp Pulse Resp B/P (MAP) Pulse Ox O2 Delivery O2 Flow Rate FiO2 11/24/22 07:14 37.3 83 18 104/70 (81) 94 Room Air 11/23/22 03:32 0.00 0.00 Capillary Refill : Less Than 3 Seconds I&O Intake and Output 11/24/22 00:00 Intake Total 650 ml Output Total 1450 ml Balance -800 ml Intake Oral 550 ml IV Total 100 ml Output Urine Total 1450 ml General: Alert, No Acute Distress Lungs: Clear to Auscultation, Normal Air Movement Heart: Other (systolic murmur, bradycardic) Abdomen: Normal Bowel Sounds, Soft Extremities: Other (left BKA wrapped, no drainage) Psych/Mental Status: Other (oriented to self and location) Results/Procedures Lab Laboratory Tests 11/24/22 05:26: Sodium Level 137, Potassium Level 4.2, Chloride Level 105, Carbon Dioxide Level 24, Anion Gap 8, Blood Urea Nitrogen 9, Creatinine 0.55L, Estimat Glomerular Filtration Rate 99, BUN/Creatinine Ratio 16, Glucose Level 99, Calcium Level 8.6, Corrected Calcium 9.6, Magnesium Level 1.8, Total Bilirubin 0.5, Aspartate Amino Transf (AST/SGOT) 75H, Alanine Aminotransferase (ALT/SGPT) 27, Alkaline Phosphatase 310H, Total Protein 6.0L, Albumin 2.8L Microbiology 11/14/22 MRSA Screen - Final, Complete MRSA not isolated 11/09/22 Blood Culture - Final, Complete No growth Assessment/Plan Assessment/Plan (1) Gangrene of left foot Status: Acute Assessment & Plan: - General surgery consult Dr Sosa, appreciate recommendations, started on IV antibiotics on admit. s/p BKA. Continued on meropenem. (2) Status post below-knee amputation of left lower extremity Status: Acute Assessment & Plan: PT, difficult to evaluate due to mental status. (3) PAD (peripheral artery disease) Status: Chronic Assessment & Plan: - Consulted Cardiology - Known markedly abnormal left ANNELISE, had planned for peripheral angiogram on prior admit, but became anxious and declined and was unable to lie flat. Was again going to have angiogram this stay, but then reported severe anaphylactic reaction to iodine and angiogram therefore not done. (4) Intertriginous candidiasis Status: Acute Assessment & Plan: - Started on topical nystatin (5) HTN (hypertension) Status: Acute Assessment & Plan: - Restarted home HTN meds (6) Tobacco abuse Status: Chronic Assessment & Plan: - Discussed need for cessation, offered nicotine replacement (7) Paroxysmal atrial fibrillation Status: Acute Assessment & Plan: Appreciate Cardiology recommendations. Edson held for surgery. (8) Parkinson disease (9) Hereditary hemochromatosis (10) Non-healing wound of right lower extremity Assessment & Plan: Wound nurse eval for recommendations. (11) Aorta disorder Status: Acute Assessment & Plan: Possible anuerysmal dilation noted on liver ultrasound, cannot tolerate dye, will check aorta doppler (12) Delirium Status: Acute Assessment & Plan: Minimize lines, reorient as needed. (13) Dementia Status: Chronic Assessment & Plan: Per discussion with jose angel, as long as 4-5 years ago Neurologist had discussed that she had some dementia with her PD, but family hadn't seen a lot of issues before about 2 months ago when she became sick and had recurrent hospitalizations. Uncertain where baseline may be when illness resolved, family expressed understanding of this. Qualifiers: (14) Elevated liver enzymes Status: Acute Assessment & Plan: hep panel neg, liver us with hepatomegaly and steatosis MARIE GOODEN MD Nov 24, 2022 09:53
--- NOTE | 2022-11-24 10:30 | Occupational Ther Daily Note ---
OT Current Status-Daily Note Subjective OT returned for therapy session w/ PT, patient has family present in room Pain Comment: Patient does not rate pain, reports pain to back and BLEs, +phantom LLE Mental Status/Objective Patient Orientation: Person, Confused, Place (inconsistently aware of being in a hopsital), Eyes Open (requires verbal cues to OPEN eyes), Situation (inconsistenly aware of ampuatation ), Mumbles Attachments: Rueda Catheter, IV, Other-See Comments (KESHAV wrap to LLE amputation) ADL-Treatment Therapy Code Descriptions/Definitions Functional [place] Measure: 0=Not Assessed/NA 4=Minimal Assistance 1=Total Assistance 5=Supervision or Setup 2=Maximal Assistance 6=Modified [place] 3=Moderate Assistance 7=Complete IndependenceSCALE: Activities may be completed with or without assistive devices. 3-Svcvuipblh-jsrvwsx completes the activity by him/herself with no assistance from a helper. 5-Set-up or Clean-up Assistance-helper sets up or cleans up; patient completes activity. [place] assists only prior to or following the activity. 4-Supervision or Touching Assistance-helper provides verbal cues and/or touching/steadying and/or contact guard assistance as patient completes activity. Assistance may be provided throughout the activity or intermittently. 3-Partial/Moderate Assistance-helper does LESS THAN HALF the effort. [place] lifts, holds or supports trunk or limbs, but provides less than half the effort. 2-Substantial/Maximal Assistance-helper does MORE THAN HALF the effort. [place] lifts or holds trunk or limbs and provides more than half the effort. 0-Wdkknzsjg-gmsvvl does ALL the effort. Patient does none of the effort to complete the activity. Or, the assistance of 2 or more helpers is required for the patient to complete the activity. If activity was not attempted, code reason: 7-Patient Refused. 9-Not Applicable-not attempted and the patient did not perform the activity before the current illness, exacerbation or injury. 10-Not Attempted due to Environmental Limitations-(lack of equipment, weather restraints, etc.). 88-Not Attempted due to Medical Conditions or Safety Concerns. Eating (QC): 3 (does not hold spoon, holds beverage and positions straw into her mouth, wipes excess food from lip) Oral Hygiene (QC): 7 (refuses to perform) Shower/Bathe Self (QC): 88 (bed bath recommended, red areas on left flank, nurse notified) Upper Body Dressing (QC): 2 (does not follow commands to lift and insert UEs into gown sleeves, requires AAROM to positon UE s for gati belt and IV safety for transfers and bed mobillity) Lower Body Dressing (QC): 1 (sock placed on RLE foot, patient makes no atttempt to stand, reports she doesn't have her LLE on the floor yet. Jose A educated of ESTEE.) On/Off Footwear: 1 (Sock removed after transfer d/t sutures and wound from amputated great toe) Toileting Hygiene (QC): 1 Toilet Transfer (QC): 1 Education OT Patient Education: Correct positioning, Exercise program, Modified ADL tech niques, Progress toward Goal/Update tx plan, Purpose of tx/functional activities, Reviewed precautions, Rehab process, Safety issues, Transfer techniques Teaching Recipient: Patient Response to Teaching: Unable to Return Demonstration, Unable to Comprehend, Reinforcement Needed OT Halfway Goals Halfway Goals Time Frame: Nov 28, 2022 Eating (QC): 6 Oral Hygiene (QC): 5 Upper Body Dressing (QC): 5 1=Demonstrate adherence to instructed precautions during ADL tasks. 2=Patient will verbalize/demonstrate understanding of assistive devices/modifications for ADL. 3=Patient will improve strength/tolerance for activity to enable patient to perform ADL's. OT Education/Plan Problem List/Assessment Assessment: Decreased Activ Tolerance, Decreased Safety Aware, Decreased UE Strength, Dependent Transfers, Impaired Bed Mobility, Impaired Cognition, Impaired Coordination, Impaired Funct Balance, Impaired Self-Care Skills Discharge Recommendations Plan/Recommendations: Continue POC Treatment Plan/Plan of Care Patient would benefit from OT for education, treatment and training to promote independence in ADL's, mobility, safety and/or upper extremity function for ADL's. Plan of Care: ADL Retraining, Caregiver Training, Cognitive Retraining, Concurrent Therapy, Functional Mobility, Group Exercise/Act as Ind, UE Funct Exercise/Act, UE Neuromus Re-Ed/Coord Treatment Duration: Dec 02, 2022 Frequency: 3 times per week (3-5 times per week) Agreement: Yes Rehab Potential: Guarded Patient in recliner with call light in lap, family present, food tray positioned over lap. all needs met Time Start Time: 10:09 Stop Time: 10:30 DATE: Nov 24, 2022 Total Time Billed (hr/min): 21 Billed Treatment Time ADL 21 min JEANNIE KUMAR OT Nov 24, 2022 10:29
[2022-11-24] MEDS: HYDROcodone/APAP 7.5 MG/325 MG (LORTAB, LORCET PLUS) TABLET PO PRN ×3 (10:54→23:06)
--- NOTE | 2022-11-24 11:20 | Progress Note ---
Subjective Date Seen by a Provider: Nov 23, 2022 Time Seen by a Provider: 14:00 Subjective/Events-last exam this note reflects 11/23. patient stable however mentation variable. will see about possible transfer to ARU. Objective Exam Vital Signs Date Time Temp Pulse Resp B/P (MAP) Pulse Ox O2 Delivery O2 Flow Rate FiO2 11/24/22 08:00 Room Air 11/24/22 07:14 37.3 83 18 104/70 (81) 94 Room Air 11/24/22 04:00 37.0 90 16 107/64 (78) 91 Room Air 11/24/22 00:00 36.8 88 16 104/65 (78) 92 Room Air 11/23/22 20:36 98 Room Air 11/23/22 20:04 36.8 88 18 115/68 (84) 98 Room Air 11/23/22 16:28 36.5 64 20 108/67 (81) 92 Room Air 11/23/22 11:50 36.0 59 18 115/57 (76) 92 Room Air I & O 11/24/22 07:00 Intake Total 1850 ml Output Total 1575 ml Balance 275 ml Capillary Refill : Less Than 3 Seconds General Appearance: No Apparent Distress HEENT: PERRL/EOMI Neck: Full Range of Motion Respiratory: Rhonci, Wheezing Cardiovascular: Regular Rate, Rhythm Gastrointestinal: normal bowel sounds, soft Extremity: Slow Capillary Refill, Other (left LE dressed/dry) Neurologic/Psychiatric: Alert Skin: Normal Color Lymphatic: No Adenopathy Results Lab Laboratory Tests 11/24/22 05:26: Sodium Level 137, Potassium Level 4.2, Chloride Level 105, Carbon Dioxide Level 24, Anion Gap 8, Blood Urea Nitrogen 9, Creatinine 0.55L, Estimat Glomerular Filtration Rate 99, BUN/Creatinine Ratio 16, Glucose Level 99, Calcium Level 8.6, Corrected Calcium 9.6, Magnesium Level 1.8, Total Bilirubin 0.5, Aspartate Amino Transf (AST/SGOT) 75H, Alanine Aminotransferase (ALT/SGPT) 27, Alkaline Phosphatase 310H, Total Protein 6.0L, Albumin 2.8L Microbiology 11/14/22 MRSA Screen - Final, Complete MRSA not isolated 11/09/22 Blood Culture - Final, Complete No growth Assessment/Plan Assessment/Plan Assess & Plan/Chief Complaint PAD with bilateral foot necrosis s/p left BKA/ unwilling to do much workup. does have continued underlying osteomyelitis bilat feet. scheduled MRI bilateral feet but once again refused. remove dressing today. ARU evaluate. RUDY MARRERO MD Nov 24, 2022 11:20
[2022-11-24] MEDS: ENOXAPARIN 40 MG/0.4 ML (LOVENOX) SYR SQ SCH (14:21)
--- NOTE | 2022-11-24 14:40 | Physical Therapy Daily Note ---
PT Daily Note-Current Subjective Patient lying supine in bed upon PT arrival, agreeable to treatment. Patient unable to rate pain at this time. Pain Section J - Health Conditions 1. Rarely or not at all 2. Occasionally 3. Frequently 4. Almost constantly 8. Unable to answer Pain Effect on Sleep: 3 Pain Interference with Therapy: 4 Pain Interference w/Day-to-Day: 3 Mental Status Patient Orientation: Person Transfers SCALE: Activities may be completed with or without assistive devices. 4-Shfrcitiql-blzqfig completes the activity by him/herself with no assistance from a helper. 5-Set-up or Clean-up Assistance-helper sets up or cleans up; patient completes activity. [place] assists only prior to or following the activity. 4-Supervision or Touching Assistance-helper provides verbal cues and/or touching/steadying and/or contact guard assistance as patient completes activity. Assistance may be provided throughout the activity or intermittently. 3-Partial/Moderate Assistance-helper does LESS THAN HALF the effort. [place] lifts, holds or supports trunk or limbs, but provides less than half the effort. 2-Substantial/Maximal Assistance-helper does MORE THAN HALF the effort. [place] lifts or holds trunk or limbs and provides more than half the effort. 1-Bigpmqnau-lfjyvi does ALL the effort. Patient does none of the effort to co mplete the activity. Or, the assistance of 2 or more helpers is required for the patient to complete the activity. If activity was not attempted, code reason: 7-Patient Refused. 9-Not Applicable-not attempted and the patient did not perform the activity before the current illness, exacerbation or injury. 10-Not Attempted due to Environmental Limitations-(lack of equipment, weather restraints, etc.). 88-Not Attempted due to Medical Conditions or Safety Concerns. Roll Left & Right (QC): 2 Sit to Lying (QC): 2 Lying to Sitting/Side of Bed(Q: 2 Sit to Stand (QC): 1 Chair/Tll-wn-Smdox Xfer(QC): 1 Weight Bearing Right Lower Extremity: Right Weight Bearing/Tolerated Left Lower Extremity: Left Non Weight Bearing Gait Training Does the Patient Walk?: No and Walking Goal NOT indicated Assessment Current Status: Poor Progress Patient very confused and difficulty following commands. Impulsive at times and attempts getting out of bed with right LE multiple times, however pain in Left Residual limb limits overall movement. Patient requires max to total A x 2 for all bed mobility and transfers. Patient unable to maintain standing on right LE. Patient performs SPT to the chair with PT with total A. Patient in chair post treatment with all needs met, nurse notified, call light in hand, chair alarm in place and activated, daughter in the room. Treatment performed with OT in the room the entire time. PT Workforce Advisor Goals Workforce Advisor Goals PT Workforce Advisor Goals Time Frame: Dec 10, 2022 Roll Left & Right (QC): 3 Sit to Lying (QC): 3 Lying-Sitting on Side/Bed(QC): 3 Sit to Stand (QC): 3 Chair/Iss-xc-Sxpgr Xfer(QC): 3 Toilet Transfer (QC): 3 Does the Patient Walk: No and Walking Goal IS indicated Walk 10 feet (QC): 2 Does the Pt use WC or Scooter?: Yes Wheel 50 feet with 2 turns (QC: 3 Type: Manual Wheel 150 feet: 3 Type: Manual PT Plan Treatment/Plan Treatment Plan: Continue Plan of Care Treatment Plan: Bed Mobility, Education, Functional Activity Braulio, Functional Strength, Group Therapy, Gait, Safety, Therapeutic Exercise, Transfers Treatment Duration: Jan 05, 2023 Frequency: 6 times per week Estimated Hrs Per Day: .25 hour per day Patient and/or Family Agrees t: Yes Safety Risks/Education Patient Education: Transfer Techniques Response to Teaching: Reinforcement Needed Time Time In: 1009 Time Out: 1021 DATE: Nov 24, 2022 Total Billed Treatment Time: 12 Total Billed Treatment Visit, FIFI ROBIN PT Nov 24, 2022 14:40
[2022-11-24] MEDS: MELATONIN 3 MG TABLET PO PRN (20:56)
[2022-11-25] MEDS: NS IV 1000 ML 1,000 ML IV SCH ×2 (01:47→13:20)
[2022-11-25 03:44] VITALS: BP 123/58
[2022-11-25] MEDS: MEROPENEM 500 MG in NS (IVPB) 100 ML 100 ML IV SCH ×4 (03:44→21:28)
[2022-11-25 04:01] LABS: HEMATOCRIT 28 % (35-52); MEAN CORPUSCULAR HEMOGLOBIN 31 pg (25-34); MEAN CORPUSCULAR HGB CONC 33 g/dL (32-36); MEAN CORPUSCULAR VOLUME 94 fL (80-99); MEAN PLATELET VOLUME 10.9 fL (9.0-12.2); PLATELET COUNT 244 10^3/uL (130-400); WHITE BLOOD COUNT 5.4 10^3/uL (4.3-11.0)
[2022-11-25 04:16] LABS: ALBUMIN 2.6 GM/DL (3.2-4.5); POTASSIUM 4.2 MMOL/L (3.6-5.0)
[2022-11-25 04:17] LABS: CALCIUM 8.5 MG/DL (8.5-10.1)
[2022-11-25 04:19] LABS: TOTAL PROTEIN 5.6 GM/DL (6.4-8.2)
[2022-11-25 04:20] LABS: BILIRUBIN,TOTAL 1.3 MG/DL (0.1-1.0)
[2022-11-25 04:22] LABS: CREATININE SERUM 0.54 MG/DL (0.60-1.30)
[2022-11-25] MEDS: KCL 20 MEQ TAB (K-DUR) PO SCH ×3 (06:22→19:48)
[2022-11-25 07:29] VITALS: BP 113/72
[2022-11-25] MEDS: MICONAZOLE 2% POWDER (DESENEX AF) 90 GM TOP SCH ×2 (08:53→19:49)
[2022-11-25] MEDS: LOSARTAN 50 MG (COZAAR) TAB PO SCH (08:53)
[2022-11-25] MEDS: CLOPIDOGREL 75 MG TABLET PO SCH (08:53)
[2022-11-25] MEDS: amLODIPine 10 MG TABLET PO SCH (08:53)
[2022-11-25] MEDS: SINEMET 25/100 (CARBIDOPA/LEVODOPA) TAB PO SCH ×3 (08:53→17:57)
[2022-11-25] MEDS: polyethylene glycoL POWDER 17 GM (MIRALAX) PACK PO SCH ×2 (08:59→20:00)
[2022-11-25] MEDS: HYDROcodone/APAP 7.5 MG/325 MG (LORTAB, LORCET PLUS) TABLET PO PRN ×2 (09:38→15:08)
--- NOTE | 2022-11-25 09:59 | Occupational Ther Daily Note ---
OT Current Status-Daily Note Subjective Intermittent awareness of orientation and hospital course, report pain to Right hip Mental Status/Objective Patient Orientation: Person, Confused, Place ([place], a train), Situation ("Where is the rest of my leg?") Attachments: Rueda Catheter, IV Sutures to R great toe and KESHAV wrap to BKA LLE ADL-Treatment Dependent Sock on/off, intermittent nutritional intake, brushes only the hair around her face and hands the brush back to OT. Agitated in position and OT adjusts bed. Patient performed RLE mobility to EOB and SBA mobility to sit upright unsupported. Tires easily and attempted to lay down. OT intervention for safety to prevent injury, patient repositioned self to sit upright again. Sits approximately 6 minutes and converses w/ Dr. Patient is able to lift RLE into bed and recline self w/ HOB w/ 30 degrees elevated. Therapy Code Descriptions/Definitions Functional [place] Measure: 0=Not Assessed/NA 4=Minimal Assistance 1=Total Assistance 5=Supervision or Setup 2=Maximal Assistance 6=Modified [place] 3=Moderate Assistance 7=Complete IndependenceSCALE: Activities may be completed with or without assistive devices. 2-Mowdynqcax-quaktww completes the activity by him/herself with no assistance from a helper. 5-Set-up or Clean-up Assistance-helper sets up or cleans up; patient completes activity. [place] assists only prior to or following the activity. 4-Supervision or Touching Assistance-helper provides verbal cues and/or touching/steadying and/or contact guard assistance as patient completes acti vity. Assistance may be provided throughout the activity or intermittently. 3-Partial/Moderate Assistance-helper does LESS THAN HALF the effort. [place] lifts, holds or supports trunk or limbs, but provides less than half the effort. 2-Substantial/Maximal Assistance-helper does MORE THAN HALF the effort. [place] lifts or holds trunk or limbs and provides more than half the effort. 6-Zoirxgwcv-udftjs does ALL the effort. Patient does none of the effort to complete the activity. Or, the assistance of 2 or more helpers is required for the patient to complete the activity. If activity was not attempted, code reason: 7-Patient Refused. 9-Not Applicable-not attempted and the patient did not perform the activity before the current illness, exacerbation or injury. 10-Not Attempted due to Environmental Limitations-(lack of equipment, weather restraints, etc.). 88-Not Attempted due to Medical Conditions or Safety Concerns. Eating (QC): 4 Oral Hygiene (QC): 7 Shower/Bathe Self (QC): 88 Upper Body Dressing (QC): 4 Lower Body Dressing (QC): 1 On/Off Footwear: 1 Toileting Hygiene (QC): 1 Toilet Transfer (QC): 1 Education OT Patient Education: Correct positioning, Exercise program, Modified ADL techniques, Progress toward Goal/Update tx plan, Purpose of tx/functional activities, Reviewed precautions, Rehab process, Safety issues Teaching Recipient: Patient Teaching Methods: Demonstration, Discussion Response to Teaching: Unable to Return Demonstration, Reinforcement Needed OT Longterm Goals Director Translation Goals Time Frame: Nov 28, 2022 Eating (QC): 6 Oral Hygiene (QC): 5 Upper Body Dressing (QC): 5 1=Demonstrate adherence to instructed precautions during ADL tasks. 2=Patient will verbalize/demonstrate understanding of assistive devices/modifications for ADL. 3=Patient will improve strength/tolerance for activity to enable patient to perform ADL's. OT Education/Plan Problem List/Assessment Assessment: Decreased Activ Tolerance, Decreased Safety Aware, Decreased UE Strength, Dependent Transfers, Impaired Bed Mobility, Impaired Coordination, Impaired Funct Balance, Impaired Self-Care Skills Discharge Recommendations Plan/Recommendations: Continue POC Therapy Discharge Recommendati: Post Acute OT Treatment Plan/Plan of Care Patient would benefit from OT for education, treatment and training to promote independence in ADL's, mobility, safety and/or upper extremity function for ADL's. Plan of Care: ADL Retraining, Caregiver Training, Cognitive Retraining, Concurrent Therapy, Functional Mobility, Group Exercise/Act as Ind, UE Funct Exercise/Act, UE Neuromus Re-Ed/Coord Treatment Duration: Dec 02, 2022 Frequency: 3 times per week (3-5 times per week) Agreement: Yes Rehab Potential: Guarded Time Start Time: 09:30 Stop Time: 09:53 DATE: Nov 25, 2022 Total Time Billed (hr/min): 23 Billed Treatment Time FA 23 min JEANNIE KUMAR OT Nov 25, 2022 09:59
[2022-11-25 11:33] VITALS: BP 108/53
--- NOTE | 2022-11-25 12:42 | Progress Note ---
Subjective Subjective/Events-last exam Pt remains confused. At time of my exam, sitting up in bed with PT, she was able to move her right leg off the bed by herself, but is swaying some and leaning forward deeply. She is intermittently tearful and admits she is depressed. She says she is worried about her grandkids that she says she has had custody of since . She also however notes that she wants to know how long she has been in the train car and where did her leg go because it was there a couple of days ago. Reminded her of what has been done, and she says she does remember that. Objective Exam Last Set of Vital Signs Vital Signs Date Time Temp Pulse Resp B/P (MAP) Pulse Ox O2 Delivery O2 Flow Rate FiO2 11/25/22 11:33 36.4 66 18 108/53 (71) 91 Room Air 11/23/22 03:32 0.00 0.00 Capillary Refill : Less Than 3 Seconds I&O Intake and Output 11/25/22 00:00 Intake Total 3250 ml Output Total 1275 ml Balance 1975 ml Intake Oral 950 ml IV Total 2300 ml Output Urine Total 1275 ml General: Alert, Mild Distress Lungs: Clear to Auscultation, Normal Air Movement Heart: Regular Rate Neuro: Other (frequently changing subjects, tearful, oriented to self and location only) Results/Procedures Lab Laboratory Tests 11/25/22 03:50: White Blood Count 5.4, Red Blood Count 2.92L, Hemoglobin 9.0L, Hematocrit 28L, Mean Corpuscular Volume 94, Mean Corpuscular Hemoglobin 31, Mean Corpuscular Hemoglobin Concent 33, Red Cell Distribution Width 15.1H, Platelet Count 244, Mean Platelet Volume 10.9, Sodium Level 139, Potassium Level 4.2, Chloride Level 108H, Carbon Dioxide Level 23, Anion Gap 8, Blood Urea Nitrogen 10, Creatinine 0.54L, Estimat Glomerular Filtration Rate 99, BUN/Creatinine Ratio 19, Glucose Level 101, Calcium Level 8.5, Corrected Calcium 9.6, Total Bilirubin 1.3H, Aspartate Amino Transf (AST/SGOT) 495H, Alanine Aminotransferase (ALT/SGPT) 33, Alkaline Phosphatase 429H, Total Protein 5.6L, Albumin 2.6L Microbiology 11/14/22 MRSA Screen - Final, Complete MRSA not isolated 11/09/22 Blood Culture - Final, Complete No growth Assessment/Plan Assessment/Plan (1) Gangrene of left foot Status: Acute Assessment & Plan: - General surgery consult Dr Sosa, appreciate recommendations, started on IV antibiotics on admit. s/p BKA. Continued on meropenem. (2) Status post below-knee amputation of left lower extremity Status: Acute Assessment & Plan: PT, difficult to evaluate due to mental status. (3) PAD (peripheral artery disease) Status: Chronic Assessment & Plan: - Consulted Cardiology - Known markedly abnormal left ANNELISE, had planned for peripheral angiogram on prior admit, but became anxious and declined and was unable to lie flat. Was again going to have angiogram this stay, but then reported severe anaphylactic reaction to iodine and angiogram therefore not done. (4) Intertriginous candidiasis Status: Acute Assessment & Plan: - Started on topical nystatin (5) HTN (hypertension) Status: Acute Assessment & Plan: - Restarted home HTN meds (6) Tobacco abuse Status: Chronic Assessment & Plan: - Discussed need for cessation, offered nicotine replacement (7) Paroxysmal atrial fibrillation Status: Acute Assessment & Plan: Appreciate Cardiology recommendations. Resuming Eliquis post surgery. (8) Parkinson disease (9) Hereditary hemochromatosis (10) Non-healing wound of right lower extremity Assessment & Plan: Wound nurse eval for recommendations. 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 (12) Delirium Status: Acute Assessment & Plan: Minimize lines, reorient as needed. (13) Dementia Status: Chronic Assessment & Plan: Per discussion with daughter, as long as 4-5 years ago Neurologist had discussed that she had some dementia with her PD, but family hadn't seen a lot of issues before about 2 months ago when she became sick and had recurrent hospitalizations. Uncertain where baseline may be when illness resolved, family expressed understanding of this. Qualifiers: (14) Elevated liver enzymes Status: Acute Assessment & Plan: hep panel neg, liver us with hepatomegaly and steatosis MARIE GOODEN MD Nov 25, 2022 12:42
[2022-11-25] MEDS: ENOXAPARIN 40 MG/0.4 ML (LOVENOX) SYR SQ SCH (13:20)
--- NOTE | 2022-11-25 13:41 | Progress Note ---
Subjective Date Seen by a Provider: Nov 25, 2022 Time Seen by a Provider: 12:00 Subjective/Events-last exam doing ok. still has variable mentation and orientation. wound dressed/dry. no fever/chills. Objective Exam Vital Signs Date Time Temp Pulse Resp B/P (MAP) Pulse Ox O2 Delivery O2 Flow Rate FiO2 11/25/22 11:33 36.4 66 18 108/53 (71) 91 Room Air 11/25/22 08:00 Room Air 11/25/22 07:29 36.3 77 17 113/72 (86) 95 Room Air 11/25/22 03:44 36.5 69 18 123/58 (79) 94 11/24/22 23:08 36.5 93 21 117/58 (77) 96 Room Air 11/24/22 20:59 Room Air 11/24/22 19:20 36.9 71 18 108/53 (71) 96 Room Air 11/24/22 15:28 36.3 61 18 112/53 (72) 95 Room Air I & O 11/25/22 07:00 Intake Total 2295 ml Output Total 1050 ml Balance 1245 ml Capillary Refill : Less Than 3 Seconds General Appearance: No Apparent Distress HEENT: PERRL/EOMI Neck: Full Range of Motion Respiratory: Rhonci, Wheezing Cardiovascular: Regular Rate, Rhythm Gastrointestinal: normal bowel sounds, non tender, soft Extremity: Slow Capillary Refill, Other (wound dressed/dry) Neurologic/Psychiatric: Alert, Oriented x3 Skin: Normal Color Lymphatic: No Adenopathy Results Lab Laboratory Tests 11/25/22 03:50: White Blood Count 5.4, Red Blood Count 2.92L, Hemoglobin 9.0L, Hematocrit 28L, Mean Corpuscular Volume 94, Mean Corpuscular Hemoglobin 31, Mean Corpuscular Hemoglobin Concent 33, Red Cell Distribution Width 15.1H, Platelet Count 244, Mean Platelet Volume 10.9, Sodium Level 139, Potassium Level 4.2, Chloride Level 108H, Carbon Dioxide Level 23, Anion Gap 8, Blood Urea Nitrogen 10, Creatinine 0.54L, Estimat Glomerular Filtration Rate 99, BUN/Creatinine Ratio 19, Glucose Level 101, Calcium Level 8.5, Corrected Calcium 9.6, Total Bilirubin 1.3H, Aspartate Amino Transf (AST/SGOT) 495H, Alanine Aminotransferase (ALT/SGPT) 33, Alkaline Phosphatase 429H, Total Protein 5.6L, Albumin 2.6L Microbiology 11/14/22 MRSA Screen - Final, Complete MRSA not isolated 11/09/22 Blood Culture - Final, Complete No growth Assessment/Plan Assessment/Plan Assess & Plan/Chief Complaint 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 does have continued underlying osteomyelitis bilat feet. scheduled MRI bilateral feet but once again refused. remove dressing today. then dressing change daily(4x4 gauze, followed by kerlix, followed by 6inch KESHAV wrap) ARU evaluate. RUDY MARRERO MD Nov 25, 2022 13:41
--- NOTE | 2022-11-25 13:43 | Physical Therapy Daily Note ---
PT Daily Note-Current Subjective Patient sitting upright in bed upon PT arrival, agreeable to treatment but reports residual limb is hurting a lot, rates pain at 8/10. Pain Section J - Health Conditions 1. Rarely or not at all 2. Occasionally 3. Frequently 4. Almost constantly 8. Unable to answer Pain Effect on Sleep: 3 Pain Interference with Therapy: 4 Pain Interference w/Day-to-Day: 3 Transfers SCALE: Activities may be completed with or without assistive devices. 4-Vmrfcynbfv-urhacjj completes the activity by him/herself with no assistance from a helper. 5-Set-up or Clean-up Assistance-helper sets up or cleans up; patient completes activity. [place] assists only prior to or following the activity. 4-Supervision or Touching Assistance-helper provides verbal cues and/or touching/steadying and/or contact guard assistance as patient completes activity. Assistance may be provided throughout the activity or intermittently. 3-Partial/Moderate Assistance-helper does LESS THAN HALF the effort. [place] lifts, holds or supports trunk or limbs, but provides less than half the effort. 2-Substantial/Maximal Assistance-helper does MORE THAN HALF the effort. [place] lifts or holds trunk or limbs and provides more than half the effort. 0-Ingdhiehx-otqsgr does ALL the effort. Patient does none of the effort to complete the activity. Or, the assistance of 2 or more helpers is required for the patient to complete the activity. If activity was not attempted, code reason: 7-Patient Refused. 9-Not Applicable-not attempted and the patient did not perform the activity before the current illness, exacerbation or injury. 10-Not Attempted due to Environmental Limitations-(lack of equipment, weather restraints, etc.). 88-Not Attempted due to Medical Conditions or Safety Concerns. Roll Left & Right (QC): 2 Sit to Lying (QC): 2 Lying to Sitting/Side of Bed(Q: 2 Weight Bearing Right Lower Extremity: Right Weight Bearing/Tolerated Left Lower Extremity: Left Non Weight Bearing Assessment Current Status: Poor Progress Patient required max A for transfer to edge of bed. Once at edge of bed discussed transferring to the chair. Patient adamantly refused. Patient requested on numerous occasions to mobilize herself and perform transfers, however when allowed to attempt by herself, patient made little to no progress. Patient eventually made it back to supine in bed and requires mod to max A for movement higher in bed. Patient in bed post treatment with all needs met, nursing notified, call light in hand. PT Graphic Design Intern Goals Graphic Design Intern Goals PT Graphic Design Intern Goals Time Frame: Dec 10, 2022 Roll Left & Right (QC): 3 Sit to Lying (QC): 3 Lying-Sitting on Side/Bed(QC): 3 Sit to Stand (QC): 3 Chair/Mhd-no-Vkwzd Xfer(QC): 3 Toilet Transfer (QC): 3 Does the Patient Walk: No and Walking Goal IS indicated Walk 10 feet (QC): 2 Does the Pt use WC or Scooter?: Yes Wheel 50 feet with 2 turns (QC: 3 Type: Manual Wheel 150 feet: 3 Type: Manual PT Plan Treatment/Plan Treatment Plan: Continue Plan of Care Treatment Plan: Bed Mobility, Education, Functional Activity Braulio, Functional Strength, Group Therapy, Gait, Safety, Therapeutic Exercise, Transfers Treatment Duration: Jan 05, 2023 Frequency: 6 times per week Estimated Hrs Per Day: .25 hour per day Patient and/or Family Agrees t: Yes Time Time In: 1016 Time Out: 1040 DATE: Nov 25, 2022 Total Billed Treatment Time: 24 Total Billed Treatment Visit, FA (2) FFII MENDOZA PT Nov 25, 2022 13:43
[2022-11-25] MEDS: ALPRAZolam 0.25 MG TABLET PO PRN (15:08)
[2022-11-25 16:02] VITALS: BP 126/64
[2022-11-25 19:30] VITALS: BP 116/65
[2022-11-25] MEDS: APIXABAN 5 MG TABLET PO SCH (19:48)
[2022-11-25] MEDS: morphine INJ 4 MG/ML 1 ML (VIAL/SYRINGE) IVP PRN (19:48)
[2022-11-25] MEDS: MELATONIN 3 MG TABLET PO PRN (21:28)
[2022-11-26] VITALS (7 sets, daily range): BP systolic 99–155; BP diastolic 64–84
[2022-11-26] MEDS: MEROPENEM 500 MG in NS (IVPB) 100 ML 100 ML IV SCH ×3 (03:46→15:49)
[2022-11-26 06:01] LABS: POTASSIUM 4.4 MMOL/L (3.6-5.0)
[2022-11-26 06:02] LABS: CALCIUM 8.8 MG/DL (8.5-10.1)
[2022-11-26 06:06] LABS: CREATININE SERUM 0.57 MG/DL (0.60-1.30)
[2022-11-26] MEDS: KCL 20 MEQ TAB (K-DUR) PO SCH ×3 (06:07→20:01)
[2022-11-26 06:37] LABS: ALBUMIN 2.7 GM/DL (3.2-4.5)
[2022-11-26 06:40] LABS: TOTAL PROTEIN 5.8 GM/DL (6.4-8.2)
[2022-11-26 06:41] LABS: BILIRUBIN,TOTAL 1.3 MG/DL (0.1-1.0)
[2022-11-26 06:45] LABS: BILIRUBIN,INDIRECT 0.3 MG/DL
[2022-11-26] MEDS: NS IV 1000 ML 1,000 ML IV SCH ×3 (06:50→21:15)
[2022-11-26] MEDS: APIXABAN 5 MG TABLET PO SCH ×2 (08:25→20:01)
[2022-11-26] MEDS: SINEMET 25/100 (CARBIDOPA/LEVODOPA) TAB PO SCH ×3 (08:25→17:58)
[2022-11-26] MEDS: CLOPIDOGREL 75 MG TABLET PO SCH (08:25)
[2022-11-26] MEDS: amLODIPine 10 MG TABLET PO SCH (08:25)
[2022-11-26] MEDS: LOSARTAN 50 MG (COZAAR) TAB PO SCH (08:25)
[2022-11-26] MEDS: polyethylene glycoL POWDER 17 GM (MIRALAX) PACK PO SCH (08:25)
[2022-11-26] MEDS: MICONAZOLE 2% POWDER (DESENEX AF) 90 GM TOP SCH ×2 (08:26→20:01)
--- NOTE | 2022-11-26 08:45 | Progress Note ---
Objective Exam Last Set of Vital Signs Vital Signs Date Time Temp Pulse Resp B/P (MAP) Pulse Ox O2 Delivery O2 Flow Rate FiO2 11/26/22 07:41 36.7 82 20 117/73 (88) 93 Room Air 11/23/22 03:32 0.00 0.00 Capillary Refill : Less Than 3 Seconds I&O Intake and Output 11/26/22 00:00 Intake Total 1455 ml Output Total 925 ml Balance 530 ml Intake Oral 1255 ml IV Total 200 ml Output Urine Total 925 ml # Bowel Movements 2 Results/Procedures Lab Laboratory Tests 11/26/22 05:33: Sodium Level 140, Potassium Level 4.4, Chloride Level 109H, Carbon Dioxide Level 22, Anion Gap 9, Blood Urea Nitrogen 10, Creatinine 0.57L, Estimat Glomerular Filtration Rate 98, BUN/Creatinine Ratio 18, Glucose Level 98, Calcium Level 8.8, Total Bilirubin 1.3H, Direct Bilirubin 1.0H, Indirect Bilirubin 0.3, Aspartate Amino Transf (AST/SGOT) 461H, Alanine Aminotransferase (ALT/SGPT) 51, Alkaline Phosphatase 534H, Total Protein 5.8L, Albumin 2.7L Microbiology 11/14/22 MRSA Screen - Final, Complete MRSA not isolated 11/09/22 Blood Culture - Final, Complete No growth Assessment/Plan Assessment/Plan (1) Gangrene of left foot Status: Acute Assessment & Plan: - General surgery consult Dr Sosa, appreciate recommendations, started on IV antibiotics on admit. s/p BKA. Continued on meropenem. 11/26 (2) Status post below-knee amputation of left lower extremity Status: Acute Assessment & Plan: PT, difficult to evaluate due to mental status. (3) PAD (peripheral artery disease) Status: Chronic Assessment & Plan: - Consulted Cardiology - Known markedly abnormal left ANNELISE, had planned for peripheral angiogram on prior admit, but became anxious and declined and was unable to lie flat. Was again going to have angiogram this stay, but then reported severe anaphylactic reaction to iodine and angiogram therefore not done. (4) Intertriginous candidiasis Status: Acute Assessment & Plan: - Started on topical nystatin (5) HTN (hypertension) Status: Acute Assessment & Plan: - Restarted home HTN meds (6) Tobacco abuse Status: Chronic Assessment & Plan: - Discussed need for cessation, offered nicotine replacement (7) Paroxysmal atrial fibrillation Status: Acute Assessment & Plan: Appreciate Cardiology recommendations. Resuming Eliquis post surgery. 11/26 Cardizem 240 mg started 11/15 per cardiology (8) Parkinson disease (9) Hereditary hemochromatosis (10) Non-healing wound of right lower extremity Assessment & Plan: Wound nurse eval for recommendations. 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 (12) Delirium Status: Acute Assessment & Plan: Minimize lines, reorient as needed. (13) Dementia Status: Chronic Assessment & Plan: Per discussion with daughter, as long as 4-5 years ago Neurologist had discussed that she had some dementia with her PD, but family hadn't seen a lot of issues before about 2 months ago when she became sick and had recurrent hospitalizations. Uncertain where baseline may be when illness resolved, family expressed understanding of this. Qualifiers: (14) Elevated liver enzymes Status: Acute Assessment & Plan: hep panel neg, liver us with hepatomegaly and steatosis GIGI DUARTE MD Nov 26, 2022 08:45
--- NOTE | 2022-11-26 10:19 | Physical Therapy Daily Note ---
PT Daily Note-Current Subjective Patient lying supine in bed upon PT arrival, initially refuses treatment however after discussion agrees to LE exercises. Rates pain at "20"/10 Pain Section J - Health Conditions 1. Rarely or not at all 2. Occasionally 3. Frequently 4. Almost constantly 8. Unable to answer Pain Effect on Sleep: 3 Pain Interference with Therapy: 4 Pain Interference w/Day-to-Day: 3 Mental Status Patient Orientation: Person Transfers SCALE: Activities may be completed with or without assistive devices. 3-Usijklablw-jlaxhcs completes the activity by him/herself with no assistance from a helper. 5-Set-up or Clean-up Assistance-helper sets up or cleans up; patient completes activity. [place] assists only prior to or following the activity. 4-Supervision or Touching Assistance-helper provides verbal cues and/or touching/steadying and/or contact guard assistance as patient completes activity. Assistance may be provided throughout the activity or intermittently. 3-Partial/Moderate Assistance-helper does LESS THAN HALF the effort. [place] lifts, holds or supports trunk or limbs, but provides less than half the effort. 2-Substantial/Maximal Assistance-helper does MORE THAN HALF the effort. [place] lifts or holds trunk or limbs and provides more than half the effort. 7-Axzfdsnvq-pzmndx does ALL the effort. Patient does none of the effort to complete the activity. Or, the assistance of 2 or more helpers is required for the patient to complete the activity. If activity was not attempted, code reason: 7-Patient Refused. 9-Not Applicable-not attempted and the patient did not perform the activity before the current illness, exacerbation or injury. 10-Not Attempted due to Environmental Limitations-(lack of equipment, weather restraints, etc.). 88-Not Attempted due to Medical Conditions or Safety Concerns. Roll Left & Right (QC): 2 Weight Bearing Right Lower Extremity: Right Weight Bearing/Tolerated Left Lower Extremity: Left Non Weight Bearing Exercises Supine Ex: Ankle pumps, Quad Set, Glut sets, Heel Slides, Short Arc Quads, Straight leg raise, Hip abd/add Supine Reps: 20 Assessment Current Status: Poor Progress Patient agrees to LE exercises and wants to adjust herself in bed independently. However she is unable to figure out how to get onto her back and despite verbal cues, requires max A. Patient performs the above listed exercises. Patient in bed post treatment with all needs met, nursing notified, call light in hand. PT Chin Strap Cutter Goals Chin Strap Cutter Goals PT Chin Strap Cutter Goals Time Frame: Dec 10, 2022 Roll Left & Right (QC): 3 Sit to Lying (QC): 3 Lying-Sitting on Side/Bed(QC): 3 Sit to Stand (QC): 3 Chair/Pua-hq-Noiay Xfer(QC): 3 Toilet Transfer (QC): 3 Does the Patient Walk: No and Walking Goal IS indicated Walk 10 feet (QC): 2 Does the Pt use WC or Scooter?: Yes Wheel 50 feet with 2 turns (QC: 3 Type: Manual Wheel 150 feet: 3 Type: Manual PT Plan Treatment/Plan Treatment Plan: Continue Plan of Care Treatment Plan: Bed Mobility, Education, Functional Activity Braulio, Functional Strength, Group Therapy, Gait, Safety, Therapeutic Exercise, Transfers Treatment Duration: Jan 05, 2023 Frequency: 6 times per week Estimated Hrs Per Day: .25 hour per day Patient and/or Family Agrees t: Yes Safety Risks/Education Patient Education: Transfer Techniques Teaching Recipient: Patient Teaching Methods: Demonstration, Discussion Response to Teaching: Reinforcement Needed Time Time In: 919 Time Out: 935 DATE: Nov 26, 2022 Total Billed Treatment Time: 16 Total Billed Treatment Visit, EX FIFI MENDOZA PT Nov 26, 2022 10:19
[2022-11-26] MEDS: HYDROcodone/APAP 7.5 MG/325 MG (LORTAB, LORCET PLUS) TABLET PO PRN (12:59)
[2022-11-26] MEDS: ALPRAZolam 0.25 MG TABLET PO PRN (12:59)
[2022-11-26] MEDS: ACETAMINOPHEN 325 MG TABLET PO PRN (12:59)
--- NOTE | 2022-11-26 15:07 | Progress Note ---
GIGI DUARTE MD 11/26/22 1507: Subjective Subjective/Events-last exam No acute events overnight. Pt mentioned meeting me on a train previously, and was unable to say where she was, she only knew that she was in a hospital. Pt could say her name. She was very sensitive to examination and described having a lot of pain over her right foot and leg. Pt had been refusing to use bedside comode. After a conversation with her this morning she was amenable to use the bedside comode as she did not want to soil herself in bed. Review of Systems General: No Chills, No Night Sweats, No Fatigue, No Malaise, No Appetite, No Other HEENT: No Head Aches, No Visual Changes, No Eye Pain, No Ear Pain, No Dysphasia, No Sinus Congestion, No Post Nasal Drip, No Sore Throat, No Other Pulmonary: No Dyspnea, No Cough, No Pleuritic Chest Pain, No Other Cardiovascular: No: Chest Pain, Palpitations, Orthopnea, Paroxysmal Noc. Dyspnea, Edema, Lt Headedness, Other Gastrointestinal: No: Nausea, Vomiting, Abdominal Pain, Diarrhea, Constipation, Melena, Hematochezia, Other Musculoskeletal: leg pain (Most prominent on right side, some pain of L surgical site), foot pain Neurological: No: Weakness, Numbness, Incoordination, Change in speech, Confusion, Seizures, Other Objective Exam Last Set of Vital Signs Vital Signs Date Time Temp Pulse Resp B/P (MAP) Pulse Ox O2 Delivery O2 Flow Rate FiO2 11/26/22 11:51 Room Air 11/26/22 11:30 37.2 73 18 125/75 (92) 95 11/23/22 03:32 0.00 0.00 Capillary Refill : Less Than 3 Seconds I&O Intake and Output 11/26/22 00:00 Intake Total 1455 ml Output Total 925 ml Balance 530 ml Intake Oral 1255 ml IV Total 200 ml Output Urine Total 925 ml # Bowel Movements 2 General: Alert, Cooperative, No Acute Distress HEENT: Atraumatic, EOMI Neck: Supple Lungs: Clear to Auscultation, Normal Air Movement Heart: Regular Rate, No Murmurs Abdomen: Soft, No Tenderness Extremities: Other (Diminished pulse on RLE) Skin: Other (R LE skin breakdown, necrosis of great and second toe debridement sites) Neuro: Normal Speech, Other (Cooperative with exam) Psych/Mental Status: Other (Pt agitated, some confusion, oriented to self and location at hospital but not hospital name or city.) Results/Procedures Lab Laboratory Tests 11/26/22 05:33: Sodium Level 140, Potassium Level 4.4, Chloride Level 109H, Carbon Dioxide Level 22, Anion Gap 9, Blood Urea Nitrogen 10, Creatinine 0.57L, Estimat Glomerular Filtration Rate 98, BUN/Creatinine Ratio 18, Glucose Level 98, Calcium Level 8.8, Total Bilirubin 1.3H, Direct Bilirubin 1.0H, Indirect Bilirubin 0.3, Aspartate Amino Transf (AST/SGOT) 461H, Alanine Aminotransferase (ALT/SGPT) 51, Alkaline Phosphatase 534H, Total Protein 5.8L, Albumin 2.7L Microbiology 11/14/22 MRSA Screen - Final, Complete MRSA not isolated 11/09/22 Blood Culture - Final, Complete No growth Assessment/Plan Assessment/Plan Admission Status: Inpatient Order (span 2 midnights) Reason for Inpatient Admission: Left foot infection. (1) Gangrene of left foot Status: Acute Assessment & Plan: - General surgery consult Dr Sosa, appreciate recommendations, started on IV antibiotics on admit. s/p BKA. Continued on meropenem. 11/26 Surgical site wrapped, moderate pain on exam. Continue abx. (2) Status post below-knee amputation of left lower extremity Status: Acute Assessment & Plan: PT, difficult to evaluate due to mental status. 11/26 Plan for D/C to SNF. (3) PAD (peripheral artery disease) Status: Chronic Assessment & Plan: - Consulted Cardiology - Known markedly abnormal left ANNELISE, had planned for peripheral angiogram on prior admit, but became anxious and declined and was unable to lie flat. Was again going to have angiogram this stay, but then reported severe anaphylactic reaction to iodine and angiogram therefore not done. (4) Intertriginous candidiasis Status: Acute Assessment & Plan: - Started on topical nystatin (5) HTN (hypertension) Status: Acute Assessment & Plan: - Restarted home HTN meds (6) Tobacco abuse Status: Chronic Assessment & Plan: - Discussed need for cessation, offered nicotine replacement (7) Paroxysmal atrial fibrillation Status: Acute Assessment & Plan: Appreciate Cardiology recommendations. Resuming Eliquis post surgery. 11/26 Cardizem 240 mg started 7/11 per cardiology, continue with PO cardizem (8) Parkinson disease (9) Hereditary hemochromatosis (10) Non-healing wound of right lower extremity Assessment & Plan: Wound nurse eval for recommendations. 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 (12) Delirium Status: Acute Assessment & Plan: Minimize lines, reorient as needed. (13) Dementia Status: Chronic Assessment & Plan: Per discussion with daughter, as long as 4-5 years ago Neurologist had discussed that she had some dementia with her PD, but family hadn't seen a lot of issues before about 2 months ago when she became sick and had recurrent hospitalizations. Uncertain where baseline may be when illness resolved, family expressed understanding of this. 11/26 Pt only oriented to self and that she is at a hospital. Qualifiers: (14) Elevated liver enzymes Status: Acute Assessment & Plan: hep panel neg, liver us with hepatomegaly and steatosis VENUS BURNETT DO 11/26/22 1602: Assessment/Plan Assessment/Plan Admission Dx No major issues Continue to support Monitor liver enzymes Admission Status: Inpatient Order (span 2 midnights) GIGI DUARTE MD Nov 26, 2022 15:07 VENUS BURNETT DO Nov 26, 2022 16:02
[2022-11-26] MEDS: MELATONIN 3 MG TABLET PO PRN (20:01)
[2022-11-27 03:36] VITALS: BP 125/81
[2022-11-27 05:25] LABS: BASOPHILS % (AUTO) 1 % (0-10); EOSINOPHILS # (AUTO) 0.2 10^3/uL (0.0-0.3); EOSINOPHILS % (AUTO) 3 % (0-10); HEMATOCRIT 28 % (35-52); HEMOGLOBIN 9.1 g/dL (11.5-16.0); LYMPHOCYTES # (AUTO) 0.9 10^3/uL (1.0-4.0); LYMPHOCYTES % (AUTO) 16 % (12-44); MEAN CORPUSCULAR HEMOGLOBIN 30 pg (25-34); MEAN CORPUSCULAR HGB CONC 33 g/dL (32-36); MEAN CORPUSCULAR VOLUME 93 fL (80-99); MEAN PLATELET VOLUME 11.1 fL (9.0-12.2); MONOCYTES # (AUTO) 0.6 10^3/uL (0.0-1.0); MONOCYTES % (AUTO) 10 % (0-12); NEUTROPHILS # (AUTO) 3.9 10^3/uL (1.8-7.8); NEUTROPHILS % (AUTO) 69 % (42-75); PLATELET COUNT 256 10^3/uL (130-400); WHITE BLOOD COUNT 5.6 10^3/uL (4.3-11.0)
[2022-11-27 05:47] LABS: ALBUMIN 2.6 GM/DL (3.2-4.5); BILIRUBIN,TOTAL 0.6 MG/DL (0.1-1.0); CALCIUM 8.7 MG/DL (8.5-10.1); CREATININE SERUM 0.58 MG/DL (0.60-1.30); POTASSIUM 4.1 MMOL/L (3.6-5.0); TOTAL PROTEIN 5.9 GM/DL (6.4-8.2)
[2022-11-27] MEDS: KCL 20 MEQ TAB (K-DUR) PO SCH ×3 (05:54→20:38)
[2022-11-27] MEDS: HYDROcodone/APAP 7.5 MG/325 MG (LORTAB, LORCET PLUS) TABLET PO PRN ×3 (06:46→23:03)
[2022-11-27 07:35] VITALS: BP 127/77
[2022-11-27] MEDS: SINEMET 25/100 (CARBIDOPA/LEVODOPA) TAB PO SCH ×3 (07:45→18:03)
[2022-11-27] MEDS: amLODIPine 10 MG TABLET PO SCH (07:45)
[2022-11-27] MEDS: APIXABAN 5 MG TABLET PO SCH ×2 (07:45→20:38)
[2022-11-27] MEDS: LOSARTAN 50 MG (COZAAR) TAB PO SCH (07:45)
[2022-11-27] MEDS: MICONAZOLE 2% POWDER (DESENEX AF) 90 GM TOP SCH ×2 (07:45→20:39)
[2022-11-27] MEDS: CLOPIDOGREL 75 MG TABLET PO SCH (07:45)
[2022-11-27] MEDS: NS IV 1000 ML 1,000 ML IV SCH ×2 (07:48→18:04)
--- NOTE | 2022-11-27 08:08 | Progress Note ---
Objective Exam Last Set of Vital Signs Vital Signs Date Time Temp Pulse Resp B/P (MAP) Pulse Ox O2 Delivery O2 Flow Rate FiO2 11/27/22 07:35 36.8 82 16 127/77 (94) 93 Room Air 11/26/22 19:44 0.00 0.00 Capillary Refill : Less Than 3 Seconds I&O Intake and Output 11/27/22 00:00 Intake Total 1000 ml Output Total 2500 ml Balance -1500 ml Intake Oral 900 ml IV Total 100 ml Output Urine Total 1900 ml Post Void Residual 600 ml # Voids 2 # Bowel Movements 3 Results/Procedures Lab Laboratory Tests 11/27/22 05:13: White Blood Count 5.6, Red Blood Count 3.01L, Hemoglobin 9.1L, Hematocrit 28L, Mean Corpuscular Volume 93, Mean Corpuscular Hemoglobin 30, Mean Corpuscular Hemoglobin Concent 33, Red Cell Distribution Width 14.9H, Platelet Count 256, Me an Platelet Volume 11.1, Immature Granulocyte % (Auto) 1, Neutrophils (%) (Auto) 69, Lymphocytes (%) (Auto) 16, Monocytes (%) (Auto) 10, Eosinophils (%) (Auto) 3, Basophils (%) (Auto) 1, Neutrophils # (Auto) 3.9, Lymphocytes # (Auto) 0.9L, Monocytes # (Auto) 0.6, Eosinophils # (Auto) 0.2, Basophils # (Auto) 0.0, Immature Granulocyte # (Auto) 0.1, Sodium Level 139, Potassium Level 4.1, Chloride Level 108H, Carbon Dioxide Level 23, Anion Gap 8, Blood Urea Nitrogen 9, Creatinine 0.58L, Estimat Glomerular Filtration Rate 97, BUN/Creatinine Ratio 16, Glucose Level 102, Calcium Level 8.7, Corrected Calcium 9.8, Total Bilirubin 0.6, Aspartate Amino Transf (AST/SGOT) 127H, Alanine Aminotransferase (ALT/SGPT) 43, Alkaline Phosphatase 466H, Total Protein 5.9L, Albumin 2.6L Microbiology 11/14/22 MRSA Screen - Final, Complete MRSA not isolated 11/09/22 Blood Culture - Final, Complete No growth Assessment/Plan Assessment/Plan (1) Gangrene of left foot Status: Acute Assessment & Plan: - General surgery consult Dr Sosa, appreciate recommendations, started on IV antibiotics on admit. s/p BKA. Continued on meropenem. 11/26 Surgical site wrapped, moderate pain on exam. Continue abx. (2) Status post below-knee amputation of left lower extremity Status: Acute Assessment & Plan: PT, difficult to evaluate due to mental status. 11/26 Pain management, Plan for D/C to SNF. 11/27 Pain management, consider tapering off morphine. Continue with [place] PO vs oxycodone PO (3) PAD (peripheral artery disease) Status: Chronic Assessment & Plan: - Consulted Cardiology - Known markedly abnormal left ANNELISE, had planned for peripheral angiogram on prior admit, but became anxious and declined and was unable to lie flat. Was again going to have angiogram this stay, but then reported severe anaphylactic reaction to iodine and angiogram therefore not done. (4) Intertriginous candidiasis Status: Acute Assessment & Plan: - Started on topical nystatin (5) HTN (hypertension) Status: Acute Assessment & Plan: - Restarted home HTN meds (6) Tobacco abuse Status: Chronic Assessment & Plan: - Discussed need for cessation, offered nicotine replacement (7) Paroxysmal atrial fibrillation Status: Acute Assessment & Plan: Appreciate Cardiology recommendations. Resuming Eliquis post surgery. 11/26 Cardizem 240 mg started 11/15 per cardiology, continue with PO cardizem (8) Parkinson disease (9) Hereditary hemochromatosis (10) Non-healing wound of right lower extremity Assessment & Plan: Wound nurse eval for recommendations. 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 (12) Delirium Status: Acute Assessment & Plan: Minimize lines, reorient as needed. (13) Dementia Status: Chronic Assessment & Plan: Per discussion with daughter, as long as 4-5 years ago Neurologist had discussed that she had some dementia with her PD, but family hadn't seen a lot of issues before about 2 months ago when she became sick and had recurrent hospitalizations. Uncertain where baseline may be when illness resolved, family expressed understanding of this. 11/26 Pt only oriented to self and that she is at a hospital. Qualifiers: (14) Elevated liver enzymes Status: Acute Assessment & Plan: hep panel neg, liver us with hepatomegaly and steatosis GIGI DUARTE MD Nov 27, 2022 08:07
[2022-11-27 11:19] VITALS: BP 126/73
--- NOTE | 2022-11-27 13:54 | Progress Note ---
GIGI DUARTE MD 11/27/22 1354: Subjective HPI/CC On Admission Date Seen by Provider: Nov 27, 2022 Time Seen by Provider: 08:00 Staff report some intermittent nausea without vomiting responsive to Zofran no other complaints. Subjective/Events-last exam No acute events overnight. Pt reports feeling okay today. She still complains of pain in her right foot. She also reports not liking the hospital food. Mentation similar to that of previous day. Unsure of Pt's baseline, today she was oriented to self and place. Objective Exam Vital Signs Vital Signs Date Time Temp Pulse Resp B/P (MAP) Pulse Ox O2 Delivery O2 Flow Rate FiO2 11/27/22 11:19 37.4 60 18 126/73 (90) 96 Room Air 11/26/22 19:44 0.00 0.00 Capillary Refill : Less Than 3 Seconds General Appearance: No Apparent Distress Neck: No Full Range of Motion, No Normal Inspection, No Non Tender, No Supple, No Carotid Bruit, No JVD, No Limited Range of Motion, No Lymphadenopathy (L), No Lymphadenopathy (R), No Tender Lateral, No Tender Midline, No Thyromegaly, No Other Respiratory: No Chest Non Tender, No Lungs Clear, No Normal Breath Sounds, No No Accessory Muscle Use, No No Respiratory Distress, No Accessory Muscle Use, No Crackles, No Decreased Breath Sounds, No Expiration, No Inspiration, No Pleural Rub, No Rales, No Respiratory Distress, No Rhonci, No Stridor, No Wheezing, No Other Cardiovascular: No Regular Rate, Rhythm, No No Edema, No No Gallop, No No JVD, No No Murmur, No Normal Peripheral Pulses, No Bradycardia, No Diastolic Murmur, No Systolic Murmur, No Extra Beats, No Friction Rub, No Gallop/S3, No Gallop/S4, No Irregularly Irregular, No JVD, No Tachycardia, No Other Gastrointestinal: No Normal Bowel Sounds, No No Organomegaly, No No Pulsatile Mass, No Non Tender, No Soft, No Abnormal Bowel Sounds, No Distended, No Guarding, No Hepatomegaly, No Hernia, No Mass, No Rebound, No Splenomegaly, No Tenderness, No Other Extremity: Other (Decreased sensation and ROM of right ankle/foot) Neurologic/Psychiatric: Alert, Disoriented Skin: Other (Skin breakdown of right foot, ankle, anterior lower calf, necrotic areas over right foot (site at great toe removal)) Results/Procedures Lab Laboratory Tests 11/27/22 05:13 Patient resulted labs reviewed. Assessment/Plan Assessment and Plan Assess & Plan/Chief Complaint (1) Gangrene of left foot Status: Acute Assessment & Plan: - General surgery consult Dr Sosa, appreciate recommendations, started on IV antibiotics on admit. s/p BKA. Continued on meropenem. 11/26 Surgical site wrapped, moderate pain on exam. Continue abx. (2) Status post below-knee amputation of left lower extremity Status: Acute Assessment & Plan: PT, difficult to evaluate due to mental status. 11/26 Pain management, Plan for D/C to SNF. 11/27 Pain management, consider tapering off morphine. Continue with [place] PO vs oxycodone PO on D/C (3) PAD (peripheral artery disease) Status: Chronic Assessment & Plan: - Consulted Cardiology - Known markedly abnormal left ANNELISE, had planned for peripheral angiogram on prior admit, but became anxious and declined and was unable to lie flat. Was again going to have angiogram this stay, but then reported severe anaphylactic reaction to iodine and angiogram therefore not done. (4) Intertriginous candidiasis Status: Acute Assessment & Plan: - Started on topical nystatin (5) HTN (hypertension) Status: Acute Assessment & Plan: - Restarted home HTN meds (6) Tobacco abuse Status: Chronic Assessment & Plan: - Discussed need for cessation, offered nicotine replacement (7) Paroxysmal atrial fibrillation Status: Acute Assessment & Plan: Appreciate Cardiology recommendations. Resuming Eliquis post surgery. 11/26 Cardizem 240 mg started 11/15 per cardiology 11/27 Continue with PO cardizem (8) Parkinson disease Stable (9) Hereditary hemochromatosis (10) Non-healing wound of right lower extremity Assessment & Plan: Wound nurse eval for recommendations. 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 (12) Delirium Status: Acute Assessment & Plan: Minimize lines, reorient as needed. (13) Dementia Status: Chronic Assessment & Plan: Per discussion with daughter, as long as 4-5 years ago Neurologist had discussed that she had some dementia with her PD, but family hadn't seen a lot of issues before about 2 months ago when she became sick and had recurrent hospitalizations. Uncertain where baseline may be when illness resolved, family expressed understanding of this. Pt only oriented to self and that she is at a hospital. Qualifiers: (14) Elevated liver enzymes Status: Acute Assessment & Plan: hep panel neg, liver us with hepatomegaly and steatosis Consider further workup for PSC vs PBC vs exacerbation of hereditary hemochromatosis into liver Diagnosis/Problems Diagnosis/Problems (1) Hereditary hemochromatosis (2) Parkinson disease (3) Paroxysmal atrial fibrillation Status: Acute (4) Below knee amputation (5) PAD (peripheral artery disease) Status: Chronic (6) HTN (hypertension) Status: Acute (7) Gangrene of left foot Status: Acute (8) Elevated liver enzymes Status: Acute (9) Status post below-knee amputation of left lower extremity Status: Acute VENUS BURNETT DO 11/27/22 1700: Assessment/Plan Assessment and Plan Assess & Plan/Chief Complaint I performed a history and physical examination of the patient and discussed management. I reviewed the resident's note and agree with the documented findings and plan of care. GIGI DUARTE MD Nov 27, 2022 13:54 VENUS BURNETT DO Nov 27, 2022 17:00
[2022-11-27] MEDS: ALPRAZolam 0.25 MG TABLET PO PRN (14:37)
[2022-11-27 15:13] VITALS: BP 115/76
[2022-11-27 19:00] VITALS: BP 122/74
[2022-11-27 23:19] VITALS: BP 123/73
[2022-11-28 03:43] VITALS: BP 122/71
[2022-11-28] MEDS: NS IV 1000 ML 1,000 ML IV SCH ×3 (03:43→18:56)
[2022-11-28 04:43] LABS: BASOPHILS # (AUTO) 0.1 10^3/uL (0.0-0.1); BASOPHILS % (AUTO) 1 % (0-10); EOSINOPHILS # (AUTO) 0.3 10^3/uL (0.0-0.3); EOSINOPHILS % (AUTO) 4 % (0-10); HEMATOCRIT 27 % (35-52); HEMOGLOBIN 8.9 g/dL (11.5-16.0); LYMPHOCYTES # (AUTO) 1.6 10^3/uL (1.0-4.0); LYMPHOCYTES % (AUTO) 27 % (12-44); MEAN CORPUSCULAR HEMOGLOBIN 30 pg (25-34); MEAN CORPUSCULAR HGB CONC 33 g/dL (32-36); MEAN CORPUSCULAR VOLUME 92 fL (80-99); MEAN PLATELET VOLUME 10.7 fL (9.0-12.2); MONOCYTES # (AUTO) 0.7 10^3/uL (0.0-1.0); MONOCYTES % (AUTO) 12 % (0-12); NEUTROPHILS # (AUTO) 3.2 10^3/uL (1.8-7.8); NEUTROPHILS % (AUTO) 54 % (42-75); PLATELET COUNT 252 10^3/uL (130-400)
[2022-11-28 05:01] LABS: CALCIUM 8.5 MG/DL (8.5-10.1)
[2022-11-28] MEDS: KCL 20 MEQ TAB (K-DUR) PO SCH ×3 (05:02→21:17)
[2022-11-28 05:32] LABS: ALBUMIN 2.7 GM/DL (3.2-4.5)
[2022-11-28 05:35] LABS: TOTAL PROTEIN 5.7 GM/DL (6.4-8.2)
[2022-11-28 05:36] LABS: BILIRUBIN,TOTAL 0.5 MG/DL (0.1-1.0)
[2022-11-28 05:38] LABS: CREATININE SERUM 0.57 MG/DL (0.60-1.30)
[2022-11-28 07:29] VITALS: BP 143/75
[2022-11-28] MEDS: APIXABAN 5 MG TABLET PO SCH ×2 (08:48→21:17)
[2022-11-28] MEDS: LOSARTAN 50 MG (COZAAR) TAB PO SCH (08:49)
[2022-11-28] MEDS: CLOPIDOGREL 75 MG TABLET PO SCH (08:49)
[2022-11-28] MEDS: HYDROcodone/APAP 7.5 MG/325 MG (LORTAB, LORCET PLUS) TABLET PO PRN (08:49)
[2022-11-28] MEDS: SINEMET 25/100 (CARBIDOPA/LEVODOPA) TAB PO SCH ×3 (08:49→17:46)
[2022-11-28] MEDS: amLODIPine 10 MG TABLET PO SCH (08:49)
[2022-11-28] MEDS: MICONAZOLE 2% POWDER (DESENEX AF) 90 GM TOP SCH ×2 (08:50→21:17)
--- NOTE | 2022-11-28 10:04 | Progress Note - Hospitalist ---
Subjective HPI/CC On Admission Date Seen by Provider: Nov 28, 2022 Time Seen by Provider: 11:00 Staff report some intermittent nausea without vomiting responsive to Zofran no other complaints. Subjective/Events-last exam No significant issues No pain reported Confusion at times Review of Systems Musculoskeletal: leg pain Objective Exam Vital Signs Vital Signs Date Time Temp Pulse Resp B/P (MAP) Pulse Ox O2 Delivery O2 Flow Rate FiO2 11/28/22 19:26 37.3 86 18 126/83 (97) 97 Room Air 11/27/22 15:13 0.00 Capillary Refill : Less Than 3 Seconds General Appearance: No Apparent Distress, WD/WN, Chronically ill Respiratory: Lungs Clear, Normal Breath Sounds Cardiovascular: Regular Rate, Rhythm Neurologic/Psychiatric: Alert, Oriented x3 Results/Procedures Lab Laboratory Tests 11/28/22 04:36 Patient resulted labs reviewed. Assessment/Plan Assessment and Plan Assess & Plan/Chief Complaint . 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
[2022-11-28 11:15] VITALS: BP 124/75
--- NOTE | 2022-11-28 14:21 | Occupational Ther Daily Note ---
OT Current Status-Daily Note Subjective Agreeable to perform EOB activity and sit/stands with therapy. Mental Status/Objective Patient Orientation: Person ADL-Treatment Therapy Code Descriptions/Definitions Functional [place] Measure: 0=Not Assessed/NA 4=Minimal Assistance 1=Total Assistance 5=Supervision or Setup 2=Maximal Assistance 6=Modified [place] 3=Moderate Assistance 7=Complete IndependenceSCALE: Activities may be completed with or without assistive devices. 1-Ecisumacvs-augcstf completes the activity by him/herself with no assistance from a helper. 5-Set-up or Clean-up Assistance-helper sets up or cleans up; patient completes activity. [place] assists only prior to or following the activity. 4-Supervision or Touching Assistance-helper provides verbal cues and/or touching/steadying and/or contact guard assistance as patient completes activity. Assistance may be provided throughout the activity or intermittently. 3-Partial/Moderate Assistance-helper does LESS THAN HALF the effort. [place] lifts, holds or supports trunk or limbs, but provides less than half the effort. 2-Substantial/Maximal Assistance-helper does MORE THAN HALF the effort. [place] lifts or holds trunk or limbs and provides more than half the effort. 0-Maqpzaqpv-cyamde does ALL the effort. Patient does none of the effort to complete the activity. Or, the assistance of 2 or more helpers is required for the patient to complete the activity. If activity was not attempted, code reason: 7-Patient Refused. 9-Not Applicable-not attempted and the patient did not perform the activity before the current illness, exacerbation or injury. 10-Not Attempted due to Environmental Limitations-(lack of equipment, weather restraints, etc.). 88-Not Attempted due to Medical Conditions or Safety Concerns. Eating (QC): 5 Oral Hygiene (QC): 4 Shower/Bathe Self (QC): 7 (patient reports bath w/ staff) Upper Body Dressing (QC): 3 Lower Body Dressing (QC): 1 On/Off Footwear: 1 Toileting Hygiene (QC): 1 Toilet Transfer (QC): 1 Improvement noted in use of time, following direction and reduced confusion Other Treatment Patient progressed with pulling self to HOB w/ use of bed rails, Patient is able to depression scoot across bed approximate 12 inches Education OT Patient Education: Exercise program, Modified ADL techniques, Progress toward Goal/Update tx plan, Purpose of tx/functional activities, Reviewed precautions, Rehab process, Safety issues, Transfer techniques Teaching Recipient: Patient Teaching Methods: Demonstration, Discussion Response to Teaching: Verbalize Understanding, Reinforcement Needed OT Career Placement Services Counselor Goals [facility] Goals Time Frame: Nov 28, 2022 Eating (QC): 6 Oral Hygiene (QC): 5 Upper Body Dressing (QC): 5 1=Demonstrate adherence to instructed precautions during ADL tasks. 2=Patient will verbalize/demonstrate understanding of assistive devices/modifications for ADL. 3=Patient will improve strength/tolerance for activity to enable patient to perform ADL's. OT Education/Plan Problem List/Assessment Assessment: Decreased Activ Tolerance, Decreased Safety Aware, Decreased UE Strength, Dependent Transfers, Impaired Bed Mobility, Impaired Cognition, Impaired Coordination, Impaired Funct Balance, Impaired Self-Care Skills Discharge Recommendations Plan/Recommendations: Continue POC Treatment Plan/Plan of Care Patient would benefit from OT for education, treatment and training to promote independence in ADL's, mobility, safety and/or upper extremity function for ADL's. Plan of Care: ADL Retraining, Caregiver Training, Cognitive Retraining, Concurrent Therapy, Functional Mobility, Group Exercise/Act as Ind, UE Funct Exercise/Act, UE Neuromus Re-Ed/Coord Treatment Duration: Dec 02, 2022 Frequency: 3 times per week (3-5 times per week) Agreement: Yes Rehab Potential: Guarded Family present in room, all needs met Time Start Time: 13:41 Stop Time: 13:56 DATE: Nov 28, 2022 Total Time Billed (hr/min): 15 Billed Treatment Time EX 15 min JEANNIE KUMAR OT Nov 28, 2022 14:21
--- NOTE | 2022-11-28 16:02 | Physical Therapy Daily Note ---
PT Daily Note-Current Subjective Patient in bed upon PT arrival, agreeable to treatment. Rates pain at 8/10 in right foot. Pain Section J - Health Conditions 1. Rarely or not at all 2. Occasionally 3. Frequently 4. Almost constantly 8. Unable to answer Pain Effect on Sleep: 3 Pain Interference with Therapy: 4 Pain Interference w/Day-to-Day: 3 Mental Status Patient Orientation: Person Transfers SCALE: Activities may be completed with or without assistive devices. 8-Ryqjwtsosh-qtkpiof completes the activity by him/herself with no assistance from a helper. 5-Set-up or Clean-up Assistance-helper sets up or cleans up; patient completes activity. [place] assists only prior to or following the activity. 4-Supervision or Touching Assistance-helper provides verbal cues and/or touching/steadying and/or contact guard assistance as patient completes activity. Assistance may be provided throughout the activity or intermittently. 3-Partial/Moderate Assistance-helper does LESS THAN HALF the effort. [place] lifts, holds or supports trunk or limbs, but provides less than half the effort. 2-Substantial/Maximal Assistance-helper does MORE THAN HALF the effort. [place] lifts or holds trunk or limbs and provides more than half the effort. 5-Pqvqlstlp-vqdbei does ALL the effort. Patient does none of the effort to complete the activity. Or, the assistance of 2 or more helpers is required for the patient to complete the activity. If activity was not attempted, code reason: 7-Patient Refused. 9-Not Applicable-not attempted and the patient did not perform the activity before the current illness, exacerbation or injury. 10-Not Attempted due to Environmental Limitations-(lack of equipment, weather restraints, etc.). 88-Not Attempted due to Medical Conditions or Safety Concerns. Roll Left & Right (QC): 3 Sit to Lying (QC): 3 Lying to Sitting/Side of Bed(Q: 3 Sit to Stand (QC): 1 Weight Bearing Right Lower Extremity: Right Weight Bearing/Tolerated Left Lower Extremity: Left Non Weight Bearing Gait Training Does the Patient Walk?: No and Walking Goal IS indicated Assessment Patient more agreeable to treatment this date. Patient performs bed mobility with min /mod A. Patient able to mobilize to the edge of the bed. Patient requires max A x 2 for sit to stand (x3). Patient unable to stand fully erect and unable to progress right LE. Patient returns to bed and performs bed mobility with SBA, however requires moderate verbal cues. Patient in bed post treatment with all needs met,nursing notified, call light in hand. PT Medical Equipment Repair Technician Goals [facility] Goals PT Medical Equipment Repair Technician Goals Time Frame: Dec 10, 2022 Roll Left & Right (QC): 3 Sit to Lying (QC): 3 Lying-Sitting on Side/Bed(QC): 3 Sit to Stand (QC): 3 Chair/Odb-wb-Qbboh Xfer(QC): 3 Toilet Transfer (QC): 3 Does the Patient Walk: No and Walking Goal IS indicated Walk 10 feet (QC): 2 Does the Pt use WC or Scooter?: Yes Wheel 50 feet with 2 turns (QC: 3 Type: Manual Wheel 150 feet: 3 Type: Manual PT Plan Treatment/Plan Treatment Plan: Continue Plan of Care Treatment Plan: Bed Mobility, Education, Functional Activity Braulio, Functional Strength, Group Therapy, Gait, Safety, Therapeutic Exercise, Transfers Treatment Duration: Jan 05, 2023 Frequency: 6 times per week Estimated Hrs Per Day: .25 hour per day Patient and/or Family Agrees t: Yes Safety Risks/Education Patient Education: Transfer Techniques Teaching Recipient: Patient Teaching Methods: Demonstration, Discussion Response to Teaching: Reinforcement Needed Time Time In: 1335 Time Out: 1353 DATE: Nov 28, 2022 Total Billed Treatment Time: 18 Total Billed Treatment Visit, FIFI ROBIN PT Nov 28, 2022 16:02
[2022-11-28 16:18] VITALS: BP 128/56
[2022-11-28 19:26] VITALS: BP 126/83
[2022-11-28] MEDS: MELATONIN 3 MG TABLET PO PRN (21:17)
[2022-11-28 23:27] VITALS: BP 139/67
[2022-11-29 03:37] VITALS: BP 158/65
[2022-11-29] MEDS: NS IV 1000 ML 1,000 ML IV SCH ×2 (05:27→15:15)
[2022-11-29 05:30] LABS: BASOPHILS % (AUTO) 1 % (0-10); EOSINOPHILS # (AUTO) 0.1 10^3/uL (0.0-0.3); EOSINOPHILS % (AUTO) 2 % (0-10); HEMATOCRIT 27 % (35-52); HEMOGLOBIN 9.2 g/dL (11.5-16.0); LYMPHOCYTES % (AUTO) 16 % (12-44); MEAN CORPUSCULAR HEMOGLOBIN 31 pg (25-34); MEAN CORPUSCULAR HGB CONC 34 g/dL (32-36); MEAN CORPUSCULAR VOLUME 91 fL (80-99); MEAN PLATELET VOLUME 10.8 fL (9.0-12.2); MONOCYTES # (AUTO) 0.6 10^3/uL (0.0-1.0); MONOCYTES % (AUTO) 10 % (0-12); NEUTROPHILS # (AUTO) 4.2 10^3/uL (1.8-7.8); NEUTROPHILS % (AUTO) 70 % (42-75); PLATELET COUNT 249 10^3/uL (130-400)
[2022-11-29 05:43] LABS: ALBUMIN 2.7 GM/DL (3.2-4.5); POTASSIUM 3.9 MMOL/L (3.6-5.0)
[2022-11-29 05:44] LABS: CALCIUM 8.7 MG/DL (8.5-10.1)
[2022-11-29 05:45] LABS: TOTAL PROTEIN 5.7 GM/DL (6.4-8.2)
[2022-11-29 05:47] LABS: BILIRUBIN,TOTAL 0.5 MG/DL (0.1-1.0)
[2022-11-29 05:49] LABS: CREATININE SERUM 0.57 MG/DL (0.60-1.30)
[2022-11-29] MEDS: KCL 20 MEQ TAB (K-DUR) PO SCH ×3 (05:53→20:04)
[2022-11-29 07:21] VITALS: BP 153/70
[2022-11-29] MEDS: APIXABAN 5 MG TABLET PO SCH ×2 (08:16→20:04)
[2022-11-29] MEDS: amLODIPine 10 MG TABLET PO SCH (08:16)
[2022-11-29] MEDS: LOSARTAN 50 MG (COZAAR) TAB PO SCH (08:16)
[2022-11-29] MEDS: MICONAZOLE 2% POWDER (DESENEX AF) 90 GM TOP SCH ×2 (08:17→20:04)
[2022-11-29] MEDS: HYDROcodone/APAP 7.5 MG/325 MG (LORTAB, LORCET PLUS) TABLET PO PRN ×3 (08:17→23:37)
[2022-11-29] MEDS: CLOPIDOGREL 75 MG TABLET PO SCH (08:17)
[2022-11-29] MEDS: SINEMET 25/100 (CARBIDOPA/LEVODOPA) TAB PO SCH ×3 (08:17→17:14)
--- NOTE | 2022-11-29 10:01 | Progress Note - Hospitalist ---
Subjective HPI/CC On Admission Date Seen by Provider: Nov 29, 2022 Time Seen by Provider: 10:00 Staff report some intermittent nausea without vomiting responsive to Zofran no other complaints. Subjective/Events-last exam Overall stable but remains complicated due to delirium Hopefully over time she is able to regain function and participate with therapy Objective Exam Vital Signs Vital Signs Date Time Temp Pulse Resp B/P (MAP) Pulse Ox O2 Delivery O2 Flow Rate FiO2 11/30/22 04:08 37.2 74 18 134/71 (92) 96 Room Air 11/29/22 03:37 0.00 0.00 Capillary Refill : Less Than 3 Seconds General Appearance: No Apparent Distress, WD/WN, Chronically ill Respiratory: Lungs Clear, Normal Breath Sounds Cardiovascular: Regular Rate, Rhythm Results/Procedures Lab Laboratory Tests 11/30/22 04:30 Patient resulted labs reviewed. Assessment/Plan Assessment and Plan Assess & Plan/Chief Complaint . 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
[2022-11-29 11:44] VITALS: BP 124/69
--- NOTE | 2022-11-29 13:26 | Occupational Ther Daily Note ---
OT Current Status-Daily Note Subjective Patient remains confused today w/ hospital course and situation, looking her limb Mental Status/Objective Patient Orientation: Person (oriented to person only), Confused Attachments: Rueda Catheter ADL-Treatment Dependent for all LB ADLS, mod-assist for UB ADLS and MIn Assist for grooming constant verbal cues required Therapy Code Descriptions/Definitions Functional [place] Measure: 0=Not Assessed/NA 4=Minimal Assistance 1=Total Assistance 5=Supervision or Setup 2=Maximal Assistance 6=Modified [place] 3=Moderate Assistance 7=Complete IndependenceSCALE: Activities may be completed with or without assistive devices. 0-Snftgscuaj-lyeechc completes the activity by him/herself with no assistance from a helper. 5-Set-up or Clean-up Assistance-helper sets up or cleans up; patient completes activity. [place] assists only prior to or following the activity. 4-Supervision or Touching Assistance-helper provides verbal cues and/or touching/steadying and/or contact guard assistance as patient completes activity. Assistance may be provided throughout the activity or intermittently. 3-Partial/Moderate Assistance-helper does LESS THAN HALF the effort. [place] lifts, holds or supports trunk or limbs, but provides less than half the effort. 2-Substantial/Maximal Assistance-helper does MORE THAN HALF the effort. [place] lifts or holds trunk or limbs and provides more than half the effort. 2-Dtljdgydy-soavzf does ALL the effort. Patient does none of the effort to complete the activity. Or, the assistance of 2 or more helpers is required for the patient to complete the activity. If activity was not attempted, code reason: 7-Patient Refused. 9-Not Applicable-not attempted and the patient did not perform the activity before the current illness, exacerbation or injury. 10-Not Attempted due to Environmental Limitations-(lack of equipment, weather restraints, etc.). 88-Not Attempted due to Medical Conditions or Safety Concerns. unsuccessful stand form bed, patient ceased efforts mid transfer to stand and reports she just cant do this today. Patient progressed w/ timeliness to reposition self close to HOB and lift LE into bed. Other Treatment Gentle sensory massage education for decreasing phantom pain and recall of amputation Education OT Patient Education: Correct positioning, Disease process, Modified ADL techniques, Progress toward Goal/Update tx plan, Purpose of tx/functional activities, Reviewed precautions, Rehab process, Safety issues, Transfer te chniques, Use of adapted equipment OT Retirement Goals Student Nurse Goals Time Frame: Nov 28, 2022 Eating (QC): 6 Oral Hygiene (QC): 5 Upper Body Dressing (QC): 5 1=Demonstrate adherence to instructed precautions during ADL tasks. 2=Patient will verbalize/demonstrate understanding of assistive devices/modifications for ADL. 3=Patient will improve strength/tolerance for activity to enable patient to pe rform ADL's. OT Education/Plan Problem List/Assessment Assessment: Decreased Activ Tolerance, Decreased Safety Aware, Decreased UE Strength, Dependent Transfers, Impaired Bed Mobility, Impaired Cognition, Impai red Coordination, Impaired Funct Balance, Impaired Self-Care Skills Discharge Recommendations Plan/Recommendations: Continue POC Therapy Discharge Recommendati: Post Acute OT Treatment Plan/Plan of Care Treatment,Training & Education: Yes Patient would benefit from OT for education, treatment and training to promote independence in ADL's, mobility, safety and/or upper extremity function for ADL's. Plan of Care: ADL Retraining, Caregiver Training, Cognitive Retraining, Concurrent Therapy, Functional Mobility, Group Exercise/Act as Ind, UE Funct Exercise/Act, UE Neuromus Re-Ed/Coord Treatment Duration: Dec 02, 2022 Frequency: 3 times per week (3-5 times per week) Agreement: Yes Rehab Potential: Guarded Time Start Time: 13:03 Stop Time: 13:20 DATE: Nov 29, 2022 Total Time Billed (hr/min): 17 Billed Treatment Time FA 17 min JEANNIE KUMAR OT Nov 29, 2022 13:26
--- NOTE | 2022-11-29 14:21 | Physical Therapy Daily Note ---
PT Daily Note-Current Subjective Patient lying in bed upon PT arrival, resistant to treatment but eventually agrees. Patient rates pain at 9/10 in "My new appendages." Patient still moderately confused but does have moments of lucidity. Pain Section J - Health Conditions 1. Rarely or not at all 2. Occasionally 3. Frequently 4. Almost constantly 8. Unable to answer Pain Effect on Sleep: 3 Pain Interference with Therapy: 4 Pain Interference w/Day-to-Day: 3 Mental Status Patient Orientation: Person Transfers SCALE: Activities may be completed with or without assistive devices. 9-Uglvdweooo-qvshvej completes the activity by him/herself with no assistance from a helper. 5-Set-up or Clean-up Assistance-helper sets up or cleans up; patient completes activity. [place] assists only prior to or following the activity. 4-Supervision or Touching Assistance-helper provides verbal cues and/or touching/steadying and/or contact guard assistance as patient completes activity. Assistance may be provided throughout the activity or intermittently. 3-Partial/Moderate Assistance-helper does LESS THAN HALF the effort. [place] lifts, holds or supports trunk or limbs, but provides less than half the effort. 2-Substantial/Maximal Assistance-helper does MORE THAN HALF the effort. [place] lifts or holds trunk or limbs and provides more than half the effort. 7-Trpgwktdf-fbccxd does ALL the effort. Patient does none of the effort to complete the activity. Or, the assistance of 2 or more helpers is required for the patient to complete the activity. If activity was not attempted, code reason: 7-Patient Refused. 9-Not Applicable-not attempted and the patient did not perform the activity before the current illness, exacerbation or injury. 10-Not Attempted due to Environmental Limitations-(lack of equipment, weather restraints, etc.). 88-Not Attempted due to Medical Conditions or Safety Concerns. Roll Left & Right (QC): 3 Sit to Lying (QC): 3 Lying to Sitting/Side of Bed(Q: 3 Sit to Stand (QC): 1 Weight Bearing Right Lower Extremity: Right Weight Bearing/Tolerated Left Lower Extremity: Left Non Weight Bearing Assessment Current Status: Poor Progress Patient agreeable to treatment this date, but reports she is scared. Patient performs bed mobility with min /mod A. Patient able to mobilize to the edge of the bed. Patient requires Total A x 2 for sit to stand. Patient unable to stand fully erect and unable to progress right LE. Patient returns to bed and performs bed mobility with SBA, however requires moderate verbal cues. Patient in bed post treatment with all needs met,nursing notified, call light in hand. PT Long-Term Goals Long-Term Goals PT Digital Circuit Designer Goals Time Frame: Dec 10, 2022 Roll Left & Right (QC): 3 Sit to Lying (QC): 3 Lying-Sitting on Side/Bed(QC): 3 Sit to Stand (QC): 3 Chair/Tlq-rr-Hgafn Xfer(QC): 3 Toilet Transfer (QC): 3 Does the Patient Walk: No and Walking Goal IS indicated Walk 10 feet (QC): 2 Does the Pt use WC or Scooter?: Yes Wheel 50 feet with 2 turns (QC: 3 Type: Manual Wheel 150 feet: 3 Type: Manual PT Plan Treatment/Plan Treatment Plan: Continue Plan of Care Treatment Plan: Bed Mobility, Education, Functional Activity Braulio, Functional Strength, Group Therapy, Gait, Safety, Therapeutic Exercise, Transfers Treatment Duration: Jan 05, 2023 Frequency: 6 times per week Estimated Hrs Per Day: .25 hour per day Patient and/or Family Agrees t: Yes Safety Risks/Education Patient Education: Transfer Techniques Teaching Recipient: Patient Teaching Methods: Demonstration, Discussion Response to Teaching: Reinforcement Needed Time Time In: 1305 Time Out: 1317 DATE: Nov 29, 2022 Total Billed Treatment Time: 12 Total Billed Treatment Visit, FIFI ROBIN PT Nov 29, 2022 14:21
[2022-11-29 16:14] VITALS: BP 129/59
--- NOTE | 2022-11-29 17:32 | Progress Note ---
Subjective Date Seen by a Provider: Nov 29, 2022 Time Seen by a Provider: 16:30 Subjective/Events-last exam doing better. much more alert and oriented today. post flap of left BKA still viable however does have patches of discoloration and blisters consistent with arterial insufficiency. Objective Exam Vital Signs Date Time Temp Pulse Resp B/P (MAP) Pulse Ox O2 Delivery O2 Flow Rate FiO2 11/29/22 16:14 36.8 62 20 129/59 (82) 100 Room Air 11/29/22 11:44 36.9 70 18 124/69 (87) 96 Room Air 11/29/22 08:00 Room Air 11/29/22 07:21 37.0 73 18 153/70 (97) 97 Room Air 11/29/22 03:37 36.5 73 18 158/65 (96) 97 Room Air 0.00 0.00 11/28/22 23:27 36.5 75 18 139/67 (91) 96 Room Air 0.00 0.00 11/28/22 21:20 Room Air 11/28/22 19:26 37.3 86 18 126/83 (97) 97 Room Air I & O 11/29/22 07:00 Intake Total 3220 ml Output Total 2400 ml Balance 820 ml Capillary Refill : Less Than 3 Seconds General Appearance: No Apparent Distress HEENT: PERRL/EOMI Neck: Full Range of Motion Respiratory: Rhonci, Wheezing Cardiovascular: Regular Rate, Rhythm Gastrointestinal: normal bowel sounds, non tender, soft Extremity: Normal Capillary Refill Neurologic/Psychiatric: Alert Skin: Normal Color Lymphatic: No Adenopathy Results Lab Laboratory Tests 11/29/22 05:25: White Blood Count 6.0, Red Blood Count 3.01L, Hemoglobin 9.2L, Hematocrit 27L, Mean Corpuscular Volume 91, Mean Corpuscular Hemoglobin 31, Mean Corpuscular Hemoglobin Concent 34, Red Cell Distribution Width 14.7H, Platelet Count 249, Mean Platelet Volume 10.8, Immature Granulocyte % (Auto) 2, Neutrophils (%) (Auto) 70, Lymphocytes (%) (Auto) 16, Monocytes (%) (Auto) 10, Eosinophils (%) (Auto) 2, Basophils (%) (Auto) 1, Neutrophils # (Auto) 4.2, Lymphocytes # (Auto) 1.0, Monocytes # (Auto) 0.6, Eosinophils # (Auto) 0.1, Basophils # (Auto) 0.0, Immature Granulocyte # (Auto) 0.1, Sodium Level 137, Potassium Level 3.9, Chloride Level 104, Carbon Dioxide Level 23, Anion Gap 10, Blood Urea Nitrogen 6L, Creatinine 0.57L, Estimat Glomerular Filtration Rate 98, BUN/Creatinine Ratio 11, Glucose Level 108H, Calcium Level 8.7, Corrected Calcium 9.7, Total Bilirubin 0.5, Aspartate Amino Transf (AST/SGOT) 23, Alanine Aminotransferase ( ALT/SGPT) 29, Alkaline Phosphatase 356H, Total Protein 5.7L, Albumin 2.7L Microbiology 11/14/22 MRSA Screen - Final, Complete MRSA not isolated 11/09/22 Blood Culture - Final, Complete No growth Assessment/Plan Assessment/Plan Assess & Plan/Chief Complaint 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 does have continued underlying osteomyelitis bilat feet. scheduled MRI bilateral feet but once again refused. remove dressing today. then dressing change daily(4x4 gauze, followed by kerlix, followed by 6inch KESHAV wrap) ARU evaluate. unsure at this time about placement. appears many factors involved including family dynamics and monetary issues. speculation that [facility] may be a possibility. Either way I feel that going home is not a good idea due to conditions in the home and regresssion every time she goes back home. RUDY MARRERO MD Nov 29, 2022 17:32
[2022-11-29 20:00] VITALS: BP 122/60
[2022-11-29] MEDS: ALPRAZolam 0.25 MG TABLET PO PRN (23:36)
[2022-11-29] MEDS: CALCIUM CARBONATE 500 MG CHEW TABLET PO PRN (23:38)
[2022-11-30 00:50] VITALS: BP 117/69
[2022-11-30 04:08] VITALS: BP 134/71
[2022-11-30] MEDS: NS IV 1000 ML 1,000 ML IV SCH ×2 (04:27→16:22)
[2022-11-30 04:34] LABS: BASOPHILS # (AUTO) 0.1 10^3/uL (0.0-0.1); BASOPHILS % (AUTO) 1 % (0-10); EOSINOPHILS # (AUTO) 0.3 10^3/uL (0.0-0.3); EOSINOPHILS % (AUTO) 4 % (0-10); HEMATOCRIT 27 % (35-52); HEMOGLOBIN 9.1 g/dL (11.5-16.0); LYMPHOCYTES # (AUTO) 1.6 10^3/uL (1.0-4.0); LYMPHOCYTES % (AUTO) 28 % (12-44); MEAN CORPUSCULAR HEMOGLOBIN 31 pg (25-34); MEAN CORPUSCULAR HGB CONC 33 g/dL (32-36); MEAN CORPUSCULAR VOLUME 92 fL (80-99); MEAN PLATELET VOLUME 10.9 fL (9.0-12.2); MONOCYTES # (AUTO) 0.6 10^3/uL (0.0-1.0); MONOCYTES % (AUTO) 11 % (0-12); NEUTROPHILS # (AUTO) 3.2 10^3/uL (1.8-7.8); NEUTROPHILS % (AUTO) 55 % (42-75); PLATELET COUNT 265 10^3/uL (130-400); WHITE BLOOD COUNT 5.9 10^3/uL (4.3-11.0)
[2022-11-30 04:46] LABS: ALBUMIN 2.8 GM/DL (3.2-4.5); POTASSIUM 4.1 MMOL/L (3.6-5.0)
[2022-11-30 04:47] LABS: CALCIUM 8.8 MG/DL (8.5-10.1)
[2022-11-30 04:48] LABS: TOTAL PROTEIN 5.7 GM/DL (6.4-8.2)
[2022-11-30 04:50] LABS: BILIRUBIN,TOTAL 0.9 MG/DL (0.1-1.0)
[2022-11-30 04:52] LABS: CREATININE SERUM 0.56 MG/DL (0.60-1.30)
[2022-11-30] MEDS: KCL 20 MEQ TAB (K-DUR) PO SCH ×3 (05:44→20:53)
[2022-11-30] MEDS: LOSARTAN 50 MG (COZAAR) TAB PO SCH (07:55)
[2022-11-30] MEDS: APIXABAN 5 MG TABLET PO SCH ×2 (07:55→20:53)
[2022-11-30] MEDS: CLOPIDOGREL 75 MG TABLET PO SCH (07:55)
[2022-11-30] MEDS: amLODIPine 10 MG TABLET PO SCH (07:55)
[2022-11-30] MEDS: SINEMET 25/100 (CARBIDOPA/LEVODOPA) TAB PO SCH ×3 (07:55→16:22)
[2022-11-30] MEDS: MICONAZOLE 2% POWDER (DESENEX AF) 90 GM TOP SCH ×2 (07:56→20:53)
[2022-11-30 08:00] VITALS: BP 123/57
--- NOTE | 2022-11-30 10:53 | Progress Note - Hospitalist ---
Subjective HPI/CC On Admission Date Seen by Provider: Nov 30, 2022 Time Seen by Provider: 10:00 Staff report some intermittent nausea without vomiting responsive to Zofran no other complaints. Subjective/Events-last exam Patient having no new issues Appeal denial for skilled therapy Confusion is present but not far from baseline If she fails skilled care she will need hospice Objective Exam Vital Signs Vital Signs Date Time Temp Pulse Resp B/P (MAP) Pulse Ox O2 Delivery O2 Flow Rate FiO2 11/30/22 23:58 36.7 66 18 134/63 (86) 95 Room Air 11/29/22 03:37 0.00 0.00 Capillary Refill : Less Than 3 Seconds General Appearance: No Apparent Distress, WD/WN, Chronically ill Neurologic/Psychiatric: Alert, Depressed Affect, Disoriented Results/Procedures Lab Patient resulted labs reviewed. Assessment/Plan Assessment and Plan Assess & Plan/Chief Complaint . 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
--- NOTE | 2022-11-30 11:12 | Occ Therapy Progress Note ---
Therapy Progress Note Patient refused therapy this morning, OT will attempt later in afternoon. JEANNIE KUMAR OT Nov 30, 2022 11:12
--- NOTE | 2022-11-30 14:03 | Occ Therapy Progress Note ---
Therapy Progress Note OT attempted for second f/u from this morning. Patient again refuses w/ PCT present.OT encouraged participation, patient reports too much anxiety and fear. JEANNIE KUMAR OT Nov 30, 2022 14:03
--- NOTE | 2022-11-30 14:36 | Physical Therapy Progress Note ---
Therapy Progress Note Attempted to see patient. Patent refused stating she is too scared due to how large this hospital is. Patient educated on the benefits of activity to promote healing. Nurse notified. FIFI MENDOZA PT Nov 30, 2022 14:36
[2022-11-30 15:35] VITALS: BP 130/62
[2022-11-30] MEDS: HYDROcodone/APAP 7.5 MG/325 MG (LORTAB, LORCET PLUS) TABLET PO PRN (16:21)
--- NOTE | 2022-11-30 17:38 | Progress Note ---
Subjective Date Seen by a Provider: Nov 30, 2022 Time Seen by a Provider: 17:00 Subjective/Events-last exam patient status quo. stable with variable mentation. looks as though her next destination would encompass SNF. Objective Exam Vital Signs Date Time Temp Pulse Resp B/P (MAP) Pulse Ox O2 Delivery O2 Flow Rate FiO2 11/30/22 15:35 36.6 63 18 130/62 (84) 98 Room Air 11/30/22 08:36 Room Air 11/30/22 08:00 36.7 65 20 123/57 (79) 96 Room Air 11/30/22 04:08 37.2 74 18 134/71 (92) 96 Room Air 11/30/22 00:50 37.0 68 18 117/69 (85) 97 Room Air 11/29/22 20:00 36.3 64 18 122/60 (80) 98 Room Air 11/29/22 19:55 Room Air I & O 11/30/22 07:00 Intake Total 2400 ml Output Total 1600 ml Balance 800 ml Capillary Refill : Less Than 3 Seconds General Appearance: No Apparent Distress HEENT: PERRL/EOMI Neck: Full Range of Motion Respiratory: Rhonci, Wheezing Cardiovascular: Regular Rate, Rhythm Gastrointestinal: normal bowel sounds, non tender, soft Extremity: Slow Capillary Refill, Other (left leg stump dressed/dry) Neurologic/Psychiatric: Alert, Oriented x3 Skin: Normal Color Lymphatic: No Adenopathy Results Lab Laboratory Tests 11/30/22 04:30: White Blood Count 5.9, Red Blood Count 2.98L, Hemoglobin 9.1L, Hematocrit 27L, Mean Corpuscular Volume 92, Mean Corpuscular Hemoglobin 31, Mean Corpuscular Hemoglobin Concent 33, Red Cell Distribution Width 15.1H, Platelet Count 265, Mean Platelet Volume 10.9, Immature Granulocyte % (Auto) 1, Neutrophils (%) (Auto) 55, Lymphocytes (%) (Auto) 28, Monocytes (%) (Auto) 11, Eosinophils (%) (Auto) 4, Basophils (%) (Auto) 1, Neutrophils # (Auto) 3.2, Lymphocytes # (Auto) 1.6, Monocytes # (Auto) 0.6, Eosinophils # (Auto) 0.3, Basophils # (Auto) 0.1, Immature Granulocyte # (Auto) 0.1, Sodium Level 138, Potassium Level 4.1, Chloride Level 105, Carbon Dioxide Level 24, Anion Gap 9, Blood Urea Nitrogen 4L , Creatinine 0.56L, Estimat Glomerular Filtration Rate 98, BUN/Creatinine Ratio 7, Glucose Level 90, Calcium Level 8.8, Corrected Calcium 9.8, Total Bilirubin 0.9, Aspartate Amino Transf (AST/SGOT) 43H, Alanine Aminotransferase (ALT/SGPT) 17, Alkaline Phosphatase 461H, Total Protein 5.7L, Albumin 2.8L Microbiology 11/14/22 MRSA Screen - Final, Complete MRSA not isolated 11/09/22 Blood Culture - Final, Complete No growth Assessment/Plan Assessment/Plan Assess & Plan/Chief Complaint 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 does have continued underlying osteomyelitis bilat feet. scheduled MRI bilateral feet but once again refused(total of 3 times) scheduled for aortogram with bilateral runoff for dx and possible intervention however refused(total 2 times) dressing change daily(4x4 gauze, followed by kerlix, followed by 6inch KESHAV wrap) ARU evaluate. unsure at this time about placement. appears many factors involved including family dynamics and monetary issues. speculation that [facility] may be a possibility. Either way I feel that going home is not a good idea due to conditions in the home and regresssion every time she goes back home. RUDY MARRERO MD Nov 30, 2022 17:38
[2022-11-30] MEDS: MELATONIN 3 MG TABLET PO PRN (20:53)
[2022-11-30 23:58] VITALS: BP 134/63
[2022-12-01] MEDS: HYDROcodone/APAP 7.5 MG/325 MG (LORTAB, LORCET PLUS) TABLET PO PRN ×2 (01:38→12:59)
[2022-12-01] MEDS: ACETAMINOPHEN 325 MG TABLET PO PRN (03:08)
[2022-12-01] MEDS: NS IV 1000 ML 1,000 ML IV SCH ×3 (05:17→17:45)
[2022-12-01 05:28] LABS: BASOPHILS % (AUTO) 1 % (0-10); EOSINOPHILS # (AUTO) 0.1 10^3/uL (0.0-0.3); EOSINOPHILS % (AUTO) 2 % (0-10); HEMATOCRIT 27 % (35-52); HEMOGLOBIN 9.2 g/dL (11.5-16.0); LYMPHOCYTES # (AUTO) 0.8 10^3/uL (1.0-4.0); LYMPHOCYTES % (AUTO) 12 % (12-44); MEAN CORPUSCULAR HEMOGLOBIN 31 pg (25-34); MEAN CORPUSCULAR HGB CONC 34 g/dL (32-36); MEAN CORPUSCULAR VOLUME 91 fL (80-99); MEAN PLATELET VOLUME 10.7 fL (9.0-12.2); MONOCYTES # (AUTO) 0.5 10^3/uL (0.0-1.0); MONOCYTES % (AUTO) 8 % (0-12); NEUTROPHILS # (AUTO) 5.1 10^3/uL (1.8-7.8); NEUTROPHILS % (AUTO) 78 % (42-75); PLATELET COUNT 275 10^3/uL (130-400); WHITE BLOOD COUNT 6.6 10^3/uL (4.3-11.0)
[2022-12-01 05:39] LABS: ALBUMIN 2.9 GM/DL (3.2-4.5); POTASSIUM 3.9 MMOL/L (3.6-5.0)
[2022-12-01 05:40] LABS: CALCIUM 8.9 MG/DL (8.5-10.1)
[2022-12-01 05:42] LABS: TOTAL PROTEIN 5.8 GM/DL (6.4-8.2)
[2022-12-01 05:44] LABS: BILIRUBIN,TOTAL 0.6 MG/DL (0.1-1.0)
[2022-12-01 05:45] LABS: CREATININE SERUM 0.65 MG/DL (0.60-1.30)
[2022-12-01] MEDS: KCL 20 MEQ TAB (K-DUR) PO SCH ×3 (05:58→20:17)
[2022-12-01 08:11] VITALS: BP 142/65
[2022-12-01] MEDS: amLODIPine 10 MG TABLET PO SCH (08:36)
[2022-12-01] MEDS: SINEMET 25/100 (CARBIDOPA/LEVODOPA) TAB PO SCH ×3 (08:36→17:43)
[2022-12-01] MEDS: CLOPIDOGREL 75 MG TABLET PO SCH (08:36)
[2022-12-01] MEDS: LOSARTAN 50 MG (COZAAR) TAB PO SCH (08:36)
[2022-12-01] MEDS: APIXABAN 5 MG TABLET PO SCH ×2 (08:36→20:16)
[2022-12-01] MEDS: MICONAZOLE 2% POWDER (DESENEX AF) 90 GM TOP SCH ×2 (08:37→21:11)
[2022-12-01] MEDS: HYPOCHLOROUS ACID/NaCl (VASHE) 250 ML IR SCH (08:40)
--- NOTE | 2022-12-01 11:04 | Physical Therapy Daily Note ---
PT Daily Note-Current Subjective Patient agrees to therapy. Patient reports she is very anxious. Pain Numeric Pain Scale: 10-Worst Possible Pain Location: Left Location Body Site: Thigh Pain Description: Acute Section J - Health Conditions 1. Rarely or not at all 2. Occasionally 3. Frequently 4. Almost constantly 8. Unable to answer Pain Effect on Sleep: 3 Pain Interference with Therapy: 4 Pain Interference w/Day-to-Day: 3 Mental Status Attachments: Central Line Transfers SCALE: Activities may be completed with or without assistive devices. 6-Yzilyionxg-tmioyql completes the activity by him/herself with no assistance from a helper. 5-Set-up or Clean-up Assistance-helper sets up or cleans up; patient completes activity. [place] assists only prior to or following the activity. 4-Supervision or Touching Assistance-helper provides verbal cues and/or touching/steadying and/or contact guard assistance as patient completes activity. Assistance may be provided throughout the activity or intermittently. 3-Partial/Moderate Assistance-helper does LESS THAN HALF the effort. [place] lifts, holds or supports trunk or limbs, but provides less than half the effort. 2-Substantial/Maximal Assistance-helper does MORE THAN HALF the effort. [place] lifts or holds trunk or limbs and provides more than half the effort. 3-Pookprsla-uykogo does ALL the effort. Patient does none of the effort to complete the activity. Or, the assistance of 2 or more helpers is required for the patient to complete the activity. If activity was not attempted, code reason: 7-Patient Refused. 9-Not Applicable-not attempted and the patient did not perform the activity before the current illness, exacerbation or injury. 10-Not Attempted due to Environmental Limitations-(lack of equipment, weather restraints, etc.). 88-Not Attempted due to Medical Conditions or Safety Concerns. Roll Left & Right (QC): 4 Sit to Lying (QC): 4 Lying to Sitting/Side of Bed(Q: 4 Weight Bearing Right Lower Extremity: Right Weight Bearing/Tolerated Left Lower Extremity: Left Non Weight Bearing Exercises Supine Ex: Ankle pumps (right LE), Quad Set, Heel Slides, Straight leg raise Supine Reps: 10 Treatments patient sat EOB for 10 min SBA with attempt to perform sit to stand, however, became too anxious to complete. Assessment Patient progressing slowly with gross motor skills. Patient continues to appear very anxious and require time to complete all functional tasks. PT Flow Coordinator Goals Flow Coordinator Goals PT Flow Coordinator Goals Time Frame: Dec 10, 2022 Roll Left & Right (QC): 3 Sit to Lying (QC): 3 Lying-Sitting on Side/Bed(QC): 3 Sit to Stand (QC): 3 Chair/Jff-xl-Ulppz Xfer(QC): 3 Toilet Transfer (QC): 3 Does the Patient Walk: No and Walking Goal IS indicated Walk 10 feet (QC): 2 Does the Pt use WC or Scooter?: Yes Wheel 50 feet with 2 turns (QC: 3 Type: Manual Wheel 150 feet: 3 Type: Manual PT Plan Treatment/Plan Treatment Plan: Continue Plan of Care Treatment Plan: Bed Mobility, Education, Functional Activity Braulio, Functional Strength, Group Therapy, Gait, Safety, Therapeutic Exercise, Transfers Treatment Duration: Jan 05, 2023 Frequency: 6 times per week Estimated Hrs Per Day: .25 hour per day Patient and/or Family Agrees t: Yes Time Time In: 951 Time Out: 1015 DATE: Dec 01, 2022 Total Billed Treatment Time: 24 Total Billed Treatment 1 visit EX x 2 24 min ZOLTAN BANEGAS PT Dec 01, 2022 11:04
--- NOTE | 2022-12-01 11:38 | Occupational Ther Daily Note ---
OT Current Status-Daily Note Subjective Tearful, aware of circumstances this date Pain Comment: Phantom pain present w/ eraching do and voicing her invisible leg hurts Mental Status/Objective Patient Orientation: Person Attachments: Other-See Comments (OZZY CONCEPCION) ADL-Treatment Declines ADL performance, ther ex and mobility performed EOB Therapy Code Descriptions/Definitions Functional Garden Measure: 0=Not Assessed/NA 4=Minimal Assistance 1=Total Assistance 5=Supervision or Setup 2=Maximal Assistance 6=Modified [place] 3=Moderate Assistance 7=Complete IndependenceSCALE: Activities may be completed with or without assistive devices. 4-Nuuyekxgzi-uouwwdu completes the activity by him/herself with no assistance from a helper. 5-Set-up or Clean-up Assistance-helper sets up or cleans up; patient completes activity. [place] assists only prior to or following the activity. 4-Supervision or Touching Assistance-helper provides verbal cues and/or touching/steadying and/or contact guard assistance as patient completes activity. Assistance may be provided throughout the activity or intermittently. 3-Partial/Moderate Assistance-helper does LESS THAN HALF the effort. [place] lifts, holds or supports trunk or limbs, but provides less than half the effort. 2-Substantial/Maximal Assistance-helper does MORE THAN HALF the effort. [place] lifts or holds trunk or limbs and provides more than half the effort. 3-Jkdmrncfn-rmreea does ALL the effort. Patient does none of the effort to complete the activity. Or, the assistance of 2 or more helpers is required for the patient to complete the activity. If activity was not attempted, code reason: 7-Patient Refused. 9-Not Applicable-not attempted and the patient did not perform the activity before the current illness, exacerbation or injury. 10-Not Attempted due to Environmental Limitations-(lack of equipment, weather restraints, etc.). 88-Not Attempted due to Medical Conditions or Safety Concerns. Other Treatment SBA for supine to EOB and return, UE functional ther ex for transfer strengthening Education OT Patient Education: Correct positioning, Exercise program, Home exercise program, Modified ADL techniques, Progress toward Goal/Update tx plan, Purpose o f tx/functional activities, Reviewed precautions, Rehab process, Safety issues, Transfer techniques Teaching Recipient: Patient Teaching Methods: Demonstration, Discussion Response to Teaching: Unable to Comprehend OT Engineering Patternmaker Goals Usp Goals Time Frame: Nov 28, 2022 Eating (QC): 6 Oral Hygiene (QC): 5 Upper Body Dressing (QC): 5 1=Demonstrate adherence to instructed precautions during ADL tasks. 2=Patient will verbalize/demonstrate understanding of assistive devices/modifications for ADL. 3=Patient will improve strength/tolerance for activity to enable patient to perform ADL's. OT Education/Plan Problem List/Assessment Assessment: Decreased Activ Tolerance, Decreased Safety Aware, Decreased UE Strength, Dependent Transfers, Impaired Bed Mobility, Impaired Cognition, Impaired Coordination, Impaired Funct Balance, Impaired I ADL's, Impaired Self- Care Skills Discharge Recommendations Plan/Recommendations: Continue POC Equpiment Recommendations-D/C: Other, See Comments (Patient will need set up for DC at level) Treatment Plan/Plan of Care Treatment,Training & Education: Yes Patient would benefit from OT for education, treatment and training to promote independence in ADL's, mobility, safety and/or upper extremity function for ADL's. Plan of Care: ADL Retraining, Caregiver Training, Cognitive Retraining, Concurrent Therapy, Functional Mobility, Group Exercise/Act as Ind, UE Funct Exercise/Act, UE Neuromus Re-Ed/Coord Treatment Duration: Dec 02, 2022 Frequency: 3 times per week (3-5 times per week) Estimated Hrs Per Day: .25 hour per day Agreement: Yes Rehab Potential: Guarded Time Start Time: 09:58 Stop Time: 10:12 DATE: Dec 01, 2022 Total Time Billed (hr/min): 14 Billed Treatment Time EX 14 min JEANNIE KUMAR OT Dec 01, 2022 11:38
--- NOTE | 2022-12-01 15:11 | Progress Note ---
Subjective Date Seen by a Provider: Dec 01, 2022 Time Seen by a Provider: 14:50 Subjective/Events-last exam Patient seen with Dr. Sosa. Patient still has variable mentation. Denies any pain. Tolerating liquids. Patient reports that she has not been eating much due to food not tasting good to her. She reports that she has not been sleeping much. Objective Exam Vital Signs Date Time Temp Pulse Resp B/P (MAP) Pulse Ox O2 Delivery O2 Flow Rate FiO2 12/01/22 08:30 Room Air 12/01/22 08:11 37.1 72 20 142/65 (90) 100 Room Air 11/30/22 23:58 36.7 66 18 134/63 (86) 95 Room Air 11/30/22 20:00 Room Air 11/30/22 15:35 36.6 63 18 130/62 (84) 98 Room Air I & O 12/01/22 06:59 Intake Total 1620 ml Output Total 2100 ml Balance -480 ml Capillary Refill : Less Than 3 Seconds General Appearance: No Apparent Distress, WD/WN, Chronically ill Neck: Normal Inspection, Supple Respiratory: No Accessory Muscle Use, No Respiratory Distress Gastrointestinal: normal bowel sounds, non tender, soft Extremity: Other (Left leg BKA with dressing in place, C/D/I) Neurologic/Psychiatric: Alert Skin: Normal Color, Warm/Dry Results Lab Laboratory Tests 12/01/22 05:22: White Blood Count 6.6, Red Blood Count 2.97L, Hemoglobin 9.2L, Hematocrit 27L, Mean Corpuscular Volume 91, Mean Corpuscular Hemoglobin 31, Mean Corpuscular Hemoglobin Concent 34, Red Cell Distribution Width 15.0H, Platelet Count 275, Mean Platelet Volume 10.7, Immature Granulocyte % (Auto) 1, Neutrophils (%) (Auto) 78H, Lymphocytes (%) (Auto) 12, Monocytes (%) (Auto) 8, Eosinophils (%) (Auto) 2, Basophils (%) (Auto) 1, Neutrophils # (Auto) 5.1, Lymphocytes # (Auto) 0.8L, Monocytes # (Auto) 0.5, Eosinophils # (Auto) 0.1, Basophils # (Auto) 0.0, Immature Granulocyte # (Auto) 0.1, Sodium Level 136, Potassium Level 3.9, Chloride Level 103, Carbon Dioxide Level 22, Anion Gap 11, Blood Urea Nitrogen 4L, Creatinine 0.65, Estimat Glomerular Filtration Rate 95, BUN/Creatinine Ratio 6, Glucose Level 102, Calcium Level 8.9, Corrected Calcium 9.8, Total Bilirubin 0.6, Aspartate Amino Transf (AST/SGOT) 18, Alanine Aminotransferase (ALT/SGPT) 22, Alkaline Phosphatase 406H, Total Protein 5.8L, Albumin 2.9L Microbiology 11/14/22 MRSA Screen - Final, Complete MRSA not isolated 11/09/22 Blood Culture - Final, Complete No growth Assessment/Plan Assessment/Plan Assess & Plan/Chief Complaint 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 does have continued underlying osteomyelitis bilat feet. scheduled MRI bilateral feet but once again refused(total of 3 times) scheduled for aortogram with bilateral runoff for dx and possible intervention however refused(total 2 times) dressing change daily(4x4 gauze, followed by kerlix, followed by 6inch KESHAV wrap) ARU evaluate. unsure at this time about placement. appears many factors involved including family dynamics and monetary issues. speculation that [facility] may be a possibility. Either way I feel that going home is not a good idea due to conditions in the home and regresssion every time she goes back home. BOO MURRAY BROADCASTING EQUIPMENT MECHANIC Dec 01, 2022 15:11
[2022-12-01 15:30] VITALS: BP 125/59
[2022-12-01 23:10] VITALS: BP 125/58
--- NOTE | 2022-12-02 05:11 | Progress Note - Hospitalist ---
Subjective HPI/CC On Admission Date Seen by Provider: Dec 02, 2022 Time Seen by Provider: 11:00 Staff report some intermittent nausea without vomiting responsive to Zofran no other complaints. Objective Exam Vital Signs Vital Signs Date Time Temp Pulse Resp B/P (MAP) Pulse Ox O2 Delivery O2 Flow Rate FiO2 12/02/22 08:30 Room Air 12/02/22 07:35 36.6 76 18 144/66 (92) 95 11/29/22 03:37 0.00 0.00 Capillary Refill : Less Than 3 Seconds Results/Procedures Lab Patient resulted labs reviewed. Assessment/Plan Assessment and Plan Assess & Plan/Chief Complaint . 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
[2022-12-02] MEDS: KCL 20 MEQ TAB (K-DUR) PO SCH ×2 (05:49→09:39)
[2022-12-02] MEDS: NS IV 1000 ML 1,000 ML IV SCH (05:59)
[2022-12-02 07:35] VITALS: BP 144/66
--- NOTE | 2022-12-02 09:21 | Physical Therapy Daily Note ---
PT Daily Note-Current Subjective Patient is tearful on this date. Incontinent urine Pain Section J - Health Conditions 1. Rarely or not at all 2. Occasionally 3. Frequently 4. Almost constantly 8. Unable to answer Pain Effect on Sleep: 3 Pain Interference with Therapy: 4 Pain Interference w/Day-to-Day: 3 Mental Status Patient Orientation: Person Transfers SCALE: Activities may be completed with or without assistive devices. 2-Zlvapjvjhn-zmanzrb completes the activity by him/herself with no assistance from a helper. 5-Set-up or Clean-up Assistance-helper sets up or cleans up; patient completes activity. [place] assists only prior to or following the activity. 4-Supervision or Touching Assistance-helper provides verbal cues and/or touching/steadying and/or contact guard assistance as patient completes activity. Assistance may be provided throughout the activity or intermittently. 3-Partial/Moderate Assistance-helper does LESS THAN HALF the effort. [place] lifts, holds or supports trunk or limbs, but provides less than half the effort. 2-Substantial/Maximal Assistance-helper does MORE THAN HALF the effort. [place] lifts or holds trunk or limbs and provides more than half the effort. 7-Zzktwcnte-kealsh does ALL the effort. Patient does none of the effort to complete the activity. Or, the assistance of 2 or more helpers is required for the patient to complete the activity. If activity was not attempted, code reason: 7-Patient Refused. 9-Not Applicable-not attempted and the patient did not perform the activity before the current illness, exacerbation or injury. 10-Not Attempted due to Environmental Limitations-(lack of equipment, weather restraints, etc.). 88-Not Attempted due to Medical Conditions or Safety Concerns. Roll Left & Right (QC): 4 Weight Bearing Right Lower Extremity: Right Weight Bearing/Tolerated Left Lower Extremity: Left Non Weight Bearing Assessment Patient required dependent assist to cleanse after incontinence. Noted reddened skin on buttocks. Nursing notified. Patient very emotional on this date. PT Blanket Folder Goals Blanket Folder Goals PT Fpc Goals Time Frame: Dec 10, 2022 Roll Left & Right (QC): 3 Sit to Lying (QC): 3 Lying-Sitting on Side/Bed(QC): 3 Sit to Stand (QC): 3 Chair/Kzn-ki-Yobfp Xfer(QC): 3 Toilet Transfer (QC): 3 Does the Patient Walk: No and Walking Goal IS indicated Walk 10 feet (QC): 2 Does the Pt use WC or Scooter?: Yes Wheel 50 feet with 2 turns (QC: 3 Type: Manual Wheel 150 feet: 3 Type: Manual PT Plan Treatment/Plan Treatment Plan: Modify Plan, see comments Treatment Plan: Bed Mobility, Education, Functional Activity Braulio, Functional Strength, Group Therapy, Gait, Safety, Therapeutic Exercise, Transfers Treatment Duration: Jan 05, 2023 Frequency: 5 times per week Estimated Hrs Per Day: .25 hour per day Patient and/or Family Agrees t: Yes patient tolerating minimal activity/will increase frequency as tolerated by patient. Time Time In: 845 Time Out: 858 DATE: Dec 02, 2022 Total Billed Treatment Time: 13 Total Billed Treatment 1 visit FA 13 min ZOLTAN BANEGAS PT Dec 02, 2022 09:21
[2022-12-02] MEDS: APIXABAN 5 MG TABLET PO SCH (09:39)
[2022-12-02] MEDS: amLODIPine 10 MG TABLET PO SCH (09:39)
[2022-12-02] MEDS: LOSARTAN 50 MG (COZAAR) TAB PO SCH (09:39)
[2022-12-02] MEDS: SINEMET 25/100 (CARBIDOPA/LEVODOPA) TAB PO SCH ×2 (09:39→14:02)
[2022-12-02] MEDS: CLOPIDOGREL 75 MG TABLET PO SCH (09:39)
[2022-12-02] MEDS: MICONAZOLE 2% POWDER (DESENEX AF) 90 GM TOP SCH (09:40)
[2022-12-02] MEDS: HYPOCHLOROUS ACID/NaCl (VASHE) 250 ML IR SCH (09:41)
--- NOTE | 2022-12-02 09:41 | Occupational Ther Daily Note ---
OT Current Status-Daily Note Subjective Continued anxiety, improvement in time to move in bed, improvement in cognition, Refuses OOB activity Pain Comment: phantom sensation Mental Status/Objective Patient Orientation: Person ADL-Treatment Patient saturated in bed w/ need for brief change and barrier cream. Therapy Code Descriptions/Definitions Functional [place] Measure: 0=Not Assessed/NA 4=Minimal Assistance 1=Total Assistance 5=Supervision or Setup 2=Maximal Assistance 6=Modified [place] 3=Moderate Assistance 7=Complete IndependenceSCALE: Activities may be completed with or without assistive devices. 0-Vneceiljwl-utiwvcm completes the activity by him/herself with no assistance from a helper. 5-Set-up or Clean-up Assistance-helper sets up or cleans up; patient completes activity. [place] assists only prior to or following the activity. 4-Supervision or Touching Assistance-helper provides verbal cues and/or touching/steadying and/or contact guard assistance as patient completes activity. Assistance may be provided throughout the activity or intermittently. 3-Partial/Moderate Assistance-helper does LESS THAN HALF the effort. [place] lifts, holds or supports trunk or limbs, but provides less than half the effort. 2-Substantial/Maximal Assistance-helper does MORE THAN HALF the effort. [place] lifts or holds trunk or limbs and provides more than half the effort. 2-Pjnflxbtw-uhrhoj does ALL the effort. Patient does none of the effort to complete the activity. Or, the assistance of 2 or more helpers is required for the patient to complete the activity. If activity was not attempted, code reason: 7-Patient Refused. 9-Not Applicable-not attempted and the patient did not perform the activity before the current illness, exacerbation or injury. 10-Not Attempted due to Environmental Limitations-(lack of equipment, weather restraints, etc.). 88-Not Attempted due to Medical Conditions or Safety Concerns. Eating (QC): 5 Oral Hygiene (QC): 4 Shower/Bathe Self (QC): 7 Upper Body Dressing (QC): 4 Lower Body Dressing (QC): 1 On/Off Footwear: 1 Toileting Hygiene (QC): 1 Toilet Transfer (QC): 1 Offloading schedule following toileting needs Education OT Patient Education: Correct positioning, Disease process, Exercise program, Modified ADL techniques, Progress toward Goal/Update tx plan, Purpose of tx/functional activities, Reviewed precautions, Rehab process, Safety issues Teaching Recipient: Patient Response to Teaching: Unable to Return Demonstration OT Halfway Goals Halfway Goals Time Frame: Nov 28, 2022 Eating (QC): 6 Oral Hygiene (QC): 5 Upper Body Dressing (QC): 5 1=Demonstrate adherence to instructed precautions during ADL tasks. 2=Patient will verbalize/demonstrate understanding of assistive devices/modifications for ADL. 3=Patient will improve strength/tolerance for activity to enable patient to perform ADL's. OT Education/Plan Problem List/Assessment Assessment: Decreased Activ Tolerance, Decreased Safety Aware, Decreased UE Strength, Dependent Transfers, Impaired Bed Mobility, Impaired Cognition, Impaired Coordination, Impaired Funct Balance, Impaired Self-Care Skills Discharge Recommendations Plan/Recommendations: Continue POC Treatment Plan/Plan of Care Treatment,Training & Education: Yes Patient would benefit from OT for education, treatment and training to promote independence in ADL's, mobility, safety and/or upper extremity function for ADL's. Plan of Care: ADL Retraining, Caregiver Training, Cognitive Retraining, Concurrent Therapy, Functional Mobility, Group Exercise/Act as Ind, UE Funct Exercise/Act, UE Neuromus Re-Ed/Coord Treatment Duration: Dec 02, 2022 Frequency: 3 times per week (3-5 times per week) Estimated Hrs Per Day: .25 hour per day Agreement: Yes Rehab Potential: Guarded Time Start Time: 08:45 Stop Time: 08:59 DATE: Dec 02, 2022 Total Time Billed (hr/min): 14 Billed Treatment Time ADL 14 JEANNIE KUMAR OT Dec 02, 2022 09:41
--- NOTE | 2022-12-02 11:32 | Progress Note ---
Subjective Date Seen by a Provider: Dec 02, 2022 Time Seen by a Provider: 11:00 Subjective/Events-last exam patient status quo. intermittent cognition. likely need to be placed in SNF Objective Exam Vital Signs Date Time Temp Pulse Resp B/P (MAP) Pulse Ox O2 Delivery O2 Flow Rate FiO2 12/02/22 07:35 36.6 76 18 144/66 (92) 95 Room Air 12/01/22 23:10 36.8 71 16 125/58 (80) 95 Room Air 12/01/22 20:30 Room Air 12/01/22 15:30 37.0 70 18 125/59 (81) 99 Room Air I & O 12/02/22 07:00 Intake Total 2580 ml Output Total 1650 ml Balance 930 ml Capillary Refill : Less Than 3 Seconds General Appearance: No Apparent Distress HEENT: PERRL/EOMI Neck: Full Range of Motion Respiratory: Chest Non Tender, Rhonci, Wheezing Cardiovascular: Regular Rate, Rhythm Gastrointestinal: normal bowel sounds, non tender, soft Extremity: Slow Capillary Refill, Other (stump dressed/dry) Neurologic/Psychiatric: Alert Skin: Normal Color Lymphatic: No Adenopathy Results Lab Microbiology 11/14/22 MRSA Screen - Final, Complete MRSA not isolated 11/09/22 Blood Culture - Final, Complete No growth Assessment/Plan Assessment/Plan Assess & Plan/Chief Complaint 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 does have continued underlying osteomyelitis bilat feet. scheduled MRI bilateral feet but once again refused(total of 3 times) scheduled for aortogram with bilateral runoff for dx and possible intervention however refused(total 2 times) dressing change daily(4x4 gauze, followed by kerlix, followed by 6inch KESHAV wrap) ARU evaluate. unsure at this time about placement. appears many factors involved including family dynamics and monetary issues. speculation that [facility] may be a possibility. Either way I feel that going home is not a good idea due to conditions in the home and regresssion every time she goes back home. will recommend f/u to office in about 2 weeks for stump staple removal. RUDY MARRERO MD Dec 02, 2022 11:32
[2022-12-02] MEDS ORDERED: CARB1TAB32 PO (12:12)
[2022-12-02] MEDS ORDERED: SODI475I IR (12:12)
[2022-12-02] MEDS ORDERED: LOSA50TA63 PO (12:12)
[2022-12-02] MEDS ORDERED: AMLO-251 PO (12:12)
[2022-12-02] MEDS ORDERED: CLOP75TA28 PO (12:12)
[2022-12-02] MEDS ORDERED: TRAM50TA3 PO (12:12)
[2022-12-02] MEDS ORDERED: POTA-169 PO (12:12)
[2022-12-02] MEDS ORDERED: HYDR-34 PO (12:12)
[2022-12-02] MEDS ORDERED: ACET-2267 PO (12:12)
[2022-12-02] MEDS ORDERED: MICO90PO TOP (12:12)
[2022-12-02] MEDS ORDERED: SENN-271 PO (12:12)
[2022-12-02] MEDS ORDERED: DILT240C91 PO (12:12)
[2022-12-02] MEDS ORDERED: MENT71OI TP (12:12)
[2022-12-02] MEDS ORDERED: CLON0.5T4 PO (12:12)
[2022-12-02] MEDS ORDERED: APIX5TAB PO (12:12)
--- NOTE | 2022-12-02 12:13 | Discharge Inst-Skilled Nursing ---
Discharge Inst-Skilled NF Reconcile Patient Problems Problems Reviewed?: Yes Chief Complaint Staff report some intermittent nausea without vomiting responsive to Zofran no other complaints. Patient Instructions Patient Problems: Left BKA Goal: Return home Consult/Follow Up/Orders Follow Up Appt.: PCP [place] rounds Skilled NF Admit to: [facility] Certification (SNF) I certify that SNF services are required to be given on an inpatient basis because of the above named patient's need for alf care on a continuing basis for the conditions(s) for which he/she was receiving inpatient hospital services prior to his/her transfer to the SNF. [facility] Facility Order: Nursing Services, [facility] Director-Evaluate & Treat, Physical Therapy-Evaluate & Treat, Wound Care-Eval/Treat Oxygen Delivery Method: Room Air Discharge Diet: No Restrictions Resuscitation Status: Do Not Resuscitate New & Resume Previous Orders New Medications: Amlodipine Besylate (Amlodipine Besylate) 10 Mg Tablet 10 MG PO DAILY, #30 TAB Apixaban (Eliquis) 5 Mg Tablet 5 MG PO BID, #60 TAB Carbidopa/Levodopa (Carbidopa-Levodopa 25-100 Tab) 25 Mg-100 Mg Tablet 1 EA PO TIDWM, #90 TAB Diltiazem HCl (Diltiazem 24Hr ER) 240 Mg Cap.er.24h 240 MG PO DAILY, #30 CAP Hydrocodone Bit/Acetaminophen (HYDROcodone/APAP 7.5/325 TAB) 1 Ea Tablet 1 EA PO Q6H PRN for PAIN-MODERATE (5-7), #20 TAB Losartan Potassium (Losartan Potassium) 50 Mg Tablet 50 MG PO DAILY, #30 TAB Menthol/Lanolin/Calamine/Znox (Calmoseptine Ointment) 0.44 %-20.6 % Oint 1 EACH TP BID PRN for REDNESS, #1 TUBE Miconazole Nitrate (Lotrimin AF) 2 % Powder 0 GM TOP BID, #1 EA twice daily Potassium Chloride (Klor-Con M20) 20 Meq Tab.er.prt 20 MEQ PO DAILY, #14 EACH Sennosides/Docusate Sodium (Stool Softener-Laxative Tablet) 8.6 Mg-50 Mg Tablet 1 EA PO BID PRN for CONSTIPATION-1ST LINE, #60 TAB Sodium Chlor/Hypochlorous Acid (Vashe Wound Therapy Solution) 0.033 % Irrig.soln 0 ML IR DAILY, #1 EACH per wound Changed Medications: Clonazepam (Clonazepam) 0.5 Mg Tablet 0.25 MG PO BID, #60 TAB (Changed from: Removed Instructions) Continued Medications: Acetaminophen (Tylenol Extra Strength) 500 Mg Tablet 1000 MG PO Q8H PRN for PAIN-MILD (1-4), #30 TAB (This prescription has been renewed) TAKES 2 (500MG) TABS Clopidogrel Bisulfate (Clopidogrel) 75 Mg Tablet 75 MG PO DAILY, #30 TAB (This prescription has been renewed) Tramadol HCl (Tramadol HCl) 50 Mg Tablet 50 MG PO BID PRN for PAIN-MODERATE (5-7), #20 TAB (This prescription has been renewed) Discontinued Medications: Amlodipine Besylate (Amlodipine Besylate) 5 Mg Tablet 5 MG PO DAILY, #30 TAB Carbidopa/Levodopa (Carbidopa-Levodopa 25-100 Tab) 25 Mg-100 Mg Tablet 1 EA PO Q4H PRN for TREMORS, TAB Losartan Potassium (Losartan Potassium) 25 Mg Tablet 25 MG PO DAILY, #30 TAB Sulfamethoxazole/Trimethoprim (Bactrim Ds Tablet) 800 Mg-160 Mg Tablet 1 EA PO BID, TAB FILLED 11-03-2022 #14/7 DAY SUPPLY Itzel Goodwin Dec 02, 2022 12:12 ITZEL GOODWIN DO Dec 02, 2022 12:13
--- NOTE | 2022-12-02 12:13 | Discharge Summary ---
Discharge Summary Hospital Course Was the Problem List Reviewed?: Yes Problems/Dx: (1) Hereditary hemochromatosis (2) Parkinson disease (3) Paroxysmal atrial fibrillation Status: Acute (4) Below knee amputation (5) PAD (peripheral artery disease) Status: Chronic (6) HTN (hypertension) Status: Acute (7) Gangrene of left foot Status: Acute (8) Elevated liver enzymes Status: Acute (9) Status post below-knee amputation of left lower extremity Status: Acute Hospital Course Date of Admission: Nov 09, 2022 at 17:55 Admission Diagnosis : Family Physician/Provider: [facility] Date of Discharge: 12/02/22 Discharge Diagnosis: [ ] Hospital Course: Patient had a lengthy hospital course complicated with delirium and noncommittal for decisions regarding her gangrenous feet. She did undergo a left below the knee amputation and she really needs the right one also but that will be staged. Delirium complicated the issue. Patient ultimately stabilized and labs remained stable IV antibiotics completed for the cellulitis and [facility] but overall prognosis extremely poor. Labs and Pending Lab Test: Microbiology 11/14/22 MRSA Screen - Final, Complete MRSA not isolated 11/09/22 Blood Culture - Final, Complete No growth Home Meds Active Vashe Wound Therapy Solution (Sodium Chlor/Hypochlorous Acid) 0.033 % Irrig.soln 0 Ml IR DAILY per wound Calmoseptine Ointment (Menthol/Lanolin/Calamine/Znox) 0.44 %-20.6 % Oint 1 Each TP BID PRN Lotrimin AF (Miconazole Nitrate) 2 % Powder 0 Gm TOP BID twice daily Stool Softener-Laxative Tablet (Sennosides/Docusate Sodium) 8.6 Mg-50 Mg Tablet 1 Ea PO BID PRN Klor-Con M20 (Potassium Chloride) 20 Meq Tab.er.prt 20 Meq PO DAILY Carbidopa-Levodopa 25-100 Tab (Carbidopa/Levodopa) 25 Mg-100 Mg Tablet 1 Ea PO TIDWM HYDROcodone/APAP 7.5/325 TAB (Acetaminophen/Hydrocodone Bitart) 1 Ea Tablet 1 Ea PO Q6H PRN Losartan Potassium 50 Mg Tablet 50 Mg PO DAILY Diltiazem 24Hr ER (Diltiazem HCl) 240 Mg Cap.er.24h 240 Mg PO DAILY Amlodipine Besylate 10 Mg Tablet 10 Mg PO DAILY Eliquis (Apixaban) 5 Mg Tablet 5 Mg PO BID Clonazepam 0.5 Mg Tablet 0.25 Mg PO BID Tramadol HCl 50 Mg Tablet 50 Mg PO BID PRN Clopidogrel (Clopidogrel Bisulfate) 75 Mg Tablet 75 Mg PO DAILY Tylenol Extra Strength (Acetaminophen) 500 Mg Tablet 1,000 Mg PO Q8H PRN TAKES 2 (500MG) TABS Losartan Potassium 25 Mg Tablet 25 Mg PO DAILY Amlodipine Besylate 5 Mg Tablet 5 Mg PO DAILY Reported Carbidopa-Levodopa 25-100 Tab (Carbidopa/Levodopa) 25 Mg-100 Mg Tablet 1 Ea PO Q4H PRN Bactrim Ds Tablet (Sulfamethoxazole/Trimethoprim) 800 Mg-160 Mg Tablet 1 Ea PO BID FILLED 11-03-2022 #14/ DAY SUPPLY Assessment/Pt Instructions longterm rounds at [facility] Discharge Planning: <30 minutes discharge planning Discharge Instructions Discharge Diet: No Restrictions Discharge Physical Examination Vital Signs Vital Signs Date Time Temp Pulse Resp B/P (MAP) Pulse Ox O2 Delivery O2 Flow Rate FiO2 12/02/22 07:35 36.6 76 18 144/66 (92) 95 Room Air 11/29/22 03:37 0.00 0.00 General Appearance: No Apparent Distress, WD/WN, Chronically ill Allergies: Coded Allergies: Tetanus Vaccines and Toxoid (Unverified Allergy, Severe, extreme redness in arms, 11/23/09) amoxicillin (Unverified Allergy, Unknown, 05/23/18) aspirin (Unverified Allergy, Unknown, 05/23/18) clavulanic acid (Unverified Allergy, Unknown, 05/23/18) diphenhydramine (Unverified Allergy, Unknown, 05/23/18) iodine (Verified Allergy, Unknown, 10/09/22) Uncoded Allergies: BEE STINGS (Allergy, Severe, closes throat, 11/23/09) CILANTRO (Allergy, Unknown, 10/09/22) TUMERIC (Allergy, Unknown, 10/09/22) Discharge Summary Date of Admission Nov 09, 2022 at 17:55 Date of Discharge Discharge Date: Dec 02, 2022 Discharge Diagnosis . 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
== END 2022-12-02 14:00 | DRG 240 ==
LOC: ER 15:16 → EDUNIT# 15:16 → 4TH 17:55 → ICU 11-13 17:08 → 4TH 11-14 15:39
PROVIDERS: ADMIT Family Medicine; ATTEND Internal Medicine
PROC: 0Y6J0Z1 Detachment at Left Lower Leg, High, Open Approach (ICD-10-PCS; principal; 2022-11-21 18:49)
DX: E11.52 Type 2 diabetes mellitus with diabetic peripheral angiopathy with gangrene (principal); L03.116 Cellulitis of left lower limb; M86.8X7 Other osteomyelitis, ankle and foot; T88.6XXA Anaphylactic reaction due to adverse effect of correct drug or medicament properly administered, initial encounter; J44.9 Chronic obstructive pulmonary disease, unspecified; I10 Essential (primary) hypertension; K21.9 Gastro-esophageal reflux disease without esophagitis; M19.90 Unspecified osteoarthritis, unspecified site; G89.29 Other chronic pain; M54.9 Dorsalgia, unspecified; F41.9 Anxiety disorder, unspecified; F32.A Depression, unspecified; E11.40 Type 2 diabetes mellitus with diabetic neuropathy, unspecified; Z96.652 Presence of left artificial knee joint; F17.210 Nicotine dependence, cigarettes, uncomplicated; Z91.199 Patient's noncompliance with other medical treatment and regimen due to unspecified reason; E66.9 Obesity, unspecified; B37.2 Candidiasis of skin and nail; Z66 Do not resuscitate; I48.0 Paroxysmal atrial fibrillation; I77.1 Stricture of artery; E11.69 Type 2 diabetes mellitus with other specified complication; E83.110 Hereditary hemochromatosis; G20 Parkinson's disease; R41.0 Disorientation, unspecified; E78.5 Hyperlipidemia, unspecified; T50.8X5A Adverse effect of diagnostic agents, initial encounter
CPT/HCPCS: 36415; 36569; 71045; 76705; 76775; 76937; 80048; 80053; 80074; 80076; 80202; 82977; 83540; 83605; 83735; 84132; 85025; 85027; 87040; 87081; 88307; 93005; 94664; 94760; 96360

== ENCOUNTER 2022-12-08 22:50 | Inpatient (IN) | payer MEDICARE, MEDICAID ==
[~2022-12-08] VITALS: Ht 170 cm; Wt 96.7 kg
[~2022-12-08 22:50] MED LIST changes: +AMLO-251 PO; +APIX5TAB PO; +CLON0.5T4 PO; +DILT240C91 PO; +HYDR-34 PO; +LOSA50TA63 PO; +MENT71OI TP; +POTA-169 PO; +SENN-271 PO; +SODI475I IR; +SULF-221 PO; +TRAM50TA3 PO
[2022-12-08] MEDS ORDERED: LIDOCAINE UROJET 2% GEL 10 ML PKG TOP ONE (23:00)
[2022-12-08] MEDS ORDERED: MEROPENEM 500 MG in NS (IVPB) 100 ML 100 ML IV ONE (23:00)
[2022-12-08] MEDS ORDERED: LACTATED RINGERS 1,000 ML IV ONE (23:00)
--- NOTE | 2022-12-08 23:06 | ED General ---
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 SHE WAS DISMISSED FROM HOSPITAL AND ADMITTED TO [facility] ON Monday12/02/22 AND EMS REPORT THAT SHE WAS KICKED OUT OF [facility] YESTERDAY FOR NON COMPLIANCE. SHE MOVED BACK IN WITH DAUGHTER SHE PRESENTS TONIGHT FOR COMPLAINT OF "LETHARGY" PT WANTING MULTIPLE THINGS SOON SHE ARRIVES, AND COMPLAINING ABOUT LITERALLY EVERYTHING ABOUT HER CARE FROM TIME OF ARRIVAL YET CONSTANTLY WAILING "I NEED HELP" MULTIPLE STAFF ARE IN FACT HELPING HER IN MULTIPLE WAYS ALL AT THE SAME TIME, INCLUDING CLEANING HER, CHANGING HER DIAPER AND CLOTHING, CLEANING AND DRESSING HER WOUNDS, IN ADDITION TO STARTING IV, PUTTING IN C ATHETER, ETC. PT IS FILTHY AND MALODOROUS, WOUNDS DO NOT HAVE DRESSINGS ON THEM AND THERE IS DRAINAGE FROM BOTH WOUNDS SHE HAS FILTHY SOILED ADULT DIAPER IN PLACE. PCP: SHANDA Allergies and Home Medications Allergies Coded Allergies: Tetanus Vaccines and Toxoid (Unverified Allergy, Severe, extreme redness in arms, 11/23/09) amoxicillin (Unverified Allergy, Unknown, 05/23/18) aspirin (Unverified Allergy, Unknown, 05/23/18) clavulanic acid (Unverified Allergy, Unknown, 05/23/18) diphenhydramine (Unverified Allergy, Unknown, 05/23/18) iodine (Verified Allergy, Unknown, 10/09/22) Uncoded Allergies: BEE STINGS (Allergy, Severe, closes throat, 11/23/09) CILANTRO (Allergy, Unknown, 10/09/22) TUMERIC (Allergy, Unknown, 10/09/22) Patient Home Medication List Home Medication List Reviewed: Yes Acetaminophen (Tylenol Extra Strength) 500 Mg Tablet, 1,000 MG PO Q8H PRN for PAIN-MILD (1-4) Prescribed by: VENUS BURNETT on 12/02/221211 Amlodipine Besylate (Amlodipine Besylate) 10 Mg Tablet, 10 MG PO DAILY Prescribed by: VENUS BURNETT on 12/02/22 121 Apixaban (Eliquis) 5 Mg Tablet, 5 MG PO BID Prescribed by: VENUS BURNETT on 12/02/22 121 Carbidopa/Levodopa (Carbidopa-Levodopa 25-100 Tab) 25 Mg-100 Mg Tablet, 1 EA PO TIDWM Prescribed by: VENUS BURNETT on 12/02/22 121 Clonazepam (Clonazepam) 0.5 Mg Tablet, 0.25 MG PO BID Prescribed by: VENUS BURNETT on 12/02/22 121 Clopidogrel Bisulfate (Clopidogrel) 75 Mg Tablet, 75 MG PO DAILY Prescribed by: VENUS BURNETT on 12/02/22 121 Diltiazem HCl (Diltiazem 24Hr ER) 240 Mg Cap.er.24h, 240 MG PO DAILY Prescribed by: VENUS BURNETT on 12/02/22 121 Hydrocodone Bit/Acetaminophen (HYDROcodone/APAP 7.5/325 TAB) 1 Ea Tablet, 1 EA PO Q6H PRN for PAIN-MODERATE (5-7) Prescribed by: VENUS BURNETT on 12/02/22 121 Losartan Potassium (Losartan Potassium) 50 Mg Tablet, 50 MG PO DAILY Prescribed by: VENUS BURNETT on 12/02/22 121 Menthol/Lanolin/Calamine/Znox (Calmoseptine Ointment) 0.44 %-20.6 % Oint, 1 EACH TP BID PRN for REDNESS Prescribed by: VENUS BURNETT on 12/02/22 121 Miconazole Nitrate (Lotrimin AF) 2 % Powder, 0 GM TOP BID Prescribed by: VENUS BURNETT on 12/02/22 121 Potassium Chloride (Klor-Con M20) 20 Meq Tab.er.prt, 20 MEQ PO DAILY Prescribed by: VENUS BURNETT on 12/02/22 121 Sennosides/Docusate Sodium (Stool Softener-Laxative Tablet) 8.6 Mg-50 Mg Tablet, 1 EA PO BID PRN for CONSTIPATION-1ST LINE Prescribed by: VENUS BURNETT on 12/02/22 1212 Sodium Chlor/Hypochlorous Acid (Vashe Wound Therapy Solution) 0.033 % Irrig.soln, 0 ML IR DAILY Prescribed by: VENUS BURNETT on 12/02/22 1212 Tramadol HCl (Tramadol HCl) 50 Mg Tablet, 50 MG PO BID PRN for PAIN-MODERATE (5- 7) Prescribed by: VENUS BURNETT on 12/02/22 1212 Discontinued Medications Amlodipine Besylate (Amlodipine Besylate) 5 Mg Tablet, 5 MG PO DAILY Prescribed by: VENUS BURNETT on 10/20/22 1123 Carbidopa/Levodopa (Carbidopa-Levodopa 25-100 Tab) 25 Mg-100 Mg Tablet, 1 EA PO Q4H PRN for TREMORS, (Reported) Entered as Reported by: FRANK LOPEZ on 11/11/22 1537 Losartan Potassium (Losartan Potassium) 25 Mg Tablet, 25 MG PO DAILY Prescribed by: VENUS BURNETT on 10/20/22 112 Sulfamethoxazole/Trimethoprim (Bactrim Ds Tablet) 800 Mg-160 Mg Tablet, 1 EA PO BID, (Reported) Entered as Reported by: FRANK LOPEZ on 11/11/22 1537 Review of Systems Review of Systems Constitutional: see HPI Past Uaffwxx-Gppyhl-Nutodo Hx Past Medical History Surgery/Hospitalization HX: HYST, R ANKLE , T AND A, GB, L TKR, HIP SURG, bilat toe amp Surgeries: Yes Adenoidectomy, Amputation, Gallbladder, Hysterectomy, Joint Replacement, Ort hopedic, Tonsillectomy Respiratory: Yes Chronic Bronchitis, COPD Cardiac: Yes Atrial Fibrillation, High Cholesterol, Hypertension, Peripheral Vascular Neurological: Yes Dementia, Neuropathy, Parkinson's Disease Reproductive Disorders: Yes UNDERCOVER COP History: Menopausal Genitourinary: No Gastrointestinal: Yes Gastroesophageal Reflux, Gall Bladder Disease Musculoskeletal: Yes Amputee, Degenerate Disk Disease, Arthritis, Chronic Back Pain Endocrine: No HEENT: Yes Loss of Vision: Bilateral Hearing Impairment: Hard of Hearing Cancer: No Psychosocial: Yes Anxiety, Depression Integumentary: Yes (CELLULITIS AND GANGRENE) Blood Disorders: No Family Medical History No Pertinent Family Hx, Diabetes, Hypertension Physical Exam Vital Signs Vital Signs - First Documented 12/08/22 22:51 Temp 36.1 Pulse 52 Resp 16 B/P (MAP) 112/51 (71) Pulse Ox 98 O2 Delivery Nasal Cannula O2 Flow Rate 2.00 Capillary Refill : Height, Weight, BMI Height: '" Weight: lbs. oz. kg; 29.62 BMI Method:Stated General Appearance: No Apparent Distress, WD/WN, Obese, Other (FILTHY, MALODOROUS, VERY UNKEMPT; REEKS OF CIGARETTES) HEENT: PERRL/EOMI Respiratory: Normal Breath Sounds, No Accessory Muscle Use, No Respiratory Distress Cardiovascular: Regular Rate, Rhythm Gastrointestinal: Non Tender Extremity: Other (RIGHT GREAT TOE AMPUTATION SITE WITH SCAB, AND IS DRAINING BLOODY DRAINAGE; LEFT BKA SITE WITH BLOODY DRAINAGE FROM THE SITEM AND THE SKIN FLAP AT THE STUMP IS NECROTIC. THERE IS SURROUNDING ERYTHEMA TO THE AREA. ) Neurologic/Psychiatric: Alert, Oriented x3, No Motor/Sensory Deficits, Other (PT APPEARS TO BE AT HER NORMAL BASELINE CONFUSION. SHE IS ORIENTED TO SELF AND PLACE. CONFUSED TO TIME AND SITUATION AND VERY POOR MEMORY. ) Skin: Warm/Dry, Other ( ABOVE. SKIN BREAKDOWN ON BUTTOCKS. ) Focused Exam Sepsis Stage: Sepsis (SIRS) Possible Source: Other (WOUND INFECTION; UTI) Lactate Level 12/08/22 22:55: Lactic Acid Level 1.84 Time of Focused Exam: 23:35 Respiratory: Normal Breath Sounds, No Accessory Muscle Use, No Respiratory Distress Cardiovascular: Regular Rate, Rhythm Capillary Refill: Less Than 3 Seconds Skin: normal color, warm/dry Lactic Acid Level Laboratory Tests Test 12/08/22 22:55 Lactic Acid Level 1.84 MMOL/L (0.50-2.00) Within 3hrs of presentation: Admin fluids, Admin ABX, Blood cultures prior to ABX's, Focus exam, Lactate level Progress/Results/Core Measures Suspected Sepsis SIRS Temperature: Pulse: Respiratory Rate: Laboratory Tests 12/08/22 22:55: White Blood Count 11.8H Blood Pressure / Mean: 12/08/22 22:55: Lactic Acid Level 1.84 Laboratory Tests 12/08/22 22:55: Creatinine 2.04H, INR Comment 2.3H, Platelet Count 505H, Total Bilirubin 0.8 Results/Orders Lab Results Laboratory Tests Test 12/08/22 22:55 12/08/22 23:03 Range/Units White Blood Count 11.8 H 4.3-11.0 10^3/uL Red Blood Count 3.26 L 3.80-5.11 10^6/uL Hemoglobin 9.8 L 11.5-16.0 g/dL Hematocrit 30 L 35-52 % Mean Corpuscular Volume 93 80-99 fL Mean Corpuscular Hemoglobin 30 25-34 pg Mean Corpuscular Hemoglobin Concent 32 32-36 g/dL Red Cell Distribution Width 15.5 H 10.0-14.5 % Platelet Count 505 H 130-400 10^3/uL Mean Platelet Volume 10.9 9.0-12.2 fL Immature Granulocyte % (Auto) 2 % Neutrophils (%) (Auto) 77 H 42-75 % Lymphocytes (%) (Auto) 9 L 12-44 % Monocytes (%) (Auto) 11 0-12 % Eosinophils (%) (Auto) 0 0-10 % Basophils (%) (Auto) 0 0-10 % Neutrophils # (Auto) 9.1 H 1.8-7.8 10^3/uL Lymphocytes # (Auto) 1.1 1.0-4.0 10^3/uL Monocytes # (Auto) 1.3 H 0.0-1.0 10^3/uL Eosinophils # (Auto) 0.0 0.0-0.3 10^3/uL Basophils # (Auto) 0.0 0.0-0.1 10^3/uL Immature Granulocyte # (Auto) 0.3 H 0.0-0.1 10^3/uL Prothrombin Time 25.3 H 12.2-14.7 SEC INR Comment 2.3 H 0.8-1.4 Activated Partial Thromboplast Time 64 H 24-35 SEC Sodium Level 133 L 135-145 MMOL/L Potassium Level 4.8 3.6-5.0 MMOL/L Chloride Level 103 98-107 MMOL/L Carbon Dioxide Level 17 L 21-32 MMOL/L Anion Gap 13 5-14 MMOL/L Blood Urea Nitrogen 38 H 7-18 MG/DL Creatinine 2.04 H 0.60-1.30 MG/DL Estimat Glomerular Filtration Rate 26 BUN/Creatinine Ratio 19 Glucose Level 129 H 70-105 MG/DL Lactic Acid Level 1.84 0.50-2.00 MMOL/L Calcium Level 9.7 8.5-10.1 MG/DL Corrected Calcium 10.3 H 8.5-10.1 MG/DL Magnesium Level 2.0 1.6-2.4 MG/DL Total Bilirubin 0.8 0.1-1.0 MG/DL Aspartate Amino Transf (AST/SGOT) 13 5-34 U/L Alanine Aminotransferase (ALT/SGPT) < 6 0-55 U/L Alkaline Phosphatase 342 H 40-136 U/L Total Protein 7.0 6.4-8.2 GM/DL Albumin 3.2 3.2-4.5 GM/DL Serum Alcohol < 10 <10 MG/DL Urine Color YELLOW Urine Clarity CLOUDY Urine pH 6.5 5-9 Urine Specific [place] 1.020 1.016-1.022 Urine Protein 2+ H NEGATIVE Urine Glucose (UA) NEGATIVE NEGATIVE Urine Ketones NEGATIVE NEGATIVE Urine Nitrite NEGATIVE NEGATIVE Urine Bilirubin NEGATIVE NEGATIVE Urine Urobilinogen 0.2 < = 1.0 MG/DL Urine Leukocyte Esterase 2+ H NEGATIVE Urine RBC (Auto) 2+ H NEGATIVE Urine RBC 2-5 H /HPF Urine WBC TNTC H /HPF Urine Squamous Epithelial Cells 0-2 /HPF Urine Crystals NONE /LPF Urine Bacteria LARGE H /HPF Urine Casts NONE /LPF Urine Mucus NEGATIVE /LPF Urine Culture Indicated CULTURE PENDING Urine Opiates Screen POSITIVE H NEGATIVE Urine Oxycodone Screen NEGATIVE NEGATIVE Urine Methadone Screen NEGATIVE NEGATIVE Urine Propoxyphene Screen NEGATIVE NEGATIVE Urine Barbiturates Screen NEGATIVE NEGATIVE Ur Tricyclic Antidepressants Screen NEGATIVE NEGATIVE Urine Phencyclidine Screen NEGATIVE NEGATIVE Urine Amphetamines Screen NEGATIVE NEGATIVE Urine Methamphetamines Screen NEGATIVE NEGATIVE Urine Benzodiazepines Screen NEGATIVE NEGATIVE Urine Cocaine Screen NEGATIVE NEGATIVE Urine Cannabinoids Screen NEGATIVE NEGATIVE My Orders Orders - CHRISTIAN ROBERTSON DO Ed Iv/Invasive Line Start (12/08/22 22:52) Ekg Tracing (12/08/22 22:52) Catheter(Urinary) Insert & Ass 03,15 (12/08/22 22:52) Monitor-Rhythm Ecg Trace Only (12/08/22 22:52) Alcohol (12/08/22 22:52) Cbc With Automated Diff (12/08/22 22:52) Comprehensive Metabolic Panel (12/08/22 22:52) Drug Screen Stat (Urine) (12/08/22 22:52) Lactic Acid Analyzer (12/08/22 22:52) Magnesium (12/08/22 22:52) Protime With Inr (12/08/22 22:52) Partial Thromboplastin Time (12/08/22 22:52) Ua Culture If Indicated (12/08/22 22:52) Wound Culture (12/08/22 22:52) Lidocaine 2% (Urojet) (Xylocaine Urojet) (12/08/22 23:00) Wound Culture (12/08/22 22:52) Ed Iv/Invasive Line Start (12/08/22 22:52) Lactated Ringers (Lr 1000 Ml Iv Solution (12/08/22 23:00) Vancomycin Injection (Vancomycin Injecti (12/08/22 23:00) Meropenem (Merrem 500 Mg) (12/08/22 23:00) Blood Culture (12/08/22 22:52) Urine Culture (12/08/22 22:52) Chest 1 View, Ap/Pa Only (12/08/22 22:52) Ed Iv/Invasive Line Start (12/08/22 22:52) Vital Signs Adult Sepsis Patie Q15M (12/08/22 22:52) O2 (12/08/22 22:52) Remove Rings In Anticipation O (12/08/22 22:52) Ed Iv/Invasive Line Start (12/08/22 23:42) Ns Iv 1000 Ml (Sodium Chloride 0.9%) (12/08/22 23:45) Ed Iv/Invasive Line Start (12/09/22 00:08) Lactated Ringers (Lr 1000 Ml Iv Solution (12/09/22 00:15) Medications Given in ED Current Medications Medications Dose Ordered Sig/Gamaliel Route Start Time Stop Time Status Last Admin Dose Admin Lactated Ringer's 1,000 ml @ 0 mls/hr Q0M ONCE IV 12/08/22 23:00 12/08/22 23:01 DC 12/08/22 23:12 0 MLS/HR Meropenem 500 mg/ Sodium Chloride 100 ml @ 200 mls/hr ONCE ONCE IV 12/08/22 23:00 12/08/22 23:29 DC 12/08/22 23:13 200 MLS/HR Vital Signs/I&O 12/08/22 12/08/22 22:51 22:51 Temp 36.1 Pulse 52 Resp 16 B/P (MAP) 112/51 (71) Pulse Ox 98 93 O2 Delivery Nasal Cannula Nasal Cannula O2 Flow Rate 2.00 2.00 Capillary Refill : Progress Note : Progress Note SEPSIS PROTOCOL INITIATED CULTURES OBTAINED FROM SURGICAL SITES GIVEN: -IV FLUIDS -ANTIBIOTICS NO DETERIORATION IN PT'S CONDITION DURING ER STAY PERTINENT LABS: -CBC WITH WBC 11.8, HGB 9.8, PLT 505 -CMP WITH NA 133, CR 4.8, CO2 17, BUN 38, CR 2.04, GLU 129 -LACTIC ACID 1.84 -CATH UA WITH TNTC WBC, LARGE BACTERIA, 2+ LEUKOCYTES EKG UNREMARKABLE CXR WITH POOR INSPIRATION BUT NO OBVIOUS ACUTE PROCESS REVIEWED PRIOR RECORDS INCLUDING ER VISITS, ADMITS/H&P'S/CONSULTS/DISCHARGE SUMMARIES, TESTS/PROCEDURES. ALSO REVIEWED [facility] PAPERS THAT WERE SENT WITH PT. DISCUSSED TEST RESULTS AND NEED FOR ADMIT AND PT IS AGREEABLE TO PLAN 0--RN IS TALKING WITH DAUGHTER AND UPDATE GIVEN. SHE STATES THAT PT WAS NOT ACTUALLY DISMISSED FROM [facility] UNTIL TODAY AND DID NOT GET HOME UNTIL AROUND 1700 TONIGHT, AND DID NOT GET RX'S PICKED UP FROM PHARMACY. SHE STATES THAT PT WAS DISMISSED FROM THERE DUE TO NON-COMPLIANCE WITH TREATMENT PLAN. CODE STATUS DISCUSSED WITH DAUGHTER AND PT IS DNR/DNI ECG Initial ECG Impression Date: Dec 08, 2022 Initial ECG Impression Time: 23:16 Initial ECG Rate: 51 Initial ECG Rhythm: Normal Sinus Initial ECG Intervals KS-NOT MEASURED QRS 120 QT/QTC 454/431 Initial ECG Impression: Nonspecific Changes Initial ECG Comparisson: Unchanged Comment INTERPRETED BY ME Diagnostic Imaging Comments CXR--POOR INSPIRATION. NO ACUTE PROCESS, PENDING RADIOLOGIST REVIEW Reviewed: Reviewed by Me Departure Communication (Admissions) [id number]--SPOKE WITH DR. 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 Referrals: [facility] (PCP/Family) Primary Care Physician CHRISTIAN ROBERTSON DO Dec 08, 2022 23:06
[2022-12-08 23:13] LABS: BASOPHILS % (AUTO) 0 % (0-10); EOSINOPHILS % (AUTO) 0 % (0-10); HEMATOCRIT 30 % (35-52); HEMOGLOBIN 9.8 g/dL (11.5-16.0); LYMPHOCYTES # (AUTO) 1.1 10^3/uL (1.0-4.0); LYMPHOCYTES % (AUTO) 9 % (12-44); MEAN CORPUSCULAR HEMOGLOBIN 30 pg (25-34); MEAN CORPUSCULAR HGB CONC 32 g/dL (32-36); MEAN CORPUSCULAR VOLUME 93 fL (80-99); MEAN PLATELET VOLUME 10.9 fL (9.0-12.2); MONOCYTES # (AUTO) 1.3 10^3/uL (0.0-1.0); MONOCYTES % (AUTO) 11 % (0-12); NEUTROPHILS # (AUTO) 9.1 10^3/uL (1.8-7.8); NEUTROPHILS % (AUTO) 77 % (42-75); PLATELET COUNT 505 10^3/uL (130-400); WHITE BLOOD COUNT 11.8 10^3/uL (4.3-11.0)
[2022-12-08 23:19] LABS: BILIRUBIN,URINE NEGATIVE (NEGATIVE); CLARITY,URINE CLOUDY; COLOR,URINE YELLOW; GLUCOSE, URINE (UA) NEGATIVE (NEGATIVE); KETONES,URINE NEGATIVE (NEGATIVE); LEUKOCYTE ESTERASE ,URINE 2+ (NEGATIVE); NITRITE,URINE NEGATIVE (NEGATIVE); PH,URINE 6.5 (5-9); PROTEIN,URINE 2+ (NEGATIVE)
[2022-12-08 23:23] LABS: BACTERIA,URINE LARGE /HPF; WBC,URINE TNTC /HPF
[2022-12-08 23:24] LABS: SQUAMOUS EPITHELIAL CELL,UR 0-2 /HPF
[2022-12-08 23:24] LABS: ALBUMIN 3.2 GM/DL (3.2-4.5); CHLORIDE 103 MMOL/L (98-107); INR 2.3 (0.8-1.4); POTASSIUM 4.8 MMOL/L (3.6-5.0); PROTHROMBIN TIME PATIENT 25.3 SEC (12.2-14.7); SODIUM 133 MMOL/L (135-145)
[2022-12-08 23:26] LABS: CALCIUM 9.7 MG/DL (8.5-10.1)
[2022-12-08 23:27] LABS: GLUCOSE 129 MG/DL (70-105)
[2022-12-08 23:28] LABS: CARBON DIOXIDE 17 MMOL/L (21-32)
[2022-12-08 23:29] LABS: BILIRUBIN,TOTAL 0.8 MG/DL (0.1-1.0)
[2022-12-08 23:29] LABS: AMPHETAMINE SCREEN, URINE NEGATIVE (NEGATIVE); BARBITURATE SCREEN URINE NEGATIVE (NEGATIVE); BENZODIAZEPINES SCREEN URINE NEGATIVE (NEGATIVE); CANNABINOID SCREEN, URINE NEGATIVE (NEGATIVE); COCAINE SCREEN URINE NEGATIVE (NEGATIVE); METHADONE STAT NEGATIVE (NEGATIVE); OPIATE SCREEN URINE POSITIVE (NEGATIVE); OXYCODONE STAT NEGATIVE (NEGATIVE); PROPOXYPHENE STAT NEGATIVE (NEGATIVE); TRICYCLIC ANTIDEPRESSANTS SCRE NEGATIVE (NEGATIVE)
[2022-12-08 23:30] LABS: ALKALINE PHOSPHATASE 342 U/L (40-136); CREATININE SERUM 2.04 MG/DL (0.60-1.30); GFR ESTIMATED 26
[2022-12-08 23:32] LABS: BUN/CREATININE RATIO 19
[2022-12-08 23:33] LABS: ALANINE AMINOTRANSFERASE < 6 U/L (0-55)
[2022-12-08] MEDS ORDERED: NS IV 1000 ML 1,000 ML IV SCH (23:45)
[2022-12-09] MEDS ORDERED: LACTATED RINGERS 1,000 ML IV ONE (00:15)
[2022-12-09] MEDS: VANCOMYCIN INJECTION 1,000 MG in NS (IVPB) 250 ML 250 ML IV SCH ×2 (00:26→01:32)
[2022-12-09 01:22] VITALS: BP 90/57
[2022-12-09] MEDS ORDERED: ONDANSETRON 4 MG/2 ML (SDV) Z0FRAN IV PRN (01:30)
[2022-12-09] MEDS ORDERED: ACETAMINOPHEN 500 MG TABLET PO PRN (01:30)
[2022-12-09] MEDS: LACTATED RINGERS 1,000 ML IV SCH ×2 (01:43→09:04)
[2022-12-09 01:45] VITALS: BP 135/64
[2022-12-09] MEDS ORDERED: VANCOMYCIN 1 GM/NS 250 ML IVPB IV ONE ×2 (01:45)
[2022-12-09] MEDS: fentaNYL INJECTION 100 MCG/2 ML VIAL IV PRN ×2 (02:57→10:18)
[2022-12-09 03:03] VITALS: BP 144/74
[2022-12-09] MEDS ORDERED: MEROPENEM 500 MG/NS 100 ML IVPB IV SCH ×2 (06:00)
[2022-12-09] MEDS: inSUlin ASPART 1 UNIT/0.01 ML (PER UNIT) SC SCH ×2 (06:16→11:05)
[2022-12-09 08:00] VITALS: BP 89/56
--- NOTE | 2022-12-09 08:25 | Diagnostic Imaging Report ---
INDICATION: Weakness and hypoxemia Portable AP view of chest is obtained with comparison made to study of 11/22/2022 There is suboptimal inspiration. There is no evidence of pneumothorax. Mild increase in some perihilar regions may be due to crowding of markings versus mild edema or pneumonitis. IMPRESSION: Probable mild perihilar edema and/or pneumonitis with background hypoventilation. Dictated by: Dictated on workstation # [id number]
--- NOTE | 2022-12-09 10:38 | Wound Care Assessment ---
Wound Care Assessment Date Seen by Provider: Dec 09, 2022 Time Seen by Provider: 10:30 Chief Complaint Bilateral stump wounds HPI This 72 year old patient has been admitted numerous times this summer for severe PAD with limb threatening ischemia resulting in L. BKA and R. 1 toe amputation. I am only able to obtain limited history due to severe pain and mental status changes today. After BKA and amputation (last admit), she was admitted to [facility] (without hospice). 2 days ago she was discharged from their facility due to "noncompliance with recommendations". She returns after moving back into her previous living situation. She has a long h/o medical noncompliance due to distrust of medical providers/facilities. In the past, she has had maggot infestations of wound due to noncompliance in care. She is a smoker and morbidly obese in addition to her PAD. Upon readmit, she was in very poor hygiene, soiled brief and without dressings to her wounds. On exam today, she is leaning forward in bed and declines any further positional change. I am unable to completely view her sacrum but nursing staff assures me that her wounds in that area are resolved on this admit. I am unable to fully evaluate her left BKA stump due to her declining manipulation (exquisite pain with even light touch). She does have a failed flap in this area with beginning of skin sloughing. Alondra are still in place. She has bleeding from incision site. Her R. 1 toe stump also appears to have non-healing. Sutures still in place. Eschar atop (again, with signficant pain). I did ask Pat where she plans to live on d/c and she states "home". I asked if she would be open to further surgeries and she said "absolutely no". I also asked about hospice care and she requests to leave with hospice in place (if possible). SS is consulted and working on options. Past Medical History: Admits Peripheral Artery Disease Smoking Status: Current Everyday Smoker Recreational Drug Use: Yes (Marijuana (recent past)) Alcohol Use: Denies Use Review of Systems Genitourinary: Hematuria Other systems Unable to assess due to mental status changes Exam Vital Signs Date Time Temp Pulse Resp B/P (MAP) Pulse Ox O2 Delivery O2 Flow Rate FiO2 12/09/22 08:00 37.2 65 18 89/56 (67) 97 Room Air 0.00 0.00 Capillary Refill : Less Than 3 Seconds General Appearance: moderate distress (significant pain), obese HEENT: other (hearing wnl) Respiratory: no respiratory distress, no accessory muscle use Extremities: other (L. BKA, R. 1 toe amputation) Neurologic/Psychiatric: alert, other (poor historian, confused, intermittently answers appropriately) Skin Problem Location: lower extremities Skin Character: drainage (bleeding), tenderness (severe pain with minimal touch b/l LE) 1. L. BKA stump: Incision intact with alondra. Posterior surface black with skin sloughing. Failed flap is apparent. Extent of ulceration is not evaluated due to patient denial (pain) 2. R. 1 toe amputation stump: 6x3x0.2. The epithelialization is none. I am unabl e to fully appreciate tunneling or undermining due to pain, granulation is none. Necrotic is large and eschar. Margins flat. Sutures still in place. Results Laboratory Tests 12/08/22 22:55: White Blood Count 11.8H, Red Blood Count 3.26L, Hemoglobin 9.8L, Hematocrit 30L, Mean Corpuscular Volume 93, Mean Corpuscular Hemoglobin 30, Mean Corpuscular Hemoglobin Concent 32, Red Cell Distribution Width 15.5H, Platelet Count 505H, Mean Platelet Volume 10.9, Immature Granulocyte % (Auto) 2, Neutrophils (%) (Auto) 77H, Lymphocytes (%) (Auto) 9L, Monocytes (%) (Auto) 11, Eosinophils (%) (Auto) 0, Basophils (%) (Auto) 0, Neutrophils # (Auto) 9.1H, Lymphocytes # (Auto) 1.1, Monocytes # (Auto) 1.3H, Eosinophils # (Auto) 0.0, Basophils # (Auto) 0.0, Immature Granulocyte # (Auto) 0.3H, Prothrombin Time 25.3H, INR Comment 2.3H, Activated Partial Thromboplast Time 64H, Sodium Level 133L, Potassium Level 4.8, Chloride Level 103, Carbon Dioxide Level 17L, Anion Gap 13, Blood Urea Nitrogen 38H, Creatinine 2.04H, Estimat Glomerular Filtration Rate 26, BUN/Creatinine Ratio 19, Glucose Level 129H, Lactic Acid Level 1.84, Calcium Level 9.7, Corrected Calcium 10.3H, Magnesium Level 2.0, Total Bilirubin 0.8, Aspartate Amino Transf (AST/SGOT) 13, Alanine Aminotransferase (ALT/SGPT) < 6, Alkaline Phosphatase 342H, Total Protein 7.0, Albumin 3.2, Serum Alcohol < 10 12/08/22 23:03: Urine Color YELLOW, Urine Clarity CLOUDY, Urine pH 6.5, Urine Specific [place] 1.020, Urine Protein 2+H, Urine Glucose (UA) NEGATIVE, Urine Ketones NEGATIVE, Urine Nitrite NEGATIVE, Urine Bilirubin NEGATIVE, Urine Urobilinogen 0.2, Urine Leukocyte Esterase 2+H, Urine RBC (Auto) 2+H, Urine RBC 2-5H, Urine WBC TNTCH, Urine Squamous Epithelial Cells 0-2, Urine Crystals NONE, Urine Bacteria LARGEH, Urine Casts NONE, Urine Mucus NEGATIVE, Urine Culture Indicated CULTURE PENDING, Urine Opiates Screen POSITIVEH, Urine Oxycodone Screen NEGATIVE, Urine Methadone Screen NEGATIVE, Urine Propoxyphene Screen NEGATIVE, Urine Barbiturates Screen NEGATIVE, Ur Tricyclic Antidepressants Screen NEGATIVE, Urine Phencyclidine Screen NEGATIVE, Urine Amphetamines Screen NEGATIVE, Urine Methamphetamines Screen NEGATIVE, Urine Benzodiazepines Screen NEGATIVE, Urine Cocaine Screen NEGATIVE, Urine Cannabinoids Screen NEGATIVE 12/09/22 06:15: Glucometer 109 12/09/22 10:15: Glucometer 96 Microbiology 12/08/22 Urine Culture - Preliminary, Resulted Klebsiella/Enterobacter spec 12/08/22 Gram Stain, Resulted Pending 12/08/22 Wound Culture - Preliminary, Resulted Proteus species Microbiology 12/08/22 Urine Culture - Preliminary, Resulted Klebsiella/Enterobacter spec 12/08/22 Gram Stain, Resulted Pending 12/08/22 Wound Culture - Preliminary, Resulted Proteus species 12/08/22 Gram Stain, Resulted Pending 12/08/22 Wound Culture - Preliminary, Resulted Klebsiella/Enterobacter spec Assessment/Plan/Dx Assessment: 1. Bilateral failed flap following L. BKA and R. 1 toe amputation (for gangrene) 2. Severe PAD 3. Tobaccoism 4. Mental status changes 5. Hemorrhage (hematuria and from BKA site)-anticoagulated on last stay 6. Anemia of chronic disease/blood loss 7. CKD stage 4 8. Amputation site infection 9. Moderate PEM 10. Hypotension/Sepsis Plan: 1. Betadine paint bid and open to air (patient preference due to pain). 2. I am not optmistic that further surgery would improve Daniella's chances of healing. Her PAD is severe and she has 2 failed flaps currently. Also, her issues with noncompliance in wound care are persistent despite recent stay in nursing home. She is requesting hospice today (if this is an option). It sounds as though her family may be struggling to care for her as well. 3. Defer to primary 4. Defer to primary 5. Elevated INR with hematuria (gross) and bleeding from stump site. It is unclear to me if she remains on anticoagulation (upon last d/c) and which anticoagulation she was on. She is currently bleeding from numerous locations with anemia. I will defer this to primary team. 6. Blood loss vs. anticoagulation? Defer to primary 7. Defer to primary 8. Currently on Vancomycin and Meropenem appropriately. 9. Ensure already ordered 10. Defer to primary team 11. Disp: Difficult social situation and compliance situation. SS already consulted. NILESH MURPHY MD Dec 09, 2022 10:38
[2022-12-09 11:07] VITALS: BP 178/73
[2022-12-09] MEDS ORDERED: ONDANSETRON 4 MG/2 ML (SDV) Z0FRAN IVP PRN (11:15)
[2022-12-09] MEDS ORDERED: ATROPINE 1% OPHTHALMIC SOLN 2 ML SL PRN (11:15)
[2022-12-09] MEDS ORDERED: GLYCOPYRROLATE INJ 0.2 MG/ML 2 ML VIAL IV PRN (11:15)
[2022-12-09] MEDS ORDERED: SALIVA SUBSTITUTE 60 ML SPRAY(MOUTHKOTE) MM PRN (11:15)
[2022-12-09] MEDS ORDERED: BISACODYL 10 MG SUPPOSITORY PR PRN (11:15)
[2022-12-09] MEDS ORDERED: PROMETHAZINE INJ 25 MG/ML (PHENERGAN) AMP IVP PRN (11:15)
[2022-12-09] MEDS ORDERED: RT-Ipratropium/Albuterol NEB 3 ML VIAL INH PRN (11:15)
[2022-12-09] MEDS ORDERED: ARTIFICAL TEARS Ophth solution 0.4 ML UNIT DOSE OU PRN (11:15)
[2022-12-09] MEDS ORDERED: ACETAMINOPHEN 650 MG SUPPOSITORY PR PRN (11:15)
[2022-12-09] MEDS ORDERED: LORazepam ORAL CONCENTRATE 2 MG/ML 30 ML PO PRN (11:15)
[2022-12-09] MEDS: SCOPOLAMINE 1.5 MG (TRANSDERM-SCOP) PATCH TOP SCH (12:30)
--- NOTE | 2022-12-09 14:07 | History & Physical-Hospitalist ---
[facility] 12/09/22 1407: History of Present Illness HPI/Chief Complaint CC: wounds from previous BKA and Lethargy HPI: 72 y/o female presents with multiple previous admissions of gangrene and has history of severe PAD. Patient has poor hygiene and has been non-compliant with wound care. She is septic and has hematuria but has declined any offered surgeries and wishes to go home and be placed in hospice. She was willing to answer some questions but had very poor memory and was hard of hearing. Date Seen 12/09/22 Attending Physician Pierre Part/[facility] PCP Admitting Physician: Birgit Herbert MD Attending Physician: Birgit Herbert MD Referring Physician Date of Admission Dec 09, 2022 at 01:02 Home Medications & Allergies Home Medications Reviewed patient Home Medication Reconciliation performed by pharmacy medication reconciliations control technician and/or nursing. Patients Allergies have been reviewed. Allergies Allergies Coded Allergies Tetanus Vaccines and Toxoid (Unverified Allergy, Severe, extreme redness in arms, 11/23/09) amoxicillin (Unverified Allergy, Unknown, 05/23/18) aspirin (Unverified Allergy, Unknown, 05/23/18) clavulanic acid (Unverified Allergy, Unknown, 05/23/18) diphenhydramine (Unverified Allergy, Unknown, 05/23/18) iodine (Verified Allergy, Unknown, 10/09/22) Uncoded Allergies BEE STINGS ( Allergy, Severe, closes throat, 11/23/09) CILANTRO ( Allergy, Unknown, 10/09/22) TUMERIC ( Allergy, Unknown, 10/09/22) Past Fdcmvbt-Ptetpf-Ccbpuh Hx Patient Social History Tobacco Use?: No Smoking Status: Current Everyday Smoker Use of E-Cig and/or Vaping dev: Unable to obtain Substance use?: Unable to obtain Alcohol Use?: Unable to obtain Pt feels they are or have been: Unable to obtain Immunizations Up To Date Tetanus Booster (TDap): Unknown (Allergic to tetanus toxoid vaccination ) Hepatitis A: No Hepatitis B: No Current Status status: No status: No Advance Directives: Unable to obtain Communicates: Verbally Primary Language: Upper Sorbian Preferred Spoken Language: Upper Sorbian Is interpretation needed?: No Sensory deficits: Hearing impairment Implanted or Applied Medical D: None Past Medical History Surgeries: Adenoidectomy, Amputation, Gallbladder, Hysterectomy, Joint Replacement, Orthopedic, Tonsillectomy Pneumonia, Chronic Bronchitis, COPD Atrial Fibrillation, Heart Attack, Heart Murmur, High Cholesterol, Hypertension, Peripheral Vascular Dementia, Neuropathy, Parkinson's Disease 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: Hysterectomy Gastroesophageal Reflux, Gall Bladder Disease Amputee, Degenerate Disk Disease, Osteoporosis, Arthritis, Fibromyalgia, Chronic Back Pain Loss of Vision: Bilateral Hearing Impairment: Hard of Hearing Ovarian Anxiety, Depression Blood Disorders: No PAD HTN Obesity Tobacco use Family Medical History No Pertinent Family Hx, Diabetes, Hypertension Review of Systems ROS-Unable to Obtain: patient was irritable and did not want to talk Genitourinary: see HPI Musculoskeletal: muscle weakness Physical Exam Physical Exam Vital Signs Vital Signs - First Documented 12/08/22 22:51 Temp 36.1 Pulse 52 Resp 16 B/P (MAP) 112/51 (71) Pulse Ox 98 O2 Delivery Nasal Cannula O2 Flow Rate 2.00 Capillary Refill : Less Than 3 Seconds Height, Weight, BMI Height: '" Weight: lbs. oz. kg; 33.46 BMI Method:Stated General Appearance: Chronically ill, Moderate Distress, Obese Respiratory: Lungs Clear, No Accessory Muscle Use, No Respiratory Distress Extremity: Normal Capillary Refill, Other (LE bleeding) Neurologic/Psychiatric: Alert, Depressed Affect, Motor Weakness Results Results/Procedures Labs Laboratory Tests 12/08/22 22:55 Patient resulted labs reviewed. Assessment/Plan Admission Diagnosis Possible Sepsis Admission Status: Inpatient Order (span 2 midnights) Reason for Inpatient Admission: Gangrene, Sepsis Assessment and Plan Assessment: Severe PAD Gangrene Cellulitis, CKD Tobacco abuse Sepsis Blood loss/anemia of chronic disease Plan: pain medication comfort care continue monitoring closely and give IV fluids Nutritional supplements Critical Care Critically Ill Patient ITZEL BURNETT DO 12/09/221953: History of Present Illness Source: patient, family, RN/MD, old records Exam Limitations: clinical condition Time Seen by a Provider: 11:00 Past Szrclxk-Fpiija-Mqviou Hx Patient Social History Marrital Status: single Employed/Student: retired Smoking Status: Current Everyday Smoker Past Medical History Surgeries: Orthopedic Review of Systems Constitutional: see HPI Physical Exam Physical Exam General Appearance: Chronically ill, Mild Distress, Obese Respiratory: No Accessory Muscle Use, No Respiratory Distress, Decreased Breath Sounds Cardiovascular: Regular Rate, Rhythm Assessment/Plan Admission Diagnosis Multisystem organ failure Sepsis UTI Gangrene of right foot GARCÍA Anemia Hematuria Plan: Comfort care Updated daughter Admission Status: Inpatient Order (span 2 midnights) Reason for Inpatient Admission: sepsis Supervisory-Addendum Brief Verification & Attestation Participated in pt care: history, MDM, physical Personally performed: exam, history, MDM, supervision of care Care discussed with: Medical Student Procedures: n/a Results interpretation: Verified all documentation Verification and Attestation of Medical Student E/M Service A medical student performed and documented this service in my presence. I reviewed and verified all information documented by the medical student and made modifications to such information, when appropriate. I personally performed the physical exam and medical decision making. Itzel Burnett, Dec 09, 2022,19:54 SALAMANCA Dec 09, 2022 14:07 ITZEL BURNETT DO Dec 09, 2022 19:54
[2022-12-09 15:40] VITALS: BP 147/66
[2022-12-09] MEDS: morphine INJ 4 MG/ML 1 ML (VIAL/SYRINGE) IV PRN (16:37)
[2022-12-10] MEDS: morphine INJ 4 MG/ML 1 ML (VIAL/SYRINGE) IV PRN ×2 (00:18→11:31)
[2022-12-10] MEDS ORDERED: VANCOMYCIN 1500MG/300ML PREMIX IV SCH (01:00)
--- NOTE | 2022-12-10 01:59 | CONSULTATION REPORT ---
ATTENDING PRIMARY CARE PHYSICIAN: Dr. Kwame Welch. HISTORY OF PRESENT ILLNESS: The patient is a 72-year-old female well known to us. She has been in and out of the Emergency Department as well as has had multiple admissions due to complications related to severe peripheral vascular disease and noncompliance. She has severe peripheral vascular disease and a longstanding history of smoking. It was recommended that she undergo proper evaluations, tests and treatments; however, has denied most of these. When she was first seen, she had significant bilateral necrotic toes and ABIs were performed, which were severely poor in the range of 0.2. She had again necrotic toes as well as several episodes of fly larvae infestations. It was recommended that she proceed with an MRI to evaluate the level of osteomyelitis; however, she would not allow this. She was also seen by Cardiology for an aortogram and bilateral runoff as well as possible intervention including angioplasty and stent placement and on two separate occasions, she was brought to the quality assurance/r&d lab technician; however, at the last minute would not allow the procedure to be done. The patient also has worsening mental status as well. On her last admission, she did agree to a left below the knee amputation, which was performed on 11/22/2022. After an extended stay, she was eventually transferred to the [facility] and rehabilitation; however, after a few days due to severe noncompliance and behavioral issues, was sent back home. She presented with extreme lethargy, confusion, a failing posterior flap of a below-knee amputation as well as continued necrosis of the right toes and feet. She also appears to be extremely dehydrated and in renal failure. Again, the patient is noncompliant with all types of recommendations and states that she does not want any tests or evaluations done as well as no surgery. The patient states that she wants to return home on hospice care. PAST MEDICAL HISTORY: COPD, degenerative joint disease, peripheral vascular disease, neuropathy, diabetes, gastroesophageal reflux disease, hypertension. PAST SURGICAL HISTORY: Hysterectomy, right ankle surgery, tonsillectomy, laparoscopic cholecystectomy, left total knee arthroplasty, bilateral great toe transmetatarsal amputation, left lower extremity below the below-knee amputation on 11/22/2022. ALLERGIES: TETANUS VACCINE AND TOXOID, AMOXICILLIN, ASPIRIN, CLAVULANIC ACID and DIPHENHYDRAMINE, IODINE. MEDICATIONS: Amlodipine 5 mg daily, carbidopa/levodopa 25/100 mg b.i.d. p.r.n., losartan 25 mg daily, oxycodone p.r.n. SOCIAL HISTORY: Positive smoke 50 pack years, negative alcohol. FAMILY HISTORY: Noncontributory. REVIEW OF SYSTEMS: This is a well-nourished female who does answer some questions appropriately; however, a lot of times does seem confused and does not make much sense. She does not report any shortness of breath and difficulty in breathing. No chest pain, palpitations, diaphoresis. No nausea, vomiting, no known diarrhea or constipation. No known fevers or chills or any recent inadvertent weight loss. Her mental status appears to be declining with intermittent episodes of significant confusion and disorientation. All other review of systems negative. PHYSICAL EXAMINATION: VITAL SIGNS: Temperature 36.6, blood pressure 144/66, pulse 76, respirations 18, pulse ox 95% on room air. CHEST: Scattered wheezes and rhonchi bilaterally. HEART: Regular. No murmurs. EXTREMITIES: Redness and bulla along the posterior flap along the left below-knee amputation, dry gangrene of the right previous transmetatarsal amputation. HEENT: No scleral icterus. No cervical lymphadenopathy. ABDOMEN: Soft, nontender, nondistended. SKIN: Mottled dry. LABORATORY DATA: WBC 11.8, hemoglobin 9.8, hematocrit 30, platelets 505. BUN 38, creatinine 2.04. Urinalysis: 2+ leukocyte esterase, large amount of bacteria. Chest x-ray consistent with perihilar edema or pneumonitis. ASSESSMENT AND PLAN: A 72-year-old female with severe peripheral vascular disease, underlying osteomyelitis of the right foot, mild or evolving necrosis of the left posterior flap of the below-knee amputation. She also has likely pneumonitis, urinary tract infection, renal failure as well as dehydration. The patient is a severely noncompliant and does not want any further evaluations, tests or any surgery. She states that she wants to return home on hospice care and social media sr strategy manager has already been consulted. For now, we will proceed with IV hydration as well as IV antibiotics. Job ID: [id number] DocumentID: [id number] Dictated Date: 12/10/2022 01:06:09 Spot Remover Date: 12/10/2022 01:58:00 Dictated By: MD CLAUDIA FLORES
--- NOTE | 2022-12-10 06:43 | Progress Note - Hospitalist ---
Subjective HPI/CC On Admission Date Seen by Provider: Dec 10, 2022 Time Seen by Provider: 10:00 Subjective/Events-last exam Remains on comfort care Very pale Relative sitting outside of room and teold nurse he is "waiting for a miracle" No falls Focused Exam Lactate Level 12/08/22 22:55: Lactic Acid Level 1.84 Time of Focused Exam: 23:35 Objective Exam Vital Signs Vital Signs Date Time Temp Pulse Resp B/P (MAP) Pulse Ox O2 Delivery O2 Flow Rate FiO2 12/10/22 08:00 Room Air 12/09/22 15:40 36.5 73 20 147/66 (93) 96 12/09/22 11:07 0.00 0.00 Capillary Refill : Less Than 3 Seconds General Appearance: Chronically ill, Other (lethargic, pale, ashen) Results/Procedures Lab Patient resulted labs reviewed. Assessment/Plan Assessment and Plan Assess & Plan/Chief Complaint Assessment: Multi-system organ failure End of life Critical Care Critically Ill Patient VENUS BURNETT DO Dec 10, 2022 06:43
[2022-12-10] MEDS: LORazepam 1 MG TABLET SL PRN (11:31)
--- NOTE | 2022-12-11 06:59 | Progress Note - Hospitalist ---
Subjective HPI/CC On Admission Date Seen by Provider: Dec 11, 2022 Time Seen by Provider: 11:00 Subjective/Events-last exam Patient declining Dr. Sosa had discussed other options with patient and family in a long conversation but she has truly been a hospice candidate for the past 3 months and she has end-stage conditions that cannot be resolved and she herself wants to be kept comfortable. In my medical opinion she has less than 6 months to live meeting criteria for hospice. Focused Exam Lactate Level 12/08/22 22:55: Lactic Acid Level 1.84 Time of Focused Exam: 23:35 Objective Exam Vital Signs Vital Signs Date Time Temp Pulse Resp B/P (MAP) Pulse Ox O2 Delivery O2 Flow Rate FiO2 12/11/22 08:00 Room Air 12/09/22 15:40 36.5 73 20 147/66 (93) 96 12/09/22 11:07 0.00 0.00 Capillary Refill : Less Than 3 Seconds General Appearance: No Apparent Distress, WD/WN, Chronically ill, Other (delusional) Results/Procedures Lab Patient resulted labs reviewed. Assessment/Plan Assessment and Plan Assess & Plan/Chief Complaint Assessment: Multi-system organ failure End of life Critical Care Critically Ill Patient LEXVENUS TINSLEY Dec 11, 2022 06:58
[2022-12-11] MEDS: morphine INJ 4 MG/ML 1 ML (VIAL/SYRINGE) IV PRN ×2 (09:45→13:54)
[2022-12-12] MEDS ORDERED: TROUGH ORDER-PHARMACY XX NR
[2022-12-12] MEDS: morphine INJ 4 MG/ML 1 ML (VIAL/SYRINGE) IV PRN ×2 (07:56→11:17)
--- NOTE | 2022-12-12 09:14 | Progress Note - Hospitalist ---
Subjective HPI/CC On Admission Date Seen by Provider: Dec 12, 2022 Time Seen by Provider: 11:00 Subjective/Events-last exam Patient on comfort care protocol Sister at the bedside Awaiting placement Focused Exam Time of Focused Exam: 23:35 Objective Exam Vital Signs Vital Signs Date Time Temp Pulse Resp B/P (MAP) Pulse Ox O2 Delivery O2 Flow Rate FiO2 12/12/22 19:36 Room Air 12/09/22 15:40 36.5 73 20 147/66 (93) 96 12/09/22 11:07 0.00 0.00 Capillary Refill : Less Than 3 Seconds General Appearance: Chronically ill, Other (Lethargic and pale) Results/Procedures Lab Patient resulted labs reviewed. Assessment/Plan Assessment and Plan Assess & Plan/Chief Complaint Assessment: Multi-system organ failure End of life Critical Care Critically Ill Patient VENUS BURNETT DO Dec 12, 2022 09:14
[2022-12-12] MEDS: SCOPOLAMINE 1.5 MG (TRANSDERM-SCOP) PATCH TOP SCH (11:17)
[2022-12-13] MEDS: morphine INJ 4 MG/ML 1 ML (VIAL/SYRINGE) IV PRN ×3 (05:18→16:30)
[2022-12-13] MEDS: LORazepam 1 MG TABLET SL PRN (05:26)
--- NOTE | 2022-12-13 06:34 | Progress Note - Hospitalist ---
Subjective HPI/CC On Admission Date Seen by Provider: Dec 13, 2022 Time Seen by Provider: 09:00 Subjective/Events-last exam Comfort care continues Family member at the bedside Focused Exam Time of Focused Exam: 23:35 Objective Exam Vital Signs Vital Signs Date Time Temp Pulse Resp B/P (MAP) Pulse Ox O2 Delivery O2 Flow Rate FiO2 12/13/22 19:50 Room Air 12/13/22 06:52 99 0.00 12/09/22 15:40 36.5 73 20 147/66 (93) Capillary Refill : Less Than 3 Seconds General Appearance: No Apparent Distress, WD/WN Results/Procedures Lab Patient resulted labs reviewed. Assessment/Plan Assessment and Plan Assess & Plan/Chief Complaint Assessment: Multi-system organ failure End of life Critical Care Critically Ill Patient VENUS BURNETT DO Dec 13, 2022 06:34
[2022-12-14] MEDS: morphine INJ 4 MG/ML 1 ML (VIAL/SYRINGE) IV PRN ×4 (01:06→20:10)
--- NOTE | 2022-12-14 05:28 | Progress Note - Hospitalist ---
Subjective HPI/CC On Admission Date Seen by Provider: Dec 14, 2022 Time Seen by Provider: 12:00 Subjective/Events-last exam Comfort care continues Discharge home tomorrow Focused Exam Time of Focused Exam: 23:35 Objective Exam Vital Signs Vital Signs Date Time Temp Pulse Resp B/P (MAP) Pulse Ox O2 Delivery O2 Flow Rate FiO2 12/14/22 08:39 Room Air 12/13/22 06:52 99 0.00 12/09/22 15:40 36.5 73 20 147/66 (93) Capillary Refill : Less Than 3 Seconds General Appearance: No Apparent Distress, WD/WN, Chronically ill Results/Procedures Lab Patient resulted labs reviewed. Assessment/Plan Assessment and Plan Assess & Plan/Chief Complaint Assessment: Multi-system organ failure End of life Critical Care Critically Ill Patient VENUS BURNETT DO Dec 14, 2022 05:28
[2022-12-15] MEDS: morphine INJ 4 MG/ML 1 ML (VIAL/SYRINGE) IV PRN ×2 (04:22→15:45)
[2022-12-15] MEDS: SCOPOLAMINE 1.5 MG (TRANSDERM-SCOP) PATCH TOP SCH (11:38)
[2022-12-15] MEDS ORDERED: LORA2ORA PO (11:58)
[2022-12-15] MEDS ORDERED: MORP100S7 PO (11:58)
--- NOTE | 2022-12-15 11:58 | Discharge Summary ---
Discharge Summary Hospital Course Was the Problem List Reviewed?: Yes Problems/Dx: (1) Wound infection (2) Wound infection Status: Acute (3) Acute renal insufficiency Status: Acute (4) Dementia Status: Chronic (5) Gangrene of left foot Status: Acute (6) Non-compliance Status: Acute Hospital Course Date of Admission: Dec 09, 2022 at 01:02 Admission Diagnosis : Family Physician/Provider: [place] Date of Discharge: 12/15/22 Discharge Diagnosis: [ ] Hospital Course: Lengthy hospital course until her family's home was ready for placement of hospital bed for hospice. Patient was very end-stage and had been a hospice candidate for the past 3 months. She wished to remain comfortable and was not interested in any aggressive treatment so everything was arranged and she was discharged on hospice to home. Labs and Pending Lab Test: Microbiology 12/08/22 Urine Culture - Final, Complete Klebsiella pneumoniae Escherichia coli 12/08/22 Gram Stain - Final, Complete 12/08/22 Wound Culture - Final, Complete Proteus species Mixed Bacterial Luisa 12/08/22 Blood Culture - Final, Complete Staph, Coag Neg (HEAD OF HOUSEKEEPING) Home Meds Active Vashe Wound Therapy Solution (Sodium Chlor/Hypochlorous Acid) 0.033 % Irrig.soln 0 Ml IR DAILY per wound Calmoseptine Ointment (Menthol/Lanolin/Calamine/Znox) 0.44 %-20.6 % Oint 1 Each TP BID PRN Lotrimin AF (Miconazole Nitrate) 2 % Powder 0 Gm TOP BID twice daily Stool Softener-Laxative Tablet (Sennosides/Docusate Sodium) 8.6 Mg-50 Mg Tablet 1 Ea PO BID PRN Klor-Con M20 (Potassium Chloride) 20 Meq Tab.er.prt 20 Meq PO DAILY Carbidopa-Levodopa 25-100 Tab (Carbidopa/Levodopa) 25 Mg-100 Mg Tablet 1 Ea PO TIDWM HYDROcodone/APAP 7.5/325 TAB (Acetaminophen/Hydrocodone Bitart) 1 Ea Tablet 1 Ea PO Q6H PRN Losartan Potassium 50 Mg Tablet 50 Mg PO DAILY Diltiazem 24Hr ER (Diltiazem HCl) 240 Mg Cap.er.24h 240 Mg PO DAILY Amlodipine Besylate 10 Mg Tablet 10 Mg PO DAILY Eliquis (Apixaban) 5 Mg Tablet 5 Mg PO BID Clonazepam 0.5 Mg Tablet 0.25 Mg PO BID Tramadol HCl 50 Mg Tablet 50 Mg PO BID PRN Clopidogrel (Clopidogrel Bisulfate) 75 Mg Tablet 75 Mg PO DAILY Tylenol Extra Strength (Acetaminophen) 500 Mg Tablet 1,000 Mg PO Q8H PRN TAKES 2 (500MG) TABS Assessment/Pt Instructions Hospice Discharge Planning: <30 minutes discharge planning Discharge Instructions Discharge Diet: No Restrictions Discharge Physical Examination Vital Signs Vital Signs Date Time Temp Pulse Resp B/P (MAP) Pulse Ox O2 Delivery O2 Flow Rate FiO2 12/15/22 08:00 Room Air 12/13/22 06:52 99 0.00 12/09/22 15:40 36.5 73 20 147/66 (93) General Appearance: Chronically ill, Other (Pale and confused) Allergies: Coded Allergies: Tetanus Vaccines and Toxoid (Unverified Allergy, Severe, extreme redness in arms, 11/23/09) amoxicillin (Unverified Allergy, Unknown, 05/23/18) aspirin (Unverified Allergy, Unknown, 05/23/18) clavulanic acid (Unverified Allergy, Unknown, 05/23/18) diphenhydramine (Unverified Allergy, Unknown, 05/23/18) iodine (Verified Allergy, Unknown, 10/09/22) Uncoded Allergies: BEE STINGS (Allergy, Severe, closes throat, 11/23/09) CILANTRO (Allergy, Unknown, 10/09/22) TUMERIC (Allergy, Unknown, 10/09/22) Discharge Summary Date of Admission Dec 09, 2022 at 01:02 Date of Discharge Discharge Date: Dec 15, 2022 Admission Diagnosis Multisystem organ failure Sepsis UTI Gangrene of right foot GARCÍA Anemia Hematuria Plan: Comfort care Updated daughter Comfort Measures/ End of Life Care: Comfort Measures Discharge Diagnosis Assessment: Multi-system organ failure End of life VENUS BURNETT DO Dec 15, 2022 11:58
[2022-12-15] MEDS: LORazepam 1 MG TABLET SL PRN (15:44)
[2022-12-15 16:29] VITALS: BP 147/66
== END 2022-12-15 16:15 | disposition hospice, home (50) | DRG 564 ==
LOC: EDUNIT# 22:50 → ER 22:51 → 4TH 12-09 01:02
PROVIDERS: ADMIT Family Medicine; ATTEND Family Medicine
DX: T87.44 Infection of amputation stump, left lower extremity (principal); A41.9 Sepsis, unspecified organism; J18.9 Pneumonia, unspecified organism; N39.0 Urinary tract infection, site not specified; N17.9 Acute kidney failure, unspecified; N18.4 Chronic kidney disease, stage 4 (severe); E44.0 Moderate protein-calorie malnutrition; D62 Acute posthemorrhagic anemia; E11.52 Type 2 diabetes mellitus with diabetic peripheral angiopathy with gangrene; D64.9 Anemia, unspecified; R31.9 Hematuria, unspecified; Z66 Do not resuscitate; Z51.5 Encounter for palliative care; Z89.422 Acquired absence of other left toe(s); Z89.421 Acquired absence of other right toe(s); J44.9 Chronic obstructive pulmonary disease, unspecified; E78.00 Pure hypercholesterolemia, unspecified; G20 Parkinson's disease; F02.80 Dementia in other diseases classified elsewhere, unspecified severity, without behavioral disturbance, psychotic disturbance, mood disturbance, and anxiety; M19.90 Unspecified osteoarthritis, unspecified site; G89.29 Other chronic pain; M54.9 Dorsalgia, unspecified; F41.9 Anxiety disorder, unspecified; F32.A Depression, unspecified; I48.0 Paroxysmal atrial fibrillation; I95.9 Hypotension, unspecified; D63.8 Anemia in other chronic diseases classified elsewhere; F17.210 Nicotine dependence, cigarettes, uncomplicated; M81.0 Age-related osteoporosis without current pathological fracture; M79.7 Fibromyalgia; E66.9 Obesity, unspecified; E11.40 Type 2 diabetes mellitus with diabetic neuropathy, unspecified; Z96.652 Presence of left artificial knee joint; E86.0 Dehydration; E11.22 Type 2 diabetes mellitus with diabetic chronic kidney disease; I12.9 Hypertensive chronic kidney disease with stage 1 through stage 4 chronic kidney disease, or unspecified chronic kidney disease; Z68.33 Body mass index [BMI] 33.0-33.9, adult
CPT/HCPCS: 36415; 51702; 71045; 80053; 80306; 80320; 81000; 82947; 83605; 83735; 85025; 85610; 85730; 87040; 87070; 87077; 87088; 87186; 87205; 93005; 93041; 94760; 96361; 96365; 96367